=== PATIENT | female | born 1980 | race Caucasian/White ===

== ENCOUNTER 2018-06-03 16:39 | Emergency (ER) | payer OTHER ==
[2018-06-03 17:49] LABS: Absolute Lymphocytes (CBC) 1.9 K/uL (0.7-4.9); Absolute Monocytes 0.3 K/uL (0.1-1.3); Absolute Neutrophil 2.3 K/uL (1.8-8.0); Basophils % 0.4 % (0-1.3); Eosinophils % 1.5 % (0-4.4); MCH 31.5 pg (27.0-35.0); MCV 93.2 fL (80-100); MPV 9.1 fL (7.6-11.3); Monocytes % 6.8 % (3.3-12.3)
[2018-06-03] MEDS ORDERED: FENTANYL CITR 100 MCG/2 ML ONE (17:51)
[2018-06-03] MEDS ORDERED: NA CHLORIDE 0.9% 1,000 ML ONE (17:52)
[2018-06-03] MEDS ORDERED: ONDANSETRON 4 MG/2 ML VIAL ONE (17:52)
[2018-06-03 18:08] LABS: ALT/SGPT 21 U/L (12-78); AST/SGOT 12 U/L (15-37); Albumin 4.2 g/dL (3.4-5.0); Alkaline Phosphatase 48 U/L (45-117); BUN Blood Urea Nitrogen 10 mg/dL (7-18); Bicarbonate 27 mmol/L (21-32); Bilirubin Direct < 0.1 mg/dL (0-0.2); Bilirubin Total 0.4 mg/dL (0.2-1.0); Glucose Level 82 mg/dL (74-106); Lipase 156 U/L (73-393); Potassium 3.6 mmol/L (3.5-5.1); Protein, Total 7.3 g/dL (6.4-8.2); Sodium Level 143 mmol/L (136-145)
[2018-06-03 19:02] LABS: Urine Specific Gravity 1.015 (1.005-1.030)
--- NOTE | 2018-06-03 19:26 | RAD REPORT ---
EXAM DESCRIPTION: CT - Abdomen Pelvis W Contrast - 06/03/2018 7:13 pm CLINICAL HISTORY: Abdominal pain/left lower quadrant pain with nausea and vomiting. COMPARISON: 2013 TECHNIQUE: Computed axial tomography of the abdomen pelvis was obtained. 100 cc Isovue-300 was admin istered intravenously. Oral contrast was given All CT scans are performed using dose optimization technique as appropriate and may include automated exposure control or mA/KV adjustment according to patient size. FINDINGS: The liver, spleen, pancreas, adrenal and left kidney appear unremarkable. 1 millimeter non obstructing right renal calculus is seen There is no evidence of diverticulitis. A moderate amount of stool is present throughout the colon IMPRESSION: 1 millimeter nonobstructing right renal calculus Moderate amount of stool within the colon.
--- NOTE | 2018-06-03 19:38 | EDPHYS ---
Physician Documentation [facility] Name: Kavita Kwon Age: 38 yrs Sex: Female : 1980 Arrival Date: 06/03/2018 Time: 16:40 Bed 13 Private MD: Vladimir Mcconnell V ED Physician Alejandro Rm HPI: 06/03 17:09 This 38 yrs old Female presents to ER via Wheelchair with complaints of tremayne Abdominal Pain. 17:09 The patient presents with abdominal pain in the lower abdomen. Onset: The tremayne symptoms/episode began/occurred 2 day(s) ago. The patient presents with pelvic pain, that is located in/on the right lower quadrant and left lower quadrant. Onset: The symptoms/episode began/occurred 2 day(s) ago. Modifying factors: The symptoms are alleviated by remaining still, the symptoms are aggravated by movement, pressure, walking. Associated signs and symptoms: Pertinent positives: cramping. Severity of symptoms: At their worst the symptoms were mild, moderate, in the emergency department the symptoms are unchanged. 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 - Social history:: Smoking status: Patient uses tobacco products, smokes one-half pack cigarettes per day. - Ebola Screening: : No symptoms or risks identified at this time. - Family history:: not pertinent. ROS: 17:09 Constitutional: Negative for fever, chills, and weight loss, Eyes: Negative for injury, tremayne pain, redness, and discharge, ENT: Negative for injury, pain, and discharge, Neck: Negative for injury, pain, and swelling, Cardiovascular: Negative for chest pain, palpitations, and edema, Respiratory: Negative for shortness of breath, cough, wheezing, and pleuritic chest pain, Back: Negative for injury and pain, : Negative for injury, bleeding, discharge, and swelling, MS/Extremity: Negative for injury and deformity, Skin: Negative for injury, rash, and discoloration, Neuro: Negative for headache, weakness, numbness, tingling, and seizure, Psych: Negative for depression, anxiety, suicide ideation, homicidal ideation, and hallucinations, Allergy/Immunology: Negative for hives, rash, and allergies, Endocrine: Negative for neck swelling, polydipsia, polyuria, polyphagia, and marked weight changes, Hematologic/Lymphatic: Negative for swollen nodes, abnormal bleeding, and unusual bruising. 17:09 Abdomen/GI: Positive for abdominal pain, of the right lower quadrant and left lower quadrant. Exam: 17:09 Constitutional: This is a well developed, well nourished patient who is awake, alert, tremayne and in no acute distress. Head/Face: Normocephalic, atraumatic. Eyes: Pupils equal round and reactive to light, extra-ocular motions intact. Lids and lashes normal. Conjunctiva and sclera are non-icteric and not injected. Cornea within normal limits. Periorbital areas with no swelling, redness, or edema. ENT: Nares patent. No nasal discharge, no septal abnormalities noted. Tympanic membranes are normal and external auditory canals are clear. Oropharynx with no redness, swelling, or masses, exudates, or evidence of obstruction, uvula midline. Mucous membranes moist. Neck: Trachea midline, no thyromegaly or masses palpated, and no cervical lymphadenopathy. Supple, full range of motion without nuchal rigidity, or vertebral point tenderness. No Meningismus. Chest/axilla: Normal chest wall appearance and motion. Nontender with no deformity. No lesions are appreciated. Cardiovascular: Regular rate and rhythm with a normal S1 and S2. No gallops, murmurs, or rubs. Normal PMI, no JVD. No pulse deficits. Respiratory: Lungs have equal breath sounds bilaterally, clear to auscultation and percussion. No rales, rhonchi or wheezes noted. No increased work of breathing, no retractions or nasal flaring. Back: No spinal tenderness. No costovertebral tenderness. Full range of motion. Female : Normal external genitalia. Skin: Warm, dry with normal turgor. Normal color with no rashes, no lesions, and no evidence of cellulitis. MS/ Extremity: Pulses equal, no cyanosis. Neurovascular intact. Full, normal range of motion. Neuro: Awake and alert, GCS 15, oriented to person, place, time, and situation. Cranial nerves II-XII grossly intact. Motor strength 5/5 in all extremities. Sensory grossly intact. Cerebellar exam normal. Normal gait. Psych: Awake, alert, with orientation to person, place and time. Behavior, mood, and affect are within normal limits. 17:09 Abdomen/GI: Inspection: abdomen appears normal, Bowel sounds: normal, Palpation: mild abdominal tenderness, in the suprapubic area and left lower quadrant, moderate abdominal tenderness, Liver: no appreciated palpable abnormalities, Hernia: not appreciated. Vital Signs: 16:50 BP 98 / 71; Pulse 80; Resp 16 S; Temp 98.2(O); Pulse Ox 99% on R/A; Weight 54.43 kg aa5 (R); Height 5 ft. 5 in. (165.10 cm) (R); Pain 6/10; 18:55 BP 101 / 72; Pulse 78; Resp 16; Pulse Ox 99% on R/A; Pain 4/10; ls4 19:20 BP 105 / 77; Pulse 79; Resp 18 S; Temp 98.3(O); Pulse Ox 99% on R/A; cc3 20:00 BP 103 / 63; Pulse 77; Resp 18 S; Pulse Ox 98% on R/A; cc3 16:50 Body Mass Index 19.97 (54.43 kg, 165.10 cm) aa5 MDM: 16:54 Patient medically screened. [facility] 17:12 Data reviewed: vital signs, nurses notes, lab test result(s), radiologic studies, CT tremayne scan. 06/03 17:09 Order name: Basic Metabolic Panel; Complete Time: 18:11 [facility] 06/03 17:09 Order name: CBC with Diff; Complete Time: 18:11 [facility] 06/03 17:09 Order name: Creatinine for Radiology; Complete Time: 18:11 [facility] 06/03 17:09 Order name: Hepatic Function; Complete Time: 18:11 [facility] 06/03 17:09 Order name: Lipase; Complete Time: 18:11 [facility] 06/03 17:41 Order name: Urine Dipstick--Ancillary (enter results) 06/03 17:09 Order name: IV Saline Lock; Complete Time: 17:18 [facility] 06/03 17:09 Order name: Labs collected and sent; Complete Time: 17:18 [facility] 06/03 17:09 Order name: Urine Dipstick-Ancillary (obtain specimen); Complete Time: 17:55 [facility] 06/03 17:09 Order name: CT Abd/Pelvis - W/Contrast [facility] 06/03 18:39 Order name: Urine --Ancillary (enter results); Complete Time: 19:26 bd 06/03 17:09 Order name: Urine Test (obtain specimen); Complete Time: 18:48 [facility] 06/03 18:39 Order name: Urine Strainer; Complete Time: 18:48 bd Administered Medications: 17:51 Drug: Zofran 4 mg Route: IVP; Site: right antecubital; ls4 17:51 Follow up: Response: No adverse reaction ls4 17:53 Drug: fentaNYL (PF) 50 mcg Route: IVP; Site: right antecubital; ls4 18:30 Follow up: Response: No adverse reaction; Pain is decreased ls4 17:54 Drug: NS 0.9% 1000 ml Route: IV; Rate: 1 bolus; Site: right antecubital; ls4 19:05 Follow up: IV Status: Completed infusion; IV Intake: 1000ml ls4 Disposition: 06/03/18 19:37 Discharged to Home. Impression: Abdominal tenderness, Constipation. - Condition is Stable. - Discharge Instructions: Abdominal Pain, Adult, Abdominal Pain, Adult, [id number], Constipation, Pediatric, Ottg-[id number]. - Prescriptions for Bentyl 20 mg Oral Tablet - take 1 tablet by ORAL route every 6 hours As needed; 20 tablet. Zofran 4 mg Oral Tablet - take 1 tablet by ORAL route every 12 hours As needed; 20 tablet. Miralax 17 gram/dose Oral - take 1 packet by ORAL route once daily dilute powder in 8 ounces of water or juice; 14 packet. - Medication Reconciliation Form, Thank You Letter, Antibiotic Education, Prescription Opioid Use form. - Follow up: Vladimir Mcconnell; When: 2 - 3 days; Reason: Recheck today's complaints, Continuance of care, Re-evaluation by your physician. - Problem is new. - Symptoms have improved. Signatures: Dispatcher [employer] EDRaiza De Leon Corey, MD MD cha Calderon, Audri, RN RN aa5 Sal Darden RN RN jd3 Nava Tovar RN RN ls4 Corrections: (The following items were deleted from the chart) 19:47 19:37 06/03/2018 19:37 Discharged to Home. Impression: Abdominal tenderness. Condition tremayne is Stable. Discharge Instructions: Abdominal Pain, Adult, Abdominal Pain, Adult, Sdxp-wo-[id number], Constipation, Pediatric, Ihym-[id number]. Prescriptions for Bentyl 20 mg Oral Tablet - take 1 tablet by ORAL route every 6 hours As needed; 20 tablet, Tylenol-Codeine #3 300-30 mg Oral Tablet - take 2 tablets by ORAL route every 6 hours As needed; 20 tablet, Zofran 4 mg Oral Tablet - take 1 tablet by ORAL route every 12 hours As needed; 20 tablet. and Forms are Medication Reconciliation Form, Thank You Letter, Antibiotic Education, Prescription Opioid Use. Follow up: Vladimir Mcconnell; When: 2 - 3 days; Reason: Recheck today's complaints, Continuance of care, Re-evaluation by your physician. Problem is new. Symptoms have improved. [facility] 20:18 19:47 06/03/2018 19:37 Discharged to Home. Impression: Abdominal tenderness; jd3 Constipation. Condition is Stable. Discharge Instructions: Abdominal Pain, Adult, Abdominal Pain, Adult, Dhdn-ax-Ccul, Constipation, Pediatric, [id number]-mb-Mzwc. Prescriptions for Bentyl 20 mg Oral Tablet - take 1 tablet by ORAL route every 6 hours As needed; 20 tablet, Tylenol-Codeine #3 300-30 mg Oral Tablet - take 2 tablets by ORAL route every 6 hours As needed; 20 tablet, Zofran 4 mg Oral Tablet - take 1 tablet by ORAL route every 12 hours As needed; 20 tablet. and Forms are Medication Reconciliation Form, Thank You Letter, Antibiotic Education, Prescription Opioid Use. Follow up: Vladimir Mcconnell; When: 2 - 3 days; Reason: Recheck today's complaints, Continuance of care, Re-evaluation by your physician. Problem is new. Symptoms have improved. tremayne
--- NOTE | 2018-06-03 19:38 | ER ---
Nurse's Notes [facility] Name: Kavita Kwon Age: 38 yrs Sex: Female : 1980 Arrival Date: 06/03/2018 Time: 16:40 Bed 13 Private MD: Vladimir Mcconnell V Diagnosis: Abdominal tenderness;Constipation Presentation: 06/03 16:47 Presenting complaint: Patient states: LLQ pain that began today. Pt also reports nausea aa5 and vomiting. Transition of care: patient was not received from another setting of care. Onset of symptoms was May 2018. Risk Assessment: Do you want to hurt yourself or someone else? Patient reports no desire to harm self or others. Initial Sepsis Screen: Does the patient meet any 2 criteria? No. Patient's initial sepsis screen is negative. Does the patient have a suspected source of infection? No. Patient's initial sepsis screen is negative. Care prior to arrival: None. 16:47 Method Of Arrival: Wheelchair aa5 16:47 Acuity: SUZY 3 aa5 Triage Assessment: 17:03 General: Appears distressed, unkempt, Behavior is cooperative, restless. Pain: ls4 Complains of pain in suprapubic area, left lower quadrant and pelvis Pain currently is 9 out of 10 on a pain scale. Quality of pain is described as crampy, heavy. GI: No deficits noted. : Reports cramping. Musculoskeletal: No deficits noted. [employer]: 16:50 LMP N/A - Hysterectomy aa5 Historical: - Allergies: 16:49 lidocaine; aa5 16:49 Morphine (panic attack); aa5 - PMHx: 16:49 diverticulosis; Enrique's esophagus; aa5 16:50 Anxiety; Migraines; Heart Murmur; Irregular heart rate; aa5 16:50 Chronic Gastritis; aa5 - PSHx: 16:49 partial hysterectomy; Exploratory lap; Appendectomy; aa5 - Immunization history:: Adult Immunizations unknown. - Social history:: Smoking status: Patient uses tobacco products, smokes one-half pack cigarettes per day. - Ebola Screening: : No symptoms or risks identified at this time. - Family history:: not pertinent. Screenin:50 Abuse screen: Denies threats or abuse. Denies injuries from another. Nutritional ls4 screening: No deficits noted. Tuberculosis screening: No symptoms or risk factors identified. Fall Risk None identified. Assessment: 17:40 General: Appears distressed, uncomfortable. ls4 17:40 Pain: Complains of pain in right lower quadrant and pelvis and abdomen and left lower ls4 quadrant and suprapubic area Pain currently is 8 out of 10 on a pain scale. Pain began suddenly. Neuro: No deficits noted. Cardiovascular: No deficits noted. Respiratory: No deficits noted. GI: Bowel sounds present X 4 quads. Abd is soft and non tender. Musculoskeletal: No deficits noted. 19:20 Reassessment: Patient appears in no apparent distress at this time. Patient and/or cc3 family updated on plan of care and expected duration. Pain level reassessed. Patient is alert, oriented x 3, equal unlabored respirations, skin warm/dry/pink. Received patient from morning shift RN Nava as a case of abdominal pain. Patient just came back from CT scan department. 20:10 Reassessment: Patient appears in no apparent distress at this time. Patient and/or cc3 family updated on plan of care and expected duration. Pain level reassessed. Patient is alert, oriented x 3, equal unlabored respirations, skin warm/dry/pink. Dr. Rm discharged the patient home with prescription given. IV cannula removed and patient left ER vitally stable and ambulatory with her . Vital Signs: 16:50 BP 98 / 71; Pulse 80; Resp 16 S; Temp 98.2(O); Pulse Ox 99% on R/A; Weight 54.43 kg aa5 (R); Height 5 ft. 5 in. (165.10 cm) (R); Pain 6/10; 18:55 BP 101 / 72; Pulse 78; Resp 16; Pulse Ox 99% on R/A; Pain 4/10; ls4 19:20 BP 105 / 77; Pulse 79; Resp 18 S; Temp 98.3(O); Pulse Ox 99% on R/A; cc3 20:00 BP 103 / 63; Pulse 77; Resp 18 S; Pulse Ox 98% on R/A; cc3 16:50 Body Mass Index 19.97 (54.43 kg, 165.10 cm) aa5 ED Course: 16:40 Patient arrived in ED. rg4 16:40 Vladimir Mcconnell MD is Private Physician. rg4 16:48 Triage completed. aa5 16:48 Arm band placed on. aa5 16:53 Nava Tovar, RN is Primary Nurse. ls4 16:54 Alejandro Rm MD is Attending Physician. tremayne 17:30 No provider procedures requiring assistance completed. Inserted saline lock: 20 gauge ls4 in right antecubital area, using aseptic technique. 18:50 Placed in gown. Call light in reach. Side rails up X2. ls4 19:13 CT Abd/Pelvis - W/Contrast In Process Unspecified. EDMS 19:36 Vladimir Mcconnell MD is Referral Physician. tremayne 20:10 IV discontinued, intact, bleeding controlled, No redness/swelling at site. Pressure cc3 dressing applied. Administered Medications: 17:51 Drug: Zofran 4 mg Route: IVP; Site: right antecubital; ls4 17:51 Follow up: Response: No adverse reaction ls4 17:53 Drug: fentaNYL (PF) 50 mcg Route: IVP; Site: right antecubital; ls4 18:30 Follow up: Response: No adverse reaction; Pain is decreased ls4 17:54 Drug: NS 0.9% 1000 ml Route: IV; Rate: 1 bolus; Site: right antecubital; ls4 19:05 Follow up: IV Status: Completed infusion; IV Intake: 1000ml ls4 Intake: 19:05 IV: 1000ml; Total: 1000ml. ls4 Outcome: 18:51 Condition: stable ls4 19:37 Discharge ordered by . tremayne 20:10 Discharged to home ambulatory, with family. cc3 20:10 Condition: stable 20:10 Discharge instructions given to patient, family, Instructed on discharge instructions, follow up and referral plans. medication usage, Demonstrated understanding of instructions, follow-up care, medications, Prescriptions given X 3. 20:18 Patient left the ED. jd3 Signatures: Dispatcher [employer] EDSC Alejandro Rm MD MD cha Calderon, Audri RN RN aa5 [place] Sal Garg RN RN jd3 Danielle Eldridge cc3 Nava Tovar, PRATIBHA RN ls4
[2018-06-03 20:49] VITALS: TEMP 98.2; O2SAT 99
[2018-06-03 20:53] VITALS: BP 101/72
[2018-06-03 22:22] LABS: Urine Blood NEGATIVE (NEG); Urine Glucose NEGATIVE (NEG); Urine Protein NEGATIVE (NEG); Urine Specific Gravity 1.015 (1.005-1.030)
== END 2018-06-03 20:18 | disposition home or self-care (01) ==
LOC: ER 16:39
DX: K59.00 Constipation, unspecified (principal); F17.210 Nicotine dependence, cigarettes, uncomplicated; Z88.5 Allergy status to narcotic agent
CPT/HCPCS: 36415; 74177; 80048; 80076; 81003; 81025; 83690; 85025; 96361; 96374; 96375; 99284; J2405; J3010; J7030; Q9967

== ENCOUNTER 2019-05-31 17:05 | Emergency (ER) | payer OTHER ==
[2019-05-31] MEDS ORDERED: FENTANYL CITR 100 MCG/2 ML ONE ×2 (17:39→18:47)
[2019-05-31] MEDS ORDERED: ONDANSETRON 4 MG/2 ML VIAL ONE (17:39)
[2019-05-31 17:55] LABS: Absolute Lymphocytes (CBC) 1.9 K/uL (0.7-4.9); Basophils % 0.3 % (0-1.3); Hematocrit 41.7 % (36.0-45.0); Lymphocytes % 31.9 % (15.3-44.8); MPV 8.8 fL (7.6-11.3); RBC Red Blood Cell Count 4.47 M/uL (3.86-4.86)
[2019-05-31 18:06] LABS: Potassium 3.5 mmol/L (3.5-5.1)
--- NOTE | 2019-05-31 18:29 | RAD REPORT ---
EXAM DESCRIPTION: CT - Abdomen Pelvis W Contrast - 05/31/2019 6:18 pm CLINICAL HISTORY: ABD PAIN, history of Hicks's esophagus, diverticulosis and gastritis, prior hyst erectomy and appendectomy COMPARISON: CT study May 2018 TECHNIQUE: Biphasic, helical CT imaging of the abdomen and pelvis was performed following 100 ml non -ionic IV contrast. No oral contrast given. All CT scans are performed using dose optimization technique as appropriate and may include automated exposure control or mA/KV adjustment according to patient size. FINDINGS: No suspicious findings in the lung bases. No pericardial effusion. No gross abnormality of the distal thoracic esophagus at the GE junction. The liver, spleen, and pancreas show no suspicious findings. Gallbladder and biliary tree are also wi thout suspicious finding. Symmetric renal function is seen with no hydronephrosis or suspicious renal mass. Punctate 1 mm nonob structing calculus mid right kidney similar to comparison. No pyelonephritis or acute parenchymal pro cess. No bladder abnormalities. No adrenal abnormalities. Uterus is absent. Ovaries are absent, atrophic or obscured by isodense, on opacified bowel. No suspic ious ovarian or adnexal process. No dilated bowel loops or bowel wall thickening. No free air, free fluid or inflammatory stranding. No hernia, mass or bulky lymphadenopathy. No suspicious bony findings. IMPRESSION: Contrast enhanced CT abdomen and pelvis showing no acute finding. Nonacute findings detailed in the body of the report. No significant change from comparison.
--- NOTE | 2019-05-31 18:43 | ER ---
Nurse's Notes [facility] Name: Kavita Kwon Age: 39 yrs Sex: Female : 1980 Arrival Date: 05/31/2019 Time: 17:07 Bed 6 Private MD: Vladimir Mcconnell V Diagnosis: Low back pain Presentation: 05/31 17:20 Presenting complaint: Patient states: lower back pain radiating to lower abdomen that aa5 began 2 weeks ago. Pt states "It's just getting harder to walk because it hurts". Pt denies known injury. Pt reports nausea, reports intermittent vomiting over the last week, denies diarrhea. 17:20 Transition of care: patient was not received from another setting of care. Onset of aa5 symptoms was May 2019. Risk Assessment: Do you want to hurt yourself or someone else? Patient reports no desire to harm self or others. Initial Sepsis Screen: Does the patient meet any 2 criteria? No. Patient's initial sepsis screen is negative. Does the patient have a suspected source of infection? No. Patient's initial sepsis screen is negative. Care prior to arrival: None. 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 - Social history:: Smoking status: Patient uses tobacco products, smokes one pack cigarettes per day. - Ebola Screening: : No symptoms or risks identified at this time. Screenin:34 Abuse screen: Denies threats or abuse. Nutritional screening: No deficits noted. aa5 Tuberculosis screening: No symptoms or risk factors identified. Fall Risk None identified. Assessment: 17:20 General: Appears uncomfortable, Behavior is calm, cooperative. Pain: Complains of pain aa5 in lumbar area, left low back and right low back Pain radiates to suprapubic area Pain currently is 8 out of 10 on a pain scale. Quality of pain is described as sharp, shooting, Pain began 2 weeks ago Is continuous. Neuro: Level of Consciousness is awake, alert, obeys commands, Oriented to person, place, time, situation. Cardiovascular: Heart tones S1 S2 present Rhythm is regular. Respiratory: Airway is patent Respiratory effort is even, unlabored, Respiratory pattern is regular, symmetrical. GI: Abdomen is round non-distended, Bowel sounds present X 4 quads. Abd is soft and non tender X 4 quads. Reports nausea, Patient currently denies diarrhea. : Denies burning with urination, inability to void, urinary frequency, urgency. EENT: No signs and/or symptoms were reported regarding the EENT system. Derm: Skin is pink, warm \\T\\ dry. Musculoskeletal: Range of motion: intact in all extremities. 17:54 Reassessment: Pt to CT . aa5 18:25 Reassessment: Patient is alert, oriented x 3, equal unlabored respirations, skin aa5 warm/dry/pink. Patient states feeling better. Pain: Pain currently is 4 out of 10 on a pain scale. 18:55 Reassessment: Patient is alert, oriented x 3, equal unlabored respirations, skin aa5 warm/dry/pink. Vital Signs: 17:25 BP 118 / 89; Pulse 97; Resp 16 S; Temp 97.8(O); Pulse Ox 100% on R/A; Weight 54.43 kg aa5 (R); Height 5 ft. 5 in. (165.10 cm) (R); 18:55 BP 112 / 79; Pulse 88; Resp 14 S; Pulse Ox 100% on R/A; Pain 4/10; aa5 17:25 Body Mass Index 19.97 (54.43 kg, 165.10 cm) aa5 ED Course: 17:07 Patient arrived in ED. ag5 17:08 Vladimir Mcconnell MD is Private Physician. ag5 17:13 Jose E Khan PA is PHCP. jr8 17:13 Jefe Pierce MD is Attending Physician. jr8 17:14 Sarai Hong, PRATIBHA is Primary Nurse. aa5 17:20 Arm band placed on Patient placed in an exam room, on a stretcher. aa5 17:20 Patient has correct armband on for positive identification. Bed in low position. Call aa5 light in reach. Side rails up X 1. 17:32 Triage completed. aa5 17:45 Initial lab(s) drawn, by me, sent to lab. Inserted saline lock: 20 gauge in right aa5 antecubital area, using aseptic technique. Blood collected. 17:45 No provider procedures requiring assistance completed. aa5 18:01 CT completed. Patient tolerated procedure well. Patient moved back from CT. mw3 18:03 CT Abd/Pelvis - IV Contrast Only In Process Unspecified. EDMS 18:55 IV discontinued, intact, bleeding controlled, No redness/swelling at site. Pressure aa5 dressing applied. Administered Medications: 17:45 Drug: Zofran 4 mg Route: IVP; Site: right antecubital; aa5 17:54 Follow up: Response: No adverse reaction aa5 17:47 Drug: fentaNYL (PF) 50 mcg Route: IVP; Site: right antecubital; aa5 17:54 Follow up: Response: No adverse reaction aa5 18:44 Drug: fentaNYL (PF) 50 mcg Route: IVP; Site: right antecubital; aa5 18:50 Follow up: Response: No adverse reaction aa5 Outcome: 18:43 Discharge ordered by . morgan 18:55 Discharged to home via wheelchair. aa5 18:55 Condition: improved 18:55 Discharge instructions given to patient, Instructed on discharge instructions, follow up and referral plans. medication usage, Demonstrated understanding of instructions, follow-up care, medications, Prescriptions given X 1. 19:02 Patient left the ED. aa5 Signatures: Dispatcher [employer] EDSarai Rajan RN RN aa5 Jose E Khan PA PA jr8 Paty Alan mw3 Nazario Negrete 5
--- NOTE | 2019-05-31 18:44 | EDPHYS ---
Physician Documentation [facility] Name: Kavita Kwon Age: 39 yrs Sex: Female : 1980 Arrival Date: 05/31/2019 Time: 17:07 Bed 6 Private MD: Vladimir Mcconnell V ED Physician Jefe Pierce HPI: 05/31 18:44 This 39 yrs old Female presents to ER via Wheelchair with complaints of Low jr8 Back Pain, Abdominal Pain. 18:44 The patient presents with pain that is acute, with no known mechanism of injury. The jr8 symptoms are located in the low back. The pain radiates to the abdomen. Onset: The symptoms/episode began/occurred last week. Modifying factors: the patient symptoms are aggravated by leg raise. Associated signs and symptoms: Pertinent negatives: numbness, tingling, urinary retention, weakness. Severity of symptoms: At their worst the symptoms were mild, in the emergency department the symptoms have improved. 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 - Social history:: Smoking status: Patient uses tobacco products, smokes one pack cigarettes per day. - Ebola Screening: : No symptoms or risks identified at this time. ROS: 18:44 Constitutional: Negative for fever, chills, and weight loss, Eyes: Negative for injury, jr8 pain, redness, and discharge, ENT: Negative for injury, pain, and discharge, Neck: Negative for injury, pain, and swelling, Cardiovascular: Negative for chest pain, palpitations, and edema, Respiratory: Negative for shortness of breath, cough, wheezing, and pleuritic chest pain, Abdomen/GI: Negative for abdominal pain, nausea, vomiting, diarrhea, and constipation, MS/Extremity: Negative for injury and deformity, Skin: Negative for injury, rash, and discoloration. 18:44 Back: Positive for pain with movement, of the left low back and right low back. Exam: 18:48 Constitutional: This is a well developed, well nourished patient who is awake, alert, jr8 and in no acute distress. Head/Face: Normocephalic, atraumatic. Eyes: Pupils equal round and reactive to light, extra-ocular motions intact. Lids and lashes normal. Conjunctiva and sclera are non-icteric and not injected. Cornea within normal limits. Periorbital areas with no swelling, redness, or edema. ENT: Nares patent. No nasal discharge, no septal abnormalities noted. Tympanic membranes are normal and external auditory canals are clear. Oropharynx with no redness, swelling, or masses, exudates, or evidence of obstruction, uvula midline. Mucous membranes moist. Neck: Trachea midline, no thyromegaly or masses palpated, and no cervical lymphadenopathy. Supple, full range of motion without nuchal rigidity, or vertebral point tenderness. No Meningismus. Chest/axilla: Normal chest wall appearance and motion. Nontender with no deformity. No lesions are appreciated. Cardiovascular: Regular rate and rhythm with a normal S1 and S2. No gallops, murmurs, or rubs. Normal PMI, no JVD. No pulse deficits. Respiratory: Lungs have equal breath sounds bilaterally, clear to auscultation and percussion. No rales, rhonchi or wheezes noted. No increased work of breathing, no retractions or nasal flaring. Abdomen/GI: Soft, non-tender, with normal bowel sounds. No distension or tympany. No guarding or rebound. No evidence of tenderness throughout. 18:48 Back: pain, that is moderate, CVA tenderness, is absent, vertebral tenderness, is not appreciated, Straight leg raises: pain bilaterally. Vital Signs: 17:25 BP 118 / 89; Pulse 97; Resp 16 S; Temp 97.8(O); Pulse Ox 100% on R/A; Weight 54.43 kg aa5 (R); Height 5 ft. 5 in. (165.10 cm) (R); 18:55 BP 112 / 79; Pulse 88; Resp 14 S; Pulse Ox 100% on R/A; Pain 4/10; aa5 17:25 Body Mass Index 19.97 (54.43 kg, 165.10 cm) aa5 MDM: 17:13 Patient medically screened. 8 18:48 Data reviewed: vital signs, nurses notes, lab test result(s), radiologic studies, and jr8 as a result, I will discharge patient. Data interpreted: Pulse oximetry: on is 100 %. Interpretation: normal. ED course: Pt pain is tolerable, tolerating PO, states she will FU with neurology and for possible MRI. 05/31 17:36 Order name: CBC with Diff; Complete Time: 18:35 jr8 05/31 17:36 Order name: BMP; Complete Time: 18:35 jr8 05/31 17:36 Order name: CT Abd/Pelvis - IV Contrast Only; Complete Time: 18:35 jr8 05/31 17:36 Order name: Lipase; Complete Time: 18:35 jr8 05/31 18:00 Order name: Urine Dipstick--Ancillary (enter results) ms 05/31 18:00 Order name: Urine --Ancillary (enter results) ms 05/31 17:36 Order name: Urine Dipstick-Ancillary (obtain specimen); Complete Time: 17:38 jr8 Administered Medications: 17:45 Drug: Zofran 4 mg Route: IVP; Site: right antecubital; aa5 17:54 Follow up: Response: No adverse reaction aa5 17:47 Drug: fentaNYL (PF) 50 mcg Route: IVP; Site: right antecubital; aa5 17:54 Follow up: Response: No adverse reaction aa5 18:44 Drug: fentaNYL (PF) 50 mcg Route: IVP; Site: right antecubital; aa5 18:50 Follow up: Response: No adverse reaction aa5 Disposition: 05/31/19 18:43 Discharged to Home. Impression: Low back pain. - Condition is Stable. - Discharge Instructions: Back Pain, Adult, Musculoskeletal Pain, Back Exercises, [id number], Heat Therapy. - Prescriptions for Zanaflex 4 mg Oral Tablet - take 1 tablet by ORAL route every 8 hours As needed; 20 tablet. - Medication Reconciliation Form, Thank You Letter form. - Follow up: Private Physician; When: 2 - 3 days; Reason: Recheck today's complaints, Re-evaluation by your physician. - Problem is new. - Symptoms have improved. Signatures: Dispatcher [employer] EDMS Sarai Hong RN RN aa5 Jose E Khan PA PA jr8 Corrections: (The following items were deleted from the chart) 19:02 18:43 05/31/2019 18:43 Discharged to Home. Impression: Low back pain. Condition is aa5 Stable. Forms are Medication Reconciliation Form, Thank You Letter, Antibiotic Education, Prescription Opioid Use. Follow up: Private Physician; When: 2 - 3 days; Reason: Recheck today's complaints, Re-evaluation by your physician. Problem is new. Symptoms have improved. jr8
[2019-05-31 19:22] LABS: Urine Blood NEGATIVE (NEG); Urine Glucose NEGATIVE (NEG); Urine Protein NEGATIVE (NEG); Urine Specific Gravity 1.015 (1.005-1.030)
[2019-05-31 19:52] VITALS: TEMP 97.8; O2SAT 100
[2019-05-31 19:53] VITALS: BP 112/79
== END 2019-05-31 19:02 | disposition home or self-care (01) ==
LOC: ER 17:05
DX: M54.5 Low back pain (principal); F17.210 Nicotine dependence, cigarettes, uncomplicated; Z88.5 Allergy status to narcotic agent
CPT/HCPCS: 85025; 80048; 36415; 81025; 81003; 83690; 74177; 96375; 96374; 99284; Q9967; J3010 ×2; J2405

== ENCOUNTER 2020-02-10 12:30 | Inpatient (IN) | payer OTHER ==
[2020-02-10 13:41] VITALS: BMI 19.1
[2020-02-10 14:43] LABS: Absolute Lymphocytes (CBC) 0.9 K/uL (0.7-4.9); Basophils % 0.2 % (0-1.3); Hematocrit 38.5 % (36.0-45.0); Lymphocytes % 7.3 % (15.3-44.8); MPV 9.1 fL (7.6-11.3); RBC Red Blood Cell Count 4.22 M/uL (3.86-4.86)
[2020-02-10 14:51] LABS: BUN Blood Urea Nitrogen 9 mg/dL (7-18); Bicarbonate 26 mmol/L (21-32); Glucose Level 71 mg/dL (74-106); Potassium 3.1 mmol/L (3.5-5.1); Sodium Level 140 mmol/L (136-145)
[2020-02-10 14:54] LABS: Protime INR 1.05
--- NOTE | 2020-02-10 15:01 | RAD REPORT ---
EXAM DESCRIPTION: RAD - Chest Pa And Lat (2 Views) - 02/10/2020 2:44 pm CLINICAL HISTORY: acute parotitis Chest pain. COMPARISON: ABDOMEN 1 VIEW KUB dated 09/13/2015; CHEST SINGLE VIEW dated 05/27/2015; CHEST SINGLE VIEW dated 05/10/2015; CHEST SINGLE VIEW dated 12/20/2014 FINDINGS: The lungs are clear. The heart is normal in size. No displaced fractures. IMPRESSION: No acute or concerning finding suspected.
--- NOTE | 2020-02-10 15:02 | RAD REPORT ---
EXAM DESCRIPTION: RAD - Neck Soft Tissue - 02/10/2020 2:42 pm CLINICAL HISTORY: acute parotitis Neck pain COMPARISON: No comparisons FINDINGS: Prevertebral soft tissues are normal. Epiglottis and aryepiglottic folds are normal. Air c olumn is patent. No foreign body is seen.Prominent spondylosis is noted at C5-6 with posterior osteop hyte. IMPRESSION: Prominent spondylosis C5-6.
[2020-02-10 15:19] LABS: Bilirubin Direct 0.2 mg/dL (0-0.2); Bilirubin Total 0.6 mg/dL (0.2-1.0); Phosphorus 2.7 mg/dL (2.5-4.9); Protein, Total 7.8 g/dL (6.4-8.2); Thyroid Stimulating Hormone 0.705 uIU/mL (0.360-3.740)
[2020-02-10 15:33] LABS: Blood Morphology Comment NOT SEEN (NOT SEEN); Platelet Estimate ADEQ; Urine White Blood Cell Casts OK
[2020-02-10] MEDS: KCL 20 MEQ/100 mL IVPB 20 MEQ/100 ML BAG IV SCH ×2 (15:36→18:43)
[2020-02-10] MEDS ORDERED: NA CHLORIDE 0.9% 500 ML ONE (15:42)
[2020-02-10 16:09] LABS: Urine Appearance CLEAR; Urine Bilirubin NEGATIVE (NEG); Urine Blood NEGATIVE (NEG); Urine Color YELLOW; Urine Glucose NEGATIVE (NEG); Urine Protein NEGATIVE (NEG); Urine Urobilinogen 0.2 mg/dL (0.2-1.0); Urine pH 5.5 (5.0-7.0)
--- OUTSIDE RECORDS SUMMARY | 2020-02-10 16:24 | XMS REPORT | Continuity of Care Document ---
:1980 Author Organization [facility] t Address [address] [place] [address] Dr. Lee [address] [place] [id number] Care Team Providers Name Role Phone Unavailable Unavailable Unavailable Problems This patient has no known problems. Allergies, Adverse Reactions, Alerts This patient has no known allergies or adverse reactions. Medications This patient has no known medications. Procedures This patient has no known procedures. Results This patient has no known results.
[2020-02-10 16:41] LABS: Urine Microscopic Reflex NO UMIC
[2020-02-10] MEDS ORDERED: dexAMETHasone 10 MG/ML VIAL IV ONE (17:00)
[2020-02-10] MEDS ORDERED: CLINDAMYCIN INJ 900 MG in NA CHLORIDE 0.9% 50 ML IV ONE (17:00)
[2020-02-10] MEDS ORDERED: propofoL 200 MG/20 ML VIAL IV ONE (20:06)
[2020-02-10] MEDS ORDERED: MIDAZOLAM HCL 2 MG/2 ML INJ ONE (20:06)
[2020-02-10] MEDS ORDERED: GLYCOPYRROLATE 0.2 MG/ML SYR ONE (20:06)
[2020-02-10] MEDS ORDERED: FENTANYL CITR 100 MCG/2 ML ONE (20:06)
[2020-02-10] MEDS ORDERED: LIDOCAINE 1% MPF 5 ML VIAL ONE (20:07)
[2020-02-10] MEDS ORDERED: ONDANSETRON 4 MG/2 ML VIAL ONE (20:07)
[2020-02-10] MEDS ORDERED: ROCURONIUM 50 MG/5 ML VIAL IV ONE (20:07)
[2020-02-10] MEDS ORDERED: dexAMETHasone 4 MG/ML VIAL ONE (20:07)
[2020-02-10] MEDS ORDERED: NEOSTIGMINE 1 MG/ML -5 ML ONE (20:08)
[2020-02-10] MEDS ORDERED: EPINEPHRINE 1 MG/ML VIAL ONE (21:00)
[2020-02-10] MEDS: HYDROMORPHONE HCL 1 MG/ML INJ ONE ×4 (21:18→21:38)
--- NOTE | 2020-02-10 21:35 | CON ---
Date of Consultation: 02/10/2020 Requesting Physician: Vladimir Mcconnell M.D. Reason For Consultation: Odynophagia. History Of Present Illness: Ms. Kwon is a 39-year-old female who developed sore throat approximately 4-5 days ago. She was seen 2 days ago at [facility] and underwent a contrasted CT scan of the neck, which she was told was normal and a strep test which was negative. She was discharged without any antibiotics. Her right throat worsened in regard to pain and developed sense of swelling. Over the last 48 hours, she has developed right ear pain and inability to swallow fluids. During the day today, she was able to only take a few sips of water after taking some chicken broth for dinner last night. She presented to her primary care physician's office today and due to her acutely ill appearance, she was admitted to the hospital for hydration and further evaluation. The patient denies any prior significant tonsillitis as an adult. She has not had any previous peritonsillar abscess. She does recall having frequent strep throat in childhood, but no recent issues. Past Medical History: Hicks's esophagus, anxiety, cervical spondylosis. Past Surgical History: Multiple abdominal surgeries including a laparotomy. Detailed or indication for surgery are not very clear to me at this time. Allergies: NONE KNOWN. Home Medications: Clonazepam 0.5 mg twice daily. Amitripylene. Social History: The patient quit tobacco smoking approximately 6-9 months ago. She denies alcohol use. She admits to marijuana use 2-3 times a week. Family History: Noncontributory. Review of Systems: General: The patient denies fever, chest pain, shortness of breath, current abdominal pain, current nasal obstruction or recent loss of sense of smell. ENT: Include right ear, right throat pain, difficulty swallowing, pain with swallowing, and a change in her voice including a muffled voice. Physical Examination: General: The patient appeared acutely ill, her face is symmetric and atraumatic. There is no sign of swelling of the salivary gland. HEENT: Her facial strength is symmetric. External ears and nose are unremarkable. Her pupils are equal and reactive. Her extraocular movements are intact. Her sclerae are clear. Nares are patent. The patient has moderate trismus. Her dentition is [id number]. She has mild xerostomia, which may be related to hydration and decreased p.o. intake, but may be exacerbated by medication. Her right soft palate and lateral pharyngeal wall are significantly edematous and bulging with concern for peritonsillar versus parapharyngeal abscess consistent with her history. Neck: Her neck is soft. Review Of Clinical Data: Plain film of the neck is unremarkable. There is no significant swelling of the epiglottis and the vallecula appear clear. Laboratory Studies: Indicate an elevated white blood cell count with a left shift. Assessment: Right acute peritonsillar abscess. Plan: I counseled the patient regarding the development of these infections. It is likely that she had some tonsillitis when she was in the emergency room previously, which has now progressed to a izabela-tonsillitis versus abscess. We discussed the role for imaging, but based on her history and clinical exam, I do not think this is likely to alter my recommendations for medical and surgical treatment. We discussed medical options with treatment using IV antibiotics and IV steroids with reassessment in the morning for clinical improvement. We discussed surgical options including needle aspiration, incision and drainage at the bedside, and incision and drainage in the OR under general anesthetic. The patient is in significant discomfort with prior medical therapy. Based on the degree of swelling, I recommend surgical therapy. The patient feels unable to tolerate a bedside procedure and would like to undergo the incision and drainage under a general anesthetic. We will keep her n.p.o. and plan for surgery this evening. I discussed the risks, benefits, and alternatives to the procedure with the patient who agreed to proceed. Written consent can be obtained by the nursing staff. I will plan to discuss with the anesthesia staff regarding the patient's trismus in case advanced airway intervention is required. KYLE/FREDERICK Voice ID: [id number] Report ID: [id number] VICKY
[2020-02-11] MEDS: IBUPROFEN 100 MG/5 ML UCUP PO PRN ×3 (01:01→20:48)
[2020-02-11] MEDS: dexAMETHasone 10 MG/ML VIAL IV SCH ×3 (01:02→17:03)
[2020-02-11] MEDS: D5.45NS W/KCL 20MEQ 20 MEQ/1,000 ML BAG IV SCH ×4 (01:03→18:00)
[2020-02-11] MEDS ORDERED: CLINDAMYCIN 900MG/D5W 900 MG/50 ML IVPB IV ONE (01:23)
[2020-02-11] MEDS: CLINDAMYCIN INJ 900 MG in NA CHLORIDE 0.9% 50 ML IV SCH ×3 (01:32→17:06)
--- NOTE | 2020-02-11 02:22 | OP ---
Surgeon: Sabrina Perkins MD Postoperative Diagnosis: Right peritonsillar abscess. Postoperative Diagnosis: Right peritonsillar phlegmon with possible spontaneous drainage. Indication For Procedure: The patient presented with several days of right throat pain, pain with sw allowing, difficulty swallowing and right ear pain. Her clinical exam was consistent with right izabela tonsillar abscess with bulging of the soft palate. The plan was made for incision and drainage in e operating room. In preparation for surgery she was treated with 900 mg IV of clindamycin and 10 mg of Decadron. Immediately prior to surgery, the patient reported that she had extravasation of a fou l tasting material into the mouth, which was suggestive of peritonsillar abscess with spontaneous katherin inage. Due to the plan for surgery, the decision was made to proceed for an exam under anesthesia wi possible incision and drainage. Procedure In Detail: The patient was brought to the operating room. She was placed in supine positi on under general anesthesia via oral endotracheal tube. The head of bed was turned 90 degrees. Due to patient's history of spinal spondylosis, no shoulder roll was placed and the neck was left in a ne utral position. A head drape was applied. The McIvor mouth gag was placed within the mouth, then us ed to expose the oropharynx by suspension from the Berger stand. The uvula was moderately edematous. The right tonsil had some tonsilliths and debris, which was suctioned. The peritonsillar tissues inc luding the lateral pharyngeal wall and right posterior pharyngeal wall were edematous. The palate, w hich had previously been bulging was relatively flat. The Bovie was used to make a mucosal incision in the anterior pillar and the muscular layers were bluntly dissected using a tonsil clamp. No discr ete pocket of fluid was noted. The mucosal incision was treated with direct pressure to control blee ding. The posterior wall, lateral wall, and peritonsillar area were carefully palpated. The area wa s felt to be edematous without a discrete fluid collection and no additional incision was made. An e pinephrine-soaked pledget was applied to the incision to help control mucosal oozing and a small amou nt of cautery was applied to obtain hemostasis. The oropharynx was suctioned and the procedure was c oncluded. The McIvor was removed and the patient was returned to care of anesthesia for awakening ex tubation in the operating room. Throughout the procedure, careful attention was paid to the patient' s neck to maintain in-line stabilization without extensive extension or flexion. Disposition: The patient will be returned to the floor to continue IV clindamycin and Decadron. I r ecommend a total of at least 24 hours of medication. If the patient is clinically improving and tole rating oral fluids, she can be discharged on oral clindamycin and follow up with Dr. Perkins on an as -needed basis. KYLE/FREDERICK Voice ID: [id number] Report ID: [id number]
[2020-02-11 04:22] LABS: BUN Blood Urea Nitrogen 13 mg/dL (7-18); Bicarbonate 21 mmol/L (21-32); Glucose Level 195 mg/dL (74-106); Potassium 4.3 mmol/L (3.5-5.1); Sodium Level 137 mmol/L (136-145)
--- NOTE | 2020-02-11 07:18 | EKG ---
Test Date: 2020-02-10 Test Time: 13:37:52 Show Design Supervisor: LISA MEASUREMENT RESULTS: Intervals: Rate: 95 AL: 144 QRSD: 94 QT: 362 QTc: 454 [place]: P: 73 AL: 144 QRS: 90 T: 69 INTERPRETIVE STATEMENTS: Normal sinus rhythm Rightward axis Borderline ECG Compared to ECG 05/27/2015 14:26:47 Right-axis deviation now present Electronically Signed On 02-11-20 07:15:47 CDT by Naresh Whelan
[2020-02-11] MEDS ORDERED: clonazePAM 0.5 MG TAB PO SCH (10:00)
--- NOTE | 2020-02-11 11:13 | PN ---
History: She is postop day 1, status post surgical incision and drainage of right peritonsillar abscess. The patient reports that she feels significantly improved compared to last night. Her throat pain is better. Her ability to tolerate oral fluids is significantly improved and her ear pain is resolving. Physical Examination: Patient is afebrile. Vital signs are stable. Overall, her general appearance has significantly improved. She appears to have improvement in her trismus with only mild residual symptom. The uvula is less edematous. The incision of the right anterior tonsillar pillar is hemostatic with evidence of cautery and mild surrounding eschar. The soft palate is now flat with no bulging. The posterior pharyngeal wall was difficult to visualize due to mild residual trismus. There is no evidence of active purulence draining at this time. There is no palpable cervical lymphadenopathy. The patient's voice is improved with a significant decrease in the muffled, hot-potato quality. Laboratory Evaluation: The patient's chemistry demonstrated hyperglycemia, which is likely secondary to the steroid administration. Her hemoglobin A1c was normal suggesting a low likelihood of true metabolic or diabetes-related issues. Assessment: Right peritonsillar abscess status post drainage, improving. Plan: Advance diet as tolerated. From an ENT standpoint, her clinical improvement may warrant discharge, but given the severity of her initial presentation and limited access to outpatient followup due to COVID health crisis and telemedicine restrictions, continuing for a full 24-36 hours of IV antibiotics is reasonable. The patient can follow up with me on an as-needed basis for this tonsil issue. She would like to schedule an elective outpatient follow up with me regarding some ear concerns. If symptoms recur or a second peritonsillar abscess develops, tonsillectomy would be recommended. KISHOR Voice ID: [id number] Report ID: [id number] VICKY
[2020-02-11] MEDS: ACETAMINOPHEN 500 MG TAB PO PRN (12:50)
[2020-02-11] MEDS ORDERED: AMITRIPTYLINE 50 MG TAB PO SCH (21:00)
[2020-02-11] MEDS ORDERED: ESTRADIOL TOP SCH (21:15)
[2020-02-12] MEDS: CLINDAMYCIN INJ 900 MG in NA CHLORIDE 0.9% 50 ML IV SCH ×2 (00:28→07:32)
[2020-02-12] MEDS: D5.45NS W/KCL 20MEQ 20 MEQ/1,000 ML BAG IV SCH ×2 (00:28→03:04)
[2020-02-12] MEDS: dexAMETHasone 10 MG/ML VIAL IV SCH ×2 (00:29→07:34)
--- NOTE | 2020-02-12 01:17 | PN ---
Subjective: Ms. Kwon is doing lot better. Her right side neck is improving. Yesterday, she was not able to open the jaw, now today she is able to open jaw about 3 cm or so after the drainage of p eritonsillar abscess by Dr. Perkins. Antibiotic choice with Dr. Perkins. Continue pain management. Possible discharge tomorrow. CUONG/FREDERICK Voice ID: [id number] Report ID: [id number]
[2020-02-12 07:41] VITALS: O2SAT 99
[2020-02-12] MEDS: IBUPROFEN 100 MG/5 ML UCUP PO PRN (07:45)
[2020-02-12] MEDS ORDERED: clonazePAM 0.5 MG TAB PO SCH ×2 (09:00)
--- NOTE | 2020-02-12 12:43 | P.DS ---
Admission Date: 02/11/20 Discharge Date: 02/12/20 Disposition: ROUTINE DISCHARGE Discharge Condition: [facility] Hospital Course: MS. HIDALGO HAD R PERITONSILLAR ABSCESS. SHE HAS DONE WELL WITH I AND D BY DR. PERKINS SHE IS NOW ABLE TO OPEN MOUTH WELL. SHE WILL CONTINUE WITH ABX AND FU WITH DR. PERKINS. Vital Signs/Physical Exam: Temp Pulse Resp BP Pulse Ox 97 F 78 18 113/57 L 97 02/12/20 08:00 02/12/20 08:00 02/12/20 08:00 02/12/20 08:00 02/12/20 08:00 Laboratory Data at Discharge: WBC 11.8 K/uL (4.3-10.9) H 02/10/20 14:00 Hgb 12.8 g/dL (12.0-15.0) 02/10/20 14:00 Hct 38.5 % (36.0-45.0) 02/10/20 14:00 Plt Count 179 K/uL (152-406) 02/10/20 14:00 PT 12.4 SECONDS (9.5-12.5) 02/10/20 14:00 INR 1.05 02/10/20 14:00 APTT 31.9 SECONDS (24.3-36.9) 02/10/20 14:00 Sodium 137 mmol/L (136-145) 02/11/20 03:33 Potassium 4.3 mmol/L (3.5-5.1) 02/11/20 03:33 BUN 13 mg/dL (7-18) 02/11/20 03:33 Creatinine 0.62 mg/dL (0.55-1.3) 02/11/20 03:33 Glucose 195 mg/dL (74-106) H 02/11/20 03:33 Phosphorus 2.7 mg/dL (2.5-4.9) 02/10/20 14:00 Magnesium 2.0 mg/dL (1.8-2.4) 02/10/20 14:00 Total Bilirubin 0.6 mg/dL (0.2-1.0) 02/10/20 14:00 AST 14 U/L (15-37) L 02/10/20 14:00 ALT 18 U/L (12-78) 02/10/20 14:00 Alkaline Phosphatase 60 U/L (45-117) 02/10/20 14:00 Home Medications: Amitriptyline [Elavil] 50 mg PO BEDTIME 02/10/20 Estradiol [Minivelle] 0.05 patch TOP SEECOM 02/10/20 clonazePAM [Klonopin] 0.25 tab PO BID 02/10/20 Amox/Clavulanate [Augmentin 875-125 Tab] 875 mg PO BID #20 tab 02/12/20 New Medications: Amox/Clavulanate [Augmentin 875-125 Tab] 875 mg PO BID #20 tab Diet: Regular Followup: Vladimir Mcconnell MD [Primary Care Provider] - Sabrina Perkins MD [ACTIVE - CAN ADMIT] - 1 Week (EENT- Call to schedule an appointment)
[2020-02-12] MEDS: ACETAMINOPHEN 500 MG TAB PO PRN (13:12)
[2020-02-12 15:01] VITALS: BP 117/68; TEMP 97.5
[2020-02-12] MEDS ORDERED: AMITRIPTYLINE 50 MG TAB PO SCH (21:00)
[2020-02-14 23:21] LABS: Vitamin D 1,25-Dihydroxy Total 44 pg/mL (18-72); Vitamin D,1,25-OH2, D2 <8 pg/mL
== END 2020-02-12 14:14 | disposition home or self-care (01) | DRG 134 ==
LOC: 2ND 12:30 → OBSVTOIN 02-11 14:58
PROVIDERS: ADMIT Internal Medicine; ATTEND Internal Medicine
PROC: 0C9PXZZ Drainage of Tonsils, External Approach (ICD-10-PCS; principal; 2020-02-11)
DX: J36 Peritonsillar abscess (principal); E78.5 Hyperlipidemia, unspecified; R73.9 Hyperglycemia, unspecified; T38.0X5A Adverse effect of glucocorticoids and synthetic analogues, initial encounter; Z11.59 Encounter for screening for other viral diseases; Z87.891 Personal history of nicotine dependence; Z79.899 Other long term (current) drug therapy
CPT/HCPCS: 36415; 70360; 71046; 80048; 80076; 81003; 82607; 82652; 83036; 83735; 84100; 84443; 85025; 85610; 85730; 87040; 93005; G0378; G0379; J0171; J1100; J1170; J2250; J2405; J2704; J2710; J3010; J7040; U0002

== ENCOUNTER 2020-02-13 13:45 | Emergency (ER) | payer OTHER ==
--- OUTSIDE RECORDS SUMMARY | 2020-02-13 13:50 | XMS REPORT | Continuity of Care Document ---
:1980 Author Organization [facility] t Address [address] [place] [address] Dr. Lee [address] [place] [id number] Care Team Providers Name Role Phone Unavailable Unavailable Unavailable Problems This patient has no known problems. Allergies, Adverse Reactions, Alerts This patient has no known allergies or adverse reactions. Medications This patient has no known medications. Procedures This patient has no known procedures. Results This patient has no known results.
[2020-02-13 14:50] LABS: Absolute Lymphocytes (CBC) 1.7 K/uL (0.7-4.9); Basophils % 0.2 % (0-1.3); Lymphocytes % 16.9 % (15.3-44.8); MPV 8.9 fL (7.6-11.3); RBC Red Blood Cell Count 3.84 M/uL (3.86-4.86)
[2020-02-13] MEDS ORDERED: NA CHLORIDE 0.9% 1,000 ML ONE (14:56)
[2020-02-13] MEDS ORDERED: KETOROLAC 30 MG/ML INJ ONE (14:56)
[2020-02-13] MEDS ORDERED: CLINDAMYCIN 600MG/D5W 600 MG/50 ML BAG IV ONE (14:57)
[2020-02-13] MEDS ORDERED: PENICILLIN 2.5 MU in NA CHLORIDE 0.9% 100 ML IV ONE (15:00)
[2020-02-13 15:09] LABS: ALT/SGPT 19 U/L (12-78); AST/SGOT 13 U/L (15-37); Albumin 3.4 g/dL (3.4-5.0); Alkaline Phosphatase 61 U/L (45-117); BUN Blood Urea Nitrogen 11 mg/dL (7-18); Bicarbonate 27 mmol/L (21-32); Bilirubin Total 0.3 mg/dL (0.2-1.0); Glucose Level 95 mg/dL (74-106); Potassium 3.4 mmol/L (3.5-5.1); Protein, Total 6.8 g/dL (6.4-8.2); Sodium Level 143 mmol/L (136-145)
[2020-02-13 15:30] LABS: Blood Morphology Comment NOT SEEN (NOT SEEN); Platelet Estimate ADEQ
--- NOTE | 2020-02-13 15:34 | RAD REPORT ---
EXAM DESCRIPTION: CT - Soft Tissue Neck W/Contr - 02/13/2020 3:05 pm CLINICAL HISTORY: throat pain s/p surgery COMPARISON: CT HEAD CSPINE MPR WO CONTRAST dated 12/20/2014 TECHNIQUE: During dynamic enhancement using 100 milliliters nonionic IV contrast, axial 5 millimeter thick images of the neck were obtained. All CT scans are performed using dose optimization technique as appropriate and may include automated exposure control or mA/KV adjustment according to patient size. FINDINGS: Intracranial portion the examination is unremarkable. Mastoid air cells and middle ears ar e clear. Imaged portions of the paranasal sinuses are clear. Partially imaged globes and orbital cont ents also without suspicious finding. No nasopharyngeal mass or asymmetry. Left-sided tonsil is normal. Parapharyngeal fat is normal. Right tonsil is enlarged and edematous. In the lateral aspect of the right tonsil there is a low-density m ass 1.5 cm in transverse diameter. This hypo dense collection extends inferiorly into the right-side floor the mouth. The floor the mouth collection is 2.5 cm in diameter. The collective craniocaudal di mension is 5.5 cm. This is believed to be one contiguous collection. No thickened rind or enhancing r im surrounding this abnormal low-density collection. The tonsil and floor the mouth abnormalities result in an overall edema with mass effect. The airway is not compromised in diameter but is deviated to the left approximately 15 mm. No abnormal epiglotti s thickening. There is some overall edema that extends inferiorly along the posterior right side of t he oropharynx. No vocal cord abnormalities. Patient has an enlarged edematous right submandibular gland. There is poor tissue plane separation al tesfaye the right side of the upper neck due to the edema. A 16 millimeter enhancing lymph node is presen t at the angle of the mandible. Additional small enhancing lymph nodes are present. No necrotic or ab scessed lymph nodes seen. IMPRESSION: Enlarged hypodense collection is present in the right tonsil extending inferiorly into t he floor the mouth measuring 5.5 cm CC by up to 2.5 cm in transverse diameter. There is significant localized mass effect and edema. Airway is shifted 15 mm to the left but not com promised in diameter. Edematous right-sided neck soft tissues with numerous reactive lymph nodes and enlarged right submand ibular gland. History indicates recent tonsillar abscess. This could be residual or recurrent infection. Current pa ttern has the appearance of a James's angina.
[2020-02-13] MEDS ORDERED: HYDROMORPHONE HCL 1 MG/ML INJ ONE (16:08)
[2020-02-13] MEDS ORDERED: METHYLPREDNISOLONE 125 MG INJ ONE (16:08)
[2020-02-13] MEDS ORDERED: ONDANSETRON 4 MG/2 ML VIAL ONE (16:08)
--- NOTE | 2020-02-13 16:10 | ER ---
Nurse's Notes [facility] Name: Kavita Kwon Age: 39 yrs Sex: Female : 1980 Arrival Date: 02/13/2020 Time: 13:48 Bed 3 Private MD: Vladimir Mcconnell V Diagnosis: Peritonsillar abscess;Cellulitis and abscess of mouth Presentation: 02/12 13:52 Chief complaint: Spouse and/or significant other states: THROAT SWELLING POST-SURGERY. bp Coronavirus screen: Proceed with normal triage. Ebola Screen: No symptoms or risks identified at this time. Initial Sepsis Screen: Does the patient meet any 2 criteria? HR > 90 bpm. No. Patient's initial sepsis screen is negative. Does the patient have a suspected source of infection? No. Patient's initial sepsis screen is negative. Risk Assessment: Do you want to hurt yourself or someone else? Patient reports no desire to harm self or others. Note SENT BY PCP DR MCCONNELL, PENDING DR MINA. Onset of symptoms was February 13, 2020. 13:52 Method Of Arrival: Wheelchair bp 13:52 Acuity: SUZY 3 bp Historical: - Allergies: 13:54 Lidocaine; bp 13:54 Morphine (panic attack); bp - Home Meds: 13:54 Unable to obtain [Active]; bp - PMHx: 13:54 Anxiety; Enrique's esophagus; Chronic Gastritis; diverticulosis; Heart Murmur; bp Irregular heart rate; Migraines; - Immunization history:: Adult Immunizations up to date. - Social history:: Smoking status: Patient denies any tobacco usage or history of. Patient/guardian denies using alcohol, street drugs, The patient lives with family. - Family history:: not pertinent. Screenin:37 Abuse screen: Denies threats or abuse. Denies injuries from another. Nutritional ph screening: No deficits noted. Tuberculosis screening: No symptoms or risk factors identified. Fall Risk None identified. Assessment: 14:15 General: Appears in no apparent distress. uncomfortable, slender, well groomed, ph Behavior is calm, cooperative, appropriate for age, Denies fever. Pain: Complains of pain in right sternocleidomastoid and right lateral aspect of neck Pain radiates to right ear and right jaw. Neuro: Level of Consciousness is awake, alert, obeys commands, Oriented to person, place, time, situation. Cardiovascular: Capillary refill < 3 seconds in bilateral fingers Patient's skin is warm and dry. Respiratory: Airway is patent Respiratory effort is even, unlabored, Respiratory pattern is regular, symmetrical. GI: Reports nausea, Patient currently denies abdominal pain, diarrhea, vomiting. EENT: Throat is reddened has enlarged tonsils on right. Derm: Skin is intact, is healthy with good turgor, Skin is pink, warm \T\ dry. Musculoskeletal: Circulation, motion, and sensation intact. Range of motion: intact in all extremities. 16:36 Reassessment: Patient appears in no apparent distress at this time. Patient and/or ph family updated on plan of care and expected duration. Pain level reassessed. Patient is alert, oriented x 3, equal unlabored respirations, skin warm/dry/pink. Report called to [facility] ED, awaiting EMS for transport. 17:00 Reassessment: Patient appears in no apparent distress at this time. Patient and/or ph family updated on plan of care and expected duration. Pain level reassessed. Patient is alert, oriented x 3, equal unlabored respirations, skin warm/dry/pink. [facility] at bedside, pt transferred to [facility]. Vital Signs: 13:52 BP 114 / 77; Pulse 100; Resp 20; Temp 97.5; Pulse Ox 100% ; bp 15:00 BP 118 / 76; Pulse 90; Resp 16; Pulse Ox 98% on R/A; ph 16:16 BP 121 / 87; Pulse 88; Resp 18; Temp 97.7; Pulse Ox 99% on R/A; ph ED Course: 13:48 Patient arrived in ED. mr 13:48 Vladimir Mcconnell MD is Private Physician. mr 13:54 Triage completed. bp 13:54 Arm band placed on left wrist. bp 14:05 Zulema Crouch, PRATIBHA is Primary Nurse. ph 14:09 Fer Nino MD is Attending Physician. ma2 14:42 Initial lab(s) drawn, by me, sent to lab. Inserted saline lock: 20 gauge in left dh3 antecubital area, using aseptic technique. Blood collected. 15:06 Soft Tissue Neck W/Contr In Process Unspecified. EDMS 16:37 Patient has correct armband on for positive identification. Bed in low position. Call ph light in reach. Side rails up X 1. Pulse ox on. NIBP on. Door closed. Noise minimized. Warm blanket given. 16:38 No provider procedures requiring assistance completed. Patient transferred, IV remains ph in place. Administered Medications: 15:04 Drug: TORadol 30 mg Route: IVP; Site: left antecubital; ph 16:47 Follow up: Response: No adverse reaction ph 15:05 Drug: Clindamycin 600 mg Route: IVPB; Infused Over: 30 mins; Site: left antecubital; ph 15:35 Follow up: Response: No adverse reaction; IV Status: Completed infusion ph 15:05 Drug: NS 0.9% 1000 ml Route: IV; Rate: 1 bolus; Site: left antecubital; ph 16:49 Follow up: Response: No adverse reaction; IV Status: Completed infusion ph 16:10 Drug: MethylPrednisoLONE 125 mg Route: IVP; Site: left antecubital; ph 16:50 Follow up: Response: No adverse reaction ph 16:11 Drug: Zofran (Ondansetron) 4 mg Route: IVP; Site: left antecubital; ph 16:50 Follow up: Response: No adverse reaction ph 16:12 Drug: Dilaudid 1 mg Route: IVP; Site: left antecubital; ph 16:50 Follow up: Response: No adverse reaction; Pain is decreased; RASS: Drowsy (-1) ph 16:16 Drug: Penicillin G Potassium 2.5 million units Route: IVPB; Site: left antecubital; ph 16:47 Follow up: Response: No adverse reaction; IV Status: Completed infusion ph Outcome: 16:09 ER care complete, transfer ordered by MD. mcdonald 17:23 Transferred by ground EMS [facility] to [facility]. ph 17:23 Condition: stable 17:23 Instructed on the need for transfer. 17:23 Patient left the ED. ph Signatures: Dispatcher [employer] SAIDA GuyJocelyn tafoya Patricia RN PRATIBHA Jazmín Mina [facility] Nikunj Goodwin, PRATIBHA RN bp Fer Nino MD MD ma2
--- NOTE | 2020-02-13 16:10 | EDPHYS ---
Physician Documentation [facility] Name: Kavita Kwon Age: 39 yrs Sex: Female : 1980 Arrival Date: 02/13/2020 Time: 13:48 Bed 3 Private MD: Vladimir Mcconnell V ED Physician Fer Nino HPI: 02/12 16:00 This 39 yrs old Female presents to ER via Wheelchair with complaints of ma2 Throat pain from surgery. 16:00 The patient or guardian reports pain, swelling, tenderness. Onset: The symptoms/episode ma2 began/occurred gradually, 3 day(s) ago. Associated signs and symptoms: Pertinent positives: Pertinent negatives: headache, shortness of breath, vomiting, stridor . Severity of symptoms: At their worst the symptoms were moderate, in the emergency department the symptoms are unchanged. The patient has not experienced similar symptoms in the past. s/p peritonsillar abscess drained Sunday by dr. Felix, patient is back d/t recurrence of swelling and edema and painful swelling . Historical: - Allergies: 13:54 Lidocaine; bp 13:54 Morphine (panic attack); bp - Home Meds: 13:54 Unable to obtain [Active]; bp - PMHx: 13:54 Anxiety; Enrique's esophagus; Chronic Gastritis; diverticulosis; Heart Murmur; bp Irregular heart rate; Migraines; - Immunization history:: Adult Immunizations up to date. - Social history:: Smoking status: Patient denies any tobacco usage or history of. Patient/guardian denies using alcohol, street drugs, The patient lives with family. - Family history:: not pertinent. ROS: 16:03 Constitutional: Negative for fever, chills, and weight loss. ma2 16:03 All other systems are negative. Exam: 16:03 Constitutional: This is a well developed, well nourished patient who is awake, alert, ma2 and in no acute distress. Head/Face: Normocephalic, atraumatic. Eyes: Pupils equal round and reactive to light, extra-ocular motions intact. Lids and lashes normal. Conjunctiva and sclera are non-icteric and not injected. Cornea within normal limits. Periorbital areas with no swelling, redness, or edema. ENT: patient has Dysphagia Odynophagia Trismus Edema of upper midline neck and floor of mouth no Raised tongue no visible swelling or erythema of floor of mouth Neck: Trachea midline, no thyromegaly or masses palpated, and no cervical lymphadenopathy. Supple, full range of motion without nuchal rigidity, or vertebral point tenderness. No Meningismus. Chest/axilla: Normal chest wall appearance and motion. Nontender with no deformity. No lesions are appreciated. Cardiovascular: Regular rate and rhythm with a normal S1 and S2. No gallops, murmurs, or rubs. Normal PMI, no JVD. No pulse deficits. Respiratory: Lungs have equal breath sounds bilaterally, clear to auscultation and percussion. No rales, rhonchi or wheezes noted. No increased work of breathing, no retractions or nasal flaring. Abdomen/GI: airway is open and intact Back: No spinal tenderness. No costovertebral tenderness. Full range of motion. Skin: Warm, dry with normal turgor. Normal color with no rashes, no lesions, and no evidence of cellulitis. MS/ Extremity: Pulses equal, no cyanosis. Neurovascular intact. Full, normal range of motion. Neuro: Awake and alert, GCS 15, oriented to person, place, time, and situation. Cranial nerves II-XII grossly intact. Motor strength 5/5 in all extremities. Sensory grossly intact. Cerebellar exam normal. Normal gait. Vital Signs: 13:52 BP 114 / 77; Pulse 100; Resp 20; Temp 97.5; Pulse Ox 100% ; bp 15:00 BP 118 / 76; Pulse 90; Resp 16; Pulse Ox 98% on R/A; ph 16:16 BP 121 / 87; Pulse 88; Resp 18; Temp 97.7; Pulse Ox 99% on R/A; ph MDM: 14:09 Patient medically screened. ma2 16:03 Differential diagnosis: peritonsillar abscess vs retropharyngeal abscess vs neck ma2 cellulitis, possible early James angina however airway is intact at this time. Data reviewed: vital signs, nurses notes. Counseling: I had a detailed discussion with the patient and/or guardian regarding: the historical points, exam findings, and any diagnostic results supporting the discharge/admit diagnosis, the presence of at least one elevated blood pressure reading (>120/80) during this emergency department visit, the need to transfer to another facility. Response to treatment: the patient's symptoms have markedly improved after treatment. ED course: discussed with dr. felix who states she is on the airplane and not available at this time. discussed with dr. mcconnell as well.. will transfer for higher level of care as no ent available.. accepted by dr. Ritchie at [facility]. 02/12 14:27 Order name: CBC with Diff; Complete Time: 15:35 ma2 02/12 14:27 Order name: CMP; Complete Time: 15:35 ma2 02/12 14:50 Order name: Soft Tissue Neck W/Contr; Complete Time: 15:35 EDMS 02/12 14:56 Order name: Manual Differential; Complete Time: 15:35 EDMS Administered Medications: 15:04 Drug: TORadol 30 mg Route: IVP; Site: left antecubital; ph 16:47 Follow up: Response: No adverse reaction ph 15:05 Drug: Clindamycin 600 mg Route: IVPB; Infused Over: 30 mins; Site: left antecubital; ph 15:35 Follow up: Response: No adverse reaction; IV Status: Completed infusion ph 15:05 Drug: NS 0.9% 1000 ml Route: IV; Rate: 1 bolus; Site: left antecubital; ph 16:49 Follow up: Response: No adverse reaction; IV Status: Completed infusion ph 16:10 Drug: MethylPrednisoLONE 125 mg Route: IVP; Site: left antecubital; ph 16:50 Follow up: Response: No adverse reaction ph 16:11 Drug: Zofran (Ondansetron) 4 mg Route: IVP; Site: left antecubital; ph 16:50 Follow up: Response: No adverse reaction ph 16:12 Drug: Dilaudid 1 mg Route: IVP; Site: left antecubital; ph 16:50 Follow up: Response: No adverse reaction; Pain is decreased; RASS: Drowsy (-1) ph 16:16 Drug: Penicillin G Potassium 2.5 million units Route: IVPB; Site: left antecubital; ph 16:47 Follow up: Response: No adverse reaction; IV Status: Completed infusion ph Disposition: 02/13/20 16:09 Transfer ordered to [facility]. Diagnosis are Peritonsillar abscess, Cellulitis and abscess of mouth. - Reason for transfer: Higher level of care. - Accepting physician is dr. Ritchie. - Condition is Stable. - Problem is new. - Symptoms are unchanged. Signatures: Dispatcher [employer] Zulema Hu, RN RN Nikunj Robbins RN RN Fer Acosta MD MD ma2 Corrections: (The following items were deleted from the chart) 17:23 16:09 02/13/2020 16:09 Transfer ordered to [facility]. Diagnosis is ph Peritonsillar abscess; Cellulitis and abscess of mouth. Reason for transfer: Higher level of care. Accepting physician is dr. Ritchie. Condition is Stable. Problem is new. Symptoms are unchanged. ma2
[2020-02-13 17:32] VITALS: BP 121/87; TEMP 97.7; O2SAT 99
== END 2020-02-13 17:23 | disposition short-term general hospital (02) ==
LOC: ER 13:45
DX: J36 Peritonsillar abscess (principal); Z98.890 Other specified postprocedural states; Z88.5 Allergy status to narcotic agent
CPT/HCPCS: 96365; 96367; 96361; 85025; 36415; 80053; 70491; 96375; 99285; Q9967; J1170; J7030; J2930; J2405

== ENCOUNTER 2020-02-21 19:19 | Emergency (ER) | payer OTHER ==
--- OUTSIDE RECORDS SUMMARY | 2020-02-21 19:21 | XMS REPORT | Continuity of Care Document ---
:1980 Author Organization [facility] t Address [address] [place] [address] Dr. Lee [address] [place] [id number] Care Team Providers Name Role Phone Unavailable Unavailable Unavailable Problems This patient has no known problems. Allergies, Adverse Reactions, Alerts This patient has no known allergies or adverse reactions. Medications This patient has no known medications. Procedures This patient has no known procedures. Results This patient has no known results.
[2020-02-21] MEDS ORDERED: NA CHLORIDE 0.9% 500 ML ONE (21:01)
[2020-02-21] MEDS ORDERED: NA CHLORIDE 0.9% 1,000 ML ONE (21:02)
[2020-02-21] MEDS ORDERED: PIPER/TAZO/NS 3.375gm 3.375 GM/100 ML BAG ONE (21:02)
[2020-02-21 21:29] LABS: Absolute Lymphocytes (CBC) 2.2 K/uL (0.7-4.9); Basophils % 0.4 % (0-1.3); Hematocrit 39.9 % (36.0-45.0); Lymphocytes % 18.9 % (15.3-44.8); MPV 7.9 fL (7.6-11.3); RBC Red Blood Cell Count 4.46 M/uL (3.86-4.86)
[2020-02-21 21:43] LABS: ALT/SGPT 60 U/L (12-78); AST/SGOT 48 U/L (15-37); Albumin 3.6 g/dL (3.4-5.0); Alkaline Phosphatase 100 U/L (45-117); BUN Blood Urea Nitrogen 8 mg/dL (7-18); Bicarbonate 31 mmol/L (21-32); Bilirubin Direct < 0.1 mg/dL (0-0.2); Bilirubin Total 0.2 mg/dL (0.2-1.0); Glucose Level 87 mg/dL (74-106); Lipase 83 U/L (73-393); Potassium 3.6 mmol/L (3.5-5.1); Protein, Total 8.4 g/dL (6.4-8.2); Sodium Level 141 mmol/L (136-145)
--- NOTE | 2020-02-22 00:35 | EDPHYS ---
Physician Documentation [facility] Name: Kavita Kwon Age: 39 yrs Sex: Female : 1980 Arrival Date: 02/21/2020 Time: 19:20 Bed 19 Private MD: ED Physician Tariq Gilbert HPI: 02/21 00:05 This 39 yrs old Female presents to ER via Ambulatory with complaints of Post tw4 Surgical Pain. 00:05 The patient presents with cellulitis of the right aspect of thyroid, left aspect of tw4 thyroid and right sternocleidomastoid, the patient presents with a swollen area of the neck. Description: The affected area is moderate sized, poorly defined, draining, erythematous, hot. Onset: The symptoms/episode began/occurred yesterday. Possible cause(s): unknown. Associated signs and symptoms: The patient has no apparent associated signs or symptoms. Severity of symptoms: At their worst the symptoms were moderate, in the emergency department the symptoms are unchanged. The patient has not experienced similar symptoms in the past. [employer]: 02/20 19:29 LMP N/A - Hysterectomy ca1 Historical: - Allergies: 19:29 Lidocaine; ca1 19:29 Morphine (panic attack); ca1 - PMHx: 19:29 Anxiety; Enrique's esophagus; Chronic Gastritis; diverticulosis; Heart Murmur; ca1 Irregular heart rate; Migraines; - PSHx: 19:29 neck surgery; Hysterectomy; Appendectomy; ca1 - Immunization history:: Adult Immunizations up to date. - Social history:: Smoking status: Patient/guardian denies using tobacco, Stopped _ months ago 6. ROS: 02/21 00:05 Constitutional: Negative for fever, chills, and weight loss, Eyes: Negative for injury, tw4 pain, redness, and discharge, Respiratory: Negative for shortness of breath, cough, wheezing, and pleuritic chest pain, Abdomen/GI: Negative for abdominal pain, nausea, vomiting, diarrhea, and constipation, Back: Negative for injury and pain, MS/Extremity: Negative for injury and deformity. Neck: Positive for pain with movement, pain at rest, swelling. Skin: Positive for abscess, cellulitis, of the right aspect of thyroid and right sternocleidomastoid. 00:16 Skin: Negative for injury, rash, and discoloration, Neuro: Negative for headache, tw4 weakness, numbness, tingling, and seizure. Exam: 01:27 Constitutional: This is a well developed, well nourished patient who is awake, alert, tw4 and in no acute distress. Head/Face: Normocephalic, atraumatic. Eyes: Pupils equal round and reactive to light, extra-ocular motions intact. Lids and lashes normal. Conjunctiva and sclera are non-icteric and not injected. Cornea within normal limits. Periorbital areas with no swelling, redness, or edema. Chest/axilla: Normal chest wall appearance and motion. Nontender with no deformity. No lesions are appreciated. 01:27 Skin: abscess, that is moderate sized, with drainage, that is purulent, cellulitis, that is moderate, well demarcated, on the right aspect of thyroid and right sternocleidomastoid. Vital Signs: 02/20 19:23 BP 130 / 83; Pulse 133; Resp 18 S; Temp 98.2(TE); Pulse Ox 99% on R/A; Weight 52.16 kg ca1 (R); Height 5 ft. 5 in. (165.10 cm); Pain 0/10; 20:39 BP 122 / 85; Pulse 122; Resp 18 S; Pulse Ox 99% on R/A; jd3 21:35 BP 123 / 92; Pulse 102; Resp 16 S; Pulse Ox 98% on R/A; jd3 22:29 BP 118 / 75; Pulse 82; Resp 17 S; Pulse Ox 100% on R/A; jd3 23:42 BP 112 / 73; Pulse 84; Resp 16 S; Pulse Ox 100% on R/A; jd3 02/21 01:07 BP 114 / 84; Pulse 83; Resp 17 S; Pulse Ox 99% on R/A; jd3 03:13 BP 118 / 78; Pulse 84; Resp 16 S; Pulse Ox 99% on R/A; jd3 02/20 19:23 Body Mass Index 19.14 (52.16 kg, 165.10 cm) ca1 MDM: 02/20 20:33 Patient medically screened. tw4 02/21 01:27 Differential diagnosis: abscess, allergic reaction, cellulitis. Data reviewed: vital tw4 signs, nurses notes. Data reviewed: lab test result(s), CBC, electrolytes, radiologic studies, CT scan. Data interpreted: Pulse oximetry: Interpretation: normal. Counseling: I had a detailed discussion with the patient and/or guardian regarding: the historical points, exam findings, and any diagnostic results supporting the discharge/admit diagnosis, lab results, radiology results. Special discussion: I discussed with the patient/guardian in detail that at this point there is no indication for admission to the hospital. It is understood, however, that if the symptoms persist or worsen the patient needs to return immediately for re-evaluation. 02/20 20:39 Order name: Basic Metabolic Panel; Complete Time: 22:00 02/20 22:01 Interpretation: Within normal limits. 02/20 20:39 Order name: CBC with Diff; Complete Time: 22:00 02/20 22:01 Interpretation: Normal except: WBC 11.8; PLT 322; NEUT A 8.6; MPV 7.9. 02/20 20:39 Order name: Hepatic Function; Complete Time: 22:00 02/20 22:01 Interpretation: Normal except: AST 48; TP 8.4; GLOB 4.8; A/G 0.8. 02/20 20:39 Order name: Lipase; Complete Time: 22:00 02/20 22:01 Interpretation: Within normal limits: LIP 83. 02/20 20:45 Order name: Lactate; Complete Time: 22:00 02/20 22:01 Interpretation: Within normal limits: LAC 1.4. 02/20 20:45 Order name: Blood Culture Adult (2) 02/20 20:39 Order name: IV Saline Lock; Complete Time: 21:21 02/20 20:39 Order name: Labs collected and sent; Complete Time: 21:21 02/20 20:45 Order name: CT Soft Tissue Neck W/contr Administered Medications: 02/20 21:20 Drug: NS 0.9% (30 ml/kg) 30 ml/kg Route: IV; Rate: bolus; Site: right antecubital; jd3 22:20 Follow up: Response: No adverse reaction; IV Status: Completed infusion; IV Intake: jd3 1500ml 21:28 Drug: Zosyn 3.375 grams Route: IVPB; Infused Over: 60 mins; Site: right antecubital; jd3 22:28 Follow up: Response: No adverse reaction; IV Status: Completed infusion; IV Intake: jd3 100ml Disposition: 02/22/20 00:34 Transfer ordered to [facility]. Diagnosis are Cutaneous abscess of neck, Peritonsillar abscess. - Reason for transfer: Higher level of care. - Accepting physician is Dr Rasmussen. - Condition is Stable. - Problem is an ongoing problem. - Symptoms have worsened. Signatures: Dispatcher [employer] Sal Jackson RN RN jd3 Tariq Gilbert MD MD tw4 Lauren Redd RN RN ca1 Corrections: (The following items were deleted from the chart) 02/21 03:14 00:34 02/22/2020 00:34 Transfer ordered to [facility]. Diagnosis is jd3 Cutaneous abscess of neck; Peritonsillar abscess. Reason for transfer: Higher level of care. Accepting physician is Dr Rasmussen. Condition is Stable. Problem is an ongoing problem. Symptoms have worsened. tw4
--- NOTE | 2020-02-22 00:35 | ER ---
Nurse's Notes [facility] Name: Kavita Kwon Age: 39 yrs Sex: Female : 1980 Arrival Date: 02/21/2020 Time: 19:20 Bed 19 Private MD: Diagnosis: Cutaneous abscess of neck;Peritonsillar abscess Presentation: 02/20 19:23 Chief complaint: Patient states: Had neck surgery on the 13 of February, released from [address] on the . Had peritonsillar abscess. This morning, noticed excessive amount of drainage with bad smell and swelling on the incision site. Denies dysphagia. Denies SOB and Difficulty breathing. Denies fever. Coronavirus screen: Proceed with normal triage. Patient denies a cough. Patient denies shortness of breath or difficulty breathing. Patient denies measured and/or subjective temperature greater than 100.4F prior to today's visit. Patient denies travel on a cruise ship or to a country the [facility] currently lists as an affected area. Patient denies contact with known and/or suspected case of COVID-19. Ebola Screen: Patient negative for fever greater than or equal to 101.5 degrees Fahrenheit, and additional compatible Ebola Virus Disease symptoms Patient denies exposure to infectious person. Patient denies travel to an Ebola-affected area in the 21 days before illness onset. No symptoms or risks identified at this time. Initial Sepsis Screen: Does the patient meet any 2 criteria? No. Patient's initial sepsis screen is negative. Does the patient have a suspected source of infection? No. Patient's initial sepsis screen is negative. Risk Assessment: Do you want to hurt yourself or someone else? Patient reports no desire to harm self or others. Onset of symptoms was February 21, 2020. 19:23 Method Of Arrival: Ambulatory ca1 19:23 Acuity: SUZY 3 ca1 [place] PAINTER: 19:29 LMP N/A - Hysterectomy ca1 Historical: - Allergies: 19:29 Lidocaine; ca1 19:29 Morphine (panic attack); ca1 - PMHx: 19:29 Anxiety; Enrique's esophagus; Chronic Gastritis; diverticulosis; Heart Murmur; ca1 Irregular heart rate; Migraines; - PSHx: 19:29 neck surgery; Hysterectomy; Appendectomy; ca1 - Immunization history:: Adult Immunizations up to date. - Social history:: Smoking status: Patient/guardian denies using tobacco, Stopped _ months ago 6. Screenin:38 Abuse screen: Denies threats or abuse. Nutritional screening: No deficits noted. jd3 Tuberculosis screening: No symptoms or risk factors identified. Fall Risk Ambulatory Aid- None/Bed Rest/Nurse Assist (0 pts). Gait- Normal/Bed Rest/Wheelchair (0 pts) Mental Status- Oriented to own ability (0 pts). Total Ladd Fall Scale indicates No Risk (0-24 pts). Assessment: 20:37 General: Appears in no apparent distress. uncomfortable, Behavior is calm, cooperative, jd3 appropriate for age. Pain: Denies pain. Neuro: Level of Consciousness is awake, alert, obeys commands, Oriented to person, place, time, situation. Cardiovascular: Denies chest pain, Capillary refill < 3 seconds Patient's skin is warm and dry. Respiratory: Airway is patent Respiratory effort is even, unlabored, Respiratory pattern is regular, symmetrical, Denies cough, shortness of breath. GI: No signs and/or symptoms were reported involving the gastrointestinal system. : No signs and/or symptoms were reported regarding the genitourinary system. EENT: No signs and/or symptoms were reported regarding the EENT system. Derm: Skin is intact, Skin is dry, Skin is normal, Skin temperature is warm. Musculoskeletal: Circulation, motion, and sensation intact. Range of motion: intact in all extremities. Injury Description: closed surgical wound noted to the right side of the neck that is slightly red, firm to the touch. 21:35 Reassessment: Patient appears in no apparent distress at this time. No changes from jd3 previously documented assessment. Patient and/or family updated on plan of care and expected duration. Pain level reassessed. Patient is alert, oriented x 3, equal unlabored respirations, skin warm/dry/pink. 22:29 Reassessment: Patient appears in no apparent distress at this time. Patient and/or jd3 family updated on plan of care and expected duration. Pain level reassessed. Patient is alert, oriented x 3, equal unlabored respirations, skin warm/dry/pink. awaiting results. 23:41 Reassessment: Patient appears in no apparent distress at this time. Patient and/or jd3 family updated on plan of care and expected duration. Pain level reassessed. Patient is alert, oriented x 3, equal unlabored respirations, skin warm/dry/pink. awaiting disposition. Patient denies pain at this time. 02/21 01:07 Reassessment: Patient appears in no apparent distress at this time. No changes from jd3 previously documented assessment. Patient and/or family updated on plan of care and expected duration. Pain level reassessed. Patient is alert, oriented x 3, equal unlabored respirations, skin warm/dry/pink. 02:06 Reassessment: Patient appears in no apparent distress at this time. Patient and/or jd3 family updated on plan of care and expected duration. Pain level reassessed. Patient is alert, oriented x 3, equal unlabored respirations, skin warm/dry/pink. report given to Derek Davis in [place]. 03:13 Reassessment: Patient appears in no apparent distress at this time. Patient and/or jd3 family updated on plan of care and expected duration. Pain level reassessed. Patient is alert, oriented x 3, equal unlabored respirations, skin warm/dry/pink. report given to [facility] crew. Vital Signs: 02/20 19:23 BP 130 / 83; Pulse 133; Resp 18 S; Temp 98.2(TE); Pulse Ox 99% on R/A; Weight 52.16 kg ca1 (R); Height 5 ft. 5 in. (165.10 cm); Pain 0/10; 20:39 BP 122 / 85; Pulse 122; Resp 18 S; Pulse Ox 99% on R/A; jd3 21:35 BP 123 / 92; Pulse 102; Resp 16 S; Pulse Ox 98% on R/A; jd3 22:29 BP 118 / 75; Pulse 82; Resp 17 S; Pulse Ox 100% on R/A; jd3 23:42 BP 112 / 73; Pulse 84; Resp 16 S; Pulse Ox 100% on R/A; jd3 02/21 01:07 BP 114 / 84; Pulse 83; Resp 17 S; Pulse Ox 99% on R/A; jd3 03:13 BP 118 / 78; Pulse 84; Resp 16 S; Pulse Ox 99% on R/A; jd3 02/20 19:23 Body Mass Index 19.14 (52.16 kg, 165.10 cm) ca1 ED Course: 07/11 19:20 Patient arrived in ED. ds1 19:28 Triage completed. ca1 19:29 Arm band placed on right wrist. ca1 20:33 Tariq Gilbert MD is Attending Physician. tw4 20:37 Sal Darden, PRATIBHA is Primary Nurse. jd3 20:38 Patient has correct armband on for positive identification. Bed in low position. Call jd3 light in reach. Side rails up X 1. Pulse ox on. NIBP on. 21:21 Inserted saline lock: 20 gauge in right antecubital area, using aseptic technique. jd3 Blood collected. placed by [facility] tech. 22:13 CT Soft Tissue Neck W/contr In Process Unspecified. EDMS 02/21 00:08 Initiated transfer at [facility] with Berna Vazquez. tt3 00:21 Berna Vazquez gave admin approval. The accepting physician is Dr. De León. Face sheet tt3 and MOT faxed to per Berna's request. Report to be called to . The patient is being transferred to [facility] ER. 03:13 No provider procedures requiring assistance completed. Patient transferred, IV remains jd3 in place. Administered Medications: 02/20 21:20 Drug: NS 0.9% (30 ml/kg) 30 ml/kg Route: IV; Rate: bolus; Site: right antecubital; jd3 22:20 Follow up: Response: No adverse reaction; IV Status: Completed infusion; IV Intake: jd3 1500ml 21:28 Drug: Zosyn 3.375 grams Route: IVPB; Infused Over: 60 mins; Site: right antecubital; jd3 22:28 Follow up: Response: No adverse reaction; IV Status: Completed infusion; IV Intake: jd3 100ml Intake: 22:20 IV: 1500ml; Total: 1500ml. jd3 22:28 IV: 100ml; Total: 1600ml. jd3 Outcome: 0712 00:34 ER care complete, transfer ordered by . tw4 03:13 Transferred by ground EMS to [facility], Transfer form completed. X-rays sent jd3 w/ patient. 03:13 Condition: stable 03:13 Instructed on the need for transfer, Demonstrated understanding of instructions. 03:14 Patient left the ED. jd3 Signatures: Dispatcher [employer] EDDE Dory Sherman ds1 Sal Darden RN RN jd3 Tariq Gilbert MD MD tw4 Lauren Redd RN RN ca1 Conner Butcher tt3 Corrections: (The following items were deleted from the chart) 02/20 21:35 21:35 Reassessment: Patient appears in no apparent distress at this time. Patient jd3 and/or family updated on plan of care and expected duration. Pain level reassessed. Patient is alert, oriented x 3, equal unlabored respirations, skin warm/dry/pink. jd3 22:10 20:37 Injury Description: closed surgical wound noted to the right side of the neck jd3 that is slightly red, hard to the touch. jd3
[2020-02-22 04:31] VITALS: BP 118/78; O2SAT 99
--- NOTE | 2020-02-23 09:55 | RAD REPORT ---
EXAM DESCRIPTION: CT - Soft Tissue Neck W/Contr - 02/21/2020 10:52 pm ADDENDUM #1 Comparison study from 02/13/2020 is now available for comparison. The size of the abscess collection in the right peritonsillar tissues is smaller in size compared to the previous study but the extension of the abscess into the right anterior neck is new since the pre vious study. The right submandibular gland appears smaller in size which may be from decreased edema in the gland compared to the prior study. The narrowing of the pharynx is improved when compared to the previous study secondary to decreased s ize of the right peritonsillar portion of the abscess collection. Electronically signed by: Davonte Akbar MD 02/22/2020 12:06 AM CDT End of Addendum EXAM DESCRIPTION: Soft Tissue Neck W/Contr CLINICAL HISTORY: 39 years Female Fever;Sore throat;Swelling COMPARISON: There is a prior study from 02/13/2020 but the images are not available. An addendum can b e made if the images become available. TECHNIQUE: Contiguous axial images obtained through the neck following IV contrast. Reformatted imag es obtained. This exam was performed according to our department optimization program which includes automated exp osure control, adjustment of the mA and/or kv according to patient size and/or use of iterative recon struction technique. FINDINGS: There is a large fluid collection in the right neck extending from the right peritonsillar region inferiorly through the right floor of the mouth and into the lateral aspect of the right neck . The fluid collection measures approximately 3.5 cm x 1.6 cm x 7.4 cm in length. There is gas visual ized within the fluid collection and the possibility of infection with a gas-forming organism is not excluded. There is stranding in the surrounding fatty tissues of the right neck likely from edema and cellulitis. There is mild narrowing in the oropharynx on the right secondary to inflammatory changes. The prevert ebral soft tissues and epiglottis appear unremarkable. There is decreased enhancement in the right submandibular gland which may be from edema or infection involving the right submandibular gland. The parotid glands and left submandibular gland appear unrem arkable. The thyroid gland appears slightly enlarged. There are slightly prominent lymph nodes in the neck greater on the right likely reactive. The lung apices are clear. No fluid or significant mucosal thickening in the visualized paranasal sinuses. IMPRESSION: There is a large fluid collection in the right neck extending from the right peritonsill ar region inferiorly into the right floor of the mouth and into the lateral aspect of the right neck consistent with an abscess collection. There is some gas within the collection which could be from in fection with a gas-forming organism versus recent partial drainage. There is edema and cellulitis in the surrounding soft tissues. There is not compromise of the airway. There is decreased enhancement in the right submandibular gland likely from edema or infection involv ing the right submandibular gland. The thyroid gland appears slightly enlarged. Electronically signed by: Davonte Akbar MD 02/21/2020 10:44 PM CDT Due to temporary technical issues with the PACS/Fluency reporting system, reports are being signed by the in house radiologist without review as a courtesy to ensure prompt reporting. The interpreting r adiologist is fully responsible for the content of the report.
== END 2020-02-22 03:14 | disposition short-term general hospital (02) ==
LOC: ER 19:19
DX: L02.11 Cutaneous abscess of neck (principal); J36 Peritonsillar abscess; Z88.4 Allergy status to anesthetic agent; Z88.5 Allergy status to narcotic agent
CPT/HCPCS: 96365; 87040 ×2; 85025; 80048; 36415; 80076; 83605; 83690; 70491; 99285; Q9967; J2543; J7040; J7030

== ENCOUNTER 2020-11-01 17:56 | Emergency (ER) | payer OTHER ==
--- OUTSIDE RECORDS SUMMARY | 2020-11-01 17:59 | XMS REPORT | Continuity of Care Document ---
:1980 Author Organization [facility] t Address [address] [place] [address] Care Team Providers Name Role Phone Mouser, D Attending Clinician Mouser, D Admitting Clinician Problems Condition Condition Condition Status Onset Resolution Last Treating Co mments Source Name Details Category Date Date Treatment Clinician Date NECK Diagnosis Active 2020-02-22 Mem oria ABSCESS 02-21 05:11:00 l NECK 00:00: Ryan ABSCESS 00 Active 02/22/2020 [facility] ABSCESS OF Diagnosis Active 2020-02-25 Memoria SKIN OF 02-21 06:49:00 l NECK ABSCESS 00:00: Ryan OF SKIN OF 00 NECK Active 02/22/2020 [facility] Chronic Problem Active 2020-02-24 Rob feedrico gastritis 21:42:37 l (disorder) Chronic Her fernandez gastritis (disorder) Active Problem 02/24/2020 [facility] Fibromyalg Problem Active 2020-02-24 M emoria ia 21:42:37 l (disorder) Jesús n Fibromyalg ia (disorder) Active Problem 02/24/2020 [facility] CUTANEOUS Diagnosis Active 2020-02-25 Memoria ABSCESS OF 06:49:00 l NECK [place] CUTANEOUS ABSCESS OF NECK Active [facility] Allergies, Adverse Reactions, Alerts Allergy Allergy Status Severity Reaction(s) Onset Inactive Treating Comm ents Source Name Type Date Date Clinician No Known No Known Active Memori a Medicati Medicati l on on [place] Allergie Allergie s s Social History Social Habit Start Date Stop Date Quantity Comments Source Social History 2020-02-22 2020-02-22 [facility] Thierry parada 11:28:49 11:28:49 Medications Ordered Filled Start Stop Current Ordering Indication Dosage Frequency Signature Comments Components Source Medication Medication Date Date Medication? Clinician (SIG) Name Name nellynosides, No Notes: Rob federico FCI 02-22 (Same as: l 02:00: Senokot) Amitriptyli No Notes: Rob federico ne 02-22 (Same as: l 02:00: Elavil) Acetaminoph Yes 1 tab, PO, Memoria en 325 MG / 12 Q6H, PRN l Hydrocodone 22:02: Pain Score Ryan Bitartrate 7-10, 0 5 MG Oral Refill(s) Tablet [[place] 5/325] amitriptyli Yes 50 mg = 1 M emoria ne 50 mg 7-12 tab, PO, l oral tablet 22:02: Bedtime, 0 Refill(s) fluconazole Yes 200 mg = 1 Memoria 200 mg oral 7-12 tab, PO, l tablet 22:02: Daily, X 7 Trinity nn day, # 7 tab, 0 Refill(s), Pharmacy: [id number], 165.1, cm, 02/22/20 6:26:00 CDT, Height, 50, kg, 02/22/20 6:26:00 CDT, Weight POLYETHYLEN Yes 17 gm, PO, Memoria E GLYCOL -12 Daily, 0 l 3350 22:02: Refill(s) sennosides, Yes 17.2 mg = M emoria FCI 8.6 MG 12 2 tab, PO, l Oral Tablet 22:02: Bedtime, 0 Refill(s) Acetaminoph No Notes: Rob federico en 325 MG / 12 (Same as: l Hydrocodone 19:31: [place] Trinity nn Bitartrate 00 325/5) Do 5 MG Oral not exceed Tablet 4gm/day of [[place] acetaminop 5/325] hen. Fluconazole No 200 mg, 1 M emoria 7-12 tab, l 17:00: Route: PO, Drug form: TAB, [id number], Dosing Weight 50, kg, Start date: 02/22/20 12:00:00 CDT, Duration: 14 day, Stop date: 03/06/20 12:00:00 CDT, ABX Indication : Skin/Soft Tissue Infection, 0 POLYETHYLEN 2020-0 No Notes: Rob federico E GLYCOL 7-12 Dissolve l 3350 14:00: in 8 oz of Ryan 00 water or juice. (Same as: Miralax) Ibuprofen 2020-0 No Notes: Memori a 7-12 (Same as: l 13:00: Motrin) Ryan "Do Not Crush" Take with food. Fluconazole 2020-0 No Notes: Rob federico 7-12 (Same as: l 12:00: Diflucan) [place] Do not refrigerat e Hazardous Drug Group 3:Reproduc tive risk Hazardous Drug -- Refer to safe handling procedure PPE Matrix Ketorolac 2020-0 No 4 days Memor ia 7-12 l 11:45: MEDICATION Ryan 00 WASTE Product Size: 30 mg Product Wasted: ___ mg Zofran 2019-0 No Notes: Memoria 7-12 (Same as: l 11:45: Zofran) [place] 00 MEDICATION WASTE Product Size: 4 mg Product Wasted: ___ mg Acetaminoph 2019-0 No Notes: Max Memoria en -12 acetaminop l 11:00: hen 4000 Ryan 00 mg/day (4 gm/day). (Same as: Tylenol Extra Strength) Ceftriaxone 2019-0 No Notes: Rob federico 7-12 (Same As: l 10:48: Rocephin). Ryan 00 Use with 100 mL NS and infuse over 30 min MEDICATION WASTE Product Size: 1000 mg Product Wasted: ___ mg Flagyl 2019-0 No Notes: Memoria 7-12 (Same as: l 10:48: Flagyl) [place] 00 Avoid alcohol. Clonazepam 2020-0 No Notes: Memor ia 7-12 (Same As: l 10:46: KlonoPIN) [place] 00 Hazardous Drug Group 3:Reproduc tive risk Hazardous Drug -- Refer to safe handling procedure PPE Matrix clindamycin 2020-0 Yes 150 mg = 1 Memoria 150 mg oral 7-12 cap, PO, l capsule 10:43: Q6H, # 40 Trinity nn 00 cap, 0 Refill(s) clonazePAM 2019-0 Yes 0.5 mg = 1 M emoria 0.5 mg oral 7-12 tab, PO, l tablet 10:43: BID, PRN anxiety, # 60 tab, 0 Refill(s) Vancomycin 2020-0 No 2001 mg: Me moria 7-12 infuse l 10:43: over 2.5 hours For adult patients only: Round to nearest 250 mg per Medical Staff approval MEDICATION WASTE Product Size: 1000 mg Product Wasted: ___ mg Lactated 2019-0 No 1,000 mL, Rob federico Ringers IV -12 Rate: 60 l 1,000 mL 10:42: ml/hr, Infuse over: 16.7 hr, Route: IV, Dosing Weight 54.545 kg, Total Volume: 1,000, Start date: 02/22/20 5:42:00 CDT, Duration: 30 day, Stop date: 03/23/20 5:41:00 CDT, 0 Oxycodone 2019-0 No Notes: Memori a Hydrochlori -12 (Same as: l de 5 MG 10:41: Roxicodone Herm lorenzo Oral Tablet 00 ) Morphine 2019-0 No Notes: Memoria 7-12 (Same l 10:41: as:MORPhin Ryan 00 e Sulfate) Dextrose 2019-0 No 12.5 gm, Memor ia 50% Syringe - 25 mL, l (D50W) 10:37: Route: IVP, Drug Form: INJ, Dosing Weight 54.545, kg, PRN, PRN Blood Glucose Results, Start date: 02/22/20 5:37:00 CDT, Duration: 30 day, Stop date: 03/23/20 5:36:00 CDT, 0 Glucagon 2020-0 No 1 mg, Memoria -12 Route: IM, l 10:37: Drug form: Ryan 00 PDR/INJ, PRN, Dosing Weight 54.545, kg, PRN Blood Glucose Results, Start date: 02/22/20 5:37:00 CDT, Duration: 30 day, Stop date: 03/23/20 5:36:00 CDT, 0 Ondansetron 2019-0 No Notes: Rob federico 7-12 (Same as: l 10:37: Zofran) [place] 00 MEDICATION WASTE Product Size: 4 mg Product Wasted: ___ mg Melatonin No Notes: Memori a -12 (Same as: l 10:37: Melatonin) Ryan 00 Vital Signs Vital Name Observation Time Observation Value Comments Source Temperature Oral (F) 2020-02-22 16:34:00 98.6 F [facility] [place] Heart Rate 2020-02-22 16:34:00 [facility] [place] Respitory Rate 2020-02-22 16:34:00 Memori al Ryan Systolic (mm Hg) 2020-02-22 16:34:00 Rob rial Ryan Diastolic (mm Hg) 2020-02-22 16:34:00 Mem orial [place] Temperature Oral (F) 2020-02-22 14:07:00 97.8 F [facility] Heart Rate 2020-02-22 14:07:00 [facility] Respitory Rate 2020-02-22 14:07:00 Memori al [place] Systolic (mm Hg) 2020-02-22 14:07:00 Rob rial Ryan Diastolic (mm Hg) 2020-02-22 14:07:00 Mem orial [place] Temperature Oral (F) 2020-02-22 11:35:00 98.5 F [facility] Systolic (mm Hg) 2020-02-22 11:35:00 Rob rial [place] Diastolic (mm Hg) 2020-02-22 11:35:00 Mem orial [place] Height 2020-02-22 11:26:00 165.1 cm [facility] [place] Weight 2020-02-22 11:26:00 [facility] Ryan BMI Calculated 2020-02-22 11:26:00 Memori al [place] Respitory Rate 2020-02-22 10:56:00 Memori al [place] Weight 2020-02-22 09:22:00 [facility] [place] Heart Rate 2020-02-22 09:22:00 [facility] Procedures This patient has no known procedures. Encounters Start End Encounter Admission Attending Care Care Encounter Source Date/Time Date/Time Type Type Clinicians Facility Department ID 2020-02-22 2020-02-22 Outpatient [place] [facility] [id number] 04:20:00 18:45:00 Ervin Smith 94 2020-02-22 2020-02-22 Outpatient Mouser, [facility] [id number] 04:20:00 18:45:00 Ervin D 94 2020-02-22 2020-02-22 Outpatient E [facility] [id number] [facility] 11:19:00 11:19:00 Results Test Description Test Time Test Comments [facility] 2020-02-22 Negative Memori al 10:57:00 (02/22/20 5:57 [place] AM) IMMUNOLOGY 2020-02-22 Not Detected [facility] 10:57:00 (02/22/20 5:57 [place] AM) CHEM PANEL 2020-02-22 92 [facility] 10:55:13 [place] CHEM PANEL 2020-02-22 5 [facility] 10:55:13 Ryan CHEM PANEL 2020-02-22 0.59 [facility] 10:55:13 Ryan CHEM PANEL 2020-02-22 139 [facility] 10:55:13 Ryan CHEM PANEL 2020-02-22 3.7 [facility] 10:55:13 [place] CHEM PANEL 2020-02-22 105 [facility] 10:55:13 [place] CHEM PANEL 2020-02-22 30 [facility] 10:55:13 [place] CHEM PANEL 2020-02-22 8.7 [facility] 10:55:13 Ryan CHEM PANEL 2020-02-22 7.7 [facility] 10:55:13 Ryan CHEM PANEL 2020-02-22 115 [facility] 10:55:13 [place] CHEM PANEL 2020-02-22 0.9 [facility] 10:55:13 [place] HEMATOLOGY 2020-02-22 8.5 [facility] 10:55:13 Ryan HEMATOLOGY 2020-02-22 3.91 [facility] 10:55:13 [place] HEMATOLOGY 2020-02-22 12.2 [facility] 10:55:13 [place] HEMATOLOGY 2020-02-22 35.6 [facility] 10:55:13 Ryan HEMATOLOGY 2020-02-22 91.0 [facility] 10:55:13 [place] HEMATOLOGY 2020-02-22 10:55:13 Test Item Value Reference Range Interpretation Comme nts MCH (test code = MCH) 31.1 pg 27.0-31.0 Memorial [id number] 10:55:1334.1[facility] 2020-02-22 10:55:1313.0[facility] HkftiguRARWWXQAJU1570-22-06 10:55:52726Tyurdksl AzchzgrVLJJYGIAUV1731-06-07 10:55:137.1[facility] JmfydgbOALTPBSBPF0377-89-02 10:55:1365.7[facility] KmztzwvUOGUCJWIKV1364-52-75 10:55:1325.8[facility] Ryan [id number] 10:55:137.0[facility] BqnsmqhGSWWWFBMQP8670-49-37 10:55:130.9 Memorial VxdwmrkKZTRDYYTTK5604-02-42 10:55:130.6[facility]ann[facility]MATOLOGY 2020-02-22 10:55:135.6[facility] OddsefiOWOJGXXPKF4817-00-19 10:55:132.2[facility] YtuheidWQALVAEANT9161-38-75 10:55:130.6[facility] LrwbfubAPVSSWAYYY3765-03-66 10:55:130.1[facility] OtkkrkyYOXAXIZCLI5406-27-30 10:55:130.1[facility]annURINE AND [id number] 10:55:13Yellow *NA*(02/22/20 5:55 AM)[facility] [id number] 10:55:13Slight *ABN*(02/22/20 5:55 AM)[facility] [id number] 10:55:13 Test Item Value Reference Range Interpretation Comments UA Spec Grav (test code = UA Spec 1.017 1 Grav) [facility] [id number] 10:55:13 Test Item Value Reference Range Interpretation Comments UA pH (test code = UA pH) 6.0 1 5.0-8.0 [facility] [id number] 10:55:13Negative *NA*(02/22/20 5:55 AM) [facility] [id number] 10:55:13Negative (02/22/20 5:55 AM) [facility] [id number] 10:55:13<1.0[facility] [id number] 10:55:13Negative (02/22/20 5:55 AM)[facility] [id number] 10:55:13Trace *ABN*(02/22/20 5:55 AM)[facility] [id number] 10:55:134[facility] [id number] 10:55:131 [facility] Ryan
--- NOTE | 2020-11-01 20:41 | ER ---
[facility] Name: Kavita Kwon Age: 40 yrs Sex: Female : 1980 Arrival Date: 11/01/2020 Time: 18:03 Bed External Waiting Private MD: Diagnosis: Presentation: 11/01 18:51 Chief complaint: Patient states: LLQ abd pain for 2 months. Obviously bloody stool for ll1 2 days. Feels like she needs to constantly poop. No fever. Knows she has a bleeding ulcer. Had endo/colonoscopy last week: found bleeding ulcer, polyps, hiatal hernia, and Hicks's esophagus. Coronavirus screen: Client denies travel out of the [place] in the last 14 days. At this time, the client does not indicate any symptoms associated with coronavirus-19. Ebola Screen: Patient denies travel to an Ebola-affected area in the 21 days before illness onset. Initial Sepsis Screen: Does the patient meet any 2 criteria? No. Patient's initial sepsis screen is negative. Does the patient have a suspected source of infection? Yes: Acute abdominal pain. Risk Assessment: Do you want to hurt yourself or someone else? Patient reports no desire to harm self or others. Onset of symptoms was September 04, 2020. 18:51 Method Of Arrival: Ambulatory ll1 18:51 Acuity: SUZY 3 ll1 Historical: - Allergies: 18:56 No Known Allergies; ll1 - PMHx: 18:56 Anxiety; Enrique's esophagus; Chronic Gastritis; diverticulosis; Heart Murmur; ll1 Irregular heart rate; Migraines; - PSHx: 18:56 neck surgery; Hysterectomy; Appendectomy; ll1 - Immunization history:: Flu vaccine is not up to date. - Social history:: Smoking status: Patient reports the use of cigarette tobacco products, smokes one-half pack cigarettes per day. Vital Signs: 18:51 BP 118 / 87; Pulse 87; Resp 17; Temp 98.1; Pulse Ox 100% ; Weight 56.7 kg; Height 5 ft. ll1 5 in. (165.10 cm); Pain 6/10; 18:51 Body Mass Index 20.80 (56.70 kg, 165.10 cm) ll1 ED Course: 18:03 Patient arrived in ED. mr 18:55 Triage completed. ll1 18:56 Arm band placed on. ll1 Administered Medications: No medications were administered Outcome: 20:41 Patient left the ED. 1 Signatures: Jocelyn Guy Lynsay, RN RN 1
[2020-11-01 21:25] VITALS: BP 118/87; TEMP 98.1; O2SAT 100
== END 2020-11-01 20:41 | disposition left against medical advice (07) ==
LOC: ER 17:56
DX: R10.9 Unspecified abdominal pain (principal); Z53.21 Procedure and treatment not carried out due to patient leaving prior to being seen by health care provider
CPT/HCPCS: 99281

== ENCOUNTER 2021-01-18 14:21 | Emergency (ER) | payer OTHER ==
--- OUTSIDE RECORDS SUMMARY | 2021-01-18 14:24 | XMS REPORT | Continuity of Care Document ---
:1980 Author Organization [facility] t Address [address] [place] [address] Care Team Providers Name Role Phone Mouser, D Attending Clinician Mouser, D Admitting Clinician Problems Condition Condition Condition Status Onset Resolution Last Treating Co mments Source Name Details Category Date Date Treatment Clinician Date ABSCESS OF Diagnosis Active 2020-02-25 Memoria SKIN OF 02-21 06:49:00 l NECK ABSCESS 00:00: Ryan OF SKIN OF 00 NECK Active 02/22/2020 [facility] NECK Diagnosis Active 2020-02-22 Mem oria ABSCESS 02-21 05:11:00 l NECK 00:00: Ryan ABSCESS 00 Active 02/22/2020 [facility] Chronic Problem Active 2020-02-24 Rob federico gastritis 21:42:37 l (disorder) Chronic Her fernandez gastritis (disorder) Active Problem 02/24/2020 [facility] Fibromyalg Problem Active 2020-02-24 M emoria ia 21:42:37 l (disorder) Jesús n Fibromyalg ia (disorder) Active Problem 02/24/2020 [facility] CUTANEOUS Diagnosis Active 2020-02-25 Memoria ABSCESS OF 06:49:00 l NECK Ryan CUTANEOUS ABSCESS OF NECK Active [facility] Allergies, Adverse Reactions, Alerts Allergy Allergy Status Severity Reaction(s) Onset Inactive Treating Comm ents Source Name Type Date Date Clinician No Known No Known Active Memori a Medicati Medicati l on on Ryan Allergie Allergie s s Social History Social Habit Start Date Stop Date Quantity Comments Source Social History 2020-02-22 2020-02-22 [facility] Thierry parada 11:28:49 11:28:49 Medications Ordered Filled Start Stop Current Ordering Indication Dosage Frequency Signature Comments Components Source Medication Medication Date Date Medication? Clinician (SIG) Name Name nellynosides, No Notes: Rob federico [facility]ARE HOME 02-22 (Same as: l 02:00: Senokot) Amitriptyli No Notes: Rob federico ne 02-22 (Same as: l 02:00: Elavil) Acetaminoph Yes 1 tab, PO, Memoria en 325 MG / 12 Q6H, PRN l Hydrocodone 22:02: Pain Score [place] Bitartrate 7-10, 0 5 MG Oral Refill(s) Tablet [[place] 5/325] amitriptyli Yes 50 mg = 1 M emoria ne 50 mg 7-12 tab, PO, l oral tablet 22:02: Bedtime, 0 Refill(s) fluconazole Yes 200 mg = 1 Memoria 200 mg oral 7-12 tab, PO, l tablet 22:02: Daily, X 7 [place] nn day, # 7 tab, 0 Refill(s), Pharmacy: [id number], 165.1, cm, 02/22/20 6:26:00 CDT, Height, 50, kg, 02/22/20 6:26:00 CDT, Weight POLYETHYLEN Yes 17 gm, PO, Memoria E GLYCOL -12 Daily, 0 l 3350 22:02: Refill(s) sennosides, Yes 17.2 mg = M emoria [facility] 8.6 MG 12 2 tab, PO, l Oral Tablet 22:02: Bedtime, 0 Refill(s) Acetaminoph No Notes: Rob federico en 325 MG / 12 (Same as: l Hydrocodone 19:31: [place] nn Bitartrate 00 325/5) Do 5 MG Oral not exceed Tablet 4gm/day of [[place] acetaminop 5/325] hen. Fluconazole No 200 mg, 1 M emoria 7-12 tab, l 17:00: Route: PO, Drug form: TAB, [id number], Dosing Weight 50, kg, Start date: 02/22/20 [...] federico 7-12 (Same as: l 12:00: Diflucan) [place] Do not refrigerat e Haz[facility]ous Drug Group 3:Reproduc tive risk Hazardous Drug -- Refer to safe handling procedure PPE Matrix Ketorolac 2020-0 No 4 days Memor ia 7-12 l 11:45: MEDICATION Ryan 00 WASTE Product Size: 30 mg Product Wasted: ___ mg Zofran 2019-0 No Notes: Memoria 7-12 (Same as: l 11:45: Zofran) [place] 00 MEDICATION WASTE Product Size: 4 mg Product Wasted: ___ mg Acetaminoph 2019-0 No Notes: Max Memoria en -12 acetaminop l 11:00: hen 4000 [place] 00 mg/day (4 gm/day). (Same as: Tylenol Extra Strength) Ceftriaxone 2019-0 No Notes: Rob federico 7-12 (Same As: l 10:48: Rocephin). Ryan 00 Use with 100 mL NS and infuse over 30 min MEDICATION WASTE Product Size: 1000 mg Product Wasted: ___ mg Flagyl 2019-0 No Notes: Memoria 7-12 (Same as: l 10:48: Flagyl) [place] 00 Avoid alcohol. Clonazepam 2020-0 No Notes: Memor ia 7-12 (Same As: l 10:46: KlonoPIN) [place] 00 [facility] Group 3:Reproduc tive risk [...] federico 7-12 (Same as: l 10:37: Zofran) [place] 00 MEDICATION WASTE Product Size: 4 mg Product Wasted: ___ mg Melatonin No Notes: Memori a -12 (Same as: l 10:37: Melatonin) [place] 00 Vital Signs Vital Name Observation Time Observation Value Comments Source Temperature Oral (F) 2020-02-22 16:34:00 98.6 F [facility] [place] Heart Rate 2020-02-22 16:34:00 [facility] Respitory Rate 2020-02-22 16:34:00 Memori al [place] Systolic (mm Hg) 2020-02-22 16:34:00 Rob rial [place] Diastolic (mm Hg) 2020-02-22 16:34:00 Mem orial Ryan Temperature Oral (F) 2020-02-22 14:07:00 97.8 F [facility] [place] Heart Rate 2020-02-22 14:07:00 [facility] Respitory Rate 2020-02-22 14:07:00 Memori al [place] Systolic (mm Hg) 2020-02-22 14:07:00 Rob rial [place] Diastolic (mm Hg) 2020-02-22 14:07:00 Mem orial Ryan Temperature Oral (F) 2020-02-22 11:35:00 98.5 F [facility] Systolic (mm Hg) 2020-02-22 11:35:00 Rob rial [place] Diastolic (mm Hg) 2020-02-22 11:35:00 Mem orial [place] Height 2020-02-22 11:26:00 165.1 cm [facility] [place] Weight 2020-02-22 11:26:00 [facility] BMI Calculated 2020-02-22 11:26:00 Memori al [place] Respitory Rate 2020-02-22 10:56:00 Memori al [place] Weight 2020-02-22 09:22:00 [facility] Heart Rate 2020-02-22 09:22:00 [facility] [place] Procedures This patient has no known procedures. Encounters Start End Encounter Admission Attending Care Care Encounter Source Date/Time Date/Time Type Type Clinicians Facility Department ID 2020-02-22 2020-02-22 Outpatient [place] [facility] [id number] 04:20:00 18:45:00 Ervin Smith 94 2020-02-22 2020-02-22 Outpatient Mouser, [facility] [id number] 04:20:00 18:45:00 Ervin D 94 2020-02-22 2020-02-22 Outpatient E [facility] MED [id number] [facility] 11:19:00 11:19:00 Results Test Description Test Time Test Comments [facility] 2020-02-22 Negative Memori al 10:57:00 (02/22/20 5:57 Ryan AM) IMMUNOLOGY 2020-02-22 Not Detected [facility] 10:57:00 (02/22/20 5:57 Ryan AM) CHEM PANEL 2020-02-22 92 [facility] 10:55:13 [place] CHEM PANEL 2020-02-22 5 [facility] 10:55:13 Ryan CHEM PANEL 2020-02-22 0.59 [facility] 10:55:13 Ryan CHEM PANEL 2020-02-22 139 [facility] 10:55:13 [place] CHEM PANEL 2020-02-22 3.7 [facility] 10:55:13 Ryan CHEM PANEL 2020-02-22 105 [facility] 10:55:13 Ryan CHEM PANEL 2020-02-22 30 [facility] 10:55:13 Ryan CHEM PANEL 2020-02-22 8.7 [facility] 10:55:13 [place] CHEM PANEL 2020-02-22 7.7 [facility] 10:55:13 [place] CHEM PANEL 2020-02-22 115 [facility] 10:55:13 [place] CHEM PANEL 2020-02-22 0.9 [facility] 10:55:13 [place] HEMATOLOGY 2020-02-22 8.5 [facility] 10:55:13 [place] HEMATOLOGY 2020-02-22 3.91 [facility] 10:55:13 Ryan HEMATOLOGY 2020-02-22 12.2 [facility] 10:55:13 Ryan HEMATOLOGY 2020-02-22 35.6 [facility] 10:55:13 Ryan HEMATOLOGY 2020-02-22 91.0 [facility] 10:55:13 [place] HEMATOLOGY 2020-02-22 10:55:13 Test Item Value Reference Range Interpretation Comme nts MCH (test code = MCH) 31.1 pg 27.0-31.0 [facility] [id number] 10:55:1334.1[facility] 2020-02-22 10:55:1313.0[facility] TsabrhwPGLQCIAGGD8217-67-63 10:55:36780Vfelqykm CgsvqziQBSGZNFDZE3005-00-88 10:55:137.1[facility] VdrkzxpABKTXLFNQQ5263-31-22 10:55:1365.7[facility] BjjnoekKMHEUSAKSB6345-89-52 10:55:1325.8[facility] Ryan IKMBCLJWLC0231-07-26 10:55:137.0[facility] PfisqeqLZSEBGUHMO7878-95-78 10:55:130.9 [facility] MnzhytlMAASCSCVBI7475-33-52 10:55:130.6[facility]ann[facility]MATOLOGY 2020-02-22 10:55:135.6[facility] LfvbkpwZBCATQYARD2855-39-07 10:55:132.2[facility] UnyxlvdQOBZHGSQHY5134-54-52 10:55:130.6[facility] MmlpcbjWGNDNMYLJV0688-81-04 10:55:130.1[facility] UmdswyfKQQRDNZABD5946-51-67 10:55:130.1[facility] AND [id number] 10:55:13Yellow *NA*(02/22/20 5:55 AM)[facility] [id number] 10:55:13Slight *ABN*(02/22/20 5:55 AM)[facility] [id number] 10:55:13 Test Item Value Reference Range Interpretation Comments UA Spec Grav (test code = UA Spec 1.017 1 Grav) [facility] [id number] 10:55:13 Test Item Value Reference Range Interpretation Comments UA pH (test code = UA pH) 6.0 1 5.0-8.0 [facility] [id number] 10:55:13Negative *NA*(02/22/20 5:55 AM) [facility] [id number] 10:55:13Negative (02/22/20 5:55 AM) [facility] [id number] 10:55:13<1.0[facility] [id number] 10:55:13Negative (02/22/20 5:55 AM)[facility] [id number] 10:55:13Trace *ABN*(02/22/20 5:55 AM)[facility] [id number] 10:55:134[facility] [id number] 10:55:131 [facility] Ryan
[2021-01-18 16:07] LABS: Absolute Lymphocytes (CBC) 1.8 K/uL (0.7-4.9); Basophils % 0.4 % (0-1.3); Hematocrit 41.6 % (36.0-45.0); Lymphocytes % 32.3 % (15.3-44.8); MPV 9.6 fL (7.6-11.3); RBC Red Blood Cell Count 4.53 M/uL (3.86-4.86)
[2021-01-18] MEDS ORDERED: NA CHLORIDE 0.9% 1,000 ML ONE (16:17)
[2021-01-18] MEDS ORDERED: ONDANSETRON 4 MG/2 ML VIAL ONE (16:17)
[2021-01-18] MEDS ORDERED: MORPHINE 4 MG/ML SYR ONE (16:17)
[2021-01-18 16:33] LABS: ALT/SGPT 17 U/L (12-78); AST/SGOT 10 U/L (15-37); Albumin 4.2 g/dL (3.4-5.0); Alkaline Phosphatase 54 U/L (45-117); BUN Blood Urea Nitrogen 8 mg/dL (7-18); Bicarbonate 26 mmol/L (21-32); Bilirubin Direct < 0.1 mg/dL (0-0.2); Bilirubin Total 0.3 mg/dL (0.2-1.0); Glucose Level 74 mg/dL (74-106); Lipase 85 U/L (73-393); Potassium 3.7 mmol/L (3.5-5.1); Protein, Total 7.3 g/dL (6.4-8.2); Sodium Level 142 mmol/L (136-145)
--- NOTE | 2021-01-18 17:03 | RAD REPORT ---
EXAM DESCRIPTION: CT - Abdomen Pelvis W Contrast - 01/18/2021 4:49 pm CLINICAL HISTORY: Abdominal pain COMPARISON: December 2020 CT TECHNIQUE: Computed axial tomography of the abdomen pelvis was obtained. 100 cc Isovue-300 was admin istered intravenously. Oral contrast was not requested which limits evaluation of bowel. All CT scans are performed using dose optimization technique as appropriate and may include automated exposure control or mA/KV adjustment according to patient size. FINDINGS: Tiny hepatic cyst. Mild prominence of the common bile duct unchanged from the prior exam. Spleen, pancreas, adrenal and kidneys appear unremarkable. There is no evidence of diverticulitis. Couple of air bubbles are present within the bladder. Hysterectomy IMPRESSION: Couple of air bubbles within the bladder may be secondary to recent instrumentation. Inf ection can also result this appearance.
[2021-01-18 18:14] LABS: Urine Blood Negative (Negative); Urine Glucose Negative (Negative); Urine Protein Negative (Negative)
[2021-01-18 19:09] LABS: Urine Bacteria <20 /HPF (<20); Urine RBC <5 /HPF (NONE SEEN)
--- NOTE | 2021-01-18 19:42 | EDPHYS ---
Physician Documentation [facility] Name: Kavita Kwon Age: 40 yrs Sex: Female : 1980 Arrival Date: 01/18/2021 Time: 14:25 Bed 27 Private MD: Vladimir Mcconnell V ED Physician Alfred Cabrera HPI: 01/18 16:09 This 40 yrs old Female presents to ER via Wheelchair with complaints of pm1 Abdominal Pain. 16:09 The patient presents with abdominal pain in the right upper quadrant, in the left lower pm1 quadrant. Onset: The symptoms/episode began/occurred on going for multiple months but worse today. The symptoms radiate to Associated signs and symptoms: Pertinent positives: nausea, Pertinent negatives: chest pain, diarrhea, dysuria, fever, shortness of breath. Modifying factors: The symptoms are alleviated by nothing, the symptoms are aggravated by nothing. Severity of pain: in the emergency department the pain is actually worse. The patient has been recently seen by a physician: a heel seat trimmer, had CT and MRI recently. 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 - Social history:: Smoking status: Patient reports the use of cigarette tobacco products, smokes one-half pack cigarettes per day. ROS: 16:09 Constitutional: Negative for fever, chills, and weight loss, Cardiovascular: Negative pm1 for chest pain, palpitations, and edema, Respiratory: Negative for shortness of breath, cough, wheezing, and pleuritic chest pain. 16:09 Back: Negative for injury and pain, MS/Extremity: Negative for injury and deformity, Skin: Negative for injury, rash, and discoloration. 16:09 : Negative for injury, bleeding, discharge, and swelling, Neuro: Negative for headache, weakness, numbness, tingling, and seizure. 16:09 Abdomen/GI: Positive for abdominal pain, nausea, diarrhea, Negative for vomiting. Exam: 16:09 Constitutional: This is a well developed, well nourished patient who is awake, alert, pm1 and in no acute distress. Head/Face: Normocephalic, atraumatic. 16:09 Back: No spinal tenderness. No costovertebral tenderness. Full range of motion. Skin: Warm, dry with normal turgor. Normal color with no rashes, no lesions, and no evidence of cellulitis. MS/ Extremity: Pulses equal, no cyanosis. Neurovascular intact. Full, normal range of motion. 16:09 Eyes: Exam is negative for acute changes, Extraocular movements: no acute changes, Sclera: icterus, is not appreciated. 16:09 ENT: Mouth: Lips: normal, Oral mucosa: normal, pink and intact, moist. 16:09 Cardiovascular: Rate: normal, Rhythm: regular, Pulses: no pulse deficits are appreciated. 16:09 Respiratory: Exam negative for acute changes, respiratory distress, shortness of breath. 16:09 Abdomen/GI: Inspection: abdomen appears normal, Palpation: soft, in all quadrants, mild abdominal tenderness, in the left lower quadrant. 16:09 Neuro: Exam negative for acute changes, Orientation: is normal, Mentation: is normal, Motor: is normal, moves all fours. Vital Signs: 14:37 BP 118 / 76; Pulse 106; Resp 20; Temp 98.3(O); Pulse Ox 97% on R/A; Weight 54.43 kg; ph Height 5 ft. 5 in. (165.10 cm); Pain 8/10; 17:05 BP 107 / 71; Pulse 72; Resp 16; Pulse Ox 100% on R/A; Pain 4/10; ap3 17:51 BP 105 / 69; Pulse 68; Pulse Ox 99% on R/A; ap3 18:45 BP 105 / 70; Pulse 70; Resp 16; Pulse Ox 100% on R/A; ap3 19:25 BP 94 / 59; Pulse 54; Resp 16; Pulse Ox 100% on R/A; ap3 14:37 Body Mass Index 19.97 (54.43 kg, 165.10 cm) ph MDM: 15:28 Patient medically screened. pm1 19:26 Data reviewed: vital signs. Data interpreted: Pulse oximetry: on room air is 100 %. pm1 Interpretation: normal. 19:41 Counseling: I had a detailed discussion with the patient and/or guardian regarding: the pm1 historical points, exam findings, and any diagnostic results supporting the discharge/admit diagnosis, lab results, radiology results, the need for outpatient follow up, to return to the emergency department if symptoms worsen or persist or if there are any questions or concerns that arise at home. 19:43 ED course: [place] reviewed. pm1 01/18 15:30 Order name: Basic Metabolic Panel; Complete Time: 16:49 pm1 01/18 15:30 Order name: CBC with Diff; Complete Time: 16:49 pm1 01/18 15:30 Order name: Hepatic Function; Complete Time: 16:49 pm1 01/18 15:30 Order name: Lipase; Complete Time: 16:49 pm1 01/18 17:39 Order name: Urine Microscopic Only pm1 01/18 17:40 Order name: Urine Microscopic Only; Complete Time: 19:43 EDMS 01/18 15:30 Order name: IV Saline Lock; Complete Time: 15:56 pm1 01/18 15:30 Order name: Labs collected and sent; Complete Time: 15:56 pm1 01/18 15:30 Order name: CT Abd/Pelvis - IV Contrast Only; Complete Time: 17:38 pm1 08 18:14 Order name: Urine Dipstick-Ancillary; Complete Time: 19:43 EDMS 01/18 15:30 Order name: Urine Dipstick-Ancillary (obtain specimen); Complete Time: 18:14 pm1 Administered Medications: 16:01 Drug: Zofran (Ondansetron) 4 mg Route: IVP; Site: right wrist; ap3 17:07 Follow up: Response: No adverse reaction; Nausea is decreased ap3 16:01 Drug: NS 0.9% 1000 ml Route: IV; Rate: 1000 ml; Site: right wrist; ap3 17:07 Follow up: Response: No adverse reaction; IV Status: Completed infusion; IV Intake: ap3 1000ml 16:02 Drug: morphine 4 mg Route: IVP; Site: right wrist; ap3 17:07 Follow up: Response: No adverse reaction; Pain is decreased ap3 20:25 Drug: GI Cocktail without - (Maalox Suspension 30 ml, Lidocaine Liquid 2 % 15 ap3 ml) Route: PO; 20:25 Follow up: Response: No adverse reaction ap3 Disposition: 01/19 07:00 Co-signature as Attending Physician, Alfred Cabrera MD. rn Disposition: 01/18/21 19:41 Discharged to Home. Impression: Unspecified abdominal pain. - Condition is Stable. - Discharge Instructions: Abdominal Pain, Adult. - Prescriptions for Bentyl 20 mg Oral Tablet - take 1 tablet by ORAL route every 6 hours As needed; 20 tablet. Zofran ODT 4 mg Oral tablet,disintegrating - place 1 tablet by TRANSLINGUAL route every 8 hours As needed; 12 tablet. - Medication Reconciliation Form, Thank You Letter, Antibiotic Education, Prescription Opioid Use form. - Follow up: Emergency Department; When: As needed; Reason: Worsening of condition. Follow up: Private Physician; When: 2 - 3 days; Reason: Recheck today's complaints, Continuance of care, Re-evaluation by your physician. - Problem is new. - Symptoms have improved. Signatures: Dispatcher [employer] EDAlfred Ni MD MD rn Hall, Patricia, RN RN Alejandro Yap, VLADIMIR AIR TWIST OPERATOR pm1 Breanna Brandt RN RN ap3 Corrections: (The following items were deleted from the chart) 01/18 15:39 15:30 Urine Test ordered. pm1 ap3 20:13 16:09 The patient has been recently seen by a physician: a heel seat trimmer, had pm1 endoscopy and colonoscopy recently, pm1 20:26 19:41 01/18/2021 19:41 Discharged to Home. Impression: Unspecified abdominal pain. ap3 Condition is Stable. Forms are Medication Reconciliation Form, Thank You Letter, Antibiotic Education, Prescription Opioid Use. Follow up: Emergency Department; When: As needed; Reason: Worsening of condition. Follow up: Private Physician; When: 2 - 3 days; Reason: Recheck today's complaints, Continuance of care, Re-evaluation by your physician. Problem is new. Symptoms have improved. pm1
--- NOTE | 2021-01-18 19:42 | ER ---
Nurse's Notes [facility] Name: Kavita Kwon Age: 40 yrs Sex: Female : 1980 Arrival Date: 01/18/2021 Time: 14:25 Bed 27 Private MD: Vladimir Mcconnell V Diagnosis: Unspecified abdominal pain Presentation: 01/18 14:37 Chief complaint: Patient states: RUQ pain, LLQ pain radiating to back, also reports ph nausea. Reports hx of abdominal pain, has had CT and MRI of abdomen recently, CT showed a cyst on liver, denies fever. Coronavirus screen: Client denies travel out of the [place] in the last 14 days. At this time, the client does not indicate any symptoms associated with coronavirus-19. Ebola Screen: No symptoms or risks identified at this time. Initial Sepsis Screen: Does the patient meet any 2 criteria? No. Patient's initial sepsis screen is negative. Does the patient have a suspected source of infection? No. Patient's initial sepsis screen is negative. Risk Assessment: Do you want to hurt yourself or someone else? Patient reports no desire to harm self or others. 14:37 Method Of Arrival: Wheelchair ph 14:37 Acuity: SUZY 3 ph 15:20 Onset of symptoms is unknown. 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 - Social history:: Smoking status: Patient reports the use of cigarette tobacco products, smokes one-half pack cigarettes per day. Screenin:19 Abuse screen: Denies threats or abuse. Nutritional screening: No deficits noted. ap3 Tuberculosis screening: No symptoms or risk factors identified. Fall Risk None identified. Assessment: 15:18 General: Appears uncomfortable, Behavior is cooperative, appropriate for age, restless. ap3 Pain: Complains of pain in right upper quadrant and left lower quadrant Pain does not radiate. Pain currently is 7 out of 10 on a pain scale. Quality of pain is described as crampy, pinching, Pain began months ago. Neuro: Level of Consciousness is awake, alert, obeys commands, Oriented to person, place, time, situation. Cardiovascular: Denies chest pain, Capillary refill < 3 seconds. Respiratory: Airway is patent Respiratory effort is even, unlabored, Respiratory pattern is regular, symmetrical. GI: Bowel sounds present X 4 quads. Abd is soft X 4 quads Guarding noted in left lower quadrant. : No signs and/or symptoms were reported regarding the genitourinary system. EENT: No signs and/or symptoms were reported regarding the EENT system. 17:22 Reassessment: Patient and/or family updated on plan of care and expected duration. Pain ap3 level reassessed. Patient is alert, oriented x 3, equal unlabored respirations, skin warm/dry/pink. Patient states symptoms have improved. family member is at the bedside. 17:51 General: patient encouraged to provide us with urine for testing. ap3 Vital Signs: 14:37 BP 118 / 76; Pulse 106; Resp 20; Temp 98.3(O); Pulse Ox 97% on R/A; Weight 54.43 kg; ph Height 5 ft. 5 in. (165.10 cm); Pain 8/10; 17:05 BP 107 / 71; Pulse 72; Resp 16; Pulse Ox 100% on R/A; Pain 4/10; ap3 17:51 BP 105 / 69; Pulse 68; Pulse Ox 99% on R/A; ap3 18:45 BP 105 / 70; Pulse 70; Resp 16; Pulse Ox 100% on R/A; ap3 19:25 BP 94 / 59; Pulse 54; Resp 16; Pulse Ox 100% on R/A; ap3 14:37 Body Mass Index 19.97 (54.43 kg, 165.10 cm) ph ED Course: 14:25 Patient arrived in ED. hh 14:25 Vladimir Mcconnell MD is Private Physician. hh 14:40 Triage completed. ph 14:41 Arm band placed on Patient placed in an exam room. ph 15:18 Breanna Brandt, PRATIBHA is Primary Nurse. ap3 15:20 Patient has correct armband on for positive identification. Bed in low position. Call ap3 light in reach. Side rails up X2. Adult w/ patient. Pulse ox on. NIBP on. Door closed. Noise minimized. 15:22 Alejandro Chavez NP is PHCP. pm1 15:22 Alfred Cabrera MD is Attending Physician. pm1 15:56 Basic Metabolic Panel Sent. em1 15:56 CBC with Diff Sent. em1 15:57 Hepatic Function Sent. em1 15:57 Lipase Sent. em1 15:57 Initial lab(s) drawn, by wy, sent to lab. Inserted saline lock: 20 gauge in right em1 forearm, using aseptic technique. Blood collected. 16:48 CT Abd/Pelvis - IV Contrast Only In Process Unspecified. EDMS 20:26 No provider procedures requiring assistance completed. IV discontinued, intact, ap3 bleeding controlled, No redness/swelling at site. Pressure dressing applied. Administered Medications: 16:01 Drug: Zofran (Ondansetron) 4 mg Route: IVP; Site: right wrist; ap3 17:07 Follow up: Response: No adverse reaction; Nausea is decreased ap3 16:01 Drug: NS 0.9% 1000 ml Route: IV; Rate: 1000 ml; Site: right wrist; ap3 17:07 Follow up: Response: No adverse reaction; IV Status: Completed infusion; IV Intake: ap3 1000ml 16:02 Drug: morphine 4 mg Route: IVP; Site: right wrist; ap3 17:07 Follow up: Response: No adverse reaction; Pain is decreased ap3 20:25 Drug: GI Cocktail without - (Maalox Suspension 30 ml, Lidocaine Liquid 2 % 15 ap3 ml) Route: PO; 20:25 Follow up: Response: No adverse reaction ap3 Intake: 17:07 IV: 1000ml; Total: 1000ml. ap3 Outcome: 19:41 Discharge ordered by . pm1 20:26 Discharged to home ambulatory, with family. ap3 20:26 Condition: good 20:26 Discharge instructions given to patient, family, Instructed on discharge instructions, follow up and referral plans. medication usage, Demonstrated understanding of instructions, follow-up care, medications, Prescriptions given X 2. 20:26 Patient left the ED. ap3 Signatures: Dispatcher [employer] EDMS David Galicia em1 Zulema Crouch RN RN Alejandro Chavez NP POULTRYMAN pm1 Breanna Brandt RN RN ap3 Josy Garcia hh
[2021-01-18 20:42] VITALS: TEMP 98.3
[2021-01-18] MEDS ORDERED: LIDOCAINE VISCOUS 2% SOLN 15 ML UDC ONE (20:42)
[2021-01-18] MEDS ORDERED: MAGNES/ALUMIN/SIMET 30ML UCUP ONE (20:42)
[2021-01-18 20:49] VITALS: O2SAT 100
[2021-01-18 20:50] VITALS: BP 94/59
== END 2021-01-18 20:26 | disposition home or self-care (01) ==
LOC: ER 14:21
DX: R10.32 Left lower quadrant pain (principal); F17.210 Nicotine dependence, cigarettes, uncomplicated
CPT/HCPCS: 85025; 80048; 36415; 80076; 83690; 74177; Q9967; J7030; J2405; 81003; 81015; 96361; 96374; 96375; 99284

== ENCOUNTER 2021-08-10 17:25 | Observation (INO) | payer OTHER ==
--- OUTSIDE RECORDS SUMMARY | 2021-08-10 17:27 | XMS REPORT | Continuity of Care Document ---
:1980 Author Organization [facility] t Address [address] [place] [place] [address] Care Team Providers Name Role Phone José Miguel Attending Clinician Unavailable MOUSER, D Attending Clinician Unavailable José Miguel Admitting Clinician Unavailable Enedina, Ramirez Admitting Clinician Unavailable MOUSER, D Admitting Clinician Unavailable Payers Payer Name Policy Type Policy Number Effective Date Expiration Date S ource Problems This patient has no known problems. Allergies, Adverse Reactions, Alerts Allergy Allergy Status Severity Reaction(s) Onset Inactive Treating Comm ents Source Name Type Date Date Clinician lidocain DA Active [place] [facility] 02[facility]18 Clear 00:00: [address] lidocain [place] Active [place] [facility] [place] 02-18 Clear 00:00: [address] Medications This patient has no known medications. Procedures Procedure Date / Time Performed Performing Clinician Vicenta reyna [id number] 2021-02-20 00:00:00 SHEREE.Denis [facility] Encounters Start End Encounter Admission Attending Care Care Encounter Source Date/Time Date/Time Type Type Clinicians Facility Department ID 2021-02-19 2021-02-21 Inpatient EM WILMER Valdez MED [id number] [facility] 13:16:00 15:45:00 [facility] [id number] [facility] 2021-02-18 2021-02-18 Outpatient VERO Valdez LABO [id number] [facility] 21:53:00 21:53:00 [facility] [id number] [facility] 2021-02-18 2021-02-18 Inpatient EM José Miguel [facility] [id number] [facility] 12:20:00 12:19:00 Maynor [id number] [facility] 2020-02-22 2020-02-22 Outpatient Parvin ROWE, [facility] MED 0194 [facility] 11:19:00 18:45:00 [facility] Results Test Description Test Time Test Comments Results Result Comments Source SURG 2021-02-22 11:48:00 Test Item Value Reference Range Interpretation Comme nts SURG RUN DATE: (test 02/22/21 H TYRE[facility] [place] [facility] - LAB PAGE 1 RUN TIME: 1148 code = Specimen Inquiry RUN USER: INTERFACE SURG) PATIENT: MAURICE HIDALGO LOC: RohiniJudy #: [id number] AGE/SX: 40/ F ROOM: MyahMSO03 RE02/19/21REG DR: Maynor Valdez MD : [birth year] BED: 1 DIS: 02/21/21 STATUS: DIS IN TLOC: SPEC #: [id number] RECD: STATUS: ABIMAEL AYALA #: [id number] AMBER: 02/20/[address]: Maynor Valdez MD ENTERED: 02/21/21 SP TYPE: SURG OTHR DR: Self Referred Vladimir Mcconnell MD, Maamoun MD Meah, Nizam Mohammad MDORDERED: SURG PATH LVL 3 COPIES TO: Self Referred Vladimir Mcconnell MD [address] [facility] [place] [address] Petrona Oliveira MD [address] [place] [address] [place] [address] [place] [address] [email or web address] Tariq Tripathi MD [address] [place], [place] [id number] HISTOLOGY: TISSUE ID BLK PCS LIAN LEV PROCEDURE DISPOSITION ____ ___ ___ ___ GALLBLADDER, N O A 1-2 1 PROCEDURES: SURG PATH LVL 3 (02/21/21) TISSUES: A. GALLBLADDER, NOS - GALLBLADDER CONTINUED ON NEXT PAGE RUN DATE: 02/22/21 H TYRELL [facility] [place] - LAB PAGE 2 RUN TIME: 1148 Specimen Inquiry RUN USER: INTERFACE SPEC #: [facility]:[id number] PATIENT: MAURICE HIDALGO #[id number] (Continued) CPT CODES CPT CODE(S): 83979 , , , , , , FINAL DIAGNOS IS Gallbladder, laparoscopic cholecystectomy: CHRONIC CHOLECYSTITIS GROSS DESCRIPTION Gallbladder. Received in formalin is an intact gallbladder, 8.5 x 5.0 x 3.8 cm, with a wall 0.2 cm in average thickness. The mucosa is deeply bile- stained, dark green-black, smooth and velvety. The lum en contains 30 mL of dark green-black and viscous bile. No calculus is identified. Representativ e section submitted as A. /ba/sam Grossing performed at [facility] Pathology, [address] [place] [address], [address], [place] [address]. Ui Developer Designer: Abhishek Tan M.D. MICROSCOPIC DESCRIPTION Gallbladder. Sections demonstrate gallbladder with associated mucosa. The mucosa demonstrates chroni c inflammation. Chronic information extends to involve the muscular wall. No dysplasia or malignancy is identified. Signed SIGNATURE ON FILE Iggy Prado 02/22/21 1148 END OF REP ORT - US ABDOMEN [id number] 17:31:00 [facility] 1980 Sex: F Name: MAURICE HIDALGO [facility] : 1980 Age/S: 40 / F [address] [address] Unit #: [id number] Loc: [place] [address] Phys: Maynor Valdez MD Acct: [id number] Dis Date: Status: ADM IN PHONE #: [phone] Exam Date: 02/19/2021 3276 FAX #: Reason: Abd Pain EXAMS: CPT: [id number] US ABDOMEN COMPLETE [id number] Abdominal ultrasound complete Location Code: B2 HISTORY: Abdominal pain. COMMENT: Real-time sonographic images of the abdomen reveals a normally distended gallbladder with minimal wall thickening to 0.3 cm, with internal sludge. The common duct measures 7 mm with no intra or extrahepatic biliary dilatation. Positive Causey sign. Liver span is 15.1 cm, with preserved echotexture and no evidence of a d iscrete lesion. Spleen measures 11.3 cm. The pancreas appears normal with no evidence of mass or pseudocyst. The right kidney measures 10.6 x 4.6 x 5 cm and the left kidney measures 9.8 x 4.2 x 5 cm. Cortical thickness is within normal limits on each side. No mass or obstruction is present. The aorta and inferior vena cava appear unremarkable. No free fluid. IMPRESSION: 1. Minimal gallbladder wall thickening with pericholecystic fluid, sludge and minimal prominence of the common duct with a positive Causey sign. Cholecystitis is suspected at 1731 Reported and signed by: Juan Valdez M.D. CC: Vladimir Mcconnell MD; Maynor Valdez MD Technologist: Trinity Chan [facility] Date/Time: 02/19/2021 (1731) [email or web address] PAGE 1 Signed Report Name: MAURICE HIDALGO [place] : 1980 Age/S: 40 / F [address] [address] Unit #: [id number] Loc: [place] [address] Phys: Maynor Valdez MD Acct: [id number] Dis Date: Status: ADM IN PHONE #: [phone] Exam Date: 02/19/2021 1455 FAX #: Reason: Abd Pain EXAMS: CPT: [id number] USABDOMEN COMPLETE 65766 <Continued> Orig Print D/T: S: 02/19/2021 (1429) Probe: PAGE 2 Signed ReportCOMPREHENSIVE METABOLIC PANEL 2021-02-19 11:01:00 Test Item Value Reference Range Interpretation Comments SODIUM (test code = NA) 141 mmol/L 134-147 N POTASSIUM (test code = 3.7 mmol/L 3.4-5.0 N K) CHLORIDE (test code = 113 mmol/L 100-108 H CL) CARBON DIOXIDE (test 25 mmol/L 21-32 N code = CO2) ANION GAP (test code = 3.0 GAP calc 4.0-15.0 L GAP) GLUCOSE (test code = 83 MG/DL 70-110 N GLU) BLOOD UREA NITROGEN 5 MG/DL 7-18 L (test code = BUN) GLOMERULAR FILTRATION >=60 max estimate >60 RATE (test code = GFR) estGFR CREATININE (test code = 0.5 MG/DL 0.6-1.0 L CREAT) TOTAL PROTEIN (test code 6.2 G/DL 6.4-8.2 L = PROT) ALBUMIN (test code = 3.5 G/DL 3.4-5.0 N ALB) GLOBULIN (test code = 2.7 GM/dL GLOB) ALBUMIN/GLOBULIN RATIO 1.3 RATIO 1.2-2.2 N (test code = A/G) CALCIUM (test code = CA) 8.2 MG/DL 8.5-10.1 L BILIRUBIN TOTAL (test 0.40 MG/DL 0.2-1.2 N code = BILT) SGOT/AST (test code = 13 Unit/L 15-37 L AST) SGPT/ALT (test code = 16 Unit/L 12-78 N ALT) ALKALINE PHOSPHATASE 46 Unit/L 45-117 N TOTAL (test code = ALKP) CBC W/AUTO [id number] 10:45:00 Test Item Value Reference Range Interpretation Comments WHITE BLOOD CELL (test code = 6.2 K/mm3 3.5-11.0 N WBC) RED BLOOD CELL (test code = 3.86 M/mm3 4.70-6.10 L RBC) HEMOGLOBIN (test code = HGB) 12.0 G/DL 10.4-14.9 N HEMATOCRIT (test code = HCT) 35.6 % 31.5-44.1 N MEAN CELL VOLUME (test code = 92.2 Fl 84.5-98.6 N MCV) MEAN CELL HGB (test code = MCH) 31.1 pg 27.0-34.2 N MEAN CELL HGB CONCETRATION 33.7 G/DL 31.5-34.0 N (test code = MCHC) RED CELL DISTRIBUTION WIDTH 12.5 SD 11.5-14.5 N (test code = RDW) PLATELET COUNT (test code = 156 K/mm3 150-450 N PLT) MEAN PLATELET VOLUME (test code 10.90 fL 7.0-10.5 H = MPV) NEUTROPHIL % (test code = NT%) 60.1 % 40-76 IMMATURE GRANULOCYTE % (test 0.2 % 0.0-5.0 N code = IG%) LYMPHOCYTE % (test code = LY%) 30.9 % 20.5-51.1 N MONOCYTE % (test code = MO%) 7.3 % 1.7-9.3 N EOSINOPHIL % (test code = EO%) 1.0 % 0.0-6.0 N BASOPHIL % (test code = BA%) 0.5 % 0.0-2.0 N NUCLEATED RBC % (test code = 0.0 /100WBC% 0.0-1.0 N NRBC%) NEUTROPHIL # (test code = NT#) 3.7 K/mm3 1.8-7.6 N IMMATURE GRANULOCYTE # (test 0.01 x10 3/uL 0.00-0.03 N code = IG#) LYMPHOCYTE # (test code = LY#) 1.9 K/mm3 0.6-3.2 N MONOCYTE # (test code = MO#) 0.5 K/mm3 0.3-1.1 N EOSINOPHIL # (test code = EO#) 0.1 K/mm3 0.0-0.4 N BASOPHIL # (test code = BA#) 0.0 K/mm3 0.0-0.1 N NUCLEATED RBC # (test code = 0.0 K/mm3 0.0-0.1 N NRBC#) MANUAL DIFF REQUIRED (test code NO DIFF/SCN CRITERIA = MDIFF) COVID 19 INHOUSE [id number] 17:33:00 Test Item Value Reference Range Interpretation Comments COVID 19 INHOUSE AG NEGATIVE Negative Per manu facturer, (test code = negative result s should [id number]) be treated aspr esumptive and, if inconsi stent with clinical signs andsymptoms or necessary for patient man agement, should betested with an alternative mol ecular assay. Negative resultsdo not preclude SA RS-CoV-2 infection and s hould not be usedas the s ole basis for patient man agement decisions. Neg ative results should be considered in t he context of apatient's r ecent exposures, hist ory, presence of cli nicalsigns and symptoms co nsistent with COVID-19. - CT ABD PELVIS [id number] 14:26:00 [facility] 1980 Sex: F Name: MAURICE HIDALGO : 1980 Age/S: 40 / F [address] [address] Unit #: [id number] Loc: [place] [address] Phys: Prabhu Lazar MD Acct: [id number] Dis Date: Status: REG ER PHONE #: [phone] Exam Date: 02/18/2021 1410 FAX #: Reason: pain EXAMS: CPT: [id number] CT ABD PELVIS W/CONT 92603 LO CATION: T18 EXAM: CT ABDOMEN AND PELVIS WITH CONTRAST INDICATION: Abdominal pain COMPARISON: Abdominal ultrasound March 13, 2012 TECHNIQUE: Multiple CT images of the abdomen and pelvis were obtained with reconstructions in the coronal and sagittal planes. 100 ml of Isovue 300 was given intravenously. Up-to-date CT equipment and radiation dose reduction techniques were utilized. Automatic exposure control was utilized. FINDINGS: Left lower lobe pulmonary nodule seen on the first axial image. This measures 5 mm in size. Right lung base is clear. Pneumobilia with biliary stent in satisfactory position within the common bile duct with tip in the duodenum. There is contrast within the gallbladder as well as a small amount of air within the gallbladder seen on dependently. Portal vasculature is patent. Spleen, adrenal glands and pancreas are normal.Kidneys enhance symmetrically. No focal abnormality or hydronephrosis. There is no hydroureter. Urinary bladder is normal in appearance. Uterus is absent. Appendix is not seen. There is no inflammatory changes to suggest acute appendicitis. No bowel obstruction is seen.No free air or free fluid is present. Abdominal aorta is normal in caliber. IVC is normal. Bones are intact. Peripheral soft tissues are unremarkable. IMPRESSION: 1. Left lower lobe pulmonary nodule measures 5 mm. 2. Satisfactory position of biliary stent. Associated pneumobilia. Contrast within the gallbladder. 3. Normal appendix. No bowel obstruction. at 1426 Reported and signed by: Gen Silver M.D. PAGE 1 Signed Report (CONTINUED) Name: MAURICE HIDALGO [facility] : 1980 Age/S: 40 / F [address] [address] Unit #: [id number] Loc: [place] [address] Phys: Prabhu Lazar AMD Acct: [id number] Dis Date: Status: REGER PHONE #: [phone] Exam Date: 02/18/2021 1410 FAX #: Reason: pain EXAMS: CPT: [id number] CT ABD PELVIS W/CONT 11663 <Continued> CC: Prabhu Lazar MD; Lizzy YADAV Technologist:RT Humberto(R)(CT) CTDI: DLP: Trnscb Date/Time: 02/18/2021 (142) [email or web address] Orig Print D/T: S: 02/18/2021 (5527) PAGE 2 Signed Report- XR CHEST 1 [id number] 14:20:00 [facility] 1980 Sex: F [facility]: [facility] 1980 Age/S: 40 / F [address] [address] Unit #: [id number] Loc: [place] [address] Phys: Prabhu Lazar MD Acct: [id number] Dis Date: Status: REG ER PHONE #: [phone] Exam Date: 02/18/2021 1350 FAX #: Reason: Code Sepsis EXAMS: CPT: [id number] XR CHEST 1 V 36847 Fluoro Time: DAP (Gy m2): Air Kerma (mGy): EXAMINATION: Frontal chest radiograph INDICATION: Code Sepsis COMPARISON: None LOCATION: S17 FINDINGS: Clear lungs. No pleural effusion or pneumothorax. Cardiac silhouette is normal in size. IMPRESSION: No acute abnormality identified. at 1420 Reported and signed by: Shad Hairston M.D. CC: Prabhu Lazar MD; Lizzy YADAV PAGE 1 Signed Report Name: MAURICE HIDALGOland : 1980 Age/S: 40 / F [address] [address] Unit #: [id number] Loc: [place] [address] Phys: Prabhu Lazar MD Acct: [id number] Dis Date: Status: REG ER PHONE #: [phone] Exam Date: 02/18/2021 1350 FAX #: Reason: Code Sepsis EXAMS: CPT: [id number] XR CHEST 1 V 01846 Fluoro Time: DAP (Gy m2): Air Kerma (mGy): <Continued> Technologist: Lauren Taylor RT(R) Trnscb Date/Time: 02/18/2021 (142) [email or web address] Orig Print D/T: S: 02/18/2021 (9936) PAGE 2 Signed Report BASIC METABOLIC [id number] 13:54:00 Test Item Value Reference Range Interpretation Comments SODIUM (test code = NA) 141 mmol/L 134-147 N POTASSIUM (test code = 3.6 mmol/L 3.4-5.0 N K) CHLORIDE (test code = 108 mmol/L 100-108 N CL) CARBON DIOXIDE (test 26 mmol/L 21-32 N code = CO2) ANION GAP (test code = 7.0 GAP calc 4.0-15.0 N GAP) GLUCOSE (test code = 71 MG/DL 70-110 N GLU) BLOOD UREA NITROGEN 9 MG/DL 7-18 N (test code = BUN) GLOMERULAR FILTRATION >=60 max estimate >60 RATE (test code = GFR) estGFR CREATININE (test code = 0.6 MG/DL 0.6-1.0 N CREAT) CALCIUM (test code = CA) 8.8 MG/DL 8.5-10.1 N HEPATIC FUNCTION [id number] 13:54:00 Test Item Value Reference Range Interpretation Comments TOTAL PROTEIN (test code = PROT) 7.4 G/DL 6.4-8.2 N ALBUMIN (test code = ALB) 4.4 G/DL 3.4-5.0 N BILIRUBIN TOTAL (test code = BILT) 0.50 MG/DL 0.2-1.2 N BILIRUBIN DIRECT (test code = 0.10 MG/DL 0.00-0.30 N BILD) BILIRUBIN INDIRECT (test code = 0.40 MG/DL 0.2-1.2 N BILIND) SGOT/AST (test code = AST) 9 Unit/L 15-37 L SGPT/ALT (test code = ALT) 19 Unit/L 12-78 N ALKALINE PHOSPHATASE TOTAL (test 55 Unit/L 45-117 N code = ALKP) [id number] 13:54:00 Test Item Value Reference Range Interpretation Comments LIPASE (test code = LIP) 128 Unit/L 114-286 N UA RFLX MICR CULT IF [id number] 13:43:00 Test Item Value Reference Range Interpretation Comments UA COLOR (test code = COLU) YELLOW discript YEL/STRAW UA APPEARANCE (test code = CLEAR discript CLEAR APPU) UA GLUCOSE DIPSTICK (test NEGATIVE mg/dL NEG code = DGLUU) UA BILIRUBIN DIPSTICK (test NEGATIVE mg/dL NEG code = BILU) UA KETONE DIPSTICK (test 2+ mg/dL NEG A code = KETU) UA SPECIFIC GRAVITY (test 1.015 SG 1.005-1.030 code = SGU) UA BLOOD DIPSTICK (test NEGATIVE mg/DL NEG code = VIKKI) UA PH DIPSTICK (test code = 6.0 pH UNITS 5.0-7.0 BOBBY) UA PROTEIN DIPSTICK (test NEGATIVE mg/dL NEG code = PROU) UA UROBILINIOGEN DIPSTICK 0.2 mg/dL <2.0 (test code = URO) UA NITRITE DIPSTICK (test NEGATIVE SCREEN NEG code = JESE) UA LEUKOCYTE ESTERASE NEGATIVE Leuk/mcL NEGATIVE DIPSTICK (test code = LEUU) Indication for culture: Dysuria/FrequencyUA RFLX MICR CULT IF INDICATED 2021-02-18 13:43:00 Test Item Value Reference Range Interpretation Comments UA COLOR (test code = COLU) YELLOW discript YEL/STRAW UA APPEARANCE (test code = CLEAR discript CLEAR APPU) UA GLUCOSE DIPSTICK (test NEGATIVE mg/dL NEG code = DGLUU) UA BILIRUBIN DIPSTICK (test NEGATIVE mg/dL NEG code = BILU) UA KETONE DIPSTICK (test 2+ mg/dL NEG A code = KETU) UA SPECIFIC GRAVITY (test 1.015 SG 1.005-1.030 code = SGU) UA BLOOD DIPSTICK (test NEGATIVE mg/DL NEG code = VIKKI) UA PH DIPSTICK (test code = 6.0 pH UNITS 5.0-7.0 BOBBY) UA PROTEIN DIPSTICK (test NEGATIVE mg/dL NEG code = PROU) UA UROBILINIOGEN DIPSTICK 0.2 mg/dL <2.0 (test code = URO) UA NITRITE DIPSTICK (test NEGATIVE SCREEN NEG code = JESE) UA LEUKOCYTE ESTERASE NEGATIVE Leuk/mcL NEGATIVE DIPSTICK (test code = LEUU) UA CULTURE NEEDED? (test Criteria Culture CHK code = UACULT) Indication for culture: Dysuria/FrequencyLACTIC [id number] 13:41:00 Test Item Value Reference Range Interpretation Comments LACTIC ACID (test code = LACT) 1.0 mmol/L 0.4-2.0 N CBC W/AUTO [id number] 13:30:00 Test Item Value Reference Range Interpretation Comments WHITE BLOOD CELL (test code = 10.4 K/mm3 3.5-11.0 N WBC) RED BLOOD CELL (test code = 4.67 M/mm3 4.70-6.10 L RBC) HEMOGLOBIN (test code = HGB) 14.5 G/DL 10.4-14.9 N HEMATOCRIT (test code = HCT) 43.7 % 31.5-44.1 N MEAN CELL VOLUME (test code = 93.6 Fl 84.5-98.6 N MCV) MEAN CELL HGB (test code = MCH) 31.0 pg 27.0-34.2 N MEAN CELL HGB CONCETRATION 33.2 G/DL 31.5-34.0 N (test code = MCHC) RED CELL DISTRIBUTION WIDTH 12.6 SD 11.5-14.5 N (test code = RDW) PLATELET COUNT (test code = 193 K/mm3 150-450 N PLT) MEAN PLATELET VOLUME (test code 10.80 fL 7.0-10.5 H = MPV) NEUTROPHIL % (test code = NT%) 70.4 % 40-76 N IMMATURE GRANULOCYTE % (test 0.2 % 0.0-5.0 N code = IG%) LYMPHOCYTE % (test code = LY%) 23.1 % 20.5-51.1 N MONOCYTE % (test code = MO%) 5.5 % 1.7-9.3 N EOSINOPHIL % (test code = EO%) 0.6 % 0.0-6.0 N BASOPHIL % (test code = BA%) 0.2 % 0.0-2.0 N NUCLEATED RBC % (test code = 0.0 /100WBC% 0.0-1.0 N NRBC%) NEUTROPHIL # (test code = NT#) 7.3 K/mm3 1.8-7.6 N IMMATURE GRANULOCYTE # (test 0.02 x10 3/uL 0.00-0.03 N code = IG#) LYMPHOCYTE # (test code = LY#) 2.4 K/mm3 0.6-3.2 N MONOCYTE # (test code = MO#) 0.6 K/mm3 0.3-1.1 N EOSINOPHIL # (test code = EO#) 0.1 K/mm3 0.0-0.4 N BASOPHIL # (test code = BA#) 0.0 K/mm3 0.0-0.1 N NUCLEATED RBC # (test code = 0.0 K/mm3 0.0-0.1 N NRBC#) MANUAL DIFF REQUIRED (test code NO DIFF/SCN CRITERIA = MDIFF)
[2021-08-10 18:55] LABS: Absolute Lymphocytes (CBC) 1.7 K/uL (0.7-4.9); Hematocrit 43.2 % (36.0-45.0); Lymphocytes % 17.5 % (15.3-44.8); MPV 8.5 fL (7.6-11.3); RBC Red Blood Cell Count 4.78 M/uL (3.86-4.86)
[2021-08-10 19:03] LABS: Albumin 4.1 g/dL (3.4-5.0); Bilirubin Direct 0.1 mg/dL (0-0.2); Bilirubin Total 0.4 mg/dL (0.2-1.0); Potassium 3.5 mmol/L (3.5-5.1); Protein, Total 7.5 g/dL (6.4-8.2)
--- NOTE | 2021-08-10 19:58 | RAD REPORT ---
EXAM DESCRIPTION: CTAbdomen Pelvis W Contrast - 08/10/2021 7:49 pm CLINICAL HISTORY: Abdominal pain. ABD PAIN COMPARISON: Abdomen Pelvis W Contrast dated 01/18/2021; Abdomen Pelvis W Contrast dated 12/29/2020; Abdomen Pelvis W Contrast dated 05/31/2019; Abdomen Pelvis W Contrast dated 06/03/2018 TECHNIQUE: Biphasic CT imaging of the abdomen and pelvis was performed with 100 ml non-ionic IV cont rast. All CT scans are performed using dose optimization technique as appropriate and may include automated exposure control or mA/KV adjustment according to patient size. FINDINGS: The lung bases are clear. Cholecystectomy. The liver, spleen, pancreas, adrenal glands and kidneys are within normal limits. No bowel obstruction, free air, free fluid or abscess. Appendectomy. Hysterectomy. No evidence of si gnificant lymphadenopathy. No suspicious bony findings. IMPRESSION: No acute intra-abdominal or pelvic finding.
[2021-08-10] MEDS ORDERED: NA CHLORIDE 0.9% 1,000 ML ONE (20:27)
[2021-08-10] MEDS ORDERED: MORPHINE 4 MG/ML SYR ONE ×2 (20:27→21:43)
[2021-08-10] MEDS ORDERED: ONDANSETRON 4 MG/2 ML VIAL ONE ×2 (20:27→21:16)
--- NOTE | 2021-08-10 21:08 | EDPHYS ---
Physician Documentation [facility] Name: Kavita Kwon Age: 41 yrs Sex: Female : 1980 Arrival Date: 08/10/2021 Time: 17:25 Bed 12 Private MD: ED Physician Sage Kamara HPI: 08/10 21:06 This 41 yrs old Female presents to ER via EMS with complaints of Abdominal Pain. kb 21:06 The patient presents with abdominal pain in the left upper quadrant. Onset: The kb symptoms/episode began/occurred this morning. The symptoms do not radiate. Associated signs and symptoms: Pertinent positives: nausea and vomiting, Pertinent negatives: diarrhea, fever. The symptoms are described as constant. Modifying factors: The symptoms are alleviated by nothing, the symptoms are aggravated by nothing. Severity of pain: At its worst the pain was moderate in the emergency department the pain is unchanged. The patient has not experienced similar symptoms in the past. The patient has not recently seen a physician. 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 - Social history:: Smoking status: Patient reports the use of cigarette tobacco products, smokes one-half pack cigarettes per day. ROS: 21:06 Constitutional: Negative for fever, chills, and weight loss. kb 21:06 Abdomen/GI: Positive for abdominal pain, nausea and vomiting, Negative for diarrhea, constipation. 21:06 All other systems are negative. Exam: 21:06 Constitutional: This is a well developed, well nourished patient who is awake, alert, kb and in no acute distress. Head/Face: Normocephalic, atraumatic. ENT: Moist Mucous membranes Cardiovascular: Regular rate and rhythm with a normal S1 and S2. No gallops, murmurs, or rubs. No pulse deficits. Respiratory: Respirations even and unlabored. No increased work of breathing. Talking in full sentences Skin: Warm, dry with normal turgor. Normal color. MS/ Extremity: Pulses equal, no cyanosis. Neurovascular intact. Full, normal range of motion. Neuro: Awake and alert, GCS 15, oriented to person, place, time, and situation. Moves all extremities. Normal gait. Psych: Awake, alert, with orientation to person, place and time. Behavior, mood, and affect are within normal limits. 21:06 Abdomen/GI: Inspection: abdomen appears normal, Bowel sounds: normal, in all quadrants, Palpation: soft, in all quadrants, moderate abdominal tenderness, in the left upper quadrant. Vital Signs: 18:28 BP 110 / 90; Pulse 106; Resp 16; Temp 97.1; Pulse Ox 100% ; Weight 54.43 kg; Height 5 vg1 ft. 5 in. (165.10 cm); Pain 3/10; 21:39 BP 118 / 76; Pulse 88; Resp 23; Pulse Ox 100% ; sm5 18:28 Body Mass Index 19.97 (54.43 kg, 165.10 cm) vg1 MDM: 18:38 Patient medically screened. 21:05 Data reviewed: vital signs, nurses notes. Data interpreted: Pulse oximetry: on room air kb is 100 %. Interpretation: normal. 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 ED course: Pt will follow up with Dr Dao in the morning. States she normally ends up having to get an endoscopy when this pain comes on. 21:07 Response to treatment: the patient's symptoms have markedly improved after treatment. 21:19 Physician consultation: Physician consultation: Waqas Dao MD was contacted at 21:22, regarding consult, patient's condition, available to consult on pt. 21:22 Physician consultation: Aly YADAV was contacted at 21:22, regarding admission, to the medical/surgical unit. patient's condition, and will see patient in ED. 21:25 ED course: pain returned and is more severe. Pt states this is what happens and she kb doesn't know what to do about it at home. 21:34 Physician consultation: Vladimir Mcconnell MD was contacted at 21:34, regarding admission, to kb the medical/surgical unit. patient's condition, and will see patient in inpatient room. 08/10 18:34 Order name: Basic Metabolic Panel [facility] 08/10 18:34 Order name: CBC with Diff; Complete Time: 18:57 [facility] 08/10 18:34 Order name: Hepatic Function; Complete Time: 19:04 [facility] 08/10 18:34 Order name: Lipase; Complete Time: 19:04 [facility] 08/10 18:34 Order name: Basic Metabolic Panel; Complete Time: 19:04 EDMS 08/10 21:20 Order name: COVID-19 SARS RT PCR (Document "Date of Onset" if Symptomatic); Complete kb Time: 22:21 08/10 18:34 Order name: CT Abd/Pelvis - IV Contrast Only; Complete Time: 20:13 [facility] 08/10 21:36 Order name: Amylase, Serum; Complete Time: 22:44 kb 08/10 21:36 Order name: Chest Single View XRAY; Complete Time: 22:44 kb 08/10 21:36 Order name: Troponin (emerg Dept Use Only); Complete Time: 22:44 kb 08/10 18:34 Order name: IV Saline Lock; Complete Time: 18:34 [facility] 08/10 18:34 Order name: Labs collected and sent; Complete Time: 18:34 [facility] 08/10 21:36 Order name: EKG; Complete Time: 21:37 kb 08/10 21:36 Order name: EKG - Nurse/Tech; Complete Time: 21:52 kb Administered Medications: 20:34 Drug: morphine 4 mg Route: IVP; Site: left antecubital; sm5 20:34 Drug: NS 0.9% 1000 ml Route: IV; Rate: 1000 ml; Site: left antecubital; 5 21:15 Follow up: IV Status: Completed infusion; IV Intake: 1000ml 5 20:35 Drug: Zofran (Ondansetron) 4 mg Route: IVP; Site: left antecubital; sm5 08/11 00:08 Follow up: Response: Nausea is decreased [facility] 08/10 21:20 Drug: Demerol (meperidine) 25 mg Route: IVP; Site: left antecubital; 5 21:30 Follow up: Response: Pain is unchanged, physician notified 5 21:20 Drug: Zofran (Ondansetron) 4 mg Route: IVP; Site: left antecubital; 5 21:44 Drug: morphine 4 mg Route: IVP; Site: left antecubital; 5 08/11 00:09 Follow up: Response: Pain is decreased 5 08/10 21:52 Drug: ProTONIX (pantoprazole) 40 mg Route: IVP; Site: left antecubital; sm5 08/11 00:09 Follow up: Response: No adverse reaction 5 Disposition: 08:11 Co-signature as Attending Physician, Sage Kamara MD I agree with the assessment and kdr plan of care. Disposition Summary: 08/10/21 21:24 Hospitalization Ordered Hospitalization Status: Observation kb Location: Telemetry/MedSur (observation)(08/10/21 21:24) kb Condition: Stable(08/10/21 21:24) kb Problem: new kb Symptoms: are unchanged kb Bed/Room Type: Standard kb Provider: Vladimir Mcconnell(08/10/21 21:33) kb [facility](08/10/21 23:16) Diagnosis - Upper abdominal pain, unspecified(08/10/21 21:24) kb Forms: - Medication Reconciliation Form kb - SBAR form kb Signatures: Dispatcher [employer] Any Mar, TEST DRILLER-C TEST DRILLER-Sage Rhodes MD MD kdr Garcia, Cindy, RN RN Pili Schmid RN RN vg1 Jing Devlin, RN RN sm5 Corrections: (The following items were deleted from the chart) 08/10 21:18 21:07 Home kb kb 21:18 21:07 Stable kb kb 21:18 21:07 Upper abdominal pain, unspecified kb kb 21:22 21:19 Physician consultation: kb kb 21:33 21:24 Freddie Almanzar kb kb 23:16 21:24 kb cg
--- NOTE | 2021-08-10 21:08 | ER ---
Nurse's Notes [facility] Name: Kavita Kwon Age: 41 yrs Sex: Female : 1980 Arrival Date: 08/10/2021 Time: 17:25 Bed 12 Private MD: Diagnosis: Upper abdominal pain, unspecified Presentation: 08/10 18:28 Chief complaint: Patient states: 'sever ABD pain' RUQ AND LUQ AND Epi pain, that began vg1 this morning. States Dr Dao placed pt on liquid diet since this morning. States nausea, no vomiting. Coronavirus screen: Vaccine status: Patient reports being unvaccinated. Client denies travel out of the [place] in the last 14 days. Ebola Screen: Patient negative for fever greater than or equal to 101.5 degrees Fahrenheit, and additional compatible Ebola Virus Disease symptoms. Initial Sepsis Screen: Does the patient meet any 2 criteria? No. Patient's initial sepsis screen is negative. Does the patient have a suspected source of infection? No. Patient's initial sepsis screen is negative. Risk Assessment: Do you want to hurt yourself or someone else? Patient reports no desire to harm self or others. Onset of symptoms was August 10, 2021. 18:28 Method Of Arrival: EMS: [facility] vg1 18:28 Acuity: SUZY 3 vg1 Triage Assessment: 18:31 General: Appears in no apparent distress. uncomfortable, Behavior is calm, cooperative. vg1 Pain: Complains of pain in epigastric area, right upper quadrant and left upper quadrant Pain currently is 3 out of 10 on a pain scale. at worst was 10 out of 10 on a pain scale. Pain began this morning. GI: Reports nausea, Patient currently denies vomiting. 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 - Social history:: Smoking status: Patient reports the use of cigarette tobacco products, smokes one-half pack cigarettes per day. Screenin/30 00:07 Abuse screen: Denies threats or abuse. Denies injuries from another. Nutritional sm5 screening: No deficits noted. Tuberculosis screening: No symptoms or risk factors identified. Fall Risk None identified. Assessment: 00:07 GI: Bowel sounds present X 4 quads. Abd is soft. sm5 Vital Signs: 08/10 18:28 BP 110 / 90; Pulse 106; Resp 16; Temp 97.1; Pulse Ox 100% ; Weight 54.43 kg; Height 5 vg1 ft. 5 in. (165.10 cm); Pain 3/10; 21:39 BP 118 / 76; Pulse 88; Resp 23; Pulse Ox 100% ; sm5 18:28 Body Mass Index 19.97 (54.43 kg, 165.10 cm) vg1 ED Course: 17:25 Patient arrived in ED. as 18:31 Triage completed. vg1 18:31 Arm band placed on. vg1 18:34 Initial lab(s) drawn, by ED staff, sent to lab. Inserted saline lock: 20 gauge in left vg1 antecubital area, using aseptic technique. ,using aseptic technique. completed by Jaqui GILBERT Blood collected. 18:38 Any Chowdary FNP-C [facility]. kb 18:38 Sage Kamara MD is Attending Physician. kb 19:48 CT Abd/Pelvis - IV Contrast Only In Process Unspecified. EDMS 20:21 Jing Devlin, PRATIBHA is Primary Nurse. sm5 21:24 Freddie Almanzar is Hospitalizing Provider. kb 21:28 COVID-19 SARS RT PCR (Document "Date of Onset" if Symptomatic) Sent. sm5 21:33 Vladimir Mcconnell MD is Hospitalizing Provider. kb 22:14 Chest Single View XRAY In Process Unspecified. EDMS 08/11 00:07 Patient has correct armband on for positive identification. Placed in gown. Bed in low sm5 position. Call light in reach. Side rails up X2. 00:08 No provider procedures requiring assistance completed. Patient admitted, IV remains in sm5 place. Administered Medications: 08/10 20:34 Drug: morphine 4 mg Route: IVP; Site: left antecubital; [facility] 20:34 Drug: NS 0.9% 1000 ml Route: IV; Rate: 1000 ml; Site: left antecubital; 5 21:15 Follow up: IV Status: Completed infusion; IV Intake: 1000ml [facility] 20:35 Drug: Zofran (Ondansetron) 4 mg Route: IVP; Site: left antecubital; 5 08/11 00:08 Follow up: Response: Nausea is decreased [facility] 08/10 21:20 Drug: Demerol (meperidine) 25 mg Route: IVP; Site: left antecubital; 5 21:30 Follow up: Response: Pain is unchanged, physician notified [facility] 21:20 Drug: Zofran (Ondansetron) 4 mg Route: IVP; Site: left antecubital; [facility] 21:44 Drug: morphine 4 mg Route: IVP; Site: left antecubital; 5 08/11 00:09 Follow up: Response: Pain is decreased [facility] 08/10 21:52 Drug: ProTONIX (pantoprazole) 40 mg Route: IVP; Site: left antecubital; 5 08/11 00:09 Follow up: Response: No adverse reaction [facility] Intake: 08/10 21:15 IV: 1000ml; Total: 1000ml. [facility] Outcome: 21:07 Discharge ordered by . kellee 21:24 Decision to Hospitalize by Provider. kellee 08/11 00:08 Admitted to Med/surg accompanied by tech, via wheelchair, with chart, Report called to [facility] Sabrina Condition: stable Instructed on the need for admit. 00:10 Patient left the ED. [facility] Signatures: Dispatcher [employer] EDMS Any Chowdary, GAUGER DELIVERY-C GAUGER DELIVERY-Nuha Boggs Victoria, RN RN vg1 Jing Devlin, PRATIBHA RN 5
[2021-08-10] MEDS ORDERED: MEPERIDINE HCL 25 MG/ML SYR ONE (21:16)
[2021-08-10] MEDS ORDERED: PANTOPRAZOLE 40 MG INJ ONE (21:50)
--- NOTE | 2021-08-10 22:38 | RAD REPORT ---
EXAM DESCRIPTION: RAD - Chest Single View - 08/10/2021 10:14 pm CLINICAL HISTORY: CHEST PAIN Chest pain. COMPARISON: <Comparisons> FINDINGS: Portable technique limits examination quality. The lungs are grossly clear. The heart is normal in size. No displaced fractures. IMPRESSION: No acute intrathoracic process suspected.
[2021-08-10 22:41] LABS: Amylase 42 U/L (25-115); Troponin (Emerg Dept Use Only) < 0.02 ng/mL (0.0-0.045)
[2021-08-11] MEDS ORDERED: NA CHLORIDE 0.9% 1,000 ML IV SCH
[2021-08-11 00:30] VITALS: BMI 20.9
[2021-08-11] MEDS: MORPHINE 4 MG/ML SYR IV PRN ×4 (01:13→20:18)
[2021-08-11] MEDS: ONDANSETRON 4 MG/2 ML VIAL IV PRN ×4 (01:14→20:18)
[2021-08-11 04:28] LABS: Absolute Lymphocytes (CBC) 1.7 K/uL (0.7-4.9); Hematocrit 37.6 % (36.0-45.0); Lymphocytes % 32.5 % (15.3-44.8); MPV 8.3 fL (7.6-11.3); RBC Red Blood Cell Count 4.13 M/uL (3.86-4.86)
[2021-08-11 04:43] LABS: ALT/SGPT 128 U/L (12-78); AST/SGOT 280 U/L (15-37); Albumin 3.2 g/dL (3.4-5.0); Alkaline Phosphatase 112 U/L (45-117); BUN Blood Urea Nitrogen 6 mg/dL (7-18); Bicarbonate 28 mmol/L (21-32); Bilirubin Direct 0.2 mg/dL (0-0.2); Bilirubin Total 0.5 mg/dL (0.2-1.0); Glucose Level 89 mg/dL (74-106); Lipase 84 U/L (73-393); Potassium 3.3 mmol/L (3.5-5.1); Protein, Total 5.8 g/dL (6.4-8.2); Sodium Level 143 mmol/L (136-145)
[2021-08-11] MEDS ORDERED: SODIUM CHLORIDE 0.9% 10ML INJ IV PRN (06:41)
[2021-08-11] MEDS ORDERED: ESTRADIOL TOP SCH (06:45)
[2021-08-11] MEDS ORDERED: NACHLORIDE 0.45% 1,000 ML with POTASSIUM CL 40 MEQ IV SCH ×2 (07:00)
[2021-08-11] MEDS: NACHLORIDE 0.45% 0 ML IV ONE ×2 (07:46→07:55)
[2021-08-11] MEDS: PANTOPRAZOLE 40 MG INJ IVP SCH ×2 (07:54→20:18)
[2021-08-11] MEDS: KCL IV SCH ×4 (07:55→20:17)
[2021-08-11] MEDS: NACHLORIDE IV SCH ×4 (07:55→20:17)
[2021-08-11] MEDS ORDERED: NACHLORIDE 0.45% 0 ML IV ONE (08:14)
[2021-08-11] MEDS: clonazePAM 0.5 MG TAB PO SCH ×2 (08:18→20:18)
--- NOTE | 2021-08-11 15:47 | P.HP ---
Certification for Inpatient Patient admitted to: Observation With expected LOS: <2 Midnights Practitioner: I am a practitioner with admitting privileges, knowledge of patient current condition, hospital course, and medical plan of care. Services: Services provided to patient in accordance with Admission requirements found in Title 42 Section 412.3 of the Code of Federal Regulations Patient History Date of Service: 08/11/21 Reason for admission: NAUSEA, VOMITING History of Present Illness: MAURICE COMES IN WITH NAUSEA, VOMITING AND ABDOMEN PAIN. SHE HAS LONG HISTORY OF PAIN. SHE HAD EGD, CRC AND ERCP. SHE HAS SPHINCTER OF ODDI SYNDROME PER DR. HOANG. SHE VOMITED THIS AM ALSO. Allergies lidocaine Allergy (Verified 08/11/21 00:33) swelling at injection site Home medications list reviewed: Yes Home Medications: Amitriptyline [Elavil] 50 mg PO BEDTIME 02/10/20 Estradiol [Minivelle] 0.05 patch TOP SEECOM 02/10/20 clonazePAM [Klonopin] 0.5 mg PO BID 02/10/20 Pantoprazole Sodium [Protonix] 40 mg PO DAILY 08/11/21 - Past Medical/Surgical History Has patient received pneumonia vaccine in the past: No Diabetic: No -: Hicks Esophagus -: Cervical spondylosis-neck -: Hiatal Hernia -: cervical CA -: Kidney stones -: Bile duct issues -: Partial hysterectomy -: 2006- Explore Lap -: 2014 LAp-Appy -: Cholecystectomy -: Discectomy -: ERCP x2 -: I&D x3 peritonsillar abscess - Family History Mother -: GI disease Notes: Crohn's Sister -: GI disease Notes: ulcerative colitis - Social History Smoking Status: Current every day smoker Alcohol use: No CD- Drugs: No Caffeine use: Yes Place of Residence: Home Review of Systems 10-point ROS is otherwise unremarkable General: Weakness Gastrointestinal: Nausea, Vomiting, Abdominal Pain Physical Examination - Vital Signs Temperature: 97.6 F Blood Pressure: 101/59 Pulse: 79 Respirations: 16 Pulse Ox (%): 97 - Physical Exam General: Oriented x3, Cachectic, Moderate distress HEENT: Atraumatic, PERRLA, Mucous membr. moist/pink, EOMI, Sclerae nonicteric Neck: Supple, 2+ carotid pulse no bruit, No LAD, Without JVD or thyroid abnormality Respiratory: Clear to auscultation bilaterally, Normal air movement Cardiovascular: Regular rate/rhythm, Normal S1 S2 Gastrointestinal: Normal bowel sounds, No tenderness Musculoskeletal: No tenderness Integumentary: No rashes Neurological: Normal gait, Normal speech, Normal strength at 5/5 x4 extr, Normal tone, Normal affect Lymphatics: No axilla or inguinal lymphadenopathy - Studies Laboratory Data (last 24 hrs) 08/10/21 21:55: Amylase 42 08/10/21 18:35: WBC 9.50, Hgb 14.6, Hct 43.2, Plt Count 247 08/10/21 18:35: Sodium 142, Potassium 3.5, BUN 6 L, Creatinine 0.81, Glucose 104, Total Bilirubin 0.4, AST 17, ALT 19, Alkaline Phosphatase 86, Lipase 83 Assessment and Plan - Problems (Diagnosis) (1) Nausea & vomiting Current Visit: Yes Status: Acute Plan: SHE HAS HAD MANY ISSUES WITH SOD RELATED PAIN AND VOMITING. SHE MAY NEED TO SEE SOME OTHER DOCTORS IN [place] PER DR. DANIELS. (2) Sphincter of Oddi dysfunction Current Visit: Yes Status: Chronic Plan: ABOVE. KLONOPIN MAY HELP AND SHE IS ALREADY ON IT. MAY HAVE TO RAISE IT. THIS IS COMING FROM DR. ONEILL FOR CHRONIC MIGRAINES. (3) Abdominal pain, epigastric Current Visit: Yes Status: Acute Plan: IV PROTONIX ZOFRAN IV NORMAL AMYLASE AND LIPASE. ORDER MRA OF ABDOMEN ALL OTHER AARON IS DONE - Advance Directives Does patient have a Living Will: No Does patient have a Durable POA for Healthcare: No
--- NOTE | 2021-08-11 16:49 | RAD REPORT ---
EXAM DESCRIPTION: MRI - MRA Abdomen W/Wo Cont - 08/11/2021 4:36 pm CLINICAL HISTORY: Intractable abdominal pain TECHNIQUE: Magnetic resonance angiogram was performed. 40 cc MultiHance administered intravenously. 3D MIPS reconstruction performed FINDINGS: The abdominal aorta is normal caliber. No aneurysm. No plaque seen. Common iliac arteries normal. Mild stenosis celiac artery. SMA and ABDI normal. Right and left renal arteries normal IMPRESSION: Mild stenosis celiac artery
[2021-08-11] MEDS ORDERED: AMITRIPTYLINE 50 MG TAB PO SCH (21:00)
[2021-08-12] MEDS: KCL IV SCH ×2 (04:00)
[2021-08-12] MEDS: NACHLORIDE IV SCH ×2 (04:00)
[2021-08-12] MEDS: ONDANSETRON 4 MG/2 ML VIAL IV PRN ×2 (04:05→08:59)
[2021-08-12] MEDS ORDERED: D50W 25 GM/50 ML SYRINGE IV PRN (04:15)
[2021-08-12] MEDS ORDERED: D50W 25 GM/50 ML SYRINGE IV ONE (04:18)
[2021-08-12] MEDS: MORPHINE 4 MG/ML SYR IV PRN (04:50)
[2021-08-12 06:08] LABS: Absolute Lymphocytes (CBC) 0.8 K/uL (0.7-4.9); Hematocrit 36.3 % (36.0-45.0); Lymphocytes % 9.3 % (15.3-44.8); MPV 8.4 fL (7.6-11.3); RBC Red Blood Cell Count 3.98 M/uL (3.86-4.86)
[2021-08-12 06:21] LABS: BUN Blood Urea Nitrogen 8 mg/dL (7-18); Bicarbonate 23 mmol/L (21-32); Glucose Level 107 mg/dL (74-106); Potassium 3.3 mmol/L (3.5-5.1); Sodium Level 139 mmol/L (136-145)
[2021-08-12] MEDS ORDERED: SUMATRIPTAN SUCC 6MG/0.5ML VIAL SQ ONE (06:48)
[2021-08-12] MEDS ORDERED: NACHLORIDE 0.45% 1,000 ML with POTASSIUM CL 40 MEQ IV SCH ×2 (08:00)
[2021-08-12] MEDS ORDERED: COSYNTROPIN 0.25 MG VIAL IV SCH (08:00)
[2021-08-12] MEDS: PANTOPRAZOLE 40 MG INJ IVP SCH (08:56)
[2021-08-12] MEDS: clonazePAM 0.5 MG TAB PO SCH (08:56)
[2021-08-12] MEDS ORDERED: levETIRAcetam 500 MG TAB PO SCH (09:00)
[2021-08-12 11:03] VITALS: O2SAT 97
[2021-08-12 12:05] VITALS: BP 116/73; TEMP 97.7
--- NOTE | 2021-08-12 14:41 | P.PN ---
Subjective Date of Service: 08/12/21 Chief Complaint: NAUSEA, VOMITING Subjective: Improving SHE FEELS BETTER AFTER SUMATRIPTAN INJECTION THAT I GAVE HER FOR POSSIBLE CYCLICAL VOMITING SYNDROME. I ALSO STARTED LEVECETIRAM FOR REDUCING THE RECURRENCES. TALKED TO TODAY AND HE UNDERSTANDS. OTHER POSSIBLE DIAGNOSIS IS SOD SYNDROME. THAT WILL BE ALSO HARD TO CONTROL. Physical Examination - Vital Signs Temperature: 97.7 F Blood Pressure: 116/73 Pulse: 69 Respirations: 16 Pulse Ox (%): 96 - Physical Exam General: Oriented x3, Mild distress HEENT: Atraumatic, PERRLA, EOMI Neck: Supple, JVD not distended Respiratory: Clear to auscultation bilaterally, Normal air movement Cardiovascular: Regular rate/rhythm, Normal S1 S2 Gastrointestinal: Normal bowel sounds, Non-distended, No tenderness Musculoskeletal: No tenderness Integumentary: No rashes Neurological: Normal speech, Normal tone, Normal affect Lymphatics: No axilla or inguinal lymphadenopathy - Studies Medications List Reviewed: Yes Assessment And Plan - Current Problems (Diagnosis) (1) Nausea & vomiting Current Visit: Yes Status: Acute Plan: SHE HAS HAD MANY ISSUES WITH SOD RELATED PAIN AND VOMITING. SHE MAY NEED TO SEE SOME OTHER DOCTORS IN [place] PER DR. DANIELS. CYCLICAL VOMITING SYNDROME IS POSSIBLE. WILL GIVE THERAPEUTIC TRIAL ABOVE. (2) Sphincter of Oddi dysfunction Current Visit: Yes Status: Chronic Plan: ABOVE. KLONOPIN MAY HELP AND SHE IS ALREADY ON IT. MAY HAVE TO RAISE IT. THIS IS COMING FROM DR. ONEILL FOR CHRONIC MIGRAINES. (3) Abdominal pain, epigastric Current Visit: Yes Status: Acute Plan: IV PROTONIX ZOFRAN IV NORMAL AMYLASE AND LIPASE. ORDER MRA OF ABDOMEN ALL OTHER AARON IS DONE
[2021-08-16 18:23] LABS: HBsAG Nonreactive (Nonreactive)
== END 2021-08-12 15:56 | disposition home or self-care (01) ==
LOC: ER 17:25 → ERHOLD 23:08 → 2ND 08-11 00:04
PROVIDERS: ADMIT Internal Medicine; ATTEND Internal Medicine
DX: K83.4 Spasm of sphincter of Oddi (principal); K22.70 Barrett's esophagus without dysplasia; K44.9 Diaphragmatic hernia without obstruction or gangrene; R01.1 Cardiac murmur, unspecified; M47.812 Spondylosis without myelopathy or radiculopathy, cervical region; F41.9 Anxiety disorder, unspecified; G43.909 Migraine, unspecified, not intractable, without status migrainosus; F17.210 Nicotine dependence, cigarettes, uncomplicated; Z90.49 Acquired absence of other specified parts of digestive tract; Z85.41 Personal history of malignant neoplasm of cervix uteri; Z88.6 Allergy status to analgesic agent; Z20.822 Contact with and (suspected) exposure to COVID-19; Z83.79 Family history of other diseases of the digestive system
CPT/HCPCS: 96361; 93005; 85025 ×3; 80048 ×3; 36415 ×2; 82150; 82947 ×2; 80076 ×2; 84484; 83690 ×2; 80074; 74177; 71045; 96375; 96374; 99285; U0003; Q9967; A9577; C8902; J3030; C9113 ×4; J3480; J2175; J7030 ×2; J2405 ×8; G0378 ×3; J0834

== ENCOUNTER 2021-11-18 20:53 | Emergency (ER) | payer OTHER ==
--- OUTSIDE RECORDS SUMMARY | 2021-11-18 20:56 | XMS REPORT | Continuity of Care Document ---
:1980 Author Organization [facility] t Address [address] [place]. [address] [place] [address] Care Team Providers Name Role Phone José [...] Active [place] [facility] 02-18 Clear 00:00: [address] lidocain DA Active [place] SITE [facility] SWELLING 02-18 Clear 00:00: [address] Medications This patient has no known medications. Procedures Procedure Date / Time Performed Performing Clinician Vicenta reyna [id number] 2021-02-20 00:00:00 SHEREE.Denis [facility] Encounters Start End Encounter Admission Attending Care Care Encounter Source Date/Time Date/Time Type Type Clinicians Facility Department ID 2021-02-19 2021-02-21 Inpatient EM WILMER Valdez MED [id number] [facility] 13:16:00 15:45:00 [facility] [id number] [facility] 2021-02-18 2021-02-18 Outpatient VERO Valdez LABO [id number] [facility] 21:53:00 21:53:00 [facility] [id number] [facility] 2021-02-18 2021-02-18 Inpatient EM José Miguel [facility] [id number] [facility] 12:20:00 12:19:[id number] [facility] 2020-02-22 2020-02-22 Outpatient Parvin ROWE, [facility] MED [id number] [facility] 11:19:00 18:45:00 [facility] Results Test Description Test Time Test Comments Results Result Comments Source SURG 2021-02-22 11:48:00 Test Item Value Reference Range Interpretation Comme nts SURG RUN DATE: (test 02/22/21 H [facility] - LAB PAGE 1 RUN TIME: 1148 code = Specimen Inquiry RUN USER: INTERFACE SURG) PATIENT: MAURICE HIDALGO LOC: RohiniJudy #: [id number] AGE/SX: 40/ F ROOM: MayhMSO03 RE02/19/21REG DR: Maynor Valdez MD : 78 BED: 1 DIS: 02/21/21 STATUS: DIS IN TLOC: SPEC #: [id number] RECD: STATUS: ABIMAEL AYALA #: [id number] AMBER: 02/20/[address]: Maynor Valdez MD ENTERED: 02/21/21 SP TYPE: SURG OTHR DR: Self Referred Vladimir Mcconnell MD, Maamoun MD Meah, Nizam Mohammad MDORDERED: SURG PATH LVL 3 COPIES TO: Self Referred Vladimir Mcconnell MD [address] [place] [address] Petrona Oliveira MD [address] [place] [address] [place] [address] [place] [address] [email or web address] Tariq Tripathi MD [address] [place], [place] [address] HISTOLOGY: TISSUE ID BLK PCS LIAN LEV PROCEDURE DISPOSITION ____ ___ ___ ___ GALLBLADDER, N O A 1-2 1 PROCEDURES: SURG PATH LVL 3 (02/21/21) TISSUES: A. GALLBLADDER, NOS - GALLBLADDER CONTINUED ON NEXT PAGE RUN DATE: 02/22/21 H TYRELL Rodríg[facility] [place] - LAB PAGE 2 RUN TIME: 1148 Specimen Inquiry RUN USER: INTERFACE SPEC #: [facility]:[id number] PATIENT: MAURICE HIDALGO #[id number] (Continued) CPT CODES CPT CODE(S): 94255 , , , , , , FINAL [...] submitted as A. /ba/sam Grossing performed at [facility] Pathology, [address] [place] [address], [address], [place] [address]. Support Worker: Abhishek Tan M.D. MICROSCOPIC DESCRIPTION Gallbladder. Sections demonstrate gallbladder with associated mucosa. The mucosa demonstrates chroni c inflammation. Chronic information extends to involve the muscular wall. No dysplasia or malignancy is identified. Signed SIGNATURE ON FILE Iggy Prado 02/22/21 1148 END OF REP ORT - US ABDOMEN [id number] 17:31:00 [facility] 1980 Sex: F Name: MAURICE HIDALGO [facility] : 1980 Age/S: 40 / F [address] Unit #: [id number] Loc: [place] [address] Phys: Maynor Valdez MD Acct: [id number] Dis Date: Status: ADM IN PHONE #: [phone] Exam Date: 02/19/2021 6715 FAX #: Reason: Abd Pain EXAMS: CPT: [id number] US ABDOMEN COMPLETE 95544 Abdominal ultrasound complete Location Code: B2 HISTORY: [...] MD; Maynor Valdez MD Technologist: Trinity Chan [facility] Date/Time: 02/19/2021 (1731) [email or web address] PAGE 1 Signed Report Name: MAURICE HIDALGO [place] : 1980 Age/S: 40 / F [address] Unit #: [id number] Loc: [place] [address] Phys: Maynor Valdez MD Acct: [id number] Dis Date: Status: ADM IN PHONE #: [phone] Exam Date: 02/19/2021 1455 FAX #: Reason: Abd Pain EXAMS: CPT: [id number] USABDOMEN COMPLETE 70947 <Continued> Orig Print D/T: S: 02/19/2021 (3111) Probe: PAGE 2 Signed ReportCOMPREHENSIVE METABOLIC PANEL [...] TOTAL (test code = ALKP) CBC W/AUTO [id number] 10:45:00 Test Item Value Reference Range Interpretation [...] DIFF/SCN CRITERIA = MDIFF) COVID 19 INHOUSE [id number] 17:33:00 Test Item Value Reference Range Interpretation Comments COVID 19 INHOUSE AG NEGATIVE Negative Per manu facturer, (test code = negative result s should [id number]) be treated aspr esumptive and, if inconsi [...] nsistent with COVID-19. - CT ABD PELVIS [id number] 14:26:00 [facility] 1980 Sex: F Name: MAURICE HIDALGO : 1980 Age/S: 40 / F [address] Unit #: [id number] Loc: [place] [address] Phys: Prabhu Lazar MD Acct: [id number] Dis Date: Status: REG ER PHONE #: [phone] Exam Date: 02/18/2021 1410 FAX #: Reason: pain EXAMS: CPT: [id number] CT ABD PELVIS W/CONT 38922 LO CATION: T18 EXAM: CT ABDOMEN AND [...] 1 Signed Report (CONTINUED) Name: MAURICE HIDALGO [facility] : 1980 Age/S: 40 / F [address] [address] Unit #: [id number] Loc: [place] [address] Phys: Prabhu Lazar AMD Acct: [id number] Dis Date: Status: REGER PHONE #: [phone] Exam Date: 02/18/2021 1410 FAX #: Reason: pain EXAMS: CPT: [id number] CT ABD PELVIS W/CONT 94383 <Continued> CC: Prabhu Lazar MD; Lizzy YADAV Technologist:RT Humberto(R)(CT) CTDI: DLP: Trnscb Date/Time: 02/18/2021 (142) [email or web address] Orig Print D/T: S: 02/18/2021 (2426) PAGE 2 Signed Report- XR CHEST 1 [id number] 14:20:00 [facility] 1980 Sex: [facility]: [facility] 1980 Age/S: 40 / F [address] [address] Unit #: [id number] Loc: [place] [address] Phys: Prabhu Lazar MD Acct: [id number] Dis Date: Status: REG ER PHONE #: [phone] Exam Date: 02/18/2021 1350 FAX #: Reason: Code Sepsis EXAMS: CPT: [id number] XR CHEST 1 V 18404 Fluoro Time: DAP (Gy m2): Air Kerma [...] [place] : 1980 Age/S: 40 / F [address] [address] Unit #: [id number] Loc: [place] [address] Phys: Prabhu Lazar MD Acct: [id number] Dis Date: Status: REG ER PHONE #: [phone] Exam Date: 02/18/2021 1350 FAX #: Reason: Code Sepsis EXAMS: CPT: [id number] XR CHEST 1 V 98956 Fluoro Time: DAP (Gy m2): Air Kerma (mGy): <Continued> Technologist: Lauren Taylor RT(R) Trnscb Date/Time: 02/18/2021 (142) [email or web address] Orig Print D/T: S: 02/18/2021 (6649) PAGE 2 Signed Report BASIC METABOLIC [id number] 13:54:00 Test Item Value Reference Range Interpretation [...] CA) 8.8 MG/DL 8.5-10.1 N HEPATIC FUNCTION [id number] 13:54:00 Test Item Value Reference Range Interpretation [...] 55 Unit/L 45-117 N code = ALKP) [id number] 13:54:00 Test Item Value Reference Range Interpretation Comments LIPASE (test code = LIP) 128 Unit/L 114-286 N UA RFLX MICR CULT IF [id number] 13:43:00 Test Item Value Reference Range Interpretation [...] code = UACULT) Indication for culture: Dysuria/FrequencyLACTIC [id number] 13:41:00 Test Item Value Reference Range Interpretation Comments LACTIC ACID (test code = LACT) 1.0 mmol/L 0.4-2.0 N CBC W/AUTO [id number] 13:30:00 Test Item Value Reference Range Interpretation [...]
[2021-11-18] MEDS ORDERED: NA CHLORIDE 0.9% 1,000 ML ONE (21:32)
[2021-11-18] MEDS ORDERED: MORPHINE 2 MG/ML SYR ONE (21:32)
[2021-11-18] MEDS ORDERED: ONDANSETRON 4 MG/2 ML VIAL ONE (21:32)
[2021-11-18 21:51] LABS: Absolute Lymphocytes (CBC) 2.4 K/uL (0.7-4.9); Hematocrit 42.7 % (36.0-45.0); Lymphocytes % 41.3 % (15.3-44.8); MPV 8.8 fL (7.6-11.3); RBC Red Blood Cell Count 4.63 M/uL (3.86-4.86)
[2021-11-18 22:00] LABS: Albumin 4.1 g/dL (3.4-5.0); Bilirubin Total 0.2 mg/dL (0.2-1.0); Magnesium 2.2 mg/dL (1.8-2.4); Potassium 3.6 mmol/L (3.5-5.1); Protein, Total 7.6 g/dL (6.4-8.2)
[2021-11-18] MEDS ORDERED: LACTULOSE 20 GM/30 ML UCUP ONE (23:15)
--- NOTE | 2021-11-18 23:17 | EDPHYS ---
Physician Documentation [facility] Name: Kavita Kwon Age: 41 yrs Sex: Female : 1980 Arrival Date: 11/18/2021 Time: 20:55 Bed 14 Private MD: ED Physician Segundo Peña HPI: 11/18 21:15 This 41 yrs old Female presents to ER via Ambulatory with complaints of Constipation - cp 14 days. 21:15 The patient presents with abdominal pain that is diffuse, abdominal distention that is cp diffuse. Onset: The symptoms/episode began/occurred gradually, and became worse today. Associated signs and symptoms: Pertinent positives: constipation, Pertinent negatives: diarrhea, dysuria, fever, palpitations, shortness of breath, vomiting, cough. 21:15 Patient reports history of cervical fusion surgery 2 weeks ago. Reports no bowel cp movement since surgery. Has been passing gas. No fever. Taking hydrocodone for pain but no stool softener. 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 - Social history:: Smoking status: Patient reports the use of cigarette tobacco products, smokes one-half pack cigarettes per day. ROS: 21:20 Constitutional: Negative for body aches, chills, fever, poor PO intake. cp 21:20 Eyes: Negative for injury, pain, redness, and discharge. cp 21:20 ENT: Negative for ear pain, sore throat, difficulty swallowing, difficulty handling secretions. 21:20 Cardiovascular: Negative for chest pain. 21:20 Respiratory: Negative for cough, shortness of breath, wheezing. 21:20 Abdomen/GI: Positive for constipation, abdominal distension, Negative for vomiting, diarrhea. 21:20 Back: Negative for pain at rest, pain with movement. 21:20 Neuro: Negative for altered mental status, dizziness, headache, weakness. 21:20 All other systems are negative. Exam: 21:25 Constitutional: The patient appears in no acute distress, alert, awake, non-toxic, well cp developed, well nourished, uncomfortable. 21:25 Head/Face: Normocephalic, atraumatic. cp 21:25 Eyes: Periorbital structures: appear normal, Conjunctiva: normal, no exudate, no injection, Sclera: no appreciated abnormality, Lids and lashes: appear normal, bilaterally. 21:25 ENT: External ear(s): are unremarkable, Nose: is normal, Mouth: Lips: moist, Oral mucosa: moist, Posterior pharynx: Airway: no evidence of obstruction, patent. 21:25 Neck: External neck: well healing anterior surgical scar, ROM/movement: pain, that is mild, with any movement. 21:25 Chest/axilla: Inspection: normal. 21:25 Cardiovascular: Rate: normal, Rhythm: regular, Edema: is not appreciated, JVD: is not appreciated. 21:25 Respiratory: the patient does not display signs of respiratory distress, Respirations: normal, no use of accessory muscles, no retractions, labored breathing, is not present, Breath sounds: are clear throughout, no decreased breath sounds, no stridor, no wheezing. 21:25 Abdomen/GI: Inspection: distension, that is mild, Bowel sounds: active, all quadrants, Palpation: soft, in all quadrants, mild abdominal tenderness, in all quadrants, rebound tenderness, is not appreciated, voluntary guarding, is not appreciated, involuntary guarding, is not appreciated. 21:25 Back: CVA tenderness, is absent. 21:25 Neuro: Orientation: to person, place \T\ time. Mentation: is normal. Vital Signs: 20:58 BP 116 / 80; Pulse 94; Resp 17; Temp 98.0; Pulse Ox 99% on R/A; Weight 54.43 kg; Height ab2 5 ft. 5 in. (165.10 cm); Pain 6/10; 21:45 BP 116 / 83; Pulse 80; Resp 18; Pulse Ox 100% on R/A; Pain 0/10; hanny 22:37 BP 115 / 79; Pulse 78; Resp 16; Pulse Ox 99% on R/A; Pain 2/10; hanny 20:58 Body Mass Index 19.97 (54.43 kg, 165.10 cm) ab2 MDM: 21:04 Patient medically screened. cp 23:17 Data reviewed: vital signs, nurses notes, lab test result(s), radiologic studies, CT cp scan. 23:17 Counseling: I had a detailed discussion with the patient and/or guardian regarding: the cp historical points, exam findings, and any diagnostic results supporting the discharge/admit diagnosis, lab results, radiology results, to return to the emergency department if symptoms worsen or persist or if there are any questions or concerns that arise at home. Response to treatment: the patient's symptoms have mildly improved after treatment, and as a result, I will discharge patient. ED course: VSS. CT abdomen/pelvis negative for bowel obstruction. Will discharge to home for continued monitoring. 11/18 21:13 Order name: CBC with Diff; Complete Time: 21:57 cp 11/18 23:16 Interpretation: Reviewed. cp 11/18 21:13 Order name: CMP; Complete Time: 23:16 cp 11/18 23:16 Interpretation: Normal except: GFR 63. cp 11/18 21:13 Order name: Lipase; Complete Time: 23:16 cp 11/18 21:13 Order name: Urine Microscopic Only cp 11/18 21:13 Order name: Magnesium; Complete Time: 23:16 cp 11/18 23:19 Order name: Urine Dipstick-Ancillary EDMS 11/18 21:13 Order name: CT Abd/Pelvis - IV Contrast Only cp 11/18 21:13 Order name: IV Saline Lock; Complete Time: 21:25 cp 11/18 21:13 Order name: Labs collected and sent; Complete Time: 21:25 cp 11/18 21:13 Order name: Urine Dipstick-Ancillary (obtain specimen); Complete Time: 23:20 cp Administered Medications: 21:41 Drug: NS 0.9% 1000 ml Route: IV; Rate: 1 bolus; Site: right antecubital; hanny 21:46 Follow up: IV Status: Completed infusion; IV Intake: 1000ml hanny 21:41 Drug: Zofran (Ondansetron) 4 mg Route: IVP; Site: right antecubital; hanny 21:47 Follow up: Response: No adverse reaction hanny 21:41 Drug: morphine 2 mg Route: IVP; Site: right antecubital; hanny 21:46 Follow up: Response: No adverse reaction hanny 23:20 Drug: Lactulose 20 grams Volume: 30 ml; Route: PO; hanny Disposition: 11/19 03:07 Co-signature as Attending Physician, Segundo Peña DO I was immediately available on-site ms3 in the Emergency Department for consultation in the care of the patient.. Disposition Summary: 11/18/21 23:17 Discharge Ordered Location: Home cp Problem: new cp Symptoms: have improved cp Condition: Stable cp Diagnosis - Constipation, unspecified cp Followup: cp - With: Private Physician - When: 2 - 3 days - Reason: Recheck today's complaints Discharge Instructions: - Discharge Summary Sheet cp - Constipation, Adult cp Forms: - Medication Reconciliation Form cp - Thank You Letter cp - Antibiotic Education cp - Prescription Opioid Use cp Prescriptions: - Colace 100 mg Oral Tablet - take 1 tablet by ORAL route every 12 hours; 14 tablet; Refills: 0, Product cp Selection Permitted Signatures: Dispatcher [employer] EDMS Alejandro Bautista PA PA cp Sims, Marcus, DO DO ms3 Kasie Shrestha, RN RN Vik Shah Sophia, PA PA sb3
--- NOTE | 2021-11-18 23:17 | ER ---
Nurse's Notes [facility] Name: Kavita Kwon Age: 41 yrs Sex: Female : 1980 Arrival Date: 11/18/2021 Time: 20:55 Bed 14 Private MD: Diagnosis: Constipation, unspecified Presentation: 11/18 20:58 Chief complaint: Patient states: "I had multi level disc replacement in my neck 2 weeks ab2 ago and I have not been able to have a BM since." Pt states last BM was 11/04/21. Coronavirus screen: Vaccine status: Patient reports being unvaccinated. Client denies travel out of the [place] in the last 14 days. At this time, the client does not indicate any symptoms associated with coronavirus-19. Ebola Screen: Patient negative for fever greater than or equal to 101.5 degrees Fahrenheit, and additional compatible Ebola Virus Disease symptoms Patient denies exposure to infectious person. Patient denies travel to an Ebola-affected area in the 21 days before illness onset. No symptoms or risks identified at this time. Initial Sepsis Screen: Does the patient meet any 2 criteria? No. Patient's initial sepsis screen is negative. Does the patient have a suspected source of infection? No. Patient's initial sepsis screen is negative. Risk Assessment: Do you want to hurt yourself or someone else? Patient reports no desire to harm self or others. Onset of symptoms is unknown. 20:58 Method Of Arrival: Ambulatory ab2 20:58 Acuity: SUZY 3 ab2 Triage Assessment: 21:01 General: Appears in no apparent distress. uncomfortable, Behavior is calm, cooperative, ab2 appropriate for age. Pain: Complains of pain in abdomen and neck Pain currently is 6 out of 10 on a pain scale. 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 Gait is steady, Speech is normal, Facial symmetry appears normal. Cardiovascular: No deficits noted. Patient's skin is warm and dry. Respiratory: Airway is patent Respiratory effort is even, unlabored, Respiratory pattern is regular, symmetrical. GI: Reports lower abdominal pain, upper abdominal pain, constipation, nausea. : No deficits noted. No signs and/or symptoms were reported regarding the genitourinary system. Derm: Skin is intact, Skin is pink, warm \\T\\ dry. 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 - Social history:: Smoking status: Patient reports the use of cigarette tobacco products, smokes one-half pack cigarettes per day. Screenin:03 Abuse screen: Denies threats or abuse. Denies injuries from another. Nutritional hanny screening: No deficits noted. Tuberculosis screening: No symptoms or risk factors identified. Fall Risk None identified. Assessment: 21:03 Reassessment: No changes from previously documented assessment. hanny 22:11 Reassessment: The pt is being taken to CT for her scan. hanny 22:27 Reassessment: The pt returned from CT and was wrapped in warm blankets, as she was hanny shivering. It immediately resolved. 23:21 Reassessment: The pt was informed of the results of the CT. The provider discussed a hanny "bowel program" with the pt, as well, did I. The pt and her acknowledged understanding. 23:22 GI: Bowel sounds present X 4 quads. hanny 23:22 GI: Abd is non tender X 4 quads distended. hanny Vital Signs: 20:58 BP 116 / 80; Pulse 94; Resp 17; Temp 98.0; Pulse Ox 99% on R/A; Weight 54.43 kg; Height ab2 5 ft. 5 in. (165.10 cm); Pain 6/10; 21:45 BP 116 / 83; Pulse 80; Resp 18; Pulse Ox 100% on R/A; Pain 0/10; hanny 22:37 BP 115 / 79; Pulse 78; Resp 16; Pulse Ox 99% on R/A; Pain 2/10; hanny 20:58 Body Mass Index 19.97 (54.43 kg, 165.10 cm) ab2 ED Course: 20:55 Patient arrived in ED. kz 20:56 Alejandro Bautista PA is PHCP. cp 20:56 Segundo Peña DO is Attending Physician. cp 21:00 Triage completed. ab2 21:02 Arm band placed on right wrist. ab2 21:24 Kasei Shrestha, RN is Primary Nurse. hanny 21:25 Lipase Sent. hanny 21:25 CMP Sent. hanny 21:25 CBC with Diff Sent. hanny 21:25 Magnesium Sent. hanny 21:47 Lipase Sent. hanny 21:47 CMP Sent. hanny 21:47 CBC with Diff Sent. hanny 21:47 Magnesium Sent. hanny 22:25 CT Abd/Pelvis - IV Contrast Only In Process Unspecified. EDMS 22:29 Patient has correct armband on for positive identification. Bed in low position. Call hanny light in reach. Side rails up X2. Adult w/ patient. 22:29 No provider procedures requiring assistance completed. hanny 23:21 Urine Microscopic Only Sent. hanny 23:29 intact, bleeding controlled, No redness/swelling at site. Pressure dressing applied. hanny Administered Medications: 21:41 Drug: NS 0.9% 1000 ml Route: IV; Rate: 1 bolus; Site: right antecubital; hanny 21:46 Follow up: IV Status: Completed infusion; IV Intake: 1000ml hanny 21:41 Drug: Zofran (Ondansetron) 4 mg Route: IVP; Site: right antecubital; hanny 21:47 Follow up: Response: No adverse reaction hanny 21:41 Drug: morphine 2 mg Route: IVP; Site: right antecubital; hanny 21:46 Follow up: Response: No adverse reaction hanny 23:20 Drug: Lactulose 20 grams Volume: 30 ml; Route: PO; hanny Intake: 21:46 IV: 1000ml; Total: 1000ml. hanny Outcome: 22:30 Condition: stable hanny 23:17 Discharge ordered by MD. cp 23:29 Discharged to home ambulatory, with family. hanny 23:29 Discharge instructions given to patient, Instructed on discharge instructions, follow up and referral plans. medication usage, Demonstrated understanding of instructions, follow-up care, medications, Prescriptions given X 1. 23:30 Patient left the ED. hanny Signatures: Dispatcher [employer] EDMS Page, Alejandro, Kasie Murguia cp, PRATIBHA RN hnany Schneider, Vik ab2 Ai Brizuela kz
[2021-11-18 23:19] LABS: Urine Blood Negative (Negative); Urine Glucose Negative (Negative); Urine Protein Negative (Negative)
[2021-11-18 23:45] LABS: Urine Bacteria <20 /HPF (<20); Urine RBC NONE SEEN /HPF (NONE SEEN)
[2021-11-19 07:17] VITALS: TEMP 98
[2021-11-19 07:20] VITALS: BP 115/79; O2SAT 99
--- NOTE | 2021-11-21 12:45 | RAD REPORT ---
EXAM DESCRIPTION: CT - Abdomen Pelvis W Contrast - 11/19/2021 7:02 am ADDENDUM #1 Additional findings/impression: Interval increase in size of the common bile duct since the previous examination measuring 11 mm, previously 9 mm with interval development of intrahepatic biliary dilati on since the previous examination. No discrete etiology of obstruction is identified on the current e xamination. If the patient's pain persists, follow-up evaluation with MRCP may be considered. Electronically signed by: Jing Ceron MD 11/18/2021 11:07 PM CDT End of Addendum EXAM DESCRIPTION: Abdomen Pelvis W Contrast CLINICAL HISTORY: 41-year-old female with abdominal distention and abdominal pain. COMPARISON: 08/10/2021. TECHNIQUE: CT of the abdomen and pelvis was performed following intravenous administration of contra st. Oral contrast was not administered. Multiplanar reformatted images were provided. This exam was p erformed according to our departmental dose optimization program which includes use of automated expo sure control, adjustment of the mA and/or kV according to patient size and/or use of iterative recons truction technique. FINDINGS: Chest: Evaluation through the lung bases reveals no focal opacity, pleural effusion or pne umothorax. Focal subpleural groundglass opacity at the level of the LEFT lower lobe measuring 3 mm meza ggesting pulmonary micronodule laterally and 4 mm medially, (series 401, image one and three). Best practice guidelines: Multiple pulmonary nodules. Most severe: 4 mm left ground-glass pulmonary n odule. Recommend a non-contrast Chest CT at 3-6 months. If stable, consider follow-up non-contrast Ch est CTs at 2 and 4 years. These guidelines do not apply to immunocompromised patients and patients with cancer. Follow up in pa tients with significant comorbidities as clinically warranted. For lung cancer screening, adhere to L jose-RADS guidelines. Reference: Radiology. 2017; 284(1):228-43. Heart size is within normal limits. No pericardial effusion. Abdomen and pelvis: The liver, pancreas, spleen, bilateral kidneys and bilateral adrenal glands are w ithin normal limits. Surgical clips at the level of the gallbladder fossa status post cholecystectomy. Intra and extrahepa tic biliary dilation, a finding which can be seen following cholecystectomy, without clear findings t o suggest distal obstructive process. Subcentimeter focus of hypoattenuation within the LEFT lobe liver measures 4 mm too small to further characterize, may reflect a hepatic cyst, (series 401, image 19). 1 mm calcification present within the RIGHT renal pelvis compatible with nonobstructing calculus. The vessels are patent and normal in caliber. No abdominopelvic lymph nodes are noted to be pathologically enlarged by CT measurement criteria. Large volume of fecal content present throughout the large bowel raising the question of fecal stasis or constipation. The bowel is within normal limits without abnormal bowel wall thickness or bowel dilation. No free air. No free abdominopelvic fluid collections. The osseous structures demonstrates degenerative change of the lower lumbar spine. Loss of disk heigh t with vacuum disk phenomenon and posterior disk bulge of L5-S1. IMPRESSION: 1. No specific acute intra-abdominal findings are noted to suggest etiology of the pat ient's abdominal pain. 2. Large volume of fecal content present throughout the large bowel raising the question of fecal s tasis or constipation. 3. Intra and extrahepatic biliary dilation, a finding which can be seen following cholecystectomy, without clear findings to suggest distal obstructive process. 4. 1 mm calcification present within the RIGHT renal pelvis compatible with nonobstructing calculus . 5. Multiple pulmonary nodules. Most severe: 4 mm left ground-glass pulmonary nodule. Electronically signed by: Jing Ceron MD 11/18/2021 10:52 PM CDT Due to temporary technical issues with the PACS/Fluency reporting system, reports are being signed by the in house radiologist without review as a courtesy to ensure prompt reporting. The interpreting r adiologist is fully responsible for the content of the report.
== END 2021-11-18 23:30 | disposition home or self-care (01) ==
LOC: ER 20:53
DX: K59.00 Constipation, unspecified (principal); R14.0 Abdominal distension (gaseous); F17.210 Nicotine dependence, cigarettes, uncomplicated; F41.9 Anxiety disorder, unspecified; Z98.890 Other specified postprocedural states; Z88.6 Allergy status to analgesic agent
CPT/HCPCS: 85025; 36415; 83735; 83690; 80053; 74177; 96375; 96374; 99284; Q9967; J2270; J7030; J2405; 81003; 81015

== ENCOUNTER 2022-10-13 14:59 | Emergency (ER) | payer OTHER ==
--- OUTSIDE RECORDS SUMMARY | 2022-10-13 15:04 | XMS REPORT | Continuity of Care Document ---
:1980 Author Organization [facility] t Address [address] [facility] [place] [address] Care Team Providers Name Role Phone Asked, No Pcp Primary Care Physician Unavailable Viki Castro MD Attending Clinician Tiffany Davidson MA Attending Clinician Unavailable Magaly Mondragon MD Attending Clinician Parvni Reeder NP Attending Clinician Destiny Kerr MA Attending Clinician Unavailable Maynor Valdez Attending Clinician Unavailable ERVIN TAVAREZ Attending Clinician Unavailable Ervin Tavarez Attending Clinician VIKI CASTRO Admitting Clinician Unavailable Maynor Valdez Admitting Clinician Unavailable Vladimir Mcconnell V Admitting Clinician Unavailable ERVIN TAVAREZ Admitting Clinician Unavailable Ervin Tavarez Admitting Clinician Payers Payer Name Policy Type Policy Number Effective Date Expiration Date S ource Problems Condition Condition Condition Status Onset Resolution Last Treating Co mments Source Name Details Category Date Date Treatment Clinician Date Nausea Nausea Disease Active [facility]osp[facility] 00 l Upper Upper Disease Active Methodi abdominal abdominal 8 st pain pain 00:00: Hospita 00 l ABSCESS OF ABSCESS Diagnosis Active 2020-02-25 Memoria SKIN OF OF SKIN OF 02-21 06:49:00 l NECK NECK 00:00: Ryan Active 00 02/22/2020 [facility] NECK NECK Diagnosis Active 2020-02-22 Mem oria ABSCESS ABSCESS 02-21 05:11:00 l Active 00:00: Ryan 02/22/2020 00 [facility] Chronic Chronic Problem Active 2020-02-24 Me moria gastritis gastritis 21:42:37 l (disorder) (disorder) He rmann Active Problem 02/24/2020 [facility] Fibromyalg Fibromyal Problem Active 2020-02-24 Memoria ia lynette 21:42:37 l (disorder) (disorder) He rmann Active Problem 02/24/2020 [facility] CUTANEOUS CUTANEOUS Diagnosis Active 2020-02-25 Memoria ABSCESS OF ABSCESS OF 06:49:00 l NECK NECK [place] Active [facility] Allergies, Adverse Reactions, Alerts Allergy Allergy Status Severity Reaction(s) Onset Inactive Treating Comm ents Source Name Type Date Date Clinician lidocain DA Active [place] [facility] - Clear 00:00: Byrne 00 [facility] lidocain DA Active [place] SITE [facility] e SWELLING 02-18 Clear 00:00: Byrne 00 [facility] No Known No Known Active Memori a Medicati Medicati l on on Ryan Allergie Allergie s s Family History Family Member Diagnosis Comments Start Date Stop Date Source Natural mother Crohn's disease [facility] Natural mother GERD [facility] Natural sister Ulcerative colitis [facility] Social History Social Habit Start Date Stop Date Quantity Comments Source History of tobacco Smokes tobacco [facility] use daily Hospital Alcohol intake 2022-07-14 2022-07-14 Ex-drinker [facility] 00:00:00 00:00:00 (finding) Hospital Cigarettes smoked 2022-03-30 2022-03-[address] current (pack per 00:00[facility] - Reported Cigarette 2022-03-30 2022-03-30 [facility] pack-years 00:00:00 00:00:00 Hospital Tobacco use and 2022-03-30 2022-03-30 Smokeless tobacco [facility] exposure 00:00:00 00:00:00 non-user Hospital Alcohol Comment 2022-03-30 2022-03-30 Maybe 2 times a Meth odist 00:00:00 00:00:00 year Hospital Social History 2020-02-22 2020-02-22 [facility] 11:28:49 11:28:49 Sex Assigned At [birth year] [facility] 00:00:00 00:[facility]:00 Hospital Smoking Status Start Date Stop Date Source Smokes tobacco daily 2022-03-30 00:00:00 [facility] Medications Ordered Filled Start Stop Current Ordering Indication Dosage Frequency Signature Comments Components Source Medication Medication Date Date Medication? Clinician (SIG) Name Name hyoscyamine Yes .125mg Q6H Take 1 Me thodi (Levsin/SL) 03-[address] 0.125 mg SL 00:00: (0.125 mg H ospita tablet 00 total) by l mouth every 6 (six) hours as needed for cramping. pyridoxine, No [id number] 100mg QD Take 1 Methodi vitamin B6, 03-31 08-[address] (B-6) 100 00:00: 04:59 (100 mg Hosp daisy MG tablet 00 :00 total) by l mouth daily. estradioL Yes APPLY 1 Metho di (VIVELLE-DO 7-[address] T) 0.05 00:00: SKIN TWICE [facility]osp daisy mg/24 hr 00 [facility] [address] tablet,disi 00:00: Hospit a ntegrating 00 l pantoprazol Yes Method i e 8-18 st (PROTONIX) 00:00: Hospita 40 MG EC 00 l tablet sennosides, No Notes: Rob federico FCI 7-13 (Same as: l 02:00: Senokot) Amitriptyli No Notes: Rob federico ne 7-13 (Same as: l 02:00: Elavil) sennosides, No Notes: Rob federico FCI 7-13 (Same as: l 02:00: Senokot) Amitriptyli No Notes: Rob federico ne 7-13 (Same as: l 02:00: Elavil) Acetaminoph Yes 1 tab, PO, Memoria en 325 MG / 7-12 Q6H, PRN l Hydrocodone 22:02: Pain Score [place] Bitartrate 00 7-10, 0 5 MG Oral Refill(s) Tablet [[place] 5/325] amitriptyli 2020-0 Yes 50 mg = 1 M emoria ne 50 mg 7-12 tab, PO, l oral tablet 22:02: Bedtime, 0 Ryan 00 Refill(s) fluconazole 2020-0 Yes 200 mg = 1 Memoria 200 mg oral 7-12 tab, PO, l tablet 22:02: Daily, X 7 [place] nn day, # 7 tab, 0 Refill(s), Pharmacy: [facility][id number], 165.1, cm, 02/22/20 6:26:00 CDT, Height, 50, kg, 02/22/20 6:26:00 CDT, Weight POLYETHYLEN 2020-0 Yes 17 gm, PO, Memoria E GLYCOL 7-12 Daily, 0 l 3350 22:02: Refill(s) [place] sennosides, 2020-0 Yes 17.2 mg = M emoria FCI 8.6 MG 7-12 2 tab, PO, l Oral Tablet 22:02: Bedtime, 0 Ryan 00 Refill(s) Acetaminoph 2020-0 Yes 1 tab, PO, Memoria en 325 MG / 7-12 Q6H, PRN l Hydrocodone 22:02: Pain Score [place] Bitartrate 00 7-10, 0 5 MG Oral Refill(s) Tablet [[place] 5/325] amitriptyli 2020-0 Yes 50 mg = 1 M emoria ne 50 mg 7-12 tab, PO, l oral tablet 22:02: Bedtime, 0 Ryan 00 Refill(s) fluconazole 2020-0 Yes 200 mg = 1 Memoria 200 mg oral 7-12 tab, PO, l tablet 22:02: Daily, X 7 [place] nn day, # 7 tab, 0 Refill(s), Pharmacy: [facility] #[id number], 165.1, cm, 02/22/20 6:26:00 CDT, Height, 50, kg, 02/22/20 6:26:00 CDT, Weight POLYETHYLEN 2020-0 Yes 17 gm, PO, Memoria E GLYCOL 7-12 Daily, 0 l 3350 22:02: Refill(s) 00 sennosides, 2020-0 Yes 17.2 mg = M emoria FCI 8.6 MG 7-12 2 tab, PO, l Oral Tablet 22:02: Bedtime, 0 Refill(s) Acetaminoph 2019-0 No Notes: Rob federico en 325 MG / 712 (Same as: l Hydrocodone 19:31: [place] nn Bitartrate 00 325/5) Do 5 MG Oral not exceed Tablet 4gm/day of [[place] acetaminop 5/325] hen. Acetaminoph 2019-0 No Notes: Rob federico en 325 MG / 7-12 (Same as: l Hydrocodone 19:31: [place] nn Bitartrate 00 325/5) Do 5 MG Oral not exceed Tablet 4gm/day of [[place] acetaminop 5/325] hen. Fluconazole 2019-0 No 200 mg, 1 M emoria 7-12 tab, l 17:00: Route: PO, [place] 00 Drug form: TAB, [id number], Dosing Weight 50, kg, Start date: 02/22/20 12:00:00 CDT, Duration: 14 day, Stop date: 03/06/20 12:00:00 CDT, ABX Indication : Skin/Soft Tissue Infection, 0 Fluconazole 2019-0 No 200 mg, 1 M emoria 7-12 tab, l 17:00: Route: PO, Ryan 00 Drug form: TAB, [id number], Dosing Weight 50, kg, Start date: 02/22/20 12:00:00 CDT, Duration: 14 day, Stop date: 03/06/20 12:00:00 CDT, ABX Indication : Skin/Soft Tissue Infection, 0 POLYETHYLEN 2020-0 No Notes: Rob federico E GLYCOL 7-12 Dissolve l 3350 14:00: in 8 oz of [place] 00 water or juice. (Same as: Miralax) POLYETHYLEN 2020-0 No Notes: Rob federico E GLYCOL 7-12 Dissolve l 3350 14:00: in 8 oz of Ryan 00 water or juice. (Same as: Miralax) Ibuprofen 2019-0 No Notes: Memori a 7-12 (Same as: l 13:00: Motrin) [place] 00 "Do Not Crush" Take with food. Ibuprofen 2020-0 No Notes: Memori a -12 (Same as: l 13:00: Motrin) Ryan 00 "Do Not Crush" Take with food. Fluconazole 2020-0 No Notes: Rob federico - (Same as: l 12:00: Diflucan) [place] 00 Do not refrigerat e Hazardous Drug Group 3:Reproduc tive risk Hazardous Drug -- Refer to safe handling procedure PPE Matrix Fluconazole 2020-0 No Notes: Rob federico 7- (Same as: l 12:00: Diflucan) Ryan 00 Do not refrigerat e Hazardous Drug Group 3:Reproduc tive risk Hazardous Drug -- Refer to safe handling procedure PPE Matrix Ketorolac 2020-0 No 4 days Memor ia 12 l 11:45: MEDICATION Ryan 00 WASTE Product Size: 30 mg Product Wasted: ___ mg Zofran 2020-0 No Notes: Memoria 02-21 (Same as: l 11:45: Zofran) Ryan 00 MEDICATION WASTE Product Size: 4 mg Product Wasted: ___ mg Ketorolac 2020-0 No 4 days Memor ia 12 l 11:45: MEDICATION Ryan 00 WASTE Product Size: 30 mg Product Wasted: ___ mg Zofran 2020-0 No Notes: Memoria 02-21 (Same as: l 11:45: Zofran) Ryan 00 MEDICATION WASTE Product Size: 4 mg Product Wasted: ___ mg Acetaminoph 2019-0 No Notes: Max Memoria en -12 acetaminop l 11:00: hen 4000 [place] 00 mg/day (4 gm/day). (Same as: Tylenol Extra Strength) Acetaminoph 2020-0 No Notes: Max Memoria en 7-12 acetaminop l 11:00: hen 4000 [place] 00 mg/day (4 gm/day). (Same as: Tylenol Extra Strength) Ceftriaxone 2020-0 No Notes: Rob federico - (Same As: l 10:48: Rocephin). Ryan 00 Use with 100 mL NS and infuse over 30 min MEDICATION WASTE Product Size: 1000 mg Product Wasted: ___ mg Flagyl 2020-0 No Notes: Memoria 7-12 (Same as: l 10:48: Flagyl) Avoid alcohol. Ceftriaxone 2020-0 No Notes: Rob federico 7-12 (Same As: l 10:48: Rocephin). Use with 100 mL NS and infuse over 30 min MEDICATION WASTE Product Size: 1000 mg Product Wasted: ___ mg Flagyl 2020-0 No Notes: Memoria 7-12 (Same as: l 10:48: Flagyl) Avoid alcohol. Clonazepam 2020-0 No Notes: Memor ia 7-12 (Same As: l 10:46: KlonoPIN) [facility]ous Drug Group 3:Reproduc tive risk Hazardous Drug -- Refer to safe handling procedure PPE Matrix Clonazepam 2020-0 No Notes: Memor ia 7-12 (Same As: l 10:46: KlonoPIN) Hazardous Drug Group 3:Reproduc tive risk Hazardous Drug -- Refer to safe handling procedure PPE Matrix clindamycin 2020-0 Yes 150 mg = 1 Memoria 150 mg oral 7-12 cap, PO, l capsule 10:43: Q6H, # 40 [place] nn 00 cap, 0 Refill(s) clonazePAM 2020-0 Yes 0.5 mg = 1 M emoria 0.5 mg oral 7-12 tab, PO, l tablet 10:43: BID, PRN Ryan 00 anxiety, # 60 tab, 0 Refill(s) Vancomycin 2020-0 No 2001 mg: Me moria 7-12 infuse l 10:43: over 2.5 00 hours For adult patients only: Round to nearest 250 mg per Medical Staff approval MEDICATION WASTE Product Size: 1000 mg Product Wasted: ___ mg clindamycin 2020-0 Yes 150 mg = 1 Memoria 150 mg oral 7-12 cap, PO, l capsule 10:43: Q6H, # 40 [place] nn 00 cap, 0 Refill(s) clonazePAM 2020-0 Yes 0.5 mg = 1 M emoria 0.5 mg oral 7-12 tab, PO, l tablet 10:43: BID, PRN Ryan 00 anxiety, # 60 tab, 0 Refill(s) Vancomycin 2020-0 No 2000 mg: Me moria 7-12 infuse l 10:43: over 2.5 [place] 00 hours For adult patients only: Round to nearest 250 mg per Medical Staff approval MEDICATION WASTE Product Size: 1000 mg Product Wasted: ___ mg Lactated 2020-0 No 1,000 mL, Rob federico Ringers IV 7-12 Rate: 60 l 1,000 mL 10:42: ml/hr, Ryan 00 Infuse over: 16.7 hr, Route: IV, Dosing Weight 54.545 kg, Total Volume: 1,000, Start date: 02/22/20 5:42:00 CDT, Duration: 30 day, Stop date: 03/23/20 5:41:00 CDT, 0 Lactated 2020-0 No 1,000 mL, Rob federico Ringers IV 7-12 Rate: 60 l 1,000 mL 10:42: ml/hr, Infuse over: 16.7 hr, Route: IV, Dosing Weight 54.545 kg, Total Volume: 1,000, Start date: 02/22/20 5:42:00 CDT, Duration: 30 day, Stop date: 03/23/20 5:41:00 CDT, 0 Oxycodone 2020-0 No Notes: Memori a Hydrochlori 7-12 (Same as: l de 5 MG 10:41: Roxicodone Herm lorenzo Oral Tablet 00 ) Morphine 2020-0 No Notes: Memoria 7-12 (Same l 10:41: as:MORPhin [place] 00 e Sulfate) Oxycodone 2020-0 No Notes: Memori a Hydrochlori 7-12 (Same as: l de 5 MG 10:41: Roxicodone Herm lorenzo Oral Tablet 00 ) Morphine 2020-0 No Notes: Memoria 7-12 (Same l 10:41: as:MORPhin [place] 00 e Sulfate) Dextrose 2020-0 No 12.5 gm, Memor ia 50% Syringe -12 25 mL, l (D50W) 10:37: Route: [place] 00 IVP, Drug Form: INJ, Dosing Weight 54.545, kg, PRN, PRN Blood Glucose Results, Start date: 02/22/20 5:37:00 CDT, Duration: 30 day, Stop date: 03/23/20 5:36:00 CDT, 0 Glucagon 2020-0 No 1 mg, Memoria 7-12 Route: IM, l 10:37: Drug form: [place] 00 PDR/INJ, PRN, Dosing Weight 54.545, kg, PRN Blood Glucose Results, Start date: 02/22/20 5:37:00 CDT, Duration: 30 day, Stop date: 03/23/20 5:36:00 CDT, 0 Ondansetron 2020-0 No Notes: Rob federico -12 (Same as: l 10:37: Zofran) MEDICATION WASTE Product Size: 4 mg Product Wasted: ___ mg Melatonin 2019-0 No Notes: Memori a -12 (Same as: l 10:37: Melatonin) Dextrose 2019-0 No 12.5 gm, Memor ia 50% Syringe 02-21 25 mL, l (D50W) 10:37: Route: IVP, Drug Form: INJ, Dosing Weight 54.545, kg, PRN, PRN Blood Glucose Results, Start date: 02/22/20 5:37:00 CDT, Duration: 30 day, Stop date: 03/23/20 5:36:00 CDT, 0 Glucagon 2020-0 No 1 mg, Memoria - Route: IM, l 10:37: Drug form: PDR/INJ, PRN, Dosing Weight 54.545, kg, PRN Blood Glucose Results, Start date: 02/22/20 5:37:00 CDT, Duration: 30 day, Stop date: 03/23/20 5:36:00 CDT, 0 Ondansetron 2020-0 No Notes: Rob federico -12 (Same as: l 10:37: Zofran) MEDICATION WASTE Product Size: 4 mg Product Wasted: ___ mg Melatonin 2020-0 No Notes: Memori a 7-12 (Same as: l 10:37: Melatonin) amitriptyli Yes Method i ne (ELAVIL) 03-30 st 50 MG 00:00: Hospita tablet l clonAZEPAM Yes Methodi (KlonoPIN) 8-18 st 0.5 MG 00:00: Hospita tablet 00 l Vital Signs Vital Name Observation Time Observation Value Comments Source Body height 2022-07-14 21:31:00 165.1 cm [facility] Body weight 2022-07-14 21:31:00 58.968 kg [facility] BMI 2022-07-14 21:31:00 21.63 kg/m2 [facility] Systolic blood 2022-04-24 21:30:00 112 mm[Hg] Method [facility] pressure Diastolic blood 2022-04-24 21:30:00 76 mm[Hg] [facility] pressure Heart rate 2022-04-24 21:30:00 76 /min [facility] Respiratory rate 2022-04-24 21:30:00 20 /min [facility] Oxygen saturation in 2022-04-24 21:30:00 97 /min [facility] Arterial blood by Pulse oximetry Body temperature 2022-04-24 20:55:00 36.33 [facility] Temperature Oral (F) 2020-02-22 16:34:00 98.6 F [facility] [place] Heart Rate 2020-02-22 16:34:00 [facility] [place] Respitory Rate 2020-02-22 16:34:00 Memori al [place] Systolic (mm Hg) 2020-02-22 16:34:00 Rob rial [place] Diastolic (mm Hg) 2020-02-22 16:34:00 Mem orial [place] Temperature Oral (F) 2020-02-22 14:07:00 97.8 F [facility] [place] Heart Rate 2020-02-22 14:07:00 [facility] [place] Respitory Rate 2020-02-22 14:07:00 Memori al [place] Systolic (mm Hg) 2020-02-22 14:07:00 Rob rial [place] Diastolic (mm Hg) 2020-02-22 14:07:00 Mem orial [place] Temperature Oral (F) 2020-02-22 11:35:00 98.5 F [facility] [place] Systolic (mm Hg) 2020-02-22 11:35:00 Rob rial [place] Diastolic (mm Hg) 2020-02-22 11:35:00 Mem orial [place] Height 2020-02-22 11:26:00 165.1 cm [facility] Weight 2020-02-22 11:26:00 [facility] Calculated 2020-02-22 11:26:00 Tracy key [place] Respitory Rate 2020-02-22 10:56:00 Tracy key [place] Weight 2020-02-22 09:22:00 [facility] Heart Rate 2020-02-22 09:22:00 [facility] Procedures Procedure Date / Time Performing Source Performed Clinician SURGICAL PATHOLOGY REQUEST 2022-04-24 Viki Castro [facility]o dist 21:12:00 [facility] ESOPHAGOGASTRODUODENOSCOPY (EGD) 2022-04-24 Viki Castro 20:27:00 [facility] US UPPER GI TRACT, ENDOSCOPIC 2022-04-24 Viki Castro Me thodist 20:27:00 [facility] NM GASTRIC EMPTYING 2022-04-11 Viki Castro 18:21:00 [facility] [id number] 2021-02-20 HARMA.12 [facility] 00:00:00 [facility] Center Plan of Care Planned Activity Planned Date Details Comments Source Future Scheduled 2022-10-07 COVID-19 VACCINE (#1) [facility] Test 18:53:48 [code = COVID-19 VACCINE (#1)] Future Scheduled 2022-10-07 [facility] 18:53:48 Pediatrics (0 to 5 Years) and At-Risk Patients (6 to 64 Years) (1 - PCV) [code = Pneumococcal Vaccine: Pediatrics (0 to 5 Years) and At-Risk Patients (6 to 64 Years) (1 - PCV)] Future Scheduled 2022-10-07 Hepatitis C screening [facility] Test 18:53:48 (procedure) [code = 945107357] Future Scheduled 2022-10-07 Screening for [facility] Test 18:53:48 malignant neoplasm of cervix (procedure) [code = 109462280] Future Scheduled 2022-10-07 BREAST CANCER [facility] Test 18:53:48 SCREENING [code = BREAST CANCER SCREENING] Future Scheduled 2022-10-07 INFLUENZA VACCINE [facility] Hospital Test 18:53:48 [code = INFLUENZA VACCINE] Encounters Start End Encounter Admission Attending Care Care Encounter Source Date/Time Date/Time Type Type Clinicians Facility Department ID 2022-11-03 2022-11-03 Outpatient ELLIOT ZARATE [id number] Memoria 13:00:00 13:00:00 36 l [place] 2022-10-10 2022-10-10 Outpatient IE [facility] [id number] Memoria 13:00:00 13:00:00 35 l [place] 2022-07-18 2022-07-18 Telemedici AlexViki 1.2.840.1 [id number] Methodi 09:45:00 10:00:[address] 3.430.2.7 Hospit a .3.595479 l .8 2022-06-09 2022-06-09 Outpatient MHIE [facility] [id number] Memoria 14:45:00 14:45:00 34 l Ryan 2022-06-06 2022-06-06 Telephone Stuart, 1.2.840.1 [id number] Methodi 00:00:00 00:00:[address] 3.430.2.7 Hospit a .3.799860 l .8 2022-04-24 2022-04-24 [facility] AlexVkii 1.2.840.1 [id number] Methodi 12:15:00 23:59:[address] 3.430.2.7 Hospit a .3.562018 l .8 2022-04-24 2022-04-24 Anesthesia Giancarlo Rehanjanee 1.2.840.1 1 [id number] Methodi 15:26:00 15:54:00 Event Parvin Reeder 59841.1.[address] 3.430.2.7 Hospit a .3.136251 l .8 2022-04-24 2022-04-24 Surgery AlexViki 1.2.840.1 [id number] Methodi 14:00:00 15:00:[address] 3.430.2.7 Hospit a .3.465455 l .8 2022-04-24 2022-04-24 Outpatient VIKI CASTRO [facility] [id number] [place] 00:00:00 00:00:[address] 2022-04-24 2022-04-24 Travel 1.2.840.1 1.2.628.667 [id number] Methodi 00:00:00 00:00:[address] 3.430.2.7 0.2.7.3.698 Ho spita .3.393828 084.8 l .8 2022-04-12 2022-04-12 Outpatient IE [facility] [id number] Memoria 10:00:00 10:00:00 33 l [place] 2022-04-12 2022-04-12 Outpatient [facility] [id number] Memoria 10:00:00 10:00:00 33 l [place] 2022-04-11 2022[facility]04-[facility] [id number] Methodi 12:30:00 23:59:[address] 3.430.2.7 Hospit a .3.344063 l .8 2022-04-11 2022-04-11 [facility] 1.2.840.1 [id number] Methodi 10:30:00 12:29:[address] 3.430.2.7 Hospit a .3.064422 l .8 2022-04-11 2022-04-11 [facility] [id number] Methodi 08:30:00 10:29:[address] 3.430.2.7 Hospit a .3.328426 l .8 2022-04-11 2022-04-11 Outpatient VIKI CASTRO [facility] [id number] [place] 00:00:00 00:00:[address] 2022-04-11 2022-04-11 Travel 1.2.840.1 1.2.197.446 [id number] Methodi 00:00:00 00:00:[address] 3.430.2.7 0.2.7.3.698 Ho spita .3.455517 084.8 l .8 2022-04-11 2022-04-11 Outpatient VIKI CASTRO [facility] [id number] [place] 00:00:00 00:00:[address] 2022-04-11 2022-04-11 Outpatient VIKI CASTRO [facility] [id number] [place] 00:00:00 00:00:[address] 2022-04-04 2022-04-04 Orders [place], 1.2.840.1 [id number] Methodi 00:00:00 00:00:00 Only Tiffany 04303.1.[address] 3.430.2.7 Hospit a .3.034431 l .8 2022-04-04 2022-04-04 Telephone Viki Castro 1.2.840.1 [id number] Methodi 00:00:00 00:00:[address] 3.430.2.7 Hospit a .3.717726 l .8 2022-04-03 2022-04-03 Travel 1.2.840.1 1.2.661.828 [id number] Methodi 00:00:00 00:00:[address] 3.430.2.7 0.2.7.3.698 Ho spita .3.009739 084.8 l .8 2022-03-31 2022-03-31 Office Viki Castro 1.2.840.1 [id number] Methodi 12:00:00 12:30:[address] 3.430.2.7 Hospit a .3.160657 l .8 2022-03-31 2022-03-31 Travel 1.2.840.1 1.2.450.237 [id number] Methodi 00:00:00 00:00:[address] 3.430.2.7 0.2.7.3.698 spita .3.540500 084.8 l .8 2022-03-31 2022-03-31 Outpatient VIKI CASTRO [facility] [id number] [place] 00:00:00 00:00:[address] 2022-02-22 2022-02-22 Outpatient MHIE MHIE [id number] Memoria 11:15:00 11:15:00 32 l [place] 2022-02-22 2022-02-22 Outpatient MHIE MHIE [id number] Memoria 11:15:00 11:15:00 32 l [place] 2022-01-02 2022-01-02 Telephone [place], .2.840.1 [id number] Methodi 00:00:00 00:00:[address] 3.430.2.7 Hospit a .3.640878 l .8 2021-12-23 2021-12-23 Outpatient MHIE MHIE [id number] Memoria 16:30:00 16:30:00 31 l [place] 2021-12-23 2021-12-23 Outpatient MHIE MHIE [id number] Memoria 16:30:00 16:30:00 31 l [place] 2021-09-19 2021-09-19 Outpatient MHIE MHIE [id number] Memoria 15:45:00 15:45:00 30 vin [place] 2021-09-19 2021-09-19 Outpatient MHIE MHIE [id number] Memoria 15:45:00 15:45:00 30 vin [place] 2021-08-01 2021-08-01 Outpatient MHIE MHIE [id number] Memoria 14:30:00 14:30:00 29 vin [place] 2021-08-01 2021-08-01 Outpatient MHIE MHIE [id number] Memoria 14:30:00 14:30:00 29 vin [place] 2021-07-04 2021-07-04 Outpatient MHIE MHIE [id number] Memoria 11:45:00 11:45:00 28 vin [place] 2021-07-04 2021-07-04 Outpatient MHIE MHIE [id number] Memoria 11:45:00 11:45:00 28 vin [place] 2021-05-17 2021-05-17 Outpatient MHIE MHIE [id number] Memoria 10:30:00 10:30:00 24 vin [place] 2021-05-17 2021-05-17 Outpatient MHIE MHIE [id number] Memoria 10:30:00 10:30:00 24 vin Davis 2021-03-15 2021-03-15 Outpatient MHIE MHIE [id number] Memoria 15:30:00 15:30:00 27 vin Davis 2021-03-15 2021-03-15 Outpatient MHIE MHIE [id number] Memoria 15:30:00 15:30:00 26 vin Davis 2021-03-15 2021-03-15 Outpatient MHIE MHIE [id number] Memoria 15:30:00 15:30:00 27 vin [place] 2021-03-15 2021-03-15 Outpatient MHIE MHIE [id number] Memoria 15:30:00 15:30:00 26 vin [place] 2021-02-19 2021-02-21 [id number] 13:16:00 15:45:[address] 2021-02-18 2021-02-18 Outpatient SMITH Valdez LABO [id number] [facility] 21:53:00 21:53:[address] 2021-01-31 2021-01-31 Outpatient MHIE MHIE [id number] Memoria 11:00:00 11:00:00 25 vin [place] 2021-01-31 2021-01-31 Outpatient MHIE MHIE [id number] Memoria 11:00:00 11:00:00 25 vin [place] 2021-01-14 2021-01-14 Outpatient MHIE MHIE [id number] Memoria 09:15:00 09:15:00 23 vin [place] 2021-01-14 2021-01-14 Outpatient MHIE MHIE [id number] Memoria 09:15:00 09:15:00 23 vin [place] 2020-12-31 2020-12-31 Outpatient MHIE MHIE [id number] [facility] 09:30:00 09:30:00 22 l [place] 2020-12-31 2020-12-31 Outpatient MHIE MHIE [id number] [facility] 09:30:00 09:30:00 22 l [place] 2020-09-03 2020-09-03 Outpatient MHIE MHIE [id number] [facility] 14:30:00 14:30:00 21 l [place] 2020-09-03 2020-09-03 Outpatient MHIE MHIE [id number] [facility] 14:30:00 14:30:00 21 l [place] 2020-07-27 2020-07-27 Outpatient MHIE MHIE [id number] [facility] 14:45:00 14:45:00 20 l [place] 2020-07-27 2020-07-27 Outpatient MHIE MHIE [id number] [facility] 14:45:00 14:45:00 20 l [place] 2020-03-31 2020-03-31 Outpatient MHIE MHIE [id number] [facility] 15:30:00 15:30:00 19 l [place] 2020-03-31 2020-03-31 Outpatient MHIE MHIE [id number] [facility] 15:30:00 15:30:[address] [facility] 2020-02-22 2020-02-22 [facility] [id number] [facility] 09:20:00 23:45:00 n r [place] 94 l [facility] 2020-02-22 2020-02-22 [facility] [id number] [facility] 09:20:00 23:45:00 n r [place] 94 l [facility] 2020-02-22 2020-02-22 Outpatient E MOUSER, [facility] [id number] [facility] 11:19:00 18:45:00 ERVIN 2020-02-22 2020-02-22 Outpatient Mouser, [facility] [id number] 04:20:00 18:45:00 Ervin Estrella 2020-02-22 2020-02-22 [id number] 04:20:00 18:45:00 Ervin Smith 2020-02-12 2020-02-12 Outpatient MHIE MHIE [id number] Memoria 11:00:00 11:00:00 18 l [place] 2020-02-12 2020-02-12 Outpatient MHIE MHIE [id number] Memoria 11:00:00 11:00:00 17 l [place] 2020-02-12 2020-02-12 Outpatient MHIE MHIE [id number] Memoria 11:00:00 11:00:00 18 l Ryan 2020-02-12 2020-02-12 Outpatient MHIE MHIE [id number] Memoria 11:00:00 11:00:00 17 l Ryan 2019-11-04 2019-11-04 Outpatient MHIE MHIE [id number] Memoria 11:15:00 11:15:00 16 l Ryan 2019-11-04 2019-11-04 Outpatient MHIE MHIE [id number] Memoria 11:15:00 11:15:00 16 l [place] 2019-10-31 2019-10-31 Outpatient MHIE MHIE [id number] Memoria 11:00:00 11:00:00 15 l Ryan 2019-10-31 2019-10-31 Outpatient MHIE MHIE [id number] Memoria 11:00:00 11:00:00 15 l [place] 2019-09-10 2019-09-10 Outpatient MHIE MHIE [id number] Memoria 15:00:00 15:00:00 14 l [place] 2019-09-10 2019-09-10 Outpatient MHIE MHIE [id number] Memoria 15:00:00 15:00:00 14 l [place] 2019-07-01 2019-07-01 Outpatient MHIE MHIE [id number] Memoria 15:30:00 15:30:00 13 l [place] 2019-07-01 2019-07-01 Outpatient MHIE MHIE [id number] Memoria 15:30:00 15:30:00 13 l Ryan 2019-05-06 2019-05-06 Outpatient MHIE MHIE [id number] Memoria 15:45:00 15:45:00 12 l Ryan 2019-05-06 2019-05-06 Outpatient MHIE MHIE [id number] Memoria 15:45:00 15:45:00 12 l Ryan 2019-01-01 2019-01-01 Outpatient MHIE MHIE [id number] Memoria 15:00:00 15:00:00 11 vin [place] 2019-01-01 2019-01-01 Outpatient MHIE MHIE [id number] Memoria 15:00:00 15:00:00 11 l Ryan 2018-10-23 2018-10-23 Outpatient MHIE MHIE [id number] Memoria 14:15:00 14:15:00 10 vin Davis 2018-10-23 2018-10-23 Outpatient MHIE MHIE [id number] Memoria 14:15:00 14:15:00 10 vin Ryan 2018-09-19 2018-09-19 Outpatient MHIE MHIE [id number] Memoria 14:45:00 14:45:00 09 vin Ryan 2018-09-19 2018-09-19 Outpatient MHIE MHIE [id number] Memoria 14:45:00 14:45:00 09 vin Davis 2018-05-17 2018-05-17 Outpatient MHIE MHIE [id number] Memoria 14:45:00 14:45:00 07 vin Davis 2018-05-17 2018-05-17 Outpatient MHIE MHIE [id number] Memoria 14:45:00 14:45:00 07 vin Davis 2018-05-16 2018-05-16 Outpatient MHIE MHIE [id number] Memoria 14:45:00 14:45:00 08 vin Davis 2018-05-16 2018-05-16 Outpatient MHIE MHIE [id number] Memoria 14:45:00 14:45:00 08 vin Davis 2018-01-23 2018-01-23 Outpatient MHIE MHIE [id number] Memoria 14:45:00 14:45:00 06 vin Davis 2018-01-23 2018-01-23 Outpatient MHIE MHIE [id number] Memoria 14:45:00 14:45:00 06 vin Davis 2017-12-18 2017-12-18 Outpatient MHIE MHIE [id number] Memoria 14:45:00 14:45:00 05 vin Davis 2017-12-18 2017-12-18 Outpatient MHIE MHIE [id number] Memoria 14:45:00 14:45:00 05 vin Davis 2017-11-21 2017-11-21 Outpatient MHIE MHIE [id number] Memoria 09:45:00 09:45:00 04 l Ryan 2017-11-21 2017-11-21 Outpatient MHIE MHIE [id number] Memoria 09:45:00 09:45:00 03 l Ryan 2017-11-21 2017-11-21 Outpatient MHIE MHIE [id number] Memoria 09:45:00 09:45:00 03 l Ryan 2017-11-21 2017-11-21 Outpatient MHIE MHIE [id number] Memoria 09:45:00 09:45:00 04 l Ryan 2017-10-31 2017-10-31 Outpatient MHIE MHIE [id number] Memoria 11:45:00 11:45:00 02 vin Davis 2017-10-31 2017-10-31 Outpatient MHIE MHIE [id number] Memoria 11:45:00 11:45:00 02 vin Davis 2017-10-10 2017-10-10 Outpatient MHIE MHIE [id number] Memoria 13:45:00 13:45:00 01 vin Davis 2017-10-10 2017-10-10 Outpatient MHIE MHIE [id number] Memoria 13:45:00 13:45:00 01 vin Davis 2017-09-12 2017-09-12 Outpatient MHIE MHIE [id number] Memoria 13:00:00 13:00:00 00 vin Davis 2017-09-12 2017-09-12 Outpatient MHIE MHIE [id number] Memoria 13:00:00 13:00:00 00 vin Davis Results Test Description Test Time Test Comments Results Result Comments Source Surgical pathology request 2022-04-25 20:37:16 Test Item Value Reference Range Interpretation Comme nts Case number (test code = [id number]) [id number] Surgical pathology report (test code = See link below for PDF Lab R eport 8396) Result status (test code = 9069248) This is Final Report for [id number] [facility]2021-07-13 11:48:00 Test Item Value Reference Range Interpretation Comments SURG (test code = SURG) RUN DATE: 02/22/21 [facility] - LAB PAGE 1 RUN TIME: 1148 Specimen Inquiry RUN USER: INTERFACE PATIENT: MAURICE HIDALGO LOC: LACHO U #: [id number] AGE/SX: 40/F ROOM: [facility] RE02/19/21REG DR: Maynor Valdez MD : 78 BED: 1 DIS: 02/21/21 STATUS: DIS IN TLOC: SPEC #: [id number]:[id number] RECD: 02/21/21 STATUS: ABIMAEL REQ #: [id number] AMBER: 02/20/[address] [facility] [address]: Maynor Valdez MD ENTERED: 02/21/21 SP TYPE: SURG OTHR DR: Self Referred Vladimir Mcconnell MD, Maamoun MD Meah, Nizam Mohammad MDORDERED: SURG PATH LVL 3 COPIES TO: Self Referred Vladimir Mcconnell MD [address] [place] [address] Petrona Oliveira MD [address] [place] [address] [place] [address] [address] [email or web address] Tripathi MD [address] [place] [address] HISTOLOGY: TISSUE ID BLK PCS LIAN LEV PROCEDURE DISPOSITION ____ ___ ___ ___ GALLBLADDER, NO A 1-2 1 PROCEDURES: SURG PATH LVL 3 (02/21/21-130) TISSUES: A. GALLBLADDER, NOS - GALLBLADDER CONTINUED ON NEXT PAGE RUN DATE: 02/22/21 [facility] - [facility] PAGE 2 RUN TIME: 1148 Specimen Inquiry RUN USER: INTERFACE SPEC #: [facility]:[id number] PATIENT: MAURICE HIDALGO #[id number] (Continued) CPT CODES CPT CODE(S): 16325 , , , , , , FINAL DIAGNOSIS Gallbladder, laparoscopic cholecystectomy: CHRONIC CHOLECYSTITIS GROSS DESCRIPTION Gallbladder. Received in formalin is an intact gallbladder, 8.5 x 5.0 x 3.8 cm, with a wall 0.2 cm in average thickness. The mucosa is deeply bile-stained, dark green-black, smooth and velvety. The lumen contains 30 mL of dark green-black and viscous bile. No calculus is identified. Career Services Representative section submitted as A. /ba/sam Grossing performed at [facility] Pathology, [address] [facility], [address], [place] [address]. Pump Tender: Abhishek Tan M.D. MICROSCOPIC DESCRIPTION Gallbladder. Sections demonstrate gallbladder with associated mucosa. The mucosa demonstrates chronic inflammation. Chronic information extends to involve the muscular wall. No dysplasia or malignancy is identified. Signed SIGNATURE ON FILE Iggy Prado 02/22/21 1148 END OF REPORT - US ABDOMEN [id number] 17:31:00 [facility] 1980 Sex: F Name: MAURICE HIDALGO [facility] : 1980 Age/S: 40 / F [address] [address] [place] Unit #: [id number]: [place] [address] Phys: Maynor Valdez MD Acct: [id number] Dis Date: Status: ADM IN PHONE #:[phone] Exam Date: 02/19/2021 4959 FAX #: Reason: Abd Pain EXAMS: CPT: [id number] US ABDOMEN COMPLETE 09100 Abdominal ultrasound complete Location Code: B2 HISTORY: Abdominal pain. COMMENT: Real-time sonographic images of the abdomen reveals a normally distended gallbladder with minimal wall thickening to 0.3 cm, with internal sludge. The common duct measures 7 mm with no intra or extrahepatic biliary dilatation. Positive Causey sign. Liver span is 15.1 cm, with preserved echotexture and no evidence of a discrete lesion. Spleen measures 11.3 cm. The pancreas appears normal with no evidence of mass or pseudocyst. The right kidney measures 10.6 x 4.6 x 5 cm and the left kidney measures 9.8 x 4.2 x 5 cm. Cortical thickness is within normal limits on each side. No mass or obstruction is present.The aorta and inferior vena cava appear unremarkable. No free fluid. IMPRESSION: 1. Minimal gallbladder wall thickening with pericholecystic fluid, sludge and minimal prominence of the common duct witha positive Causey sign. Cholecystitis is suspected Electronically Signed by Rashi Valdez on 02/10 at 1731 Reported and signed by: Juan Valdez M.D. CC: Vladimir Mcconnell MD; Maynor Valdez MD Technologist: Trinity Chan Trnscb Date/Time: 02/19/2021 (1733) [email or web address] PAGE 1 Signed Report Name: MAURICE HIDALGO [facility] : 1980 Age/S: 40 / F [address] [address] [place] Unit #: [id number]: [place], [place] [address] Phys: Maynor Valdez MD Acct: [id number] Dis Date: Status: ADM IN PHONE #:[phone] Exam Date: 02/19/2021 1455 FAX #: Reason: Abd Pain EXAMS: CPT: [id number] US ABDOMEN COMPLETE 05032 (Continued) Orig Print D/T: S: 02/19/2021 (1695) Probe: PAGE 2 Signed ReportCOMPREHENSIVE METABOLIC [id number] 11:01:00 Test Item Value Reference Range Interpretation [...] TOTAL (test code = ALKP) CBC W/AUTO [id number] 10:45:00 Test Item Value Reference Range Interpretation [...] DIFF/SCN CRITERIA = MDIFF) COVID 19 INHOUSE [id number] 17:33:00 Test Item Value Reference Range Interpretation Comments COVID 19 INHOUSE AG NEGATIVE Negative Per manu facturer, (test code = negative result s should [id number]) be treated aspr esumptive and, if inconsi stent with clinical signs andsymptoms or necessary for patient man agement, should betested with an alternative mol ecular assay. Negative resultsdo not preclude SA RS-CoV-2 infection and s hould not be usedas the s ole basis for patient man agement decisions. Nega tive results should be considered in t he context of apatient's r ecent exposures, hist ory, presence of cli nicalsigns and symptoms co nsistent with COVID-19. - CT ABD PELVIS W/WWMN8764-04-22 14:26:00 [facility] 1980 Sex: F Name: MAURICE HIDALGO [facility] : 1980 Age/S: 40 / F [address] [address] [place] Unit #: [id number]: [place] [address] Phys: Prabhu Lazar MD Acct: [id number] Dis Date: Status: REG ER PHONE #: [phone] Exam Date: 02/18/2021 1410 FAX #: Reason: pain EXAMS: CPT: [id number] CT ABD PELVIS W/CONT 38449 LOCATION: T18 EXAM: CT ABDOMEN AND PELVIS WITH CONTRAST INDICATION: Abdominal painCOMPARISON: Abdominal ultrasound March 13, 2012 TECHNIQUE: Multiple [...] patent. Spleen, adrenal glands and pancreas are normal. Kidneys enhance symmetrically. No focal abnormality or hydronephrosis. There is no hydroureter. Urinary bladder is normal in appearan ce. Uterus is absent. Appendix is not seen. There is no inflammatory changes to suggest acute appendicitis. No bowel obstruction is seen. No free air or free fluid is present. Abdominal aorta is normalin caliber. IVC is normal. Bones are intact. Peripheral soft tissues are unremarkable. IMPRESSION: 1. Left lower lobe pulmonary nodule measures 5 mm. 2. Satisfactory position of biliary stent. Associated pneumobilia. Contrast within the gallbladder. 3. Normal appendix. No bowel obstruction. at 1426 Reported and signed by: Gen Silver M.D. PAGE 1 Signed Report (CONTINUED) Name: MAURICE HIDALGO [facility] : 1980 Age/S: 40 / F [address] [facility] [place] Unit #: [id number] Loc: [place] [address] Phys: Prabhu Lazar MD Acct: [id number] Dis Date: Status: REG ER PHONE #: [phone] Exam Date: 02/18/2021 1410 FAX #: Reason: pain EXAMS: CPT: [id number] CT ABD PELVIS W/CONT 32393 (Continued) CC: Prabhu Lazar MD; Lizzy AYDAV Technologist:Belinda Sinclair, RT(R)(CT) CTDI: DLP: Trnscb Date/Time: 02/18/2021 (3928) [email or web address] Orig Print D/T: S: 02/18/2021 (4805) PAGE 2 Signed Report- XR CHEST 1 [id number] 14:20:00 [facility] 1980 Sex: F Name: MAURICE HIDALGO [facility] : 1980 Age/S: 40 / F [address] [address] [place] Unit #: [id number] Loc: [place] [address] Phys: Prabhu Lazar MD Acct: [id number] Dis Date: Status: REG ER PHONE #: [phone] Exam Date: 02/18/2021 1350 FAX #: Reason: Code Sepsis EXAMS: CPT: [id number] XR CHEST 1 V 58384 Fluoro Time: DAP (Gy m2): Air Kerma (mGy): EXAMINATION: Frontal chest radiograph INDICATION: Code Sepsis COMPARISON: None LOCATION: S17 FINDINGS: Clear lungs. No pleural effusion or pneumothorax. Cardiac silhouette is normal in size. IMPRESSION: No acute abnormality identified. at 1420 Reported and signed by: Shad Null M.D. CC: Prabhu Lazar MD; Lizzy YADAV PAGE 1 Signed Report Name: MAURICE HIDALGO [facility] : 1980 Age/S: 40 / F [address] [address] [place] Unit #: [id number] Loc: [place] [address] Phys: Prabhu Lazar MD Acct: [id number] Dis Date: Status: REG ER PHONE #: [phone] Exam Date: 02/18/2021 1350 FAX #: Reason: Code Sepsis EXAMS: CPT: [id number] XR CHEST 1 V 27798 Fluoro Time: DAP (Gy m2): Air Kerma (mGy): (Continued) Technologist: Lauren Taylor, RT(R) Trnscb Date/Time: 02/18/2021 (1419) [email or web address] Orig Print D/T: S: 02/18/2021 (6322) PAGE 2 Signed ReportBASIC METABOLIC [id number] 13:54:00 Test Item Value Reference Range Interpretation [...] CA) 8.8 MG/DL 8.5-10.1 N HEPATIC FUNCTION [id number] 13:54:00 Test Item Value Reference Range Interpretation [...] 55 Unit/L 45-117 N code = ALKP) [id number] 13:54:00 Test Item Value Reference Range Interpretation Comments LIPASE (test code = LIP) 128 Unit/L 114-286 N UA RFLX MICR CULT IF [id number] 13:43:00 Test Item Value Reference Range Interpretation [...] code = UACULT) Indication for culture: Dysuria/FrequencyLACTIC [id number] 13:41:00 Test Item Value Reference Range Interpretation Comments LACTIC ACID (test code = LACT) 1.0 mmol/L 0.4-2.0 N CBC W/AUTO [id number] 13:30:00 Test Item Value Reference Range Interpretation [...] (test code NO DIFF/SCN CRITERIA = MDIFF) BLOOD BANK [id number] 10:57:00 Test Item Value Reference Range Interpretation Comments ABO/Rh (test code = ABO/Rh) [facility] [id number] 10:57:00 Test Item Value Reference Range Interpretation Comments Antibody Scrn (test Negative (02/22/20 5:57 code = Antibody Scrn) AM) [facility]gdelxfLFECRFSDNZ4485-57-06 10:57:00 Test Item Value Reference Range Interpretation Comments Coronavirus (COVID-19) Not Detected (02/22/20 ERNST (test code = 5:57 AM) Coronavirus (COVID-19) ERNST) [facility] BANK [id number] 10:57:00 Test Item Value Reference Range Interpretation Comments ABO/Rh (test code = ABO/Rh) A POS [facility] B[facility] [id number] 10:57:00 Test Item Value Reference Range Interpretation Comments Antibody Scrn (test Negative (02/22/20 5:57 code = Antibody Scrn) AM) [facility]neyFpskxbjMOWCOKCYMO2561-13-71 10:57:00 Test Item Value Reference Range Interpretation Comments Coronavirus (COVID-19) Not Detected (02/22/20 ERNST (test code = 5:57 AM) Coronavirus (COVID-19) ERNST) [facility]JnifutgFENAGICNZN1882-29-62 10:55:13 Test Item Value Reference Range Interpretation Comments WBC X 10x3 (test code = WBC X 10x3) 8.5 3.7-10.4 [place] 650840-07-12 10:55:13 Test Item Value Reference Range Interpretation Comments RBC X 10x6 (test code = RBC X 10x6) 3.91 4.20-5.40 [facility] ArlingtonJjcxbtyKANCRZYOXQ6817-19-68 10:55:13 Test Item Value Reference Range Interpretation Comments Hgb (test code = Hgb) 12.2 12.0-16.0 [place] [address]-07-12 10:55:13 Test Item Value Reference Range Interpretation Comments Hct (test code = Hct) 35.6 36.0-48.0 [place] 650840-07-12 10:55:13 Test Item Value Reference Range Interpretation Comments MCV (test code = MCV) 91.0 80.0-98.0 [facility] ArlingtonWsflyakIWBOZHUEQA1606-54-62 10:55:13 Test Item Value Reference Range Interpretation Comments MCH (test code = MCH) 31.1 pg 27.0-31.0 [facility] ArlingtonBkysdknGQVBFBUWAM3932-42-90 10:55:13 Test Item Value Reference Range Interpretation Comments MCHC (test code = MCHC) 34.1 32.0-36.0 [facility] ArlingtonGynisfoSABFEXZBUF2821-86-81 10:55:13 Test Item Value Reference Range Interpretation Comments RDW (test code = RDW) 13.0 11.5-14.5 [facility] ArlingtonVihlpgdFBVGQKNJSE5759-88-94 10:55:13 Test Item Value Reference Range Interpretation Comments Platelet (test code = Platelet) 277 133-450 [facility] ArlingtonJvoixlsWIZWDTQRTV9209-93-26 10:55:13 Test Item Value Reference Range Interpretation Comments MPV (test code = MPV) 7.1 7.4-10.4 [place] 650840-07-12 10:55:13 Test Item Value Reference Range Interpretation Comments Segs (test code = Segs) 65.7 45.0-75.0 [facility] ArlingtonIiuhdonXCJJLFDOQQ5461-82-61 10:55:13 Test Item Value Reference Range Interpretation Comments Lymphocytes (test code = Lymphocytes) 25.8 20.0-40.0 [facility] ArlingtonYvqexluQJNWPGWXHP9954-12-48 10:55:13 Test Item Value Reference Range Interpretation Comments Monocytes (test code = Monocytes) 7.0 2.0-12.0 [facility] ArlingtonIvmzsbjFARQLATDPF6431-18-17 10:55:13 Test Item Value Reference Range Interpretation Comments Eosinophils (test code = 0.9 See_Comment [A utomated message] The Eosinophils) system which ge nerated this result tra nsmitted reference range : <=4.0. The reference r glenroy was not used to int erpret this result as normal/abnormal . [facility] ArlingtonLpbcwowPEQQKZJDDO0586-65-31 10:55:13 Test Item Value Reference Range Interpretation Comments Basophils (test code = 0.6 See_Comment [Aut omated message] The Basophils) system which ge nerated this result tra nsmitted reference range : <=1.0. The reference r glenroy was not used to int erpret this result as normal/abnormal . [facility] ArlingtonLqwzmjkMZTLTORMNB9429-41-11 10:55:13 Test Item Value Reference Range Interpretation Comments Neutrophils # (test code = Neutrophils 5.6 1.5-8.1 #) [facility] ArlingtonIawwovlJGWPMRCOHF9810-49-30 10:55:13 Test Item Value Reference Range Interpretation Comments Lymphocytes # (test code = Lymphocytes 2.2 1.0-5.5 #) [facility] ArlingtonWpozoeyEUJIEAXMUQ1537-92-02 10:55:13 Test Item Value Reference Range Interpretation Comments Monocytes # (test code 0.6 See_Comment [Aut omated message] The = Monocytes #) system which generated this result tra nsmitted reference range : <=0.8. The reference r glenroy was not used to int erpret this result as normal/abnormal . [place] 650840-07-12 10:55:13 Test Item Value Reference Range Interpretation Comments Eosinophils # (test code 0.1 See_Comment [A utomated message] The = Eosinophils #) system whic h generated this result tra nsmitted reference range : <=0.5. The reference r glenroy was not used to int erpret this result as normal/abnormal . [facility] ArlingtonTwzfqlwRCTGVLXZGE3111-12-08 10:55:13 Test Item Value Reference Range Interpretation Comments Basophils # (test code 0.1 See_Comment [Aut omated message] The = Basophils #) system which generated this result tra nsmitted reference range : <=0.2. The reference r glenroy was not used to int erpret this result as normal/abnormal . [facility] AND [id number] 10:55:13 Test Item Value Reference Range Interpretation Comments UA Color (test code = Yellow *NA*(02/22/20 UA Color) 5:55 AM) [facility] AND [id number] 10:55:13 Test Item Value Reference Range Interpretation Comments UA Turbidity (test code Slight *ABN*(02/22/20 = UA Turbidity) 5:55 AM) [facility] AND [id number] 10:55:13 Test Item Value Reference Range Interpretation Comments UA Spec Grav (test code = UA Spec 1.017 1 Grav) [facility] AND [id number] 10:55:13 Test Item Value Reference Range Interpretation Comments UA pH (test code = UA pH) 6.0 1 5.0-8.0 [facility] AND [id number] 10:55:13 Test Item Value Reference Range Interpretation Comments UA Protein (test code = UA Negative mg/dL Protein) [facility] AND [id number] 10:55:13 Test Item Value Reference Range Interpretation Comments UA Glucose (test code = UA Negative mg/dL Glucose) [facility] AND [id number] 10:55:13 Test Item Value Reference Range Interpretation Comments UA Ketones (test code = UA Negative mg/dL Ketones) [facility] AND [id number] 10:55:13 Test Item Value Reference Range Interpretation Comments UA Bili (test code = Negative *NA*(02/22/20 UA Bili) 5:55 AM) [facility] AND [id number] 10:55:13 Test Item Value Reference Range Interpretation Comments UA Blood (test code = Negative (02/22/20 5:55 UA Blood) AM) [facility] AND [id number] 10:55:13 Test Item Value Reference Range Interpretation Comments UA Urobilinogen (test code = UA no gt 0.1-1.0 Urobilinogen) [facility] AND [id number] 10:55:13 Test Item Value Reference Range Interpretation Comments UA Nitrite (test code Negative (02/22/20 5:55 = UA Nitrite) AM) [facility] AND [id number] 10:55:13 Test Item Value Reference Range Interpretation Comments UA Leuk Est (test code Trace *ABN*(02/22/20 = UA Leuk Est) 5:55 AM) [facility] AND [id number] 10:55:13 Test Item Value Reference Range Interpretation Comments UA Sq Epi (test code = UA Sq Epi) Many /LPF [facility] AND [id number] 10:55:13 Test Item Value Reference Range Interpretation Comments UA WBC (test code = 4 See_Comment [Automa ramakrishna message] The UA WBC) system which ge nerated this result transmit ramakrishna reference range : <=5. The reference range was not used to interpr et this result as mary l/abnormal. [facility] AND [id number] 10:55:13 Test Item Value Reference Range Interpretation Comments UA RBC (test code = 1 See_Comment [Automa ramakrishna message] The UA RBC) system which ge nerated this result transmit ramakrishna reference range : <=2. The reference range was not used to interpr et this result as mary l/abnormal. [facility] ArlingtonDkrtgwyGRJUALIFBY3898-29-78 10:55:13 Test Item Value Reference Range Interpretation Comments Lymphocytes (test code = Lymphocytes) 25.8 20.0-40.0 [facility] ArlingtonPdosdtqDQFEZBSCWP4233-59-96 10:55:13 Test Item Value Reference Range Interpretation Comments Monocytes (test code = Monocytes) 7.0 2.0-12.0 [place] 650840-07-12 10:55:13 Test Item Value Reference Range Interpretation Comments Eosinophils (test code = 0.9 See_Comment [A utomated message] The Eosinophils) system which ge nerated this result tra nsmitted reference range : <=4.0. The reference r glenroy was not used to int erpret this result as normal/abnormal . [facility] ArlingtonFpjqcvuFHJUHQIIYV1783-52-19 10:55:13 Test Item Value Reference Range Interpretation Comments Basophils (test code = 0.6 See_Comment [Aut omated message] The Basophils) system which ge nerated this result tra nsmitted reference range : <=1.0. The reference r glenroy was not used to int erpret this result as normal/abnormal . [facility] ArlingtonEhhcfqqHPANYLWCYX7349-19-51 10:55:13 Test Item Value Reference Range Interpretation Comments Neutrophils # (test code = Neutrophils 5.6 1.5-8.1 #) [facility] ArlingtonWtupubbEPDUBAJYFZ0338-22-01 10:55:13 Test Item Value Reference Range Interpretation Comments Lymphocytes # (test code = Lymphocytes 2.2 1.0-5.5 #) [facility] ArlingtonYmtiatuWLEDUWDIRI5567-04-44 10:55:13 Test Item Value Reference Range Interpretation Comments Monocytes # (test code 0.6 See_Comment [Aut omated message] The = Monocytes #) system which generated this result tra nsmitted reference range : <=0.8. The reference r glenroy was not used to int erpret this result as normal/abnormal . [facility] [id number] 10:55:13 Test Item Value Reference Range Interpretation Comments Eosinophils # (test code 0.1 See_Comment [A utomated message] The = Eosinophils #) system whic h generated this result tra nsmitted reference range : <=0.5. The reference r glenroy was not used to int erpret this result as normal/abnormal . [id number] 10:55:13 Test Item Value Reference Range Interpretation Comments Basophils # (test code 0.1 See_Comment [Aut omated message] The = Basophils #) system which generated this result tra nsmitted reference range : <=0.2. The reference r glenroy was not used to int erpret this result as normal/abnormal . [facility] AND [id number] 10:55:13 Test Item Value Reference Range Interpretation Comments UA Color (test code = Yellow *NA*(02/22/20 UA Color) 5:55 AM) [facility] AND [id number] 10:55:13 Test Item Value Reference Range Interpretation Comments UA Turbidity (test code Slight *ABN*(02/22/20 = UA Turbidity) 5:55 AM) [facility] AND [id number] 10:55:13 Test Item Value Reference Range Interpretation Comments UA Spec Grav (test code = UA Spec 1.017 1 Grav) [facility] AND [id number] 10:55:13 Test Item Value Reference Range Interpretation Comments UA pH (test code = UA pH) 6.0 1 5.0-8.0 [facility] AND [id number] 10:55:13 Test Item Value Reference Range Interpretation Comments UA Protein (test code = UA Negative mg/dL Protein) [facility] AND [id number] 10:55:13 Test Item Value Reference Range Interpretation Comments UA Glucose (test code = UA Negative mg/dL Glucose) [facility] AND [id number] 10:55:13 Test Item Value Reference Range Interpretation Comments UA Ketones (test code = UA Negative mg/dL Ketones) [facility] AND [id number] 10:55:13 Test Item Value Reference Range Interpretation Comments UA Bili (test code = Negative *NA*(02/22/20 UA Bili) 5:55 AM) [facility] AND [id number] 10:55:13 Test Item Value Reference Range Interpretation Comments UA Blood (test code = Negative (02/22/20 5:55 UA Blood) AM) [facility] AND [id number] 10:55:13 Test Item Value Reference Range Interpretation Comments UA Urobilinogen (test code = UA no gt 0.1-1.0 Urobilinogen) [facility] AND [id number] 10:55:13 Test Item Value Reference Range Interpretation Comments UA Nitrite (test code Negative (02/22/20 5:55 = UA Nitrite) AM) [facility] AND [id number] 10:55:13 Test Item Value Reference Range Interpretation Comments UA Leuk Est (test code Trace *ABN*(02/22/20 = UA Leuk Est) 5:55 AM) [facility] AND [id number] 10:55:13 Test Item Value Reference Range Interpretation Comments UA Sq Epi (test code = UA Sq Epi) Many /LPF [facility] AND [id number] 10:55:13 Test Item Value Reference Range Interpretation Comments UA WBC (test code = 4 See_Comment [Automa ramakrishna message] The UA WBC) system which ge nerated this result transmit ramakrishna reference range : <=5. The reference range was not used to interpr et this result as mary l/abnormal. [facility] AND [id number] 10:55:13 Test Item Value Reference Range Interpretation Comments UA RBC (test code = 1 See_Comment [Automa ramakrishna message] The UA RBC) system which ge nerated this result transmit ramakrishna reference range : <=2. The reference range was not used to interpr et this result as mary l/abnormal. [facility]2020-07-12 10:55:13 Test Item Value Reference Range Interpretation Comments Glucose Lvl (test code = Glucose Lvl) 92 70-99 [facility]2020-07-12 10:55:13 Test Item Value Reference Range Interpretation Comments BUN (test code = BUN) 5 7-22 [facility]2020-07-12 10:55:13 Test Item Value Reference Range Interpretation Comments Creatinine Lvl (test code = Creatinine 0.59 0.50-1.40 Lvl) [facility]2020-07-12 10:55:13 Test Item Value Reference Range Interpretation Comments Sodium Lvl (test code = Sodium Lvl) 139 135-145 [facility]2020-07-12 10:55:13 Test Item Value Reference Range Interpretation Comments Potassium Lvl (test code = Potassium 3.7 3.5-5.1 Lvl) [facility]2020-07-12 10:55:13 Test Item Value Reference Range Interpretation Comments Chloride Lvl (test code = Chloride Lvl) 105 95-109 [facility]2020-07-12 10:55:13 Test Item Value Reference Range Interpretation Comments CO2 (test code = CO2) 30 24-32 [facility]2020-07-12 10:55:13 Test Item Value Reference Range Interpretation Comments Calcium Lvl (test code = Calcium Lvl) 8.7 8.5-10.5 [facility]2020-07-12 10:55:13 Test Item Value Reference Range Interpretation Comments AGAP (test code = AGAP) 7.7 10.0-20.0 [facility]2020-07-12 10:55:13 Test Item Value Reference Range Interpretation Comments eGFR (test code = eGFR) 115 [facility]2020-07-12 10:55:13 Test Item Value Reference Range Interpretation Comments Lactic Acid Lvl (test code = Lactic 0.9 0.5-2.2 Acid Lvl) [facility] [id number] 10:55:13 Test Item Value Reference Range Interpretation Comments WBC X 10x3 (test code = WBC X 10x3) 8.5 3.7-10.4 [place] [id number] 10:55:13 Test Item Value Reference Range Interpretation Comments RBC X 10x6 (test code = RBC X 10x6) 3.91 4.20-5.40 [facility] A[id number] 10:55:13 Test Item Value Reference Range Interpretation Comments Hgb (test code = Hgb) 12.2 12.0-16.0 [place] [address]-07-12 10:55:13 Test Item Value Reference Range Interpretation Comments Hct (test code = Hct) 35.6 36.0-48.0 [place] 650840-07-12 10:55:13 Test Item Value Reference Range Interpretation Comments MCV (test code = MCV) 91.0 80.0-98.0 [place] 650840-07-12 10:55:13 Test Item Value Reference Range Interpretation Comments MCH (test code = MCH) 31.1 pg 27.0-31.0 [facility] [id number] 10:55:13 Test Item Value Reference Range Interpretation Comments MCHC (test code = MCHC) 34.1 32.0-36.0 [facility] A[id number] 10:55:13 Test Item Value Reference Range Interpretation Comments RDW (test code = RDW) 13.0 11.5-14.5 [facility] [id number] 10:55:13 Test Item Value Reference Range Interpretation Comments Platelet (test code = Platelet) 277 133-450 [facility] A[id number] 10:55:13 Test Item Value Reference Range Interpretation Comments MPV (test code = MPV) 7.1 7.4-10.4 [place] 650840-07-12 10:55:13 Test Item Value Reference Range Interpretation Comments Segs (test code = Segs) 65.7 45.0-75.0 [facility]2020-07-12 10:55:13 Test Item Value Reference Range Interpretation Comments Glucose Lvl (test code = Glucose Lvl) 92 70-99 [place] 350260-07-12 10:55:13 Test Item Value Reference Range Interpretation Comments BUN (test code = BUN) 5 7-22 [place] 350260-07-12 10:55:13 Test Item Value Reference Range Interpretation Comments Creatinine Lvl (test code = Creatinine 0.59 0.50-1.40 Lvl) [place] 350260-07-12 10:55:13 Test Item Value Reference Range Interpretation Comments Sodium Lvl (test code = Sodium Lvl) 139 135-145 [place] 350260-07-12 10:55:13 Test Item Value Reference Range Interpretation Comments Potassium Lvl (test code = Potassium 3.7 3.5-5.1 Lvl) [place] 350260-07-12 10:55:13 Test Item Value Reference Range Interpretation Comments Chloride Lvl (test code = Chloride Lvl) 105 95-109 [place] 350260-07-12 10:55:13 Test Item Value Reference Range Interpretation Comments CO2 (test code = CO2) 30 24-32 [place] 350260-07-12 10:55:13 Test Item Value Reference Range Interpretation Comments Calcium Lvl (test code = Calcium Lvl) 8.7 8.5-10.5 [place] 350260-07-12 10:55:13 Test Item Value Reference Range Interpretation Comments AGAP (test code = AGAP) 7.7 10.0-20.0 [place] 350260-07-12 10:55:13 Test Item Value Reference Range Interpretation Comments eGFR (test code = eGFR) 115 [place] 350260-07-12 10:55:13 Test Item Value Reference Range Interpretation Comments Lactic Acid Lvl (test code = Lactic 0.9 0.5-2.2 Acid Lvl) [facility]
[2022-10-13 15:22] LABS: Urine Blood Negative (Negative); Urine Glucose Negative (Negative); Urine Protein Negative (Negative); Urine Specific Gravity <=1.005 (1.005-1.030); Urine pH 6.5 (5.0-7.0)
[2022-10-13 15:30] LABS: Urine Bacteria <20 /HPF (<20); Urine RBC <5 /HPF (None Seen)
[2022-10-13 15:33] LABS: Absolute Lymphocytes (CBC) 2.1 K/uL (0.7-4.9); Hematocrit 41.4 % (36.0-45.0); Lymphocytes % 32.5 % (15.3-44.8); MCV 90.3 fL (80-100); MPV 8.6 fL (7.6-11.3); RBC Red Blood Cell Count 4.58 M/uL (3.86-4.86)
[2022-10-13] MEDS ORDERED: HYDROMORPHONE HCL 0.5 MG/0.5 ML INJ ONE (15:35)
[2022-10-13] MEDS ORDERED: SIMETHICONE 80 MG TAB ONE (15:36)
[2022-10-13] MEDS ORDERED: DICYCLOMINE HCL 10 MG CAP ONE (15:36)
[2022-10-13] MEDS ORDERED: ONDANSETRON 4 MG/2 ML VIAL ONE (15:45)
[2022-10-13 15:49] LABS: Albumin 4.2 g/dL (3.4-5.0); Bilirubin Total 0.4 mg/dL (0.2-1.0); Potassium 3.3 mmol/L (3.5-5.1); Protein, Total 7.6 g/dL (6.4-8.2)
[2022-10-13] MEDS ORDERED: NS KCL 20MEQ 0 ML IV ONE (16:05)
[2022-10-13] MEDS ORDERED: Ringers Lactate 1,000 ML IV ONE (16:10)
[2022-10-13] MEDS ORDERED: POTASSIUM CL SA 10 MEQ TAB PO ONE (16:10)
[2022-10-13] MEDS ORDERED: SUCRALFATE 1 GM TABLET ONE (17:06)
--- NOTE | 2022-10-13 18:16 | ER ---
Nurse's Notes [facility] Name: Kavita Kwon Age: 42 yrs Sex: Female : 1980 Arrival Date: 10/13/2022 Time: 15:00 Bed 12 Private MD: Vladimir Mcconnlel V Diagnosis: Esophagitis, unspecified;Upper abdominal pain, unspecified;Hypokalemia Presentation: 10/13 15:08 Chief complaint: Patient states: Woke up at 0200 this morning with severe upper ld1 abdominal pain. Pt reports bright red blood in stool yesterday - 3 episodes. C/O abdominal pain \\T\\ nausea. Coronavirus screen: At this time, the client does not indicate any symptoms associated with coronavirus-19. Ebola Screen: No symptoms or risks identified at this time. Initial Sepsis Screen: Does the patient meet any 2 criteria? No. Patient's initial sepsis screen is negative. Does the patient have a suspected source of infection? No. Patient's initial sepsis screen is negative. Risk Assessment: Do you want to hurt yourself or someone else? Patient reports no desire to harm self or others. Onset of symptoms was October 13, 2022. 15:08 Method Of Arrival: Ambulatory ld1 15:08 Acuity: SUZY 3 ld1 Triage Assessment: 15:10 General: Appears in no apparent distress. uncomfortable, Behavior is calm, cooperative, ld1 appropriate for age. Pain: Complains of pain in right upper quadrant and left upper quadrant Pain does not radiate. Pain currently is 4 out of 10 on a pain scale. Quality of pain is described as heavy, pressure, throbbing, Pain began 1 day ago. Pain: Is continuous. EENT: No signs and/or symptoms were reported regarding the EENT system. Neuro: Level of Consciousness is awake, alert, obeys commands, Oriented to person, place, time, situation. Cardiovascular: Capillary refill < 3 seconds Patient's skin is warm and dry. Respiratory: Airway is patent Respiratory effort is even, unlabored. GI: Abdomen is flat, distended, Reports upper abdominal pain, bloody stool, nausea. : No signs and/or symptoms were reported regarding the genitourinary system. Derm: No signs and/or symptoms reported regarding the dermatologic system. Musculoskeletal: No signs and/or symptoms reported regarding the musculoskeletal system. 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 - Social history:: Smoking status: Patient reports the use of cigarette tobacco products, smokes one-half pack cigarettes per day, Patient/guardian denies using alcohol. Screenin:50 [facility] ED Fall Risk Assessment (Adult) History of falling in the last 3 months, mb9 including since admission No falls in past 3 months (0 pts) Confusion or Disorientation No (0 pts) Intoxicated or Sedated No (0 pts) Impaired Gait No (0 pts) Mobility Assist Device Used No (0 pt) Altered Elimination No (0 pt) Score/Fall Risk Level 0 - 2 = Low Risk Oriented to surroundings, Maintained a safe environment, Educated pt \\T\\ family on fall prevention, incl call for assistance when getting out of bed. Abuse screen: Denies threats or abuse. Nutritional screening: No deficits noted. Tuberculosis screening: No symptoms or risk factors identified. Assessment: 15:48 General: Appears uncomfortable, Behavior is cooperative. Pain: Complains of pain in mb9 abdomen Pain radiates to left upper quadrant and right upper quadrant Pain currently is 10 out of 10 on a pain scale. Quality of pain is described as crampy, Pain began suddenly, Aggravated by repositioning. Neuro: Level of Consciousness is awake, alert, obeys commands, Oriented to person, place, time, situation, Appropriate for age. Cardiovascular: Heart tones S1 S2 present Rhythm is regular. Respiratory: Airway is patent Respiratory effort is even, unlabored, Respiratory pattern is regular, symmetrical, Breath sounds are clear bilaterally. GI: Abdomen is flat, non-distended, Bowel sounds present X 4 quads. Abd is soft Abdomen is tender to palpation in right upper quadrant and left upper quadrant Reports constipation, rectal bleeding, nausea, "bright red blood in stool". : No signs and/or symptoms were reported regarding the genitourinary system. Derm: Skin is pink, warm \\T\\ dry. Musculoskeletal: Range of motion: intact in all extremities. 16:02 Reassessment: 20 mEq potassium in 1000 ml NS at bolus rate ordered, Dr Peña changed mb9 order to 40 mEq potassium PO and 1000 ml LR at bolus. Pt medicated as ordered per Dr. Peña. 16:59 Reassessment: pt states "I have tightness in the middle of my chest. I've had it before mb9 but it's uncomfortable." RAW SAMPLER, Alex, notified. 18:05 Reassessment: No changes from previously documented assessment. Patient and/or family mb9 updated on plan of care and expected duration. Pain level reassessed. Patient is alert, oriented x 3, equal unlabored respirations, skin warm/dry/pink. pt able to ambulate to bathroom without difficulty. Vital Signs: 15:08 BP 132 / 91; Pulse 108; Resp 18; Temp 97.7(O); Pulse Ox 100% on R/A; Weight 56.25 kg; ld1 Height 5 ft. 5 in. (165.10 cm); Pain 4/10; 16:09 BP 121 / 82; Pulse 78; Resp 16; Pulse Ox 100% on R/A; mb9 18:36 BP 121 / 78; Pulse 74; Resp 16; Pulse Ox 100% ; mb9 15:08 Body Mass Index 20.63 (56.25 kg, 165.10 cm) ld1 ED Course: 15:00 Patient arrived in ED. am2 15:00 Vladimir Mcconnell MD is Private Physician. am2 15:02 Winter Johnson FNP-C [facility]. snw 15:02 Segundo Peña DO is Attending Physician. snw 15:10 Triage completed. ld1 15:10 Arm band placed on right wrist. ld1 15:17 Inserted saline lock: 20 gauge in right antecubital area, using aseptic technique. ld1 Blood collected. 15:22 Urine Microscopic Only Sent. ld1 15:28 Jocelyn Ricketts, PRATIBHA is Primary Nurse. mb9 15:50 Call light in reach. Side rails up X 1. Client placed on continuous cardiac and pulse mb9 oximetry monitoring. NIBP monitoring applied. cardiac monitor technician on. Door closed. Noise minimized. Warm blanket given. 15:50 No provider procedures requiring assistance completed. mb9 18:15 Vladimir Mcconnell MD is Referral Physician. snw 18:41 IV discontinued, intact, bleeding controlled, No redness/swelling at site. Pressure mb9 dressing applied. Administered Medications: 15:30 Drug: Dicyclomine 20 mg Route: PO; mb9 15:55 Follow up: Response: No adverse reaction mb9 15:55 Follow up: Response: No adverse reaction mb9 15:30 Drug: Simethicone 240 mg Route: PO; mb9 15:55 Follow up: Response: No adverse reaction mb9 15:35 Drug: Dilaudid (HYDROmorphone) 0.5 mg Route: IVP; Site: right antecubital; mb9 15:55 Follow up: Response: No adverse reaction mb9 15:48 Drug: Zofran (Ondansetron) 4 mg Route: IVP; Site: right antecubital; mb9 15:55 Follow up: Response: No adverse reaction mb9 16:13 Not Given (Other Intervention Used): NS 0.9% with KCl 20 mEq/L 1000 ml IV at bolus mb9 continuous 16:13 Drug: Lactated Ringers Solution 1000 ml Route: IV; Rate: 1000 bolus; Site: right mb9 antecubital; 18:11 Follow up: Response: No adverse reaction; IV Status: Completed infusion mb9 16:13 Drug: Potassium Chloride 40 mEq Route: PO; mb9 16:31 Follow up: Response: No adverse reaction mb9 17:03 Drug: CarafATE (sucralfate) 1 grams Route: PO; mb9 17:07 Follow up: Response: No adverse reaction mb9 18:36 Not Given (Patient Refused): Valium (diazepam) 2 mg IVP once mb9 Medication: 15:50 VIS not applicable for this client. mb9 Outcome: 18:15 Discharge ordered by . snw 18:40 Discharged to home ambulatory. mb9 18:40 Condition: stable 18:40 Discharge instructions given to patient, Instructed on discharge instructions, follow up and referral plans. Demonstrated understanding of instructions, follow-up care, medications, Prescriptions given X 2. 18:41 Patient left the ED. mb9 Signatures: Winter Johnson, [employer] TUTOR-C [employer]OR-Csnw Breanna Pryor Lauren, RN RN ld1 Jocelyn Ricketts RN RN mb9 Corrections: (The following items were deleted from the chart) 16:13 16:09 Reassessment: jamel mb9
--- NOTE | 2022-10-13 18:16 | EDPHYS ---
Physician Documentation [facility] Name: Kavita Kwon Age: 42 yrs Sex: Female : 1980 Arrival Date: 10/13/2022 Time: 15:00 Bed 12 Private MD: Vladimir Mcconnell V ED Physician Segundo Peña HPI: 10/13 15:30 This 42 yrs old Female presents to ER via Ambulatory with complaints of Abdominal Pain snw - upper, Bloody Stools. 15:30 The patient presents with abdominal pain in the epigastric area. 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 - Social history:: Smoking status: Patient reports the use of cigarette tobacco products, smokes one-half pack cigarettes per day, Patient/guardian denies using alcohol. ROS: 15:29 Constitutional: Negative for fever, chills, and weight loss, Eyes: Negative for injury, snw pain, redness, and discharge, ENT: Negative for injury, pain, and discharge, Neck: Negative for injury, pain, and swelling, Cardiovascular: Negative for chest pain, palpitations, and edema, Respiratory: Negative for shortness of breath, cough, wheezing, and pleuritic chest pain, Back: Negative for injury and pain, : Negative for injury, bleeding, discharge, and swelling, MS/Extremity: Negative for injury and deformity, Skin: Negative for injury, rash, and discoloration, Neuro: Negative for headache, weakness, numbness, tingling, and seizure, Psych: Negative for depression, anxiety, suicide ideation, homicidal ideation, and hallucinations. 15:29 Abdomen/GI: Positive for abdominal pain, nausea, vomiting, blood in stool. Exam: 15:28 Head/Face: Normocephalic, atraumatic. Eyes: Pupils equal round and reactive to light, snw extra-ocular motions intact. Lids and lashes normal. Conjunctiva and sclera are non-icteric and not injected. Cornea within normal limits. Periorbital areas with no swelling, redness, or edema. ENT: Nares patent. No nasal discharge, no septal abnormalities noted. Tympanic membranes are normal and external auditory canals are clear. Oropharynx with no redness, swelling, or masses, exudates, or evidence of obstruction, uvula midline. Mucous membranes moist. Neck: Trachea midline, no thyromegaly or masses palpated, and no cervical lymphadenopathy. Supple, full range of motion without nuchal rigidity, or vertebral point tenderness. No Meningismus. Chest/axilla: Normal chest wall appearance and motion. Nontender with no deformity. No lesions are appreciated. 15:28 Respiratory: Lungs have equal breath sounds bilaterally, clear to auscultation and percussion. No rales, rhonchi or wheezes noted. No increased work of breathing, no retractions or nasal flaring. 15:28 Back: No spinal tenderness. No costovertebral tenderness. Full range of motion. Skin: Warm, dry with normal turgor. Normal color with no rashes, no lesions, and no evidence of cellulitis. MS/ Extremity: Pulses equal, no cyanosis. Neurovascular intact. Full, normal range of motion. Neuro: Awake and alert, GCS 15, oriented to person, place, time, and situation. Cranial nerves II-XII grossly intact. Motor strength 5/5 in all extremities. Sensory grossly intact. Cerebellar exam normal. Normal gait. Psych: Awake, alert, with orientation to person, place and time. Behavior, mood, and affect are within normal limits. 15:28 Constitutional: The patient appears alert, awake, restless, uncomfortable. 15:28 Cardiovascular: Rate: tachycardic. 15:28 Abdomen/GI: Inspection: abdomen appears normal, Bowel sounds: normal, Palpation: moderate abdominal tenderness, in the epigastric area. Vital Signs: 15:08 BP 132 / 91; Pulse 108; Resp 18; Temp 97.7(O); Pulse Ox 100% on R/A; Weight 56.25 kg; ld1 Height 5 ft. 5 in. (165.10 cm); Pain 4/10; 16:09 BP 121 / 82; Pulse 78; Resp 16; Pulse Ox 100% on R/A; mb9 18:36 BP 121 / 78; Pulse 74; Resp 16; Pulse Ox 100% ; mb9 15:08 Body Mass Index 20.63 (56.25 kg, 165.10 cm) ld1 MDM: 15:20 Patient medically screened. snw 18:18 Differential diagnosis: bowel obstruction, gastritis, gastroesophageal reflux disease, snw GI Bleed, pancreatitis, Peptic Ulcer Disease, Perf. Duodenal Ulcer. Data reviewed: vital signs, nurses notes. 10/13 15:17 Order name: CBC with Diff ld1 10/13 15:17 Order name: CMP ld1 10/13 15:17 Order name: Lipase ld 10/13 15:17 Order name: IV Saline Lock; Complete Time: 15:17 ld1 10/13 15:17 Order name: Labs collected and sent; Complete Time: 15:22 ld1 10/13 15:17 Order name: Urine Dipstick-Ancillary (obtain specimen); Complete Time: 15:22 ld1 10/13 15:19 Order name: Urine Microscopic Only eb 10/13 15:23 Order name: Urine Dipstick-Ancillary; Complete Time: 15:25 EDMS 10/13 15:30 Order name: Urine Microscopic Only; Complete Time: 15:32 EDMS 10/13 15:35 Order name: CBC with Automated Diff; Complete Time: 15:42 EDMS 10/13 15:49 Order name: Comprehensive Metabolic Panel; Complete Time: 15:49 EDMS 10/13 15:49 Order name: Lipase; Complete Time: 15:49 EDMS Administered Medications: 15:30 Drug: Dicyclomine 20 mg Route: PO; mb9 15:55 Follow up: Response: No adverse reaction mb9 15:55 Follow up: Response: No adverse reaction mb9 15:30 Drug: Simethicone 240 mg Route: PO; mb9 15:55 Follow up: Response: No adverse reaction mb9 15:35 Drug: Dilaudid (HYDROmorphone) 0.5 mg Route: IVP; Site: right antecubital; mb9 15:55 Follow up: Response: No adverse reaction mb9 15:48 Drug: Zofran (Ondansetron) 4 mg Route: IVP; Site: right antecubital; mb9 15:55 Follow up: Response: No adverse reaction mb9 16:13 Not Given (Other Intervention Used): NS 0.9% with KCl 20 mEq/L 1000 ml IV at bolus mb9 continuous 16:13 Drug: Lactated Ringers Solution 1000 ml Route: IV; Rate: 1000 bolus; Site: right mb9 antecubital; 18:11 Follow up: Response: No adverse reaction; IV Status: Completed infusion mb9 16:13 Drug: Potassium Chloride 40 mEq Route: PO; mb9 16:31 Follow up: Response: No adverse reaction mb9 17:03 Drug: CarafATE (sucralfate) 1 grams Route: PO; mb9 17:07 Follow up: Response: No adverse reaction mb9 18:36 Not Given (Patient Refused): Valium (diazepam) 2 mg IVP once mb9 Disposition: 15:34 Co-signature as Attending Physician, Segundo NUNEZ was immediately available on-site ms3 in the Emergency Department for consultation in the care of the patient. Disposition Summary: 10/13/22 18:15 Discharge Ordered Location: Home snw Condition: Stable snw Diagnosis - Esophagitis, unspecified snw - Upper abdominal pain, unspecified snw - Hypokalemia snw Followup: snw - With: Vladimir Mcconnell MD - When: 2 - 3 days - Reason: Recheck today's complaints, Continuance of care, Re-evaluation by your physician Followup: snw - With: Emergency Department - When: As needed - Reason: Worsening of condition Discharge Instructions: - Discharge Summary Sheet snw - Abdominal Pain, Adult snw - Potassium Content of Foods snw - Pain Without a Known Cause snw - Hypokalemia snw - Rehydration, Adult snw Forms: - Medication Reconciliation Form snw - Thank You Letter snw - Antibiotic Education snw - Prescription Opioid Use snw Prescriptions: - Carafate 1 gram Oral Tablet - take 1 tablet by ORAL route 4 times per day take on an empty stomach, beginning snw on waking and last dose at bedtime; 100 tablet; Refills: 0, Product Selection Permitted - dicyclomine 20 mg Oral Tablet - take 1 tablet by ORAL route 3 times per day; 90 tablet; Refills: 0, Product snw Selection Permitted Signatures: Dispatcher [employer] Winter Sewell FNP-C PIPING DESIGN SPECIALIST-Cs[employer] Patricia Wheeler RN RN iw Sims, Marcus, DO DO ms3 Gladis Tadeo, RN RN ld1 Jamarcus, Jocelyn Starr, RN RN mb9
[2022-10-13 19:19] VITALS: TEMP 97.7; O2SAT 100
[2022-10-13 19:35] VITALS: BP 121/78
== END 2022-10-13 18:41 | disposition home or self-care (01) ==
LOC: ER 14:59
DX: K20.90 Esophagitis, unspecified without bleeding (principal); E87.6 Hypokalemia; F17.210 Nicotine dependence, cigarettes, uncomplicated; Z88.6 Allergy status to analgesic agent
CPT/HCPCS: 96361; 85025; 36415; 83690; 80053; 96375; 96374; 99284; J1170; J7120; J2405; 81003; 81015; J3480

== ENCOUNTER 2023-04-08 12:54 | Emergency (ER) | payer OTHER ==
--- OUTSIDE RECORDS SUMMARY | 2023-04-08 13:00 | XMS REPORT | Continuity of Care Document ---
:1980 Author Organization [facility] t Address [address] [facility] [address] [place] [address] Care Team Providers Name Role Phone Asked, No Pcp Primary Care Physician Unavailable Viki Castro MD Attending Clinician Tiffany Davidson MA Attending Clinician Unavailable Magaly Mondragon MD Attending Clinician Parvin Reeder NP Attending Clinician Destiny Kerr MA [...] OF 02-21 06:49:00 l NECK NECK 00:00: [place] Active 00 02/22/2020 [facility] NECK NECK Diagnosis Active 2020-02-22 Mem oria ABSCESS ABSCESS 02-21 05:11:00 l Active 00:00: [place] 02/22/2020 00 [facility] Chronic Chronic Problem Active 2020-02-24 Me moria gastritis gastritis 21:42:37 l (disorder) (disorder) He rmann Active Problem 02/24/2020 [facility] Fibromyalg Fibromyal Problem Active 2020-02-24 Memoria ia lynette 21:42:37 l (disorder) (disorder) He rmann Active Problem 02/24/2020 [facility] CUTANEOUS CUTANEOUS Diagnosis Active 2020-02-25 Memoria ABSCESS OF ABSCESS OF 06:49:00 l NECK NECK [place] Active [facility] Allergies, Adverse Reactions, Alerts Allergy Allergy Status Severity Reaction(s) Onset Inactive Treating Comm ents Source Name Type Date Date Clinician lidocain DA Active [place] [facility] 7- Clear 00:00: Byrne 00 [facility] lidocain DA Active MO SITE [facility] SWELLING 02-18 Clear 00:00: Byrne 00 [facility] No Known No Known Active Memori a Medicati Medicati l on on [place] Allergie Allergie s s Family History Family Member Diagnosis Comments Start Date Stop Date Source Natural mother Crohn's disease [facility] Natural mother GERD [facility] Natural sister Ulcerative colitis [facility] Social History Social Habit Start Date Stop Date Quantity Comments Source History of tobacco Cigarette Smoker [facility] Gender identity [facility] Alcohol intake 2022-07-14 2022-07-14 Ex-drinker [facility] 00:00:00 00:00:00 (finding) Hospital History of Social 2022-07-14 2022-07-[address] function 00:00:00 00:00:00 Hospital Tobacco use and 2022-03-30 2022-03-30 Smokeless [facility] exposure 00:00:00 00:00:00 tobacco non-user Hospital Cigarettes smoked 2022-03-30 2022-03-[address] current (pack per 00:00:00 00:00:00 [facility] day) - Reported Cigarette 2022-03-30 2022-03-30 [facility] pack-years 00:00:00 00:00:00 Hospital Alcohol Comment 2022-03-30 2022-03-30 Maybe 2 times a Meth odist 00:00:00 00:00:00 year [facility] Social History 2020-02-22 2020-02-22 [facility] Thierry parada 11:28:49 11:28:49 Sex Assigned At [birth year] [facility] 00:00:00 00:00:00 Hospital Smoking Status Start Date Stop Date Source Smokes tobacco daily 2022-03[facility] Ordered Filled Start Stop Current Ordering Indication Dosage Frequency Signature Comments Components Source Medication Medication Date Date Medication? Clinician (SIG) Name Name hyoscyamine Yes .125mg Q6H Take 1 Me thodi (Levsin/SL) 8-[address] 0.125 mg SL 00:00: (0.125 mg H ospita tablet 00 total) by l mouth every 6 (six) hours as needed for cramping. hyoscyamine Yes .125mg Q6H Take 1 Me thodi (Levsin/SL) 8-[address] 0.125 mg SL 00:00: (0.125 mg H [facility]spita tablet 00 total) by l mouth every 6 (six) hours as needed for cramping. pyridoxine, 2022- No [id number] 100mg QD Take 1 [facility] vitamin B6, 03-31- tablet st (B-6) 100 00:00: 04:59 (100 mg Hosp daiys MG tablet 00 :00 total) by l mouth daily. pyridoxine, 2022- No [id number] 100mg QD Take 1 [facility] vitamin B6, 03-31-[address] (B-6) 100 00:00: 04:59 (100 mg Hosp daisy MG tablet 00 :00 total) by l mouth daily. estradioL Yes APPLY 1 Metho di (VIVELLE-DO 7-[address] T) 0.05 00:00: SKIN TWICE [facility] mg/24 hr 00 A WEEK FOR l 90 DAYS estradioL Yes APPLY 1 Metho di (VIVELLE-DO 7-[address] T) 0.05 00:00: SKIN TWICE [facility]osp da[facility] mg/24 hr 00 A WEEK FOR l 90 DAYS Nurtec ODT Yes [facility] 75 mg 7-06 st tablet,disi 00:00: Hospit a ntegrating 00 l Nurtec ODT Yes [facility] 75 mg 7-06 st tablet,disi 00:00: Hospit a ntegrating 00 l pantoprazol Yes [facility] st (PROTONIX) 00:00: Hospita 40 MG EC 00 l tablet pantoprazol Yes [facility] (PROTONIX) 00:00: Hospita 40 MG EC 00 l tablet sennosides, No Notes: Rob federico PRISON 7-13 (Same as: l 02:00: Senokot) Amitriptyli No Notes: Rob federico ne 7-13 (Same as: l 02:00: Elavil) sennosides, No Notes: Rob federico PRISON 7-13 (Same as: l 02:00: Senokot) Amitriptyli No Notes: Rob federico ne 7-13 (Same as: l 02:00: Elavil) sennosides, No Notes: Rob federico PRISON 7-13 (Same as: l 02:00: Senokot) Amitriptyli No Notes: Rob federico ne 7-13 (Same as: l 02:00: Elavil) Acetaminoph Yes 1 tab, PO, Memoria en 325 MG / 7-12 Q6H, PRN l Hydrocodone 22:02: Pain Score Bitartrate 7-10, 0 5 MG Oral Refill(s) Tablet [Garrison 5/325] amitriptyli Yes 50 mg = 1 M emoria ne 50 mg 7-12 tab, PO, l oral tablet 22:02: Bedtime, 0 Refill(s) fluconazole Yes 200 mg = 1 Memoria 200 mg oral 7-12 tab, PO, l tablet 22:02: Daily, X 7 [place] nn 00 day, # 7 tab, 0 Refill(s), Pharmacy: [facility] #[id number], 165.1, cm, 02/22/20 6:26:00 CDT, Height, 50, kg, 02/22/20 6:26:00 CDT, Weight POLYETHYLEN 2020-0 Yes 17 gm, PO, Memoria E GLYCOL 7-12 Daily, 0 l 3350 22:02: Refill(s) [place] sennosides, 2020-0 Yes 17.2 mg = M emoria PRISON 8.6 MG 7-12 2 tab, PO, l Oral Tablet 22:02: Bedtime, 0 [place] 00 Refill(s) Acetaminoph 2019-0 Yes 1 tab, PO, Memoria en 325 MG / 7-12 Q6H, PRN l Hydrocodone 22:02: Pain Score [place] Bitartrate 00 7-10, 0 5 MG Oral Refill(s) Tablet [Garrison 5/325] amitriptyli 2019-0 Yes 50 mg = 1 M emoria ne 50 mg 7-12 tab, PO, l oral tablet 22:02: Bedtime, 0 Refill(s) fluconazole 2019-0 Yes 200 mg = 1 Memoria 200 mg oral 7-12 tab, PO, l tablet 22:02: Daily, X 7 Trinity day, # 7 tab, 0 Refill(s), Pharmacy: [facility] #[id number], 165.1, cm, 02/22/20 6:26:00 CDT, Height, 50, kg, 02/22/20 6:26:00 CDT, Weight POLYETHYLEN 2020-0 Yes 17 gm, PO, Memoria E GLYCOL 7-12 Daily, 0 l 3350 22:02: Refill(s) [place] sennosides, 2019-0 Yes 17.2 mg = M emoria PRISON 8.6 MG 7-12 2 tab, PO, l Oral Tablet 22:02: Bedtime, 0 [place] 00 Refill(s) Acetaminoph 2020-0 Yes 1 tab, PO, Memoria en 325 MG / 7-12 Q6H, PRN l Hydrocodone 22:02: Pain Score [place] Bitartrate 00 7-10, 0 5 MG Oral Refill(s) Tablet [Garrison 5/325] amitriptyli 2019-0 Yes 50 mg = 1 M emoria ne 50 mg 7-12 tab, PO, l oral tablet 22:02: Bedtime, 0 Refill(s) fluconazole Yes 200 mg = 1 Memoria 200 mg oral 7-12 tab, PO, l tablet 22:02: Daily, X 7 Trinity nn 00 day, # 7 tab, 0 Refill(s), Pharmacy: [facility] #[id number], 165.1, cm, 02/22/20 6:26:00 CDT, Height, 50, kg, 02/22/20 6:26:00 CDT, Weight POLYETHYLEN Yes 17 gm, PO, Memoria E GLYCOL 7-12 Daily, 0 l 3350 22:02: Refill(s) sennosides, Yes 17.2 mg = M emoria PRISON 8.6 MG -12 2 tab, PO, l Oral Tablet 22:02: Bedtime, 0 Refill(s) Acetaminoph No Notes: Rob federico en 325 MG / 02-21 (Same as: l Hydrocodone 19:31: Garrison [place] nn Bitartrate 00 325/5) Do 5 MG Oral not exceed Tablet 4gm/day of [Garrison acetaminop 5/325] hen. Acetaminoph No Notes: Rob federico en 325 MG / 02-21 (Same as: l Hydrocodone 19:31: Garrison [place] nn Bitartrate 00 325/5) Do 5 MG Oral not exceed Tablet 4gm/day of [Garrison acetaminop 5/325] hen. Acetaminoph No Notes: Rob federico en 325 MG / 02-21 (Same as: l Hydrocodone 19:31: Garrison [place] nn Bitartrate 00 325/5) Do 5 MG Oral not exceed Tablet 4gm/day of [Garrison acetaminop 5/325] hen. Fluconazole No 200 mg, 1 M emoria 7-12 tab, l 17:00: Route: PO, Drug form: TAB, [id number], Dosing Weight 50, kg, Start date: 02/22/20 12:00:00 CDT, Duration: 14 day, Stop date: 03/06/20 12:00:00 CDT, ABX Indication : Skin/Soft Tissue Infection, 0 Fluconazole 2020-0 No 200 mg, 1 M emoria 7-12 tab, l 17:00: Route: PO, Ryan 00 Drug form: TAB, [id number], Dosing Weight 50, kg, Start date: 02/22/20 12:00:00 CDT, Duration: 14 day, Stop date: 03/06/20 12:00:00 CDT, ABX Indication : Skin/Soft Tissue Infection, 0 Fluconazole 2020-0 No 200 mg, 1 M emoria 7-12 tab, l 17:00: Route: PO, Ryan 00 Drug form: TAB, [id number], Dosing Weight 50, kg, Start date: 02/22/20 [...] l 3350 14:00: in 8 oz of [place] 00 water or juice. (Same as: Miralax) Ibuprofen 2020-0 No Notes: Memori a 7-12 (Same as: l 13:00: Motrin) [place] 00 "Do Not Crush" Take with food. Ibuprofen 2020-0 No Notes: Memori a 7-12 (Same as: l 13:00: Motrin) [place] 00 "Do Not Crush" Take with food. Ibuprofen 2020-0 No Notes: Memori a 7-12 (Same as: l 13:00: Motrin) [place] 00 "Do Not Crush" Take with food. Fluconazole 2020-0 No Notes: Rob federico 7-12 (Same as: l 12:00: Diflucan) [place] 00 Do not refrigerat e Hazardous Drug Group 3:Reproduc tive risk Hazardous Drug -- Refer to safe handling procedure PPE Matrix Fluconazole 2020-0 No Notes: Rob federico 7-12 (Same as: l 12:00: Diflucan) [place] 00 Do not refrigerat e Hazardous Drug Group 3:Reproduc tive risk Hazardous Drug -- Refer to safe handling procedure PPE Matrix Fluconazole 2020-0 No Notes: Rob federico 7-12 (Same as: l 12:00: Diflucan) [place] 00 Do not refrigerat e Hazardous Drug Group 3:Reproduc tive risk Hazardous Drug -- Refer to safe handling procedure PPE Matrix Ketorolac 2020-0 No 4 days Memor ia 7-12 l 11:45: MEDICATION [place] 00 WASTE Product Size: 30 mg Product Wasted: ___ mg Zofran 2020-0 No Notes: Memoria - (Same as: l 11:45: Zofran) [place] 00 MEDICATION WASTE Product Size: 4 mg Product Wasted: ___ mg Ketorolac 2020-0 No 4 days Memor ia 7-12 l 11:45: MEDICATION [place] 00 WASTE Product Size: 30 mg Product Wasted: ___ mg Zofran 2020-0 No Notes: Memoria 02-21 (Same as: l 11:45: Zofran) [place] 00 MEDICATION WASTE Product Size: 4 mg Product Wasted: ___ mg Ketorolac 2020-0 No 4 days Memor ia -12 l 11:45: MEDICATION [place] 00 WASTE Product Size: 30 mg Product Wasted: ___ mg Zofran 2020-0 No Notes: Memoria 02-21 (Same as: l 11:45: Zofran) [place] 00 MEDICATION WASTE Product Size: 4 mg Product Wasted: ___ mg Acetaminoph 2020-0 No Notes: Max Memoria en 7-12 acetaminop l 11:00: hen 4000 [place] 00 mg/day (4 gm/day). (Same as: Tylenol Extra Strength) Acetaminoph 2019-0 No Notes: Max Memoria en 7-12 acetaminop l 11:00: hen 4000 [place] 00 mg/day (4 gm/day). (Same as: Tylenol Extra Strength) Acetaminoph 2019-0 No Notes: Max Memoria en 7-12 acetaminop l 11:00: hen 4000 [place] 00 mg/day (4 gm/day). (Same as: Tylenol Extra Strength) Ceftriaxone 0 No Notes: Rob federico 7-12 (Same As: l 10:48: Rocephin). [place] 00 Use with 100 mL NS and infuse over 30 min MEDICATION WASTE Product Size: 1000 mg Product Wasted: ___ mg Flagyl 2019-0 No Notes: Memoria 7-12 (Same as: l 10:48: Flagyl) [place] Avoid alcohol. Ceftriaxone 2019-0 No Notes: Rob federico 7-12 (Same As: l 10:48: Rocephin). [place] 00 Use with 100 mL NS and infuse over 30 min MEDICATION WASTE Product Size: 1000 mg Product Wasted: ___ mg Flagyl 2019-0 No Notes: Memoria 7-12 (Same as: l 10:48: Flagyl) [place] Avoid alcohol. Ceftriaxone 0 No Notes: Rob federico 7-12 (Same As: l 10:48: Rocephin). [place] 00 Use with 100 mL NS and infuse over 30 min MEDICATION WASTE Product Size: 1000 mg Product Wasted: ___ mg Flagyl 2019-0 No Notes: Memoria 7-12 (Same as: l 10:48: Flagyl) Ryan 00 Avoid alcohol. Clonazepam 2019-0 No Notes: Memor ia 7-12 (Same As: [...] tab, PO, l tablet 10:43: BID, PRN [place] 00 anxiety, # 60 tab, 0 Refill(s) Vancomycin 2020-0 No 2001 mg: Me moria 7-12 infuse l 10:43: over 2.5 [place] 00 hours For adult patients only: Round [...] moria 7-12 infuse l 10:43: over 2.5 Ryan 00 hours For adult patients only: Round [...] moria 7-12 infuse l 10:43: over 2.5 [place] 00 hours For adult patients only: Round to nearest 250 mg per Medical Staff approval MEDICATION WASTE Product Size: 1000 mg Product Wasted: ___ mg Lactated 2020-0 No 1,000 mL, Rob federico Ringers IV 7-12 Rate: 60 l 1,000 mL 10:42: ml/hr, [place] 00 Infuse over: 16.7 hr, Route: IV, Dosing Weight 54.545 kg, Total Volume: 1,000, Start date: 02/22/20 5:42:00 CDT, Duration: 30 day, Stop date: 03/23/20 5:41:00 CDT, 0 Lactated 2020-0 No 1,000 mL, Rob federico Ringers IV 7-12 Rate: 60 l 1,000 mL 10:42: ml/hr, Ryan Infuse over: 16.7 hr, Route: IV, Dosing Weight 54.545 kg, Total Volume: 1,000, Start date: 02/22/20 5:42:00 CDT, Duration: 30 day, Stop date: 03/23/20 5:41:00 CDT, 0 Lactated 2020-0 No 1,000 mL, Rob federico Ringers IV 712 Rate: 60 l 1,000 mL 10:42: ml/hr, [place] Infuse over: 16.7 hr, Route: IV, Dosing Weight 54.545 kg, Total Volume: 1,000, Start date: 02/22/20 5:42:00 CDT, Duration: 30 day, Stop date: 03/23/20 5:41:00 CDT, 0 Oxycodone 2020-0 No Notes: Memori a Hydrochlori 7-12 (Same as: l de 5 MG 10:41: Roxicodone Herm lorenzo Oral Tablet 00 ) Morphine 2020-0 No Notes: Memoria 7-12 (Same l 10:41: as:MORPhin [place] 00 e Sulfate) Oxycodone 2019-0 No Notes: Memori a Hydrochlori 7-12 (Same as: l de 5 MG 10:41: Roxicodone Herm lorenzo Oral Tablet 00 ) Morphine 2020-0 No Notes: Memoria 7-12 (Same l 10:41: as:MORPhin [place] 00 e Sulfate) Oxycodone 2020-0 No Notes: Memori a Hydrochlori 7-12 (Same as: l de 5 MG 10:41: Roxicodone Herm lorenzo Oral Tablet 00 ) Morphine 2020-0 No Notes: Memoria 7-12 (Same l 10:41: as:MORPhin [place] 00 e Sulfate) Dextrose 2020-0 No 12.5 gm, Memor ia 50% Syringe 7-12 25 mL, l (D50W) 10:37: Route: [place] 00 IVP, Drug Form: INJ, Dosing Weight 54.545, kg, PRN, PRN Blood Glucose Results, Start date: 02/22/20 5:37:00 CDT, Duration: 30 day, Stop date: 03/23/20 5:36:00 CDT, 0 Glucagon 2020-0 No 1 mg, Memoria 7-12 Route: IM, l 10:37: Drug form: [place] 00 PDR/INJ, PRN, Dosing Weight 54.545, kg, PRN Blood Glucose Results, Start date: 02/22/20 5:37:00 CDT, Duration: 30 day, Stop date: 03/23/20 5:36:00 CDT, 0 Ondansetron 2020-0 No Notes: Rob federico 7-12 (Same as: l 10:37: Zofran) MEDICATION WASTE Product Size: 4 mg Product Wasted: ___ mg Melatonin 2020-0 No Notes: Memori a 7-12 (Same as: l 10:37: Melatonin) Dextrose 2020-0 No 12.5 gm, Memor ia 50% Syringe 7-12 25 mL, l (D50W) 10:37: Route: [place] 00 IVP, Drug Form: INJ, Dosing Weight 54.545, kg, PRN, PRN Blood Glucose Results, Start date: 02/22/20 5:37:00 CDT, Duration: 30 day, Stop date: 03/23/20 5:36:00 CDT, 0 Glucagon 2020-0 No 1 mg, Memoria 7-12 Route: IM, l 10:37: Drug form: [place] 00 PDR/INJ, PRN, Dosing Weight 54.545, kg, PRN Blood Glucose Results, Start date: 02/22/20 5:37:00 CDT, Duration: 30 day, Stop date: 03/23/20 5:36:00 CDT, 0 Ondansetron 2020-0 No Notes: Rob federico 7-12 (Same as: l 10:37: Zofran) MEDICATION WASTE Product Size: 4 mg Product Wasted: ___ mg Melatonin 2020-0 No Notes: Memori a 7-12 (Same as: l 10:37: Melatonin) Dextrose No 12.5 gm, Memor ia 50% Syringe 02-21 25 mL, l (D50W) 10:37: Route: IVP, Drug Form: INJ, Dosing Weight 54.545, kg, PRN, PRN Blood Glucose Results, Start date: 02/22/20 5:37:00 CDT, Duration: 30 day, Stop date: 03/23/20 5:36:00 CDT, 0 Glucagon No 1 mg, Memoria 02-21 Route: IM, l 10:37: Drug form: PDR/INJ, PRN, Dosing Weight 54.545, kg, PRN Blood Glucose Results, Start date: 02/22/20 5:37:00 CDT, Duration: 30 day, Stop date: 03/23/20 5:36:00 CDT, 0 Ondansetron No Notes: Rob federico 02-21 (Same as: l 10:37: Zofran) MEDICATION WASTE Product Size: 4 mg Product Wasted: ___ mg Melatonin No Notes: Memori a -12 (Same as: l 10:37: Melatonin) amitriptyli Yes [facility] ne (ELAVIL) 8-18 st 50 MG 00:00: Hospita tablet 00 l amitriptyli Yes [facility] ne (ELAVIL) 8-18 st 50 MG 00:00: Hospita tablet 00 l clonAZEPAM Yes [facility] (KlonoPIN) 8-18 st 0.5 MG 00:00: Hospita tablet 00 l clonAZEPAM Yes [facility] (KlonoPIN) 8-18 st 0.5 MG 00:00: Hospita tablet 00 l Vital Signs Vital Name Observation Time Observation Value Comments Source Body height 2022-07-14 21:31:00 165.1 cm [facility] Body weight 2022-07-14 21:31:00 58.968 kg [facility] BMI 2022-07-14 21:31:00 21.63 kg/m2 [facility] Systolic blood 2022-04-24 21:30:00 112 mm[Hg] [facility] pressure Diastolic blood 2022-04-24 21:30:00 76 mm[Hg] [facility] pressure Heart rate 2022-04-24 21:30:00 76 /min [facility] Respiratory rate 2022-04-24 21:30:00 20 /min [facility] Oxygen saturation in 2022-04-24 21:30:00 97 /min [facility] Arterial blood by Pulse oximetry Body temperature 2022-04-24 20:55:00 36.33 [facility] Temperature Oral (F) 2020-02-22 16:34:00 98.6 F [facility] [place] Heart Rate 2020-02-22 16:34:00 [facility] [place] Respitory Rate 2020-02-22 16:34:00 Memori al [place] Systolic (mm Hg) 2020-02-22 16:34:00 Rob rial [place] Diastolic (mm Hg) 2020-02-22 16:34:00 Mem orial [place] Temperature Oral (F) 2020-02-22 14:07:00 97.8 F [facility] [place] Heart Rate 2020-02-22 14:07:00 [facility] [place] Respitory Rate 2020-02-22 14:07:00 Memori al [place] Systolic (mm Hg) 2020-02-22 14:07:00 Rob rial [place] Diastolic (mm Hg) 2020-02-22 14:07:00 Mem orial [place] Temperature Oral (F) 2020-02-22 11:35:00 98.5 F [facility] [place] Systolic (mm Hg) 2020-02-22 11:35:00 Rob rial [place] Diastolic (mm Hg) 2020-02-22 11:35:00 Mem orial [place] Height 2020-02-22 11:26:00 165.1 cm [facility] [place] Weight 2020-02-22 11:26:00 [facility] [place] BMI Calculated 2020-02-22 11:26:00 Memori al [place] Respitory Rate 2020-02-22 10:56:00 Memori al [place] Weight 2020-02-22 09:22:00 [facility] [place] Heart Rate 2020-02-22 09:22:00 [facility] [place] Procedures Procedure Date / Time Performing Source Performed Clinician SURGICAL PATHOLOGY REQUEST 2022-04-24 Viki Castro [facility] 21:12:00 [facility] ESOPHAGOGASTRODUODENOSCOPY (EGD) 2022-04-24 Viki Castro 20:27:00 [facility] UPPER GI TRACT, ENDOSCOPIC 2022-04-24 Viki Castro [facility] 20:27:00 [facility] GASTRIC EMPTYING 2022-04-11 Viki Castro 18:21:00 [facility] [id number] 2021-02-20 [email or web address] [facility] 00:00:00 [facility] Plan of Care Planned Activity Planned Date Details Comments Source Future Scheduled 2023-03-19 COVID-19 VACCINE (#1) [facility] Test 11:22:21 [code = COVID-19 VACCINE (#1)] Future Scheduled 2023-03-19 Pneumococcal Vaccine: [facility] Test 11:22:21 Pediatrics (0 to 5 Years) and At-Risk Patients (6 to 64 Years) (1 - PCV) [code = Pneumococcal Vaccine: Pediatrics (0 to 5 Years) and At-Risk Patients (6 to 64 Years) (1 - PCV)] Future Scheduled 2023-03-19 Hepatitis C screening [facility] Test 11:22:21 (procedure) [code = 453995996] Future Scheduled 2023-03-19 Screening for [facility] Test 11:22:21 malignant neoplasm of cervix (procedure) [code = 216229348] Future Scheduled 2023-03-19 BREAST CANCER [facility] Test 11:22:21 SCREENING [code = BREAST CANCER SCREENING] Future Scheduled 2023-03-19 ZZZ INFLUENZA VACCINE [facility] Test 11:22:21 [code = ZZZ INFLUENZA VACCINE] Future Scheduled 2022-10-07 COVID-19 VACCINE (#1) [facility] Test 18:53:48 [code = COVID-19 VACCINE (#1)] Future Scheduled 2022-10-07 Pneumococcal Vaccine: [facility] Test 18:53:48 Pediatrics (0 to 5 Years) and At-Risk Patients (6 to 64 Years) (1 - PCV) [code = Pneumococcal Vaccine: Pediatrics (0 to 5 Years) and At-Risk Patients (6 to 64 Years) (1 - PCV)] Future Scheduled 2022-10-07 Hepatitis C screening [facility] Test 18:53:48 (procedure) [code = 999694290] Future Scheduled 2022-10-07 Screening for [facility] Test 18:53:48 malignant neoplasm of cervix (procedure) [code = 709128533] Future Scheduled 2022-10-07 BREAST CANCER [facility] Test 18:53:48 SCREENING [code = BREAST CANCER SCREENING] Future Scheduled 2022-10-07 INFLUENZA VACCINE [facility] Test 18:53:48 [code = INFLUENZA VACCINE] Encounters Start End Encounter Admission Attending Care Care Encounter Source Date/Time Date/Time Type Type Clinicians Facility Department ID 2023-05-01 2023-05-01 [id number] Memoria 10:30:00 10:30:00 40 vin [place] 2023-04-05 2023-04-05 [facility] [id number] Memoria 15:45:00 15:45:00 39 vin [place] 2023-01-10 2023-01-10 [facility] [id number] Memoria 15:45:00 15:45:00 38 vin [place] 2022-12-05 2022-12-05 [facility] [id number] Memoria 15:30:00 15:30:00 37 vin [place] 2022-11-03 2022-11-03 [facility] [id number] Memoria 13:00:00 13:00:00 36 vin [place] 2022-11-03 2022-11-03 [facility] [id number] Memoria 13:00:00 13:00:00 36 vin [place] 2022-10-10 2022-10-10 [facility] [id number] Memoria 13:00:00 13:00:00 35 vin [place] 2022-10-10 2022-10-10 [facility] [id number] Memoria 13:00:00 13:00:00 35 vin [place] 2022-07-18 2022-07-18 Telemedici Viki Castro 1.2.840.1 [id number] Methodi 09:45:00 10:00:[id number] 3.430.2.7 Hospit a .3.630898 l .8 2022-07-18 2022-07-18 Telemedici Viki Castro 1.2.840.1 [id number] Method[facility] 09:45:00 10:00:[address] 3.430.2.7 Hospit a .3.856425 l .8 2022-06-09 2022-06-09 Outpatient [facility] [id number] Memoria 14:45:00 14:45:00 34 l [place] 2022-06-09 2022-06-09 Outpatient [facility] [id number] Memoria 14:45:00 14:45:00 34 l [place] 2022-06-06 2022-06-06 Telephone [place], 1.2.840.1 [id number] Methodi 00:00:00 00:00:[address] 3.430.2.7 Hospit a .3.247610 l .8 2022-06-06 2022-06-06 Telephone [place], 1.2.840.1 [id number] Method[facility] 00:00:00 00:00:[address] 3.430.2.7 Hospit a .3.688448 l .8 2022-04-24 2022-04-24 [facility] Viki Castro 1.2.840.1 [id number] Methodi 12:15:00 23:59:[id number] 3.430.2.7 Hospit a .3.704902 l .8 2022-04-24 2022-04-24 [facility] Viki Castro 1.2.840.1 [id number] Methodi 12:15:00 23:59:[id number] 3.430.2.7 Hospit a .3.176417 l .8 2022-04-24 2022-04-24 Anesthesia Magaly Mondragon 1.2.840.1 1 [id number] Methodi 15:26:00 15:54:00 Event Parvin Reeder [id number] 3.430.2.7 Hospit a .3.836160 l .8 2022-04-24 2022-04-24 Anesthesia Magaly Mondragon 1.2.840.1 1 [id number] Methodi 15:26:00 15:54:00 Event Parvin Reeder 72122.1.[address] 3.430.2.7 Hospit a .3.578564 l .8 2022-04-24 2022-04-24 Surgery Viki Castro 1.2.840.1 [id number] [facility] 14:00:00 15:00:[address] 3.430.2.7 Hospit a .3.125908 l .8 2022-04-24 2022-04-24 Surgery Viki Castro 1.2.840.1 [id number] 2099 [id number] Methodi 14:00:00 15:00:[address] 3.430.2.7 Hospit a .3.325026 l .8 2022-04-24 2022-04-24 Travel 1.2.840.1 1.2.009.134 3354 [id number] Methodi 00:00:00 00:00:[address] 3.430.2.7 0.2.7.3.698 Ho spita .3.500922 084.8 l .8 2022-04-24 2022-04-24 Travel 1.2.840.1 1.2.389.511 1390 [id number] Methodi 00:00:00 00:00:[address] 3.430.2.7 0.2.7.3.698 Ho spita .3.200537 084.8 l .8 2022-04-12 2022-04-12 Outpatient MARIANA MARIANA [id number] Memoria 10:00:00 10:00:00 33 l Ryan 2022-04-12 2022-04-12 Outpatient MARIANA MARIANA [id number] Memoria 10:00:00 10:00:00 33 l Ryan 2022-04-11 2022-04-[address] [facility] Viki 1.2.840.1 [id number] 632 [id number] Methodi 12:30:00 23:59:[address] 3.430.2.7 Hospit a .3.401008 l .8 2022-04-11 2022-04-[address] [facility] Viki 1.2.840.1 [id number] Methodi 12:30:00 23:59:[address] 3.430.2.7 Hospit a .3.734403 l .8 2022-04-11 2022-04-[address] [facility] Viki 1.2.840.1 [id number] 038 [id number] Methodi 10:30:00 12:29:[address] 3.430.2.7 Hospit a .3.694993 l .8 2022-04-11 2022-04-[address] [facility] Viki 1.2.840.1 [id number] 549 [id number] Methodi 10:30:00 12:29:[address] 3.430.2.7 Hospit a .3.485289 l .8 2022-04-11 [facility]22[facility] [id number] 636 [id number] Methodi 08:30:00 10:29:[address] 3.430.2.7 Hospit a .3.873660 l .8 2022-04-11 2022-04-[address] [facility] Viki 1.2.840.1 [id number] 165 [id number] Methodi 08:30:00 10:29:[address] 3.430.2.7 Hospit a .3.478339 l .8 2022-04-11 2022-04-11 Travel 1.2.840.1 1.2.368.950 0975 474290 Methodi 00:00:00 00:00:[address] 3.430.2.7 0.2.7.3.698 Ho spita .3.278482 084.8 l .8 2022-04-11 2022-04-11 Travel 1.2.840.1 1.2.082.156 3162 595927 Methodi 00:00:00 00:00:[address] 3.430.2.7 0.2.7.3.698 Ho spita .3.790796 084.8 l .8 2022-04-04 2022-04-04 Orders [place], 1.2.840.1 [id number] 2776 Methodi 00:00:00 00:00:00 Only Tiffany 79665.1.[address] 3.430.2.7 Hospit a .3.593671 l .8 2022-04-04 2022-04-04 Telephone Viki Castro 1.2.840.1 [id number] Methodi 00:00:00 00:00:[address] 3.430.2.7 Hospit a .3.770411 l .8 2022-04-03 2022-04-03 Travel 1.2.840.1 1.2.244.643 7338 189705 Methodi 00:00:00 00:00:[address] 3.430.2.7 0.2.7.3.698 Ho spita .3.315079 084.8 l .8 2022-03-31 2022-03-31 Office Viki Castro 1.2.840.1 [id number] 2099 713622 Methodi 12:00:00 12:30:[address] 3.430.2.7 Hospit a .3.364371 l .8 2022-03-31 2022-03-31 Travel 1.2.840.1 1.2.521.210 3175 708248 Methodi 00:00:00 00:00:[address] 3.430.2.7 0.2.7.3.698 spita .3.461975 084.8 l .8 2022-02-22 2022-02-22 Outpatient MHIE MHIE [id number] Memoria 11:15:00 11:15:00 32 l [place] 2022-02-22 2022-02-22 Outpatient MHIE MHIE [id number] Memoria 11:15:00 11:15:00 32 vin [place] 2022-01-02 2022-01-02 Telephone [place], 1.2.840.1 [id number] Methodi 00:00:00 00:00:[address] 3.430.2.7 Hospit a .3.614131 l .8 2021-12-23 2021-12-23 Outpatient MHIE MHIE [id number] Memoria 16:30:00 16:30:00 31 l [place] 2021-12-23 2021-12-23 Outpatient MHIE MHIE [id number] Memoria 16:30:00 16:30:00 31 l [place] 2021-09-19 2021-09-19 Outpatient MHIE MHIE [id number] Memoria 15:45:00 15:45:00 30 vin [place] 2021-09-19 2021-09-19 Outpatient MHIE MHIE [id number] Memoria 15:45:00 15:45:00 30 vin [place] 2021-08-01 2021-08-01 Outpatient MHIE MHIE [id number] Memoria 14:30:00 14:30:00 29 [place] 2021-08-01 2021-08-01 Outpatient MHIE MHIE [id number] Memoria 14:30:00 14:30:00 29 vin [place] 2021-07-04 2021-07-04 Outpatient MHIE MHIE [id number] Memoria 11:45:00 11:45:00 28 vin [place] 2021-07-04 2021-07-04 Outpatient MHIE MHIE [id number] Memoria 11:45:00 11:45:00 28 vin [place] 2021-05-17 2021-05-17 Outpatient MHIE MHIE [id number] Memoria 10:30:00 10:30:00 24 vin [place] 2021-05-17 2021-05-17 Outpatient MHIE MHIE [id number] Memoria 10:30:00 10:30:00 24 vin [place] 2021-03-15 2021-03-15 Outpatient MHIE MHIE [id number] Memoria 15:30:00 15:30:00 27 vin [place] 2021-03-15 2021-03-15 Outpatient MHIE MHIE [id number] Memoria 15:30:00 15:30:00 26 vin [place] 2021-03-15 2021-03-15 Outpatient MHIE MHIE [id number] Memoria 15:30:00 15:30:00 27 vin [place] 2021-03-15 2021-03-15 Outpatient MHIE MHIE [id number] Memoria 15:30:00 15:30:00 26 vin [place] 2021-02-19 2021-02-21 Inpatient EM WILMER Valdez MED [id number] [facility] 13:16:00 15:45:[address] 2021-02-18 2021-02-18 Outpatient VERO Valdez LABO [id number] [facility] 21:53:00 21:53:[address] 2021-01-31 2021-01-31 Outpatient MHIE SEEIE [id number] Memoria 11:00:00 11:00:00 25 vin [place] 2021-01-31 2021-01-31 Outpatient MHIE MHIE [id number] Memoria 11:00:00 11:00:00 25 vin [place] 2021-01-14 2021-01-14 Outpatient MHIE MHIE [id number] Memoria 09:15:00 09:15:00 23 vin [place] 2021-01-14 2021-01-14 Outpatient MHIE MHIE [id number] Memoria 09:15:00 09:15:00 23 vin [place] 2020-12-31 2020-12-31 Outpatient MHIE MHIE [id number] Memoria 09:30:00 09:30:00 22 l [place] 2020-12-31 2020-12-31 Outpatient MHIE MHIE [id number] Memoria 09:30:00 09:30:00 22 l [place] 2020-09-03 2020-09-03 Outpatient MHIE MHIE [id number] Memoria 14:30:00 14:30:00 21 l [place] 2020-09-03 2020-09-03 Outpatient MHIE MHIE [id number] Memoria 14:30:00 14:30:00 21 l [place] 2020-07-27 2020-07-27 Outpatient MHIE MHIE [id number] Memoria 14:45:00 14:45:00 20 l [place] 2020-07-27 2020-07-27 Outpatient MHIE MHIE [id number] Memoria 14:45:00 14:45:00 20 l [place] 2020-03-31 2020-03-31 Outpatient MHIE MHIE [id number] Memoria 15:30:00 15:30:00 19 l [place] 2020-03-31 2020-03-31 Outpatient MHIE MHIE [id number] Memoria 15:30:00 15:30:00 19 [facility] 2020-02-22 2020-02-22 [facility] [id number] Memoria 09:20:00 23:45:00 n r [place] 94 l [facility] 2020-02-22 2020-02-22 [facility] [id number] Memoria 09:20:00 23:45:00 n r [place] 94 [facility] 2020-02-22 2020-02-22 Outpatient E MOUSER, [facility] MED 0194 [facility] 11:19:00 18:45:00 ERVIN 2020-02-22 2020-02-22 Outpatient Mouser, [facility] [id number] 04:20:00 18:45:00 Ervin Smith Delores 2020-02-22 2020-02-22 [facility]ous[facility] [id number] 04:20:00 18:45:00 Ervin Smith 2020-02-12 2020-02-12 Outpatient MHIE MHIE [id number] Memoria 11:00:00 11:00:00 18 l [place] 2020-02-12 2020-02-12 Outpatient MHIE MHIE [id number] Memoria 11:00:00 11:00:00 17 l [place] 2020-02-12 2020-02-12 Outpatient MHIE MHIE [id number] Memoria 11:00:00 11:00:00 18 l [place] 2020-02-12 2020-02-12 Outpatient MHIE MHIE [id number] Memoria 11:00:00 11:00:00 17 l [place] 2019-11-04 2019-11-04 Outpatient MHIE MHIE [id number] Memoria 11:15:00 11:15:00 16 l [place] 2019-11-04 2019-11-04 Outpatient MHIE MHIE [id number] Memoria 11:15:00 11:15:00 16 l [place] 2019-10-31 2019-10-31 Outpatient MHIE MHIE [id number] Memoria 11:00:00 11:00:00 15 l [place] 2019-10-31 2019-10-31 Outpatient MHIE MHIE [id number] Memoria 11:00:00 11:00:00 15 l [place] 2019-09-10 2019-09-10 Outpatient MHIE MHIE [id number] Memoria 15:00:00 15:00:00 14 l [place] 2019-09-10 2019-09-10 Outpatient MHIE MHIE [id number] Memoria 15:00:00 15:00:00 14 l [place] 2019-07-01 2019-07-01 Outpatient MHIE MHIE [id number] Memoria 15:30:00 15:30:00 13 l [place] 2019-07-01 2019-07-01 Outpatient MHIE MHIE [id number] Memoria 15:30:00 15:30:00 13 l [place] 2019-05-06 2019-05-06 Outpatient MHIE MHIE [id number] Memoria 15:45:00 15:45:00 12 l [place] 2019-05-06 2019-05-06 Outpatient MHIE MHIE [id number] Memoria 15:45:00 15:45:00 12 l [place] 2019-01-01 2019-01-01 Outpatient MHIE MHIE [id number] Memoria 15:00:00 15:00:00 11 vin [place] 2019-01-01 2019-01-01 Outpatient MHIE MHIE [id number] Memoria 15:00:00 15:00:00 11 l [place] 2018-10-23 2018-10-23 Outpatient MHIE MHIE [id number] Memoria 14:15:00 14:15:00 10 vin [place] 2018-10-23 2018-10-23 Outpatient MHIE MHIE [id number] Memoria 14:15:00 14:15:00 10 vin [place] 2018-09-19 2018-09-19 Outpatient MHIE MHIE [id number] Memoria 14:45:00 14:45:00 09 vin [place] 2018-09-19 2018-09-19 Outpatient MHIE MHIE [id number] Memoria 14:45:00 14:45:00 09 vin [place] 2018-05-17 2018-05-17 Outpatient MHIE MHIE [id number] Memoria 14:45:00 14:45:00 07 vin [place] 2018-05-17 2018-05-17 Outpatient MHIE MHIE [id number] Memoria 14:45:00 14:45:00 07 vin [place] 2018-05-16 2018-05-16 Outpatient MHIE MHIE [id number] Memoria 14:45:00 14:45:00 08 vin [place] 2018-05-16 2018-05-16 Outpatient MHIE MHIE [id number] Memoria 14:45:00 14:45:00 08 vin [place] 2018-01-23 2018-01-23 Outpatient MHIE MHIE [id number] Memoria 14:45:00 14:45:00 06 vin [place] 2018-01-23 2018-01-23 Outpatient MHIE MHIE [id number] Memoria 14:45:00 14:45:00 06 vin [place] 2017-12-18 2017-12-18 Outpatient MHIE MHIE [id number] Memoria 14:45:00 14:45:00 05 vin [place] 2017-12-18 2017-12-18 Outpatient MHIE MHIE [id number] Memoria 14:45:00 14:45:00 05 vin [place] 2017-11-21 2017-11-21 Outpatient MHIE MHIE [id number] Memoria 09:45:00 09:45:00 03 l [place] 2017-11-21 2017-11-21 Outpatient MHIE MHIE [id number] Memoria 09:45:00 09:45:00 04 l [place] 2017-11-21 2017-11-21 Outpatient MHIE MHIE [id number] Memoria 09:45:00 09:45:00 04 l [place] 2017-11-21 2017-11-21 Outpatient MHIE MHIE [id number] Memoria 09:45:00 09:45:00 03 l [place] 2017-10-31 2017-10-31 Outpatient MHIE MHIE [id number] Memoria 11:45:00 11:45:00 02 l [place] 2017-10-31 2017-10-31 Outpatient MHIE MHIE [id number] Memoria 11:45:00 11:45:00 02 l [place] 2017-10-10 2017-10-10 Outpatient MHIE MHIE [id number] Memoria 13:45:00 13:45:00 01 l [place] 2017-10-10 2017-10-10 Outpatient MHIE MHIE [id number] Memoria 13:45:00 13:45:00 01 l [place] 2017-09-12 2017-09-12 Outpatient MHIE MHIE [id number] Memoria 13:00:00 13:00:00 00 l [place] 2017-09-12 2017-09-12 Outpatient MHIE MHIE [id number] Memoria 13:00:00 13:00:00 00 vin [place] Results Test Description Test Time Test Comments Results Result Comments Source Surgical pathology request 2022-04-25 20:37:16 Test Item Value Reference Range Interpretation Comme nts Case number (test code = [id number]) [id number] Surgical pathology report (test code = See link below for PDF Lab R eport 2255) Result status (test code = 0167334) This is Final Report for [id number] 4712-2 [facility] [id number] 20:37:16 Test Item Value Reference Range Interpretation Comments Case number (test code = [id number]) Surgical pathology See link below for report (test code = PDF Lab Report 2255) Result status (test code This is Final Report = [id number]) for [id number] [facility]2021-07-13 11:48:00 Test Item Value Reference Range Interpretation Comments SURG (test code = SURG) RUN DATE: 02/22/21 [facility] - LAB PAGE 1 RUN TIME: 1148 Specimen Inquiry RUN USER: INTERFACE PATIENT: MAURICE HIDALGO LOC: [place] U #: [id number] AGE/SX: 40/F ROOM: [place] RE02/19/21[facility] DR: Maynor Valdez MD : 79 BED: 1 DIS: 02/21/21 STATUS: DIS IN TLOC: SPEC #: [id number] RECD: 02/21/21 STATUS: ABIMAEL RECristobal #: [id number] AMBER: 02/20/21 [facility] DR: Maynor Valdez MD ENTERED: 02/21/21 SP TYPE: SURG OTHR DR: Self Referred Vladimir Mcconnell MD, Maamoun MD Meah, Nizam Mohammad MDORDERED: SURG PATH LVL 3 COPIES TO: Self Referred Vladimir Mcconnell MD [address] [place] [address] Petrona Oliveira MD [address] [place], [place] [id number] [place] [address] [place] [address] [email or web address] Tripathi MD [address] [place], [place] [address] HISTOLOGY: TISSUE ID BLK PCS LIAN LEV PROCEDURE DISPOSITION ____ ___ ___ ___ GALLBLADDER, NO A 1-2 1 PROCEDURES: SURG PATH LVL 3 (02/21/21-1303) TISSUES: A. GALLBLADDER, NOS - GALLBLADDER CONTINUED ON NEXT PAGE RUN DATE: 02/22/21 [facility] - [facility] PAGE 2 RUN TIME: 1148 Specimen Inquiry RUN USER: INTERFACE SPEC #: [facility]:[id number] PATIENT: MAURICE HIDALGO #[id number] (Continued) CPT CODES CPT CODE(S): 16686 , , , , , , FINAL DIAGNOSIS Gallbladder, laparoscopic cholecystectomy: CHRONIC CHOLECYSTITIS GROSS DESCRIPTION Gallbladder. Received in formalin is an intact gallbladder, 8.5 x 5.0 x 3.8 cm, with a wall 0.2 cm in average thickness. The mucosa is deeply bile-stained, dark green-black, smooth and velvety. The lumen contains 30 mL of dark green-black and viscous bile. No calculus is identified. Security Administrator section submitted as A. /ba/sam Grossing performed at [facility] Pathology, [address] [place] [address], [address], [place] [address]. Distribution Center Administrator: Abhishek Tan M.D. MICROSCOPIC DESCRIPTION Gallbladder. Sections demonstrate gallbladder with associated mucosa. The mucosa demonstrates chronic inflammation. Chronic information extends to involve the muscular wall. No dysplasia or malignancy is identified. Signed SIGNATURE ON FILE FabihernandoIggy M 02/22/21 1148 END OF REPORT - US ABDOMEN [id number] 17:31:00 [facility] 1980 Sex: F Name: MAURICE HIDALGO [facility] : 1980 Age/S: 40 / F [address] Unit #: [id number]: Yakov Dudley [address] Phys: Maynor Valdez MD Acct: [id number] Dis Date: Status: ADM IN PHONE #: [phone] Exam Date: 02/19/2021 1454 FAX #: Reason: Abd Pain EXAMS: CPT: [id number] US ABDOMEN C OMPLETE 01956 Abdominal ultrasound complete Location Code: B2 HISTORY: [...] cm and the left kidney measures 9.8 x4.2 x 5 cm. Cortical thickness is within [...] MD Technologist: Trinity Chan Trnscb Date/Time: 02/19/2021 (173) RandeeRK5 PAGE 1 Signed ReportName: MAURICE HIDALGO : 1980 Age/S: 40 / F [address] Unit #: [id number] Loc: [place] [address] Phys: Maynor Valdez MD Acct: [id number] Dis Date: Status: ADM IN PHONE #: [phone] Exam Date: 02/19/2021 3396 FAX #: Reason: Abd Pain EXAMS: CPT: [id number] US ABDOMEN COMPLETE 96180 (Continued) Orig Print D/T: S: 02/19/2021 (173) Probe: PAGE 2 Signed ReportCOMPREHENSIVE METABOLIC UKRIQ8913-02-21 11:01:00 Test Item Value Reference Range Interpretation [...] TOTAL (test code = ALKP) CBC W/AUTO [id number] 10:45:00 Test Item Value Reference Range Interpretation [...] DIFF/SCN CRITERIA = MDIFF) COVID 19 INHOUSE [id number] 17:33:00 Test Item Value Reference Range Interpretation Comments COVID 19 INHOUSE AG NEGATIVE Negative Per manu facturer, (test code = negative result s should [id number]) be treated aspr esumptive and, if inconsi [...] nsistent with COVID-19. - CT ABD PELVIS W/[id number] 14:26:00 [facility] : 1980 Sex: F Name: MAURICE HIDALGO [facility] : 1980 Age/S: 40 / F [address] [address] Unit #: [id number]: [place] [address] Phys: Prabhu Lazar MD Acct: [id number] Dis Date: Status: REG ERPHONE #: [phone] Exam Date: 02/18/2021 1410 FAX #: Reason: pain EXAMS: CPT: [id number] CT ABD PELVIS W/CONT 86980 LOCATION: T18 EXAM: CT ABDOMEN AND PELVIS [...] base is clear. Pneumobilia with biliary stent insatisfactory position within the common bile duct with tip in the duodenum. There is contrast withinthe gallbladder as well as a small amount of air within the gallbladder seen on dependently. Portal vasculature is patent. Spleen, adrenal glands and pancreas are normal. Kidneys enhance symmetrically.No focal abnormality or hydronephrosis. There is no hydroureter. Urinary bladder is normal in appeara nce. Uterus is absent. Appendix is not seen. [...] 1 Signed Report (CONTINUED) Name: MAURICE HIDALGO : 1980 Age/S: 40 / F [address] [address] Unit #: [id number] Loc: [place] [address] Phys: Prabhu Lazar MD Acct: [id number] Dis Date: Status: REG ER PHONE #: [phone] Exam Date: 02/18/2021 1410 FAX #: Reason: pain EXAMS: CPT: [id number] CT ABD PELVIS W/CONT 38509 (Continued) CC: Prabhu Lazar MD; Lizzy YADAV Technologist:Belinda Sinclair, RT(R)(CT) CTDI: DLP: Trnscb Date/Time: 02/18/2021 (1426) [email or web address] Orig Print D/T: S: 02/18/2021 (3756) PAGE 2 Signed Report- XR CHEST 1 [id number] 14:20:00 [facility] : 1980 Sex: F Name: MAURICE HIDALGO [facility] : 1980 Age/S: 40 / F [address] Unit #: [id number]: [place] [address] Phys: Prabhu Lazar MD Acct: [id number] Dis Date: Status: REG ER PHONE #: [phone] Exam Date: 02/18/2021 1350 FAX #: Reason: Code Sepsis EXAMS: CPT: [id number] XR CHEST 1 V 72532 Fluoro Time: DAP (Gy m2): Air Kerma (mGy): EXAMINATION: Frontal chest radiograph INDICATION: Code Sepsis COMPARISON: None LOCATION: S17 FINDINGS: Clear lungs. No pleural effusion or pneumothorax. Cardiac silhouette is normal in size. IMPRESSION: No acute abnormality identified. at 1420 Reported and signed by: Shad Hairston M.D. CC: Prabhu Lazar MD; Lizzy YADAV PAGE 1 Signed Report Name: MAURICE HIDALGO : 1980 Age/S: 40 / F [address] [address] Unit #: [id number] Loc: [place] [address] Phys: Prabhu Lazar MD Acct: [id number] Dis Date: Status: REG ER PHONE #: [phone] Exam Date: 02/18/2021 1350 FAX #: Reason: Code Sepsis EXAMS: CPT: [id number] XR CHEST 1 V 79870 Fluoro Time: DAP (Gy m2): Air Kerma (mGy): (Continued) Technologist: Lauren Taylor, RT(R) Trnscb Date/Time: 02/18/2021 (1419) [email or web address] Orig Print D/T: S: 02/18/2021 (7808) PAGE 2 Signed ReportBASIC METABOLIC [id number] 13:54:00 Test Item Value Reference Range Interpretation [...] CA) 8.8 MG/DL 8.5-10.1 N HEPATIC FUNCTION [id number] 13:54:00 Test Item Value Reference Range Interpretation [...] 55 Unit/L 45-117 N code = ALKP) [id number] 13:54:00 Test Item Value Reference Range Interpretation Comments LIPASE (test code = LIP) 128 Unit/L 114-286 N UA RFLX MICR CULT IF [id number] 13:43:00 Test Item Value Reference Range Interpretation [...] code = UACULT) Indication for culture: Dysuria/FrequencyLACTIC [id number] 13:41:00 Test Item Value Reference Range Interpretation Comments LACTIC ACID (test code = LACT) 1.0 mmol/L 0.4-2.0 N CBC W/AUTO [id number] 13:30:00 Test Item Value Reference Range Interpretation [...] NO DIFF/SCN CRITERIA = MDIFF) BLOOD BANK [id number] 10:57:00 Test Item Value Reference Range Interpretation Comments ABO/Rh (test code = ABO/Rh) [facility] [id number] 10:57:00 Test Item Value Reference Range Interpretation Comments Antibody Scrn (test Negative (02/22/20 5:57 code = Antibody Scrn) AM) [facility]52-78-15 10:57:00 Test Item Value Reference Range Interpretation Comments Coronavirus (COVID-19) Not Detected (02/22/20 ERNST (test code = 5:57 AM) Coronavirus (COVID-19) ERNST) [facility] B[facility] [id number] 10:57:00 Test Item Value Reference Range Interpretation Comments ABO/Rh (test code = ABO/Rh) [facility] [id number] 10:57:00 Test Item Value Reference Range Interpretation Comments Antibody Scrn (test Negative (02/22/20 5:57 code = Antibody Scrn) AM) [id number] 10:57:00 Test Item Value Reference Range Interpretation Comments Coronavirus (COVID-19) Not Detected (02/22/20 ERNST (test code = 5:57 AM) Coronavirus (COVID-19) ERNST) [employer] [id number] 10:57:00 Test Item Value Reference Range Interpretation Comments ABO/Rh (test code = ABO/Rh) A POS [employer] [id number] 10:57:00 Test Item Value Reference Range Interpretation Comments Antibody Scrn (test Negative (02/22/20 5:57 code = Antibody Scrn) AM) Btiqu[id number] 10:57:00 Test Item Value Reference Range Interpretation Comments Coronavirus (COVID-19) Not Detected (02/22/20 ERNST (test code = 5:57 AM) Coronavirus (COVID-19) ERNST) [facility]2020-07-12 10:55:13 Test Item Value Reference Range Interpretation Comments Glucose Lvl (test code = Glucose Lvl) 92 70-99 [facility]2020-07-12 10:55:13 Test Item Value Reference Range Interpretation Comments BUN (test code = BUN) 5 7-22 [facility]2020-07-12 10:55:13 Test Item Value Reference Range Interpretation Comments Creatinine Lvl (test code = Creatinine 0.59 0.50-1.40 Lvl) [facility]2020-07-12 10:55:13 Test Item Value Reference Range Interpretation Comments Sodium Lvl (test code = Sodium Lvl) 139 135-145 [facility]2020-07-12 10:55:13 Test Item Value Reference Range Interpretation Comments Potassium Lvl (test code = Potassium 3.7 3.5-5.1 Lvl) [facility]2020-07-12 10:55:13 Test Item Value Reference Range Interpretation Comments Chloride Lvl (test code = Chloride Lvl) 105 95-109 [facility]2020-07-12 10:55:13 Test Item Value Reference Range Interpretation Comments CO2 (test code = CO2) 30 24-32 [place] 735510-07-12 10:55:13 Test Item Value Reference Range Interpretation Comments Calcium Lvl (test code = Calcium Lvl) 8.7 8.5-10.5 [place] 735510-07-12 10:55:13 Test Item Value Reference Range Interpretation Comments AGAP (test code = AGAP) 7.7 10.0-20.0 [place] 735510-07-12 10:55:13 Test Item Value Reference Range Interpretation Comments eGFR (test code = eGFR) 115 [facility]2020-07-12 10:55:13 Test Item Value Reference Range Interpretation Comments Lactic Acid Lvl (test code = Lactic 0.9 0.5-2.2 Acid Lvl) [place] 640590-07-12 10:55:13 Test Item Value Reference Range Interpretation Comments WBC X 10x3 (test code = WBC X 10x3) 8.5 3.7-10.4 [place] [address]-07-12 10:55:13 Test Item Value Reference Range Interpretation Comments RBC X 10x6 (test code = RBC X 10x6) 3.91 4.20-5.40 [place] [address]-07-12 10:55:13 Test Item Value Reference Range Interpretation Comments Hgb (test code = Hgb) 12.2 12.0-16.0 [place] [address]-07-12 10:55:13 Test Item Value Reference Range Interpretation Comments Hct (test code = Hct) 35.6 36.0-48.0 [place] [address]-07-12 10:55:13 Test Item Value Reference Range Interpretation Comments MCV (test code = MCV) 91.0 80.0-98.0 [place] [address]-07-12 10:55:13 Test Item Value Reference Range Interpretation Comments MCH (test code = MCH) 31.1 pg 27.0-31.0 [place] [address]-07-12 10:55:13 Test Item Value Reference Range Interpretation Comments MCHC (test code = MCHC) 34.1 32.0-36.0 [place] [address]-07-12 10:55:13 Test Item Value Reference Range Interpretation Comments RDW (test code = RDW) 13.0 11.5-14.5 [place] 640590-07-12 10:55:13 Test Item Value Reference Range Interpretation Comments Platelet (test code = Platelet) 277 133-450 [place] 640590-07-12 10:55:13 Test Item Value Reference Range Interpretation Comments MPV (test code = MPV) 7.1 7.4-10.4 [place] 640590-07-12 10:55:13 Test Item Value Reference Range Interpretation Comments Segs (test code = Segs) 65.7 45.0-75.0 [place] 640590-07-12 10:55:13 Test Item Value Reference Range Interpretation Comments Lymphocytes (test code = Lymphocytes) 25.8 20.0-40.0 [place] [address]-07-12 10:55:13 Test Item Value Reference Range Interpretation Comments Monocytes (test code = Monocytes) 7.0 2.0-12.0 [id number] 10:55:13 Test Item Value Reference Range Interpretation Comments Eosinophils (test code = 0.9 See_Comment [A utomated message] The Eosinophils) system which ge nerated this result tra nsmitted reference range : <=4.0. The reference r glenroy was not used to int erpret this result as normal/abnormal . [id number] 10:55:13 Test Item Value Reference Range Interpretation Comments Basophils (test code = 0.6 See_Comment [Aut omated message] The Basophils) system which ge nerated this result tra nsmitted reference range : <=1.0. The reference r glenroy was not used to int erpret this result as normal/abnormal . [id number] 10:55:13 Test Item Value Reference Range Interpretation Comments Neutrophils # (test code = Neutrophils 5.6 1.5-8.1 #) [place] [id number] 10:55:13 Test Item Value Reference Range Interpretation Comments Lymphocytes # (test code = Lymphocytes 2.2 1.0-5.5 #) [place] [id number] 10:55:13 Test Item Value Reference Range Interpretation Comments Monocytes # (test code 0.6 See_Comment [Aut omated message] The = Monocytes #) system which generated this result tra nsmitted reference range : <=0.8. The reference r glenroy was not used to int erpret this result as normal/abnormal . [facility] H[id number] 10:55:13 Test Item Value Reference Range Interpretation Comments Eosinophils # (test code 0.1 See_Comment [A utomated message] The = Eosinophils #) system whic h generated this result tra nsmitted reference range : <=0.5. The reference r glenroy was not used to int erpret this result as normal/abnormal . [facility] H[id number] 10:55:13 Test Item Value Reference Range Interpretation Comments Basophils # (test code 0.1 See_Comment [Aut omated message] The = Basophils #) system which generated this result tra nsmitted reference range : <=0.2. The reference r glenroy was not used to int erpret this result as normal/abnormal . [facility] AND [id number] 10:55:13 Test Item Value Reference Range Interpretation Comments UA Color (test code = Yellow *NA*(02/22/20 UA Color) 5:55 AM) [facility] AND [id number] 10:55:13 Test Item Value Reference Range Interpretation Comments UA Turbidity (test code Slight *ABN*(02/22/20 = UA Turbidity) 5:55 AM) [facility] AND [id number] 10:55:13 Test Item Value Reference Range Interpretation Comments UA Spec Grav (test code = UA Spec 1.017 1 Grav) [facility] AND [id number] 10:55:13 Test Item Value Reference Range Interpretation Comments UA pH (test code = UA pH) 6.0 1 5.0-8.0 [facility] AND [id number] 10:55:13 Test Item Value Reference Range Interpretation Comments UA Protein (test code = UA Negative mg/dL Protein) [facility] AND [id number] 10:55:13 Test Item Value Reference Range Interpretation Comments UA Glucose (test code = UA Negative mg/dL Glucose) [facility] AND [id number] 10:55:13 Test Item Value Reference Range Interpretation Comments UA Ketones (test code = UA Negative mg/dL Ketones) [facility] AND [id number] 10:55:13 Test Item Value Reference Range Interpretation Comments UA Bili (test code = Negative *NA*(02/22/20 UA Bili) 5:55 AM) [facility] AND [id number] 10:55:13 Test Item Value Reference Range Interpretation Comments UA Blood (test code = Negative (02/22/20 5:55 UA Blood) AM) [facility] AND [id number] 10:55:13 Test Item Value Reference Range Interpretation Comments UA Urobilinogen (test code = UA no gt 0.1-1.0 Urobilinogen) [facility] AND [id number] 10:55:13 Test Item Value Reference Range Interpretation Comments UA Nitrite (test code Negative (02/22/20 5:55 = UA Nitrite) AM) [facility] AND [id number] 10:55:13 Test Item Value Reference Range Interpretation Comments UA Leuk Est (test code Trace *ABN*(02/22/20 = UA Leuk Est) 5:55 AM) [facility] AND [id number] 10:55:13 Test Item Value Reference Range Interpretation Comments UA Sq Epi (test code = UA Sq Epi) Many /LPF [facility] AND [id number] 10:55:13 Test Item Value Reference Range Interpretation Comments UA WBC (test code = 4 See_Comment [Automa ramakrishna message] The UA WBC) system which ge nerated this result transmit ramakrishna reference range : <=5. The reference range was not used to interpr et this result as mary l/abnormal. [facility] AND [id number] 10:55:13 Test Item Value Reference Range Interpretation Comments UA RBC (test code = 1 See_Comment [Automa ramakrishna message] The UA RBC) system which ge nerated this result transmit ramakrishna reference range : <=2. The reference range was not used to interpr et this result as mary l/abnormal. [facility] [id number] 10:55:13 Test Item Value Reference Range Interpretation Comments Glucose Lvl (test code = Glucose Lvl) 92 70-99 [facility] [id number] 10:55:13 Test Item Value Reference Range Interpretation Comments BUN (test code = BUN) 5 7-22 [facility] [id number] 10:55:13 Test Item Value Reference Range Interpretation Comments Creatinine Lvl (test code = Creatinine 0.59 0.50-1.40 Lvl) [place] 735510-07-12 10:55:13 Test Item Value Reference Range Interpretation Comments Sodium Lvl (test code = Sodium Lvl) 139 135-145 [place] [address]-07-12 10:55:13 Test Item Value Reference Range Interpretation Comments Potassium Lvl (test code = Potassium 3.7 3.5-5.1 Lvl) [place] 735510-07-12 10:55:13 Test Item Value Reference Range Interpretation Comments Chloride Lvl (test code = Chloride Lvl) 105 95-109 [place] [address]-07-12 10:55:13 Test Item Value Reference Range Interpretation Comments CO2 (test code = CO2) 30 24-32 [place] [address]-07-12 10:55:13 Test Item Value Reference Range Interpretation Comments Calcium Lvl (test code = Calcium Lvl) 8.7 8.5-10.5 [place] 735510-07-12 10:55:13 Test Item Value Reference Range Interpretation Comments AGAP (test code = AGAP) 7.7 10.0-20.0 [place] 735510-07-12 10:55:13 Test Item Value Reference Range Interpretation Comments eGFR (test code = eGFR) 115 [place] [address]-07-12 10:55:13 Test Item Value Reference Range Interpretation Comments Lactic Acid Lvl (test code = Lactic 0.9 0.5-2.2 Acid Lvl) [place] 640590-07-12 10:55:13 Test Item Value Reference Range Interpretation Comments WBC X 10x3 (test code = WBC X 10x3) 8.5 3.7-10.4 [place] [address]-07-12 10:55:13 Test Item Value Reference Range Interpretation Comments RBC X 10x6 (test code = RBC X 10x6) 3.91 4.20-5.40 [place] [address]-07-12 10:55:13 Test Item Value Reference Range Interpretation Comments Hgb (test code = Hgb) 12.2 12.0-16.0 [place] [address]-07-12 10:55:13 Test Item Value Reference Range Interpretation Comments Hct (test code = Hct) 35.6 36.0-48.0 [place] 640590-07-12 10:55:13 Test Item Value Reference Range Interpretation Comments MCV (test code = MCV) 91.0 80.0-98.0 [place] [address]-07-12 10:55:13 Test Item Value Reference Range Interpretation Comments MCH (test code = MCH) 31.1 pg 27.0-31.0 [place] [address]-07-12 10:55:13 Test Item Value Reference Range Interpretation Comments MCHC (test code = MCHC) 34.1 32.0-36.0 [place] [address]-07-12 10:55:13 Test Item Value Reference Range Interpretation Comments RDW (test code = RDW) 13.0 11.5-14.5 [place] [address]-07-12 10:55:13 Test Item Value Reference Range Interpretation Comments Platelet (test code = Platelet) 277 133-450 [facility]NgerswxGBXHLYQZOY7867-90-02 10:55:13 Test Item Value Reference Range Interpretation Comments MPV (test code = MPV) 7.1 7.4-10.4 [place] 640590-07-12 10:55:13 Test Item Value Reference Range Interpretation Comments Segs (test code = Segs) 65.7 45.0-75.0 [place] 640590-07-12 10:55:13 Test Item Value Reference Range Interpretation Comments Lymphocytes (test code = Lymphocytes) 25.8 20.0-40.0 [place] [address]-07-12 10:55:13 Test Item Value Reference Range Interpretation Comments Monocytes (test code = Monocytes) 7.0 2.0-12.0 [place] [address]-07-12 10:55:13 Test Item Value Reference Range Interpretation Comments Eosinophils (test code = 0.9 See_Comment [A utomated message] The Eosinophils) system which ge nerated this result tra nsmitted reference range : <=4.0. The reference r glenroy was not used to int erpret this result as normal/abnormal . [place] 640590-07-12 10:55:13 Test Item Value Reference Range Interpretation Comments Basophils (test code = 0.6 See_Comment [Aut omated message] The Basophils) system which ge nerated this result tra nsmitted reference range : <=1.0. The reference r glenroy was not used to int erpret this result as normal/abnormal . [id number] 10:55:13 Test Item Value Reference Range Interpretation Comments Neutrophils # (test code = Neutrophils 5.6 1.5-8.1 #) [facility] HospitalKorsqvqTVMKVYYXVX7255-52-03 10:55:13 Test Item Value Reference Range Interpretation Comments Lymphocytes # (test code = Lymphocytes 2.2 1.0-5.5 #) [facility] HospitalSkansajSQRNUBQVEQ6050-85-10 10:55:13 Test Item Value Reference Range Interpretation Comments Monocytes # (test code 0.6 See_Comment [Aut omated message] The = Monocytes #) system which generated this result tra nsmitted reference range : <=0.8. The reference r glenroy was not used to int erpret this result as normal/abnormal . [facility] HospitalGmlvwgjCCAGWVDSLB9068-87-91 10:55:13 Test Item Value Reference Range Interpretation Comments Eosinophils # (test code 0.1 See_Comment [A utomated message] The = Eosinophils #) system whic h generated this result tra nsmitted reference range : <=0.5. The reference r glenroy was not used to int erpret this result as normal/abnormal . [facility] HospitalXbzqnrhBGFJTJQUPY2253-35-84 10:55:13 Test Item Value Reference Range Interpretation Comments Basophils # (test code 0.1 See_Comment [Aut omated message] The = Basophils #) system which generated this result tra nsmitted reference range : <=0.2. The reference r glenroy was not used to int erpret this result as normal/abnormal . [facility] AND [id number] 10:55:13 Test Item Value Reference Range Interpretation Comments UA Color (test code = Yellow *NA*(02/22/20 UA Color) 5:55 AM) [facility] AND [id number] 10:55:13 Test Item Value Reference Range Interpretation Comments UA Turbidity (test code Slight *ABN*(02/22/20 = UA Turbidity) 5:55 AM) [facility] AND [id number] 10:55:13 Test Item Value Reference Range Interpretation Comments UA Spec Grav (test code = UA Spec 1.017 1 Grav) [facility] AND [id number] 10:55:13 Test Item Value Reference Range Interpretation Comments UA pH (test code = UA pH) 6.0 1 5.0-8.0 [facility] AND [id number] 10:55:13 Test Item Value Reference Range Interpretation Comments UA Protein (test code = UA Negative mg/dL Protein) [facility] AND [id number] 10:55:13 Test Item Value Reference Range Interpretation Comments UA Glucose (test code = UA Negative mg/dL Glucose) [facility] AND [id number] 10:55:13 Test Item Value Reference Range Interpretation Comments UA Ketones (test code = UA Negative mg/dL Ketones) [facility] AND [id number] 10:55:13 Test Item Value Reference Range Interpretation Comments UA Bili (test code = Negative *NA*(02/22/20 UA Bili) 5:55 AM) [facility] AND [id number] 10:55:13 Test Item Value Reference Range Interpretation Comments UA Blood (test code = Negative (02/22/20 5:55 UA Blood) AM) [facility] AND [id number] 10:55:13 Test Item Value Reference Range Interpretation Comments UA Urobilinogen (test code = UA no gt 0.1-1.0 Urobilinogen) [facility] AND [id number] 10:55:13 Test Item Value Reference Range Interpretation Comments UA Nitrite (test code Negative (02/22/20 5:55 = UA Nitrite) AM) [facility] AND [id number] 10:55:13 Test Item Value Reference Range Interpretation Comments UA Leuk Est (test code Trace *ABN*(02/22/20 = UA Leuk Est) 5:55 AM) [facility] AND [id number] 10:55:13 Test Item Value Reference Range Interpretation Comments UA Sq Epi (test code = UA Sq Epi) Many /LPF [facility] AND [id number] 10:55:13 Test Item Value Reference Range Interpretation Comments UA WBC (test code = 4 See_Comment [Automa ramakrishna message] The UA WBC) system which ge nerated this result transmit ramakrishna reference range : <=5. The reference range was not used to interpr et this result as mary l/abnormal. [facility]2020-07-12 10:55:13 Test Item Value Reference Range Interpretation Comments UA RBC (test code = 1 See_Comment [Automa ramakrishna message] The UA RBC) system which ge nerated this result transmit ramakrishna reference range : <=2. The reference range was not used to interpr et this result as mary l/abnormal. [facility] Hos[id number] 10:55:13 Test Item Value Reference Range Interpretation Comments RDW (test code = RDW) 13.0 11.5-14.5 [facility] Hos[id number] 10:55:13 Test Item Value Reference Range Interpretation Comments Platelet (test code = Platelet) 277 133-450 [facility] HospitalQgdulueZAYBHOOJJF1742-26-48 10:55:13 Test Item Value Reference Range Interpretation Comments MPV (test code = MPV) 7.1 7.4-10.4 [facility] HospitalBluxoklTMDWEXLMBQ5305-90-83 10:55:13 Test Item Value Reference Range Interpretation Comments Segs (test code = Segs) 65.7 45.0-75.0 [facility] HospitalYxcquddBRZYXDGAPB7492-65-87 10:55:13 Test Item Value Reference Range Interpretation Comments Lymphocytes (test code = Lymphocytes) 25.8 20.0-40.0 [facility] HospitalRxjbkuaXBQXFQFSWY3339-49-79 10:55:13 Test Item Value Reference Range Interpretation Comments Monocytes (test code = Monocytes) 7.0 2.0-12.0 [facility] HospitalWvnlbgsKCVXJQURAR6144-60-16 10:55:13 Test Item Value Reference Range Interpretation Comments Eosinophils (test code = 0.9 See_Comment [A utomated message] The Eosinophils) system which ge nerated this result tra nsmitted reference range : <=4.0. The reference r glenroy was not used to int erpret this result as normal/abnormal . [facility] HospitalTohehpeSZAMOEXQUG5693-12-13 10:55:13 Test Item Value Reference Range Interpretation Comments Basophils (test code = 0.6 See_Comment [Aut omated message] The Basophils) system which ge nerated this result tra nsmitted reference range : <=1.0. The reference r glenroy was not used to int erpret this result as normal/abnormal . [facility] HospitalDffmxicKXFYLYOEKA4346-91-33 10:55:13 Test Item Value Reference Range Interpretation Comments Neutrophils # (test code = Neutrophils 5.6 1.5-8.1 #) [facility] HospitalMhvdbzyLXXTZMHKGC4811-93-53 10:55:13 Test Item Value Reference Range Interpretation Comments Lymphocytes # (test code = Lymphocytes 2.2 1.0-5.5 #) [facility] HospitalDtwheasJOCJLFMKUP7093-71-28 10:55:13 Test Item Value Reference Range Interpretation Comments Monocytes # (test code 0.6 See_Comment [Aut omated message] The = Monocytes #) system which generated this result tra nsmitted reference range : <=0.8. The reference r glenroy was not used to int erpret this result as normal/abnormal . [facility] HospitalVycgtezKPQZSYOJCO7541-59-75 10:55:13 Test Item Value Reference Range Interpretation Comments Eosinophils # (test code 0.1 See_Comment [A utomated message] The = Eosinophils #) system whic h generated this result tra nsmitted reference range : <=0.5. The reference r glenroy was not used to int erpret this result as normal/abnormal . [facility] HospitalIekvzvnGDOHRCEIAK5153-78-20 10:55:13 Test Item Value Reference Range Interpretation Comments Basophils # (test code 0.1 See_Comment [Aut omated message] The = Basophils #) system which generated this result tra nsmitted reference range : <=0.2. The reference r glenroy was not used to int erpret this result as normal/abnormal . [facility] AND [id number] 10:55:13 Test Item Value Reference Range Interpretation Comments UA Color (test code = Yellow *NA*(02/22/20 UA Color) 5:55 AM) [facility] AND [id number] 10:55:13 Test Item Value Reference Range Interpretation Comments UA Turbidity (test code Slight *ABN*(02/22/20 = UA Turbidity) 5:55 AM) [facility] AND [id number] 10:55:13 Test Item Value Reference Range Interpretation Comments UA Spec Grav (test code = UA Spec 1.017 1 Grav) [facility] AND [id number] 10:55:13 Test Item Value Reference Range Interpretation Comments UA pH (test code = UA pH) 6.0 1 5.0-8.0 [facility] AND [id number] 10:55:13 Test Item Value Reference Range Interpretation Comments UA Protein (test code = UA Negative mg/dL Protein) [facility] AND [id number] 10:55:13 Test Item Value Reference Range Interpretation Comments UA Glucose (test code = UA Negative mg/dL Glucose) [facility] AND [id number] 10:55:13 Test Item Value Reference Range Interpretation Comments UA Ketones (test code = UA Negative mg/dL Ketones) [facility] AND [id number] 10:55:13 Test Item Value Reference Range Interpretation Comments UA Bili (test code = Negative *NA*(02/22/20 UA Bili) 5:55 AM) [facility] AND [id number] 10:55:13 Test Item Value Reference Range Interpretation Comments UA Blood (test code = Negative (02/22/20 5:55 UA Blood) AM) [facility] AND [id number] 10:55:13 Test Item Value Reference Range Interpretation Comments UA Urobilinogen (test code = UA no gt 0.1-1.0 Urobilinogen) [facility] AND [id number] 10:55:13 Test Item Value Reference Range Interpretation Comments UA Nitrite (test code Negative (02/22/20 5:55 = UA Nitrite) AM) [facility] AND [id number] 10:55:13 Test Item Value Reference Range Interpretation Comments UA Leuk Est (test code Trace *ABN*(02/22/20 = UA Leuk Est) 5:55 AM) [facility] AND [id number] 10:55:13 Test Item Value Reference Range Interpretation Comments UA Sq Epi (test code = UA Sq Epi) Many /LPF [facility] AND [id number] 10:55:13 Test Item Value Reference Range Interpretation Comments UA WBC (test code = 4 See_Comment [Automa ramakrishna message] The UA WBC) system which ge nerated this result transmit ramakrishna reference range : <=5. The reference range was not used to interpr et this result as mary l/abnormal. [facility] AND [id number] 10:55:13 Test Item Value Reference Range Interpretation Comments UA RBC (test code = 1 See_Comment [Automa ramakrishna message] The UA RBC) system which ge nerated this result transmit ramakrishna reference range : <=2. The reference range was not used to interpr et this result as mary l/abnormal. [facility]2020-07-12 10:55:13 Test Item Value Reference Range Interpretation Comments Glucose Lvl (test code = Glucose Lvl) 92 70-99 [facility]2020-07-12 10:55:13 Test Item Value Reference Range Interpretation Comments BUN (test code = BUN) 5 7-22 [facility]2020-07-12 10:55:13 Test Item Value Reference Range Interpretation Comments Creatinine Lvl (test code = Creatinine 0.59 0.50-1.40 Lvl) [facility]2020-07-12 10:55:13 Test Item Value Reference Range Interpretation Comments Sodium Lvl (test code = Sodium Lvl) 139 135-145 [facility]2020-07-12 10:55:13 Test Item Value Reference Range Interpretation Comments Potassium Lvl (test code = Potassium 3.7 3.5-5.1 Lvl) [facility]2020-07-12 10:55:13 Test Item Value Reference Range Interpretation Comments Chloride Lvl (test code = Chloride Lvl) 105 95-109 [facility]2020-07-12 10:55:13 Test Item Value Reference Range Interpretation Comments CO2 (test code = CO2) 30 24-32 [facility]2020-07-12 10:55:13 Test Item Value Reference Range Interpretation Comments Calcium Lvl (test code = Calcium Lvl) 8.7 8.5-10.5 [facility]2020-07-12 10:55:13 Test Item Value Reference Range Interpretation Comments AGAP (test code = AGAP) 7.7 10.0-20.0 [facility]2020-07-12 10:55:13 Test Item Value Reference Range Interpretation Comments eGFR (test code = eGFR) 115 [facility]2020-07-12 10:55:13 Test Item Value Reference Range Interpretation Comments Lactic Acid Lvl (test code = Lactic 0.9 0.5-2.2 Acid Lvl) [facility] HospitalQlckcpcFPAURDGKMY9088-84-74 10:55:13 Test Item Value Reference Range Interpretation Comments WBC X 10x3 (test code = WBC X 10x3) 8.5 3.7-10.4 [facility] Hos[id number] 10:55:13 Test Item Value Reference Range Interpretation Comments RBC X 10x6 (test code = RBC X 10x6) 3.91 4.20-5.40 [facility] HospitalZhksxehALNMOUSGYJ9996-54-81 10:55:13 Test Item Value Reference Range Interpretation Comments Hgb (test code = Hgb) 12.2 12.0-16.0 [facility] HospitalZjbfjblOPQMBFRJWN4350-89-37 10:55:13 Test Item Value Reference Range Interpretation Comments Hct (test code = Hct) 35.6 36.0-48.0 [facility] HospitalDidpmjoUIGPFQLUXM6401-87-33 10:55:13 Test Item Value Reference Range Interpretation Comments MCV (test code = MCV) 91.0 80.0-98.0 [facility] HospitalFiiioyhYCXOJTZEJM9770-60-64 10:55:13 Test Item Value Reference Range Interpretation Comments MCH (test code = MCH) 31.1 pg 27.0-31.0 [facility] HospitalPsggeplGEFZCKMKMQ1149-58-47 10:55:13 Test Item Value Reference Range Interpretation Comments MCHC (test code = MCHC) 34.1 32.0-36.0 [facility] Notes Date/Time Note Provider Source 2021-02-21 [facility] 09:29:00-00:00 [facility] ([facility]) Colorectal Surgery Prog Note REPORT#:[id number] REPORT STATUS: Signed DATE:02/21/21 TIME:928 PATIENT: MAURICE HIDALGO UNIT #: [id number] [address] : [address] AGE: 40 SEX: F ATTEND: Caty Valdez MD ADM AUTHOR: Petorna Oliveira MD * ALL edits or amendments must be made on the el ectronic/computer document * General Date of surgery: 02/20/21 Status post: Lap ana Subjective Chief Complaint: feeling well Comments: doing well pain is controlled tolerated PO Objective General VS/I O: Last Documented: Result Date Time Pulse Ox 100 02/22 832 B/P 115/68 02/22 832 B/P Mean 83 02/22 832 Temp 96.5 02/22 832 Pulse 77 02/22 832 Resp 16 02/22 832 O2 Delivery Room air 02/20 1010 24 hour I O ending at 0700: 02/21 0700 02/20 1900 Intake Total 1450.00 340.00 Output Total Balance 1450.00 340.00 Intake, IV 1050.00 100.00 Intake, Oral 400 240 Number Voids 2 PATIENT WEIGHT: Weight (lb): Weight (oz): Weight (kg): 54.545 Nutrition assessment: The data set between the solid lines has been im ported from the dietitian's assessment. Any exceptions have been noted under Provider comments. BMI Calculated: 20.0 Nutrition related diagnosis: Nutrition diagnosis details: Nutrition problem: Nutrition etiology: Nutrition signs and symptoms: Nutrition prescription: Dietitian name: Assessment completed: Provider comments on imported dietitian assessme nt: Physical Exam General appearance: alert, awake, oriented HEENT: anicteric, atraumatic, clear cornea, EOMI Neck: full range of motion, non-tender Cardiovascular: regular rate and rhythm Respiratory: aerating well, no distress, no tend erness Abdomen: soft, no distention, appropiately TTP, incisions clean Genitourinary - Female no flank pain, no [place] Extremities: moves all, normal capillary refill Musculoskeletal: full range of motion, normal in spection Neuro/LABORATORY CUREMAN: alert, oriented x 3, normal speech Skin: dry, intact, normal color Current Medications Medications: Active Meds + DC'd Last 24 Hrs Hydrocodone Bitart/Acetaminophen 1 TAB PACU ONCE PRN PO (DC) Hydrocodone Bitart/Acetaminophen 1 TAB PACU ONCE PRN PO (DC) Hydromorphone HCl 0.5 MG PACU Q10MIN PRN PRN IV (DC) Ketorolac Tromethamine 15 MG PACU ONCE PRN IV (D C) Labetalol HCl 5 MG PACU Q10MIN PRN PRN IV (DC) Ondansetron HCl 4 MG PACU ONCE PRN IV (DC) Amitriptyline HCl 50 MG DAILY 2100 PO Pantoprazole 40 MG Q12HR PO Piperacillin Sod/Tazobactam Sod 3.375 GM Q8HR IV Sodium Chloride 100 ML Sodium Chloride 1,000 ML .[id number] IV Clonazepam 0.5 MG BID PO Ondansetron HCl 4 MG Q4H PRN PRN IV Morphine Sulfate 2 MG Q3H PRN PRN IV Diagnosis, Assessment Plan Free Text A P: #1 Acute on chronic cholecystitis #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 #3 hiatal hernia #4 lumbar stenosis #5 history of cervical cancer - POD 1 s/p Lap ana - DOing well - Ok to DC from surgery standpoint - F/u 2-3 weeks at 0931 RPT #: [id number] END OF REPORT 2021-02-20 [facility] 10:32:00-00:00 [facility] ([facility] DT Operative Note REPORT#:[id number] REPORT STATUS: Signed DATE:02/20/21 TIME:1032 PATIENT: MAURICE HIDALGO UNIT #: [id number] ROOM/BED: [facility] [place]-1 : 78 AGE: 40 SEX: F ATTEND: Manish Valdez MD ADM AUTHOR: Petrona Oliveira MD * ALL edits or amendments must be made on the el ectronic/computer document * Operative Report Operative Note Note: Preoperative diagnosis: Acute cholecysti tis, 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 Postoperative diagnosis: Acute on chronic cholec ystitis, periampullary diverticulum status post ERCP and stent placemen t Procedure: Laparoscopic cholecystectomy Surgeon: Petrona Oliveira MD Story Reader: Savannah Casanova Anesthesia: General EBL: 5 cc IV fluids: Per anesthesia Urine output: Unmeasured Specimen: Gallbladder Complications: None Findings: Distended gallbladder, pericholecystic fluid, chronic inflammatory bands, chronic thickening of gallbladder , large hiatal hernia without evidence of gastric volvulus, right-sided indirect inguin al hernia Procedure in detail: Patient is a 40-year-old fem ashtyn was seen at an outside hospital and was found to have extrahepatic biliary dilatation. Patient un derwent an ERCP and was found to have a periampullary diverticulum, underwent stent placement. Patient developed epigastric and right upper quadrant pa in, nausea, and vomiting. On examination, patient was exquisitely tender in t he right upper quadrant consistent with acute cholecystitis. Discussed t he risks, benefits, and alternatives to surgery with the patient . Patient verbalized understanding and wished to proceed with an operation. Patient was brought to the o perating room, placed supine on the operating table, general anesthesia was admin istered with anesthesia department. The abdomen was prepped and draped in usual sterile fashion. Pre operative timeout was performed. Preoperative antibiotics were given. 5 mm incision was made at the right subc ostal region midclavicular line, using an optical trocar, the abdominal cavity was acce ssed with Optiview technique. Once inside the abdominal cavity, pneumo peritoneum was established with carbon dioxide. Initial inspection of the abdominal cav ity revealed no trocar injuries. Additional [address] d in the supraumbilical region, a 5 mm trochars placed in the right flank, and a 12 mm trocar was placed in the subxiphoid region. Patient was positioned in rev erse Trendelenburg with rotation toward the left. At tention was turned to the right upper quadrant, the gallbladder was identified a nd appeared chronically inflamed and distended. The gallbladder fundus was grasped and retracted cep halad which exposed the infundibulum. The infundibul um was grasped and retracted toward the right lower quadrant. Dissection was started with an L-hook electrocautery by incising the peritoneum on each side of the gallbladder. At t his allowed exposure of the lateral edge of the cystic duct. Dissection was then carried medial to the cystic duct with an L-hook electrocautery by div iding adhesion bands. This allowed exposure of the cystic artery. The cysti c artery was then circumferentially dissected. The cystic duct was also circumferentially dissected. Dissection was then carried t oward the gallbladder bed to establish critical view of safety. Onc e that was performed, both cystic artery and cystic duct were triply ligated with clips and divided sharply with EndoShears. The gallbladder was further mobilized off of the liver in the avascular plane with an L-hook electrocautery. Once the gallbladder w as completely attached, was placed in Endo Catch bag and retrieved t hrough the subxiphoid trocar site. Due to the size of the gallbladder, the troc ar site had to be dilated with a Ai hemostat. Gallbladder was retrieved and passed off of the field. Attention was turned back to the surgical bed. Hemosta sis was excellent. Clip appeared to be intact on the cystic duct and cystic art [place]. Final inspection of the abdominal cavity showed a large hiatal hernia without evid ence of gastric volvulus, a small indirect inguinal shun ia. The 12 mm trocar site was then closed with an 0 Vicryl suture using Cornelio oreilly device. Pneumoperitoneum was evacuated, all trochars were removed, skin incisions were close d with 4-0 Monocryl in subcuticular fashion. Dermabond was applied over the incisions. Patient tolerated the procedure well, was extubated, tra nsferred to PACU in stable conditions. at 1039 RPT #: [id number] END OF REPORT 2021-02-20 [facility] 10:23:00-00:00 [facility] ([facility]) Hospitalist Progress Note REPORT#:[id number] REPORT STATUS: Signed DATE:02/20/21 TIME:1023 PATIENT: MAURICE HIDALGO UNIT #: [id number] [address] : [address] AGE: 40 SEX: F ATTEND: Caty Valdez MD ADM AUTHOR: Maynor Valdez MD * ALL edits or amendments must be made on the el ectronic/computer document * Subjective Chief Complaint: Still having pain abdomen Afebrile Getting a lap ana today Objective General VS/I O: Vital Signs: Date Time Temp Pulse Resp B/P B/P Pulse O2 O2 F low FiO2 Mean Ox Delivery Rate 02/20 1045 74 10 112/69 99 11 1030 57 13 108/68 99 /11 1025 56 12 121/70 99 /11 1020 55 11 117/73 99 /11 1015 49 15 121/74 100 /11 1010 97.6 49 15 129/68 100 Room air 02/20 0827 98.4 60 18 102/59 100 Room air /11 0400 60 21 102/59 76 100 07/10 2332 58 13 97 07/10 2233 62 27 99 07/10 2133 65 23 100 07/10 2033 66 22 100 07/10 2005 98.4 07/10 1999 66 24 101/65 78 100 07/10 1952 67 26 100 07/10 1934 68 23 103/69 82 100 07/10 1933 72 24 100 07/10 1616 97.6 69 16 105/55 71 100 Room air 02/19 1201 98.1 70 16 109/74 85 100 Room air 24 hour I O ending at 0700: 02/20 0700 02/19 1900 Intake Total 1250.00 1220.00 Output Total Balance 1250.00 1220.00 Intake, IV 1050.00 900.00 Intake, Oral 200 320 Number Voids 2 5 PATIENT WEIGHT: Weight (lb): Weight (oz): Weight (kg): 54.545 Medications: Active Meds + DC'd Last 24 Hrs Hydrocodone Bitart/Acetaminophen 1 TAB PACU ONCE PRN PO Hydrocodone Bitart/Acetaminophen 1 TAB PACU ONCE PRN PO Hydromorphone HCl 0.5 MG PACU Q10MIN PRN PRN IV Ketorolac Tromethamine 15 MG PACU ONCE PRN IV Labetalol HCl 5 MG PACU Q10MIN PRN PRN IV Ondansetron HCl 4 MG PACU ONCE PRN IV Cefazolin Sodium 0 .STK-MED ONE .ROUTE (DC) Bupivacaine HCl 0 .STK-MED ONE .ROUTE (DC) Lidocaine HCl 0 .STK-MED ONE .ROUTE (DC) Fentanyl Citrate 0 .STK-MED ONE .ROUTE (DC) Midazolam HCl 0 .STK-MED ONE .ROUTE (DC) Propofol 20 ML .STK-MED ONE IV (DC) Amitriptyline HCl 50 MG DAILY 2100 PO Pantoprazole 40 MG Q12HR PO Piperacillin Sod/Tazobactam Sod 3.375 GM Q8HR IV Sodium Chloride 100 ML Sodium Chloride 1,000 ML .[id number] IV Clonazepam 0.5 MG BID PO Ondansetron HCl 4 MG Q4H PRN PRN IV Pantoprazole Sodium 40 MG Q12HR IV (DC) Morphine Sulfate 2 MG Q3H PRN PRN IV Sodium Chloride 1,000 ML .[id number] IV (DC) Physical Exam General appearance: alert, awake Head/Eyes: atraumatic, normocephalic ENT: dry mucosal membrane Neck: supple/no meningismus Cardiovascular: normal heart sounds, regular rat e rhythm Respiratory: aerating well, symmetric expansion Abdomen: tenderness, soft, no distention Genitourinary: no bladder distention Extremities: moves all, normal range of motion Musculoskeletal: normal inspection Neuro/LABORATORY CUREMAN: alert, oriented X 3 Skin: dry Lymphatics: no lymphadenopathy Psychiatry: anxious Results Radiology data: Recent Impressions: ULTRASOUND - US ABDOMEN COMPLETE 02/19 7555 Report Impression - Status: SIGNED Entered: 02/19/2021 4144 IMPRESSION: 1. Minimal gallbladder wall thickening with izabela cholecystic fluid, sludge and minimal prominence of the common duct with a positive Causey sign. Cholecystitis is suspected Impression By: [email or web address] Bhavani Valdez M.D. Diagnosis, Assessment Plan Free Text DxA P Notes Free text DxA P notes: Intractable abdominal pain Status post ERCP and CBD stent placement Anxiety Cholecystitis Plan Pain control Continue on antibiotics empirically LFTs monitored CT of the abdomen pelvis was not showing any sig nificant abnormality GI consult appreciated Ultrasound findings noted Consistent with cholecystitis We will consult surgery Posted for lap ana today PPI Continue home medications and titrate as needed Possible DC if pain is controlled and tolerated p.o. Electronically Signed by Maynor Valdez MD on at 1131 RPT #: [id number] END OF REPORT 2021-02-19 [facility] 11:02:00-00:00 [facility] Hospitalist Progress Note REPORT#:[id number] REPORT STATUS: Signed DATE:02/19/21 TIME:1102 PATIENT: MAURICE HIDALGO UNIT #: [id number] [address] : [address] AGE: 40 SEX: F ATTEND: Caty Valdez MD ADM AUTHOR: Maynor Valdez MD * ALL edits or amendments must be made on the Cloak/computer document * Subjective Chief Complaint: Still having pain abdomen Afebrile Objective General VS/I O: Vital Signs: Date Time Temp Pulse Resp B/P B/P Pulse O2 O2 F low FiO2 Mean Ox Delivery Rate 02/19 0728 97.8 78 16 101/72 81 100 Room air 02/19 0400 98.1 63 18 104/64 77 98 Room air 02/19 0004 98.2 70 18 108/68 81 100 Room air 02/18 1940 98.1 79 20 109/70 83 100 Room air 02/18 1816 66 18 112/67 82 100 02/18 1701 78 16 111/62 78 100 02/18 1439 60 16 103/60 74 100 02/18 1401 100 02/18 1255 97.9 97 20 112/60 77 97 Room air 24 hour I O ending at 0700: 02/19 0700 02/18 1900 Intake Total 900.00 Output Total Balance 900.00 Intake, IV 900.00 Number Voids 4 Patient 120 lb Weight Weight Stated/Reported Measurement Method PATIENT WEIGHT: Weight (lb): Weight (oz): Weight (kg): 54.545 Medications: Active Meds + DC'd Last 24 Hrs Amitriptyline HCl 50 MG DAILY 2100 PO Clonazepam 0.5 MG BID PO Ondansetron HCl 4 MG Q4H PRN PRN IV Pantoprazole Sodium 40 MG Q12HR IV Metoclopramide HCl 10 MG ONCE ONE IV (DC) Morphine Sulfate 2 MG Q3H PRN PRN IV Sodium Chloride 1,000 ML .[id number] IV Sodium Chloride 2,000 ML ONCE ONE IV (DC) Morphine Sulfate 4 MG X1ED STA IV (DC) Ondansetron HCl 4 MG X1ED STA IV (DC) Morphine Sulfate 4 MG ONCE ONE IV (DC) Iopamidol 0 .STK-MED ONE .ROUTE (DC) Sodium Chloride 50 ML .STK-MED ONE IV (DC) Cefepime HCl 1 GM X1ED STA IV (DC) Sterile Water 10 ML Metronidazole/Sodium Chloride 100 ML X1ED STA IV (DC) Sodium Chloride 1,636.35 ML X1ED STA IV (DC) Ondansetron HCl 4 MG X1ED PRN PRN IV (DC) Famotidine 20 MG X1ED STA IV (DC) Morphine Sulfate 4 MG X1ED STA IV (DC) Sodium Chloride 1,000 ML X1ED STA IV (DC) Physical Exam General appearance: alert, awake Head/Eyes: atraumatic, normocephalic ENT: dry mucosal membrane Neck: supple/no meningismus Cardiovascular: normal heart sounds, regular rat e rhythm Respiratory: aerating well, symmetric expansion Abdomen: tenderness, soft, no distention Genitourinary: no bladder distention Extremities: moves all, normal range of motion Musculoskeletal: normal inspection Neuro/LABORATORY CUREMAN: alert, oriented X 3 Skin: dry Lymphatics: no lymphadenopathy Psychiatry: anxious Results Findings/Data: Laboratory Tests 02/19/21 1020: [Embedded Image Not Available] 02/18/21 1315: [Embedded Image Not Available] Laboratory Tests 02/19 1020 Chemistry Sodium (134 - 147 mmol/L) 141 Potassium (3.4 - 5.0 mmol/L) 3.7 Chloride (100 - 108 mmol/L) 113 H Carbon Dioxide (21 - 32 mmol/L) 25 Anion Gap (4.0 - 15.0 GAP calc) 3.0 L BUN (7 - 18 MG/DL) 5 L Creatinine (0.6 - 1.0 MG/DL) 0.5 L Glomerular Filtr Rate (>60 estGFR) >=60 max est imate Glucose (70 - 110 MG/DL) 83 Calcium (8.5 - 10.1 MG/DL) 8.2 L Total Bilirubin (0.2 - 1.2 MG/DL) 0.40 AST (15 - 37 Unit/L) 13 L ALT (12 - 78 Unit/L) 16 Total Alk Phosphatase (45 - 117 Unit/L) 46 Total Protein (6.4 - 8.2 G/DL) 6.2 L Albumin (3.4 - 5.0 G/DL) 3.5 Globulin (GM/dL) 2.7 Albumin/Globulin Ratio (1.2 - 2.2 RATIO) 1.3 02/18 02/18 1315 1310 Chemistry Sodium (134 - 147 mmol/L) 141 Potassium (3.4 - 5.0 mmol/L) 3.6 Chloride (100 - 108 mmol/L) 108 Carbon Dioxide (21 - 32 mmol/L) 26 Anion Gap (4.0 - 15.0 GAP calc) 7.0 BUN (7 - 18 MG/DL) 9 Creatinine (0.6 - 1.0 MG/DL) 0.6 Glomerular Filtr Rate (>60 estGFR) >=60 max est imate Glucose (70 - 110 MG/DL) 71 Lactic Acid (0.4 - 2.0 mmol/L) 1.0 Calcium (8.5 - 10.1 MG/DL) 8.8 Total Bilirubin (0.2 - 1.2 MG/DL) 0.50 Direct Bilirubin (0.00 - 0.30 MG/DL) 0.10 Indirect Bilirubin (0.2 - 1.2 MG/DL) 0.40 AST (15 - 37 Unit/L) 9 L ALT (12 - 78 Unit/L) 19 Total Alk Phosphatase (45 - 117 Unit/L) 55 Total Protein (6.4 - 8.2 G/DL) 7.4 Albumin (3.4 - 5.0 G/DL) 4.4 Lipase (114 - 286 Unit/L) 128 Laboratory Tests 02/19 02/18 1020 1315 Hematology WBC (3.5 - 11.0 K/mm3) 6.2 10.4 RBC (4.70 - 6.10 M/mm3) 3.86 L 4.67 L Hgb (10.4 - 14.9 G/DL) 12.0 14.5 Hct (31.5 - 44.1 %) 35.6 43.7 MCV (84.5 - 98.6 Fl) 92.2 93.6 MCH (27.0 - 34.2 pg) 31.1 31.0 MCHC (31.5 - 34.0 G/DL) 33.7 33.2 RDW (11.5 - 14.5 SD) 12.5 12.6 Plt Count (150 - 450 K/mm3) 156 193 MPV (7.0 - 10.5 fL) 10.90 H 10.80 H Neut % (Auto) (40 - 76 %) 60.1 70.4 Lymph % (Auto) (20.5 - 51.1 %) 30.9 23.1 [place] % (Auto) (1.7 - 9.3 %) 7.3 5.5 Eos % (Auto) (0.0 - 6.0 %) 1.0 0.6 Baso % (Auto) (0.0 - 2.0 %) 0.5 0.2 Neut # (Auto) (1.8 - 7.6 K/mm3) 3.7 7.3 Lymph # (Auto) (0.6 - 3.2 K/mm3) 1.9 2.4 [place] # (Auto) (0.3 - 1.1 K/mm3) 0.5 0.6 Eos # (Auto) (0.0 - 0.4 K/mm3) 0.1 0.1 Baso # (Auto) (0.0 - 0.1 K/mm3) 0.0 0.0 Abs Immat Gran (auto) (0.00 - 0.03 x10 3/uL) 0. 01 0.02 Add Manual Diff (CRITERIA DIFF/SCN) NO NO Immature Gran % (0.0 - 5.0 %) 0.2 0.2 Nucleated RBC % (0.0 - 1.0 /100WBC%) 0.0 0.0 Laboratory Tests 02/18 1653 Serology SARS-CoV-2 Ag (Rapid) (Negative) NEGATIVE Laboratory Tests 02/18 1315 Urines Urine Color (YEL/STRAW discript) YELLOW Urine Appearance (CLEAR discript) CLEAR Urine pH (5.0 - 7.0 pH UNITS) 6.0 Ur Specific [place] (1.005 - 1.030 SG) 1.015 Urine Protein (NEG mg/dL) NEGATIVE Urine Glucose (UA) (NEG mg/dL) NEGATIVE Urine Ketones (NEG mg/dL) 2+ H Urine Blood (NEG mg/DL) NEGATIVE Urine Nitrite (NEG SCREEN) NEGATIVE Urine Bilirubin (NEG mg/dL) NEGATIVE Urine Urobilinogen (<2.0 mg/dL) 0.2 Ur Leukocyte Esterase (NEGATIVE Leuk/mcL) NEGAT LOC Radiology data: Recent Impressions: RADIOLOGY - XR CHEST 1 V 02/18 1345 Report Impression - Status: SIGNED Entered: 02/18/2021 1423 IMPRESSION: No acute abnormality identified. Impression By: [email or web address] - Shad Hairston M.D. CAT SCAN - CT ABD PELVIS W/CONT 02/18 1405 Report Impression - Status: SIGNED Entered: 02/18/2021 1429 IMPRESSION: 1. Left lower lobe pulmonary nodule measures 5 m m. 2. Satisfactory position of biliary stent. Assoc iated pneumobilia. Contrast within the gallbladder. 3. Normal appendix. No bowel obstruction. Impression By: [email or web address] Bhavani Silver M.D. Diagnosis, Assessment Plan Free Text DxA P Notes Free text DxA P notes: Intractable abdominal pain Status post ERCP and CBD stent placement Anxiety Plan Pain control Continue on antibiotics empirically LFTs monitored CT of the abdomen pelvis was not showing any sig nificant abnormality GI consult PPI Continue home medications and titrate as needed Possible DC if pain is controlled and okay with GI Electronically Signed by Maynor Valdez MD on at 1113 RPT #: [id number] END OF REPORT 2021-02-18 [facility] 16:26:00-00:00 [facility] ([facility]) Hospitalist History Physical REPORT#:[id number] REPORT STATUS: Signed DATE:02/18/21 TIME:1626 PATIENT: MAURICE HIDALGO UNIT #: [id number] ROOM/BED: [place] [id number] : 79 AGE: 40 SEX: F ATTEND: Caty Valdez MD ADM AUTHOR: Maynor Valdez MD * ALL edits or amendments must be made on the Cloak/computer document * History of Present Illness HPI Chief complaint: Abdominal pain HPI: 40-year-old female came in with intractable abdo nino pain after having a CBD stent placement on yesterday from Dr. Me henao here at the [facility]. Pain is sharp 9 out of 10 in maribell rity located in upper quadrant and epigastric region nonradiating, not associated with diaphoresis.. Patient also states she is extremely nauseated. Denies any fever or chills. Denies any other symptoms or complaints. History Past Medical Surgical Hx Additional medical history: Cholelithiasis Additional surgical history: Status post CBD stent Family History Family history: Reports: Hypertension. Social History Smoking status: Smoking status for patients 13 years old or old er: Current some day smoker Medication/Allergy-Vaccine Hx Allergies: Coded Allergies: lidocaine (Intermediate, SITE SWELLING 02/18/21) Review of Systems Free Text ROS Notes Free Text ROS Notes: All the 14 point review of system is negative ex cept for those mentioned HPI Physical Exam VS/I O: Vital Signs Date Temp Pulse Resp B/P B/P Mean Pulse Ox FiO2 02/18 97.9 60-97 16-20 103-112/60 74-77 97-100 Last Documented: Result Date Time Pulse Ox 100 02/18 1439 B/P 103/60 02/18 1439 B/P Mean 74 / 1439 Pulse 60 02/18 1439 Resp 16 02/18 1439 O2 Delivery Room air 02/18 1255 Temp 97.9 02/18 1255 Patient Weight and BMI Weight (kg): 54.545 BMI: 20.0 Physical Exam General appearance: alert, awake Head/Eyes: atraumatic, normocephalic ENT: dry mucosal membrane Neck: supple/no meningismus Cardiovascular: normal heart sounds, regular rat e rhythm Respiratory: aerating well, symmetric expansion Abdomen: tenderness, soft, no distention Genitourinary: no bladder distention Extremities: moves all, normal range of motion Musculoskeletal: normal inspection Neuro/LABORATORY CUREMAN: alert, oriented X 3 Skin: dry Lymphatics: no lymphadenopathy Psychiatry: anxious Results Findings/Data: Laboratory Tests 02/18/21 1315: [Embedded Image Not Available] Laboratory Tests: 02/18 02/18 1315 1310 Chemistry Sodium (134 - 147 mmol/L) 141 Potassium (3.4 - 5.0 mmol/L) 3.6 Chloride (100 - 108 mmol/L) 108 Carbon Dioxide (21 - 32 mmol/L) 26 Anion Gap (4.0 - 15.0 GAP calc) 7.0 BUN (7 - 18 MG/DL) 9 Creatinine (0.6 - 1.0 MG/DL) 0.6 Glomerular Filtr Rate (>60 estGFR) >=60 max est imate Glucose (70 - 110 MG/DL) 71 Lactic Acid (0.4 - 2.0 mmol/L) 1.0 Calcium (8.5 - 10.1 MG/DL) 8.8 Total Bilirubin (0.2 - 1.2 MG/DL) 0.50 Direct Bilirubin (0.00 - 0.30 MG/DL) 0.10 Indirect Bilirubin (0.2 - 1.2 MG/DL) 0.40 AST (15 - 37 Unit/L) 9 L ALT (12 - 78 Unit/L) 19 Total Alk Phosphatase (45 - 117 Unit/L) 55 Total Protein (6.4 - 8.2 G/DL) 7.4 Albumin (3.4 - 5.0 G/DL) 4.4 Lipase (114 - 286 Unit/L) 128 Hematology WBC (3.5 - 11.0 K/mm3) 10.4 RBC (4.70 - 6.10 M/mm3) 4.67 L Hgb (10.4 - 14.9 G/DL) 14.5 Hct (31.5 - 44.1 %) 43.7 MCV (84.5 - 98.6 Fl) 93.6 MCH (27.0 - 34.2 pg) 31.0 MCHC (31.5 - 34.0 G/DL) 33.2 RDW (11.5 - 14.5 SD) 12.6 Plt Count (150 - 450 K/mm3) 193 MPV (7.0 - 10.5 fL) 10.80 H Neut % (Auto) (40 - 76 %) 70.4 Lymph % (Auto) (20.5 - 51.1 %) 23.1 [place] % (Auto) (1.7 - 9.3 %) 5.5 Eos % (Auto) (0.0 - 6.0 %) 0.6 Baso % (Auto) (0.0 - 2.0 %) 0.2 Neut # (Auto) (1.8 - 7.6 K/mm3) 7.3 Lymph # (Auto) (0.6 - 3.2 K/mm3) 2.4 [place] # (Auto) (0.3 - 1.1 K/mm3) 0.6 Eos # (Auto) (0.0 - 0.4 K/mm3) 0.1 Baso # (Auto) (0.0 - 0.1 K/mm3) 0.0 Abs Immat Gran (auto) (0.00 - 0.03 x10 3/uL) 0. 02 Add Manual Diff (CRITERIA DIFF/SCN) NO Immature Gran % (0.0 - 5.0 %) 0.2 Nucleated RBC % (0.0 - 1.0 /100WBC%) 0.0 Urines Urine Color (YEL/STRAW discript) YELLOW Urine Appearance (CLEAR discript) CLEAR Urine pH (5.0 - 7.0 pH UNITS) 6.0 Ur Specific [place] (1.005 - 1.030 SG) 1.015 Urine Protein (NEG mg/dL) NEGATIVE Urine Glucose (UA) (NEG mg/dL) NEGATIVE Urine Ketones (NEG mg/dL) 2+ H Urine Blood (NEG mg/DL) NEGATIVE Urine Nitrite (NEG SCREEN) NEGATIVE Urine Bilirubin (NEG mg/dL) NEGATIVE Urine Urobilinogen (<2.0 mg/dL) 0.2 Ur Leukocyte Esterase (NEGATIVE Leuk/mcL) NEGAT LOC Laboratory Tests 02/18/21 1315: [Embedded Image Not Available] Radiology data: Recent Impressions: RADIOLOGY - XR CHEST 1 V 02/18 1345 Report Impression - Status: SIGNED Entered: 02/18/2021 1423 IMPRESSION: No acute abnormality identified. Impression By: [email or web address] - Shad Hairston M.D. CAT SCAN - CT ABD PELVIS W/CONT 02/18 1405 Report Impression - Status: SIGNED Entered: 02/18/2021 1429 IMPRESSION: 1. Left lower lobe pulmonary nodule measures 5 m m. 2. Satisfactory position of biliary stent. Assoc iated pneumobilia. Contrast within the gallbladder. 3. Normal appendix. No bowel obstruction. Impression By: [email or web address] - Gen Silver M.D. Diagnosis, Assessment Plan Free Text A P: Intractable abdominal pain Status post ERCP and CBD stent placement Anxiety Plan Pain control Continue on antibiotics empirically LFTs monitored CT of the abdomen pelvis was not showing any sig nificant abnormality GI consult PPI Continue home medications and titrate as needed GI/DVT prophylaxis Awaiting further recommendations from GI Electronically Signed by Maynor Valdez MD on at 1115 RPT #: [id number] END OF REPORT 2021-02-18 [facility] 16:02:00-00:00 [facility] ([facility]) EMERGENCY PROVIDER REPORT REPORT#:[id number] REPORT STATUS: Signed DATE:02/18/21 TIME:1602 PATIENT: MAURICE HIDALGO UNIT #: [id number] ROOM/BED: MSO03-1 : 79 AGE: 40 SEX: F PCP PHYS: Dez Mcconnell MD SERVICE AUTHOR: Lizzy Partida * ALL edits or amendments must be made on the el ectronic/computer document * HPI-Abd Pain F 40 and Over Free Text HPI Notes Free Text HPI Notes 40-year-old female presents to the as a walk- in on behalf of having a CBD stent placement on yesterday from Dr. Ogden here a t the [facility]. Patient returns for [place] which is [address] for chief complaint of abdominal pain 9 out of 10 in nature. Patient al so states she is extremely nauseated. Will order labs and call Dr. Tripathi. De nies any fever or chills. Denies any other symptoms or complaints. General Confirmed Patient Yes Patient Type New patient Initial Greet Date/Time 02/18/21 1228 Presentation Chief Complaint Abdominal pain, Nausea Hx Obtained From Patient Sudden in Onset? No Quality Aching, Painful Radiation Does not radiate. No: Adnexa l region R, Adnexal region L, Back, Chest, Flank R, Flank L, Flank bilateral, Abdomen upper, Abdomen lower, Epigastric, RUQ, LUQ, RLQ, LLQ, Pelvis, Suprapubic, Inguinal R, Inguin al L. Migration/Movement None Severity: Onset Moderate Severity: Current Moderate Context Immunization Status General All up to date Risk-Abd Pain F 40 and Over )( Abdominal Aortic Aneurysm Risk factors review ed, No risk factors Ectopic Risk factors reviewed, No risk factors Coronary Artery Disease Risk factors reviewed, N o risk factors Review of Systems ROS Statements All systems rev neg except as marked. Complete sys rev neg except as marked. Focused Review of Systems Respiratory Denies: Cough, non-productive, Cough, productive , Dyspnea on exertion, Hemoptysis, Parox nocturnal dyspnea, Pleuritic p ain, Shortness of breath, Wheezing. Cardiovascular Denies: Chest pain, Dyspnea on exertion, Edema, Orthopnea, Palpitations, Parox nocturnal dyspnea, Syncope. GI Reports: Abdominal pain. Past Medical History - Adult Stated Complaint PAIN POST SURGERY OF STENT IN B ILE DUCT YESTER Allergies Coded Allergies: lidocaine (Intermediate, SITE SWELLING 02/18/21) Home Medications Reported Medications clonazePAM (KlonoPIN) 0.5 MG PO BID AMITRIPTYLINE (ELAVIL) 50 MG PO DAILY 2100 Review of Nursing Notes Rev avail, and agree Pt reports no significant: Family history, Socia l history Smoking status: Smoking status for patients 13 years old or old er: Current some day smoker Physical Exam Vital Signs Vital Signs First Documented: Result Date Time Pulse Ox 97 / 1255 B/P 112/60 / 1255 B/P Mean 77 07/09 1255 O2 Delivery Room air 02/18 1255 Temp 36.6 07 1255 Pulse 97 07/ 1255 Resp 20 02/18 1255 Last Documented: Result Date Time Pulse Ox 100 07/ 1439 B/P 103/60 /09 1439 B/P Mean 74 /09 1439 Pulse 60 07/ 1439 Resp 16 07/ 1439 O2 Delivery Room air 02/18 1255 Temp 36.6 02/18 1255 Review of Vital Signs Reviewed, Vital signs norm al Basic Physical Exam Basic PE HEAD: Atraumatic/NC, EYES: PERRL, conj clear, ENT: Membranes moist, NECK: Supple, EXT: No gross abnormality, SKIN: No rashes, warm/dry, NEURO: alert oriented, NEURO: gross movement NL, PSYCH: NL t hought content Focused PE General/Const General/Const Awake, Alert, No acute distress MS Head Head Atraumatic, Normocephalic Ears/Nose/Throat Ears/Nose/Throat Atraumatic, Airway patent, Muc ous membranes moist, Pharynx NL Resp/Chest Respiratory/Chest Atraumatic, Breath sounds NL, Breath sounds = bilat, No respiratory distress Cardiovascular Cardiovascular Heart rate NL, Regular rhythm, H eart sounds NL, No murmurs, Cap refill not delayed, Peripheral circulation N L Abdomen/GI Abdomen/GI Atraumatic, Soft, Non-tender, Mc[place] ey's non-tender MS Back Back Atraumatic, Inspection NL, Full range of m otion, Painless range of motion Interpretation Diagnostics Lab Results Interpretation Results Laboratory Tests 02/18/21 1315: [Embedded Image Not Available] Laboratory Tests: 02/18 02/18 1315 1310 Chemistry Sodium (134 - 147 mmol/L) 141 Potassium (3.4 - 5.0 mmol/L) 3.6 Chloride (100 - 108 mmol/L) 108 Carbon Dioxide (21 - 32 mmol/L) 26 Anion Gap (4.0 - 15.0 GAP calc) 7.0 BUN (7 - 18 MG/DL) 9 Creatinine (0.6 - 1.0 MG/DL) 0.6 Glomerular Filtr Rate (>60 estGFR) >=60 max es timate Glucose (70 - 110 MG/DL) 71 Lactic Acid (0.4 - 2.0 mmol/L) 1.0 Calcium (8.5 - 10.1 MG/DL) 8.8 Total Bilirubin (0.2 - 1.2 MG/DL) 0.50 Direct Bilirubin (0.00 - 0.30 MG/DL) 0.10 Indirect Bilirubin (0.2 - 1.2 MG/DL) 0.40 AST (15 - 37 Unit/L) 9 L ALT (12 - 78 Unit/L) 19 Total Alk Phosphatase (45 - 117 Unit/L) 55 Total Protein (6.4 - 8.2 G/DL) 7.4 Albumin (3.4 - 5.0 G/DL) 4.4 Lipase (114 - 286 Unit/L) 128 Hematology WBC (3.5 - 11.0 K/mm3) 10.4 RBC (4.70 - 6.10 M/mm3) 4.67 L Hgb (10.4 - 14.9 G/DL) 14.5 Hct (31.5 - 44.1 %) 43.7 MCV (84.5 - 98.6 Fl) 93.6 MCH (27.0 - 34.2 pg) 31.0 MCHC (31.5 - 34.0 G/DL) 33.2 RDW (11.5 - 14.5 SD) 12.6 Plt Count (150 - 450 K/mm3) 193 MPV (7.0 - 10.5 fL) 10.80 H Neut % (Auto) (40 - 76 %) 70.4 Lymph % (Auto) (20.5 - 51.1 %) 23.1 [place] % (Auto) (1.7 - 9.3 %) 5.5 Eos % (Auto) (0.0 - 6.0 %) 0.6 Baso % (Auto) (0.0 - 2.0 %) 0.2 Neut # (Auto) (1.8 - 7.6 K/mm3) 7.3 Lymph # (Auto) (0.6 - 3.2 K/mm3) 2.4 [place] # (Auto) (0.3 - 1.1 K/mm3) 0.6 Eos # (Auto) (0.0 - 0.4 K/mm3) 0.1 Baso # (Auto) (0.0 - 0.1 K/mm3) 0.0 Abs Immat Gran (auto) (0.00 - 0.03 x10 3/uL) 0. 02 Add Manual Diff (CRITERIA DIFF/SCN) NO Immature Gran % (0.0 - 5.0 %) 0.2 Nucleated RBC % (0.0 - 1.0 /100WBC%) 0.0 Urines Urine Color (YEL/STRAW discript) YELLOW Urine Appearance (CLEAR discript) CLEAR Urine pH (5.0 - 7.0 pH UNITS) 6.0 Ur Specific [place] (1.005 - 1.030 SG) 1.015 Urine Protein (NEG mg/dL) NEGATIVE Urine Glucose (UA) (NEG mg/dL) NEGATIVE Urine Ketones (NEG mg/dL) 2+ H Urine Blood (NEG mg/DL) NEGATIVE Urine Nitrite (NEG SCREEN) NEGATIVE Urine Bilirubin (NEG mg/dL) NEGATIVE Urine Urobilinogen (<2.0 mg/dL) 0.2 Ur Leukocyte Esterase (NEGATIVE Leuk/mcL) NEGAT LOC Microbiology: Date/Time Procedure - Status Source Growth 02/18 1623 MRSA Screen - ORD NASAL 02/18 1315 Blood Culture - RES BLOOD 02/18 1315 Blood Culture - RES BLOOD Recent Impressions: RADIOLOGY - XR CHEST 1 V 02/18 1345 Report Impression - Status: SIGNED Entered: 02/18/2021 1423 IMPRESSION: No acute abnormality identified. Impression By: Jett - Shad Hairston M.D. CAT SCAN - CT ABD PELVIS W/CONT 02/18 1405 Report Impression - Status: SIGNED Entered: 02/18/2021 1420 IMPRESSION: 1. Left lower lobe pulmonary nodule measures 5 m m. 2. Satisfactory position of biliary stent. Assoc iated pneumobilia. Contrast within the gallbladder. 3. Normal appendix. No bowel obstruction. Impression By: [email or web address] Bhavani Silver M.D. Lab Imaging Statement Laboratory radiographic studies reviewed and con sidered in the medical decision-making. Point of Care Testing Pulse Oximetry Pulse Ox % 97 On: Room air Interpretation Interpreted by me, Pulse oximetr y normal Time 1255 Re-Evaluation MDM Free Text MDM Notes Free Text MDM Notes Spoke extensively to Dr. Ana patel who states patient just has air in her stent which is normal after surgery. He states to given extr a fluids and pain control overnight along with observation. I have made patient aware. [facility] has agreed to admit patient. Verbalized understanding agrees t o plan of care. Patient and or family updated on status of patient. Patient will be admitted. Patient/Family verbalized understanding and agre es to plan of care. Case discussed with hospitalist zachery mark. Admission accepted. Admitting orders placed by admitting team. Code status while in ER was FULL CODE. Goals of care were discussed in the ED with osmel ent and/or family and hospitalist updated on admission of code status in ER. )( Re-Evaluation/Progress #1 )( Re-Eval Status Improved Re-Eval Abdomen Soft, Non-tender, No rebound Eval Following Treatment Pt. feels better, Condi tion improved Pain Re-Evaluation Pain improved Exam Post Tx - General Active, Alert Exam Post Tx - Sys Review Lungs clear Plan Post Re-Eval Plan observe Abd Pain MDM Note F > 40 The patient is resting comfortably and feels bet ter, is alert and in no distress. The repeat examination is unremarkable and benign; in particular, there is no discomfort at McBurney's poi nt and there is no pulsatile mass. The history, exam, diagnostic testing, and current c ondition do not suggest acute appendicitis, bowel obstruction, acute c holecystitis, bowel perforation, major gastrointestinal bleeding, severe diverticulitis , abdominal aortic aneurysm, mesenteric ischemia, volvulu s, sepsis, or other significant pathology to warrant further testing, continued ED treatment, admissi on, or surgical evaluation at this point. The vital signs have been stable. Th e patient does not have uncontrollable pain, intractable vomiting, or ot her significant symptoms. The patient's condition is stable and approp riate for discharge from the emergency department. The patient will pursue further outp atient evaluation with the primary care physician or ot her designated or consulting physician as indicated in the discharge instructions. TAD MDM Note There is no historical, physical exam, laborator y or imaging data that would suggest a need to consider or further ev aluate the patient for thoracic aortic dissection at this time. I am no longer considering thoracic aortic dissection in the differential diagnosis. The timing of the onset of pain and the pain radiation pattern are not co nsistent with dissection. There has been no movement of pain from the chest to th e back or to the abdomen, which would be consistent with a dissection process. The analysis of risks that would predispose to dissection does not indicate a need to further pursue the diagnosis. The patient 's vital signs have been stable, there i s no apparent aortic murmur, and there is either 1) no gross radial pulse diffe rential and/or 2) no significant blood pressure differential between the right and left arms. In addition, the laboratory and imaging results are not consisten t with aortic dissection. In particular, the chest x-ray does not meet any of the criteria for aortic dissection. Tissue Perfusion Reassessment Patient tissue perfusion reassessment completed. ED Course Medication(s) Ordered Medication(s) Ordered: Anti-Infective Agents Sig/Gayla Start time Last Medication Dose Route Stop Time Status Admin Cefepime HCl 1 GM X1ED STA 02/18 1303 AC 02/18 Sterile Water 10 ML IV 02/18 2302 1323 Metronidazole/Sodium 100 ML X1ED STA 02/18 1303 DC 02/18 Chloride IV 02/18 1402 1324 Central Nervous System Agents Sig/Gayla Start time Last Medication Dose Route Stop Time Status Admin Morphine Sulfate 4 MG X1ED STA 02/18 1609 DC IV 02/18 1610 Morphine Sulfate 4 MG ONCE ONE 02/18 1445 DC IV 02/18 1446 Morphine Sulfate 4 MG X1ED STA 02/18 1255 DC / IV 02/18 1256 1322 Diagnostic Agents Sig/Gayla Start time Last Medication Dose Route Stop Time Status Admin Iopamidol 0 .STK-MED ONE 02/18 1359 DC 02/18 .ROUTE 1424 Electrolytic, Caloric, And Sahil Sig/Gayla Start time Last Medication Dose Route Stop Time Status Admin Sodium Chloride 2,000 ML ONCE ONE 02/18 1615 DC IV 02/18 1616 Sodium Chloride 50 ML .STK-MED ONE 02/18 1359 D C 02/18 IV 1424 Sodium Chloride 1,636.35 ML X1ED STA 02/18 1303 DC 02/18 IV 02/18 1304 1323 Sodium Chloride 1,000 ML X1ED STA 02/18 1255 DC IV 02/18 1355 Gastrointestinal Drugs Sig/Gayla Start time Last Medication Dose Route Stop Time Status Admin Ondansetron HCl 4 MG X1ED STA 02/18 1609 DC IV 02/18 1610 Ondansetron HCl 4 MG X1ED PRN PRN 02/18 1300 DC 02/18 IV 02/19 1259 1323 Famotidine 20 MG X1ED STA 02/18 1255 DC 02/18 IV 02/18 1256 1323 Patient Discharge Departure Vital Signs/Condition Vital Signs First Documented: Result Date Time Pulse Ox 97 07/ 1255 B/P 112/60 07/ 1255 B/P Mean 77 / 1255 O2 Delivery Room air 07/ 1255 Temp 36.6 / 1255 Pulse 97 / 1255 Resp 20 / 1255 Last Documented: Result Date Time Pulse Ox 100 07/ 1439 B/P 103/60 07/09 1439 B/P Mean 74 /09 1439 Pulse 60 07/ 1439 Resp 16 / 1439 O2 Delivery Room air / 1255 Temp 36.6 / 1255 All vital signs available at the time of this en try have been reviewed. Condition Stable, Improved Clinical Impression Clinical Impression Primary Impression: Pneumobilia Secondary Impressions: Abdominal pain Time of Impression 1618 Disposition Decision Admit Admit Physician Name Maynor Valdez MD Admit Physician Hospitalist Request Time 1620 Request Date 02/18/21 )( Admission Accepts Yes )( Accepted Time 1620 )( Accepted Date 02/18/21 Discharge/Care Plan Admit Note I have spoken with the patie nt and/or caregivers. I have explained the patient's condition, diagnoses and dominga atment plan based on the information available to me at this time. I have answered the patient's and/ or caregiver's questions and addressed any concerns. The patient and/or careg jose have as good an understanding of the patient 's diagnosis, condition and treatment plan as can be expected at this point. The patient has been stabilized within the capability of the emergency department. The patient wi ll be transported for further care and management or will be moved to an observation or inpatient service. I have communicated with the staff or medical p annitaer taking over this patient's care. Electronically Signed by Lizzy Partida on at 1121 RPT #: [id number] END OF REPORT 2021-02-18 [facility] 16:02:00-00:00 [facility] ([facility]) EMERGENCY PROVIDER REPORT REPORT#:[id number] REPORT STATUS: Signed DATE:02/18/21 TIME:160 PATIENT: MAURICE HIDALGO UNIT #: [id number] ROOM/BED: [place] [id number] : [birth year] AGE: 40 SEX: F PCP PHYS: Dez Mcconnell MD SERVICE AUTHOR: Lizzy Partida * ALL edits or amendments must be made on the [employer]/computer document * Lizzy Partida 02/18/21 1602: HPI-Abd Pain F 40 and Over Free Text HPI Notes Free Text HPI Notes 40-year-old female presents to the as a walk- in on behalf of having a CBD stent placement on yesterday from Dr. Ogden here a t the [facility]. Patient returns for [place] which is [address] for chief complaint of abdominal pain 9 out of 10 in nature. Patient al so states she is extremely nauseated. Will order labs and call Dr. Tripathi. De nies any fever or chills. Denies any other symptoms or complaints. General Confirmed Patient Yes Patient Type New patient Initial Greet Date/Time 02/18/21 1228 Presentation Chief Complaint Abdominal pain, Nausea Hx Obtained From Patient Sudden in Onset? No Quality Aching, Painful Radiation Does not radiate. No: Adnexa l region R, Adnexal region L, Back, Chest, Flank R, Flank L, Flank bilateral, Abdomen upper, Abdomen lower, Epigastric, RUQ, LUQ, RLQ, LLQ, Pelvis, Suprapubic, Inguinal R, Inguin al L. Migration/Movement None Severity: Onset Moderate Severity: Current Moderate Context Immunization Status General All up to date Risk-Abd Pain F 40 and Over )( Abdominal Aortic Aneurysm Risk factors review ed, No risk factors Ectopic Risk factors reviewed, No risk factors Coronary Artery Disease Risk factors reviewed, N o risk factors Review of Systems ROS Statements All systems rev neg except as marked. Complete sys rev neg except as marked. Focused Review of Systems Respiratory Denies: Cough, non-productive, Cough, productive , Dyspnea on exertion, Hemoptysis, Parox nocturnal dyspnea, Pleuritic p ain, Shortness of breath, Wheezing. Cardiovascular Denies: Chest pain, Dyspnea on exertion, Edema, Orthopnea, Palpitations, Parox nocturnal dyspnea, Syncope. GI Reports: Abdominal pain. Past Medical History - Adult Stated Complaint PAIN POST SURGERY OF STENT IN B ILE DUCT YESTER Allergies Coded Allergies: lidocaine (Intermediate, SITE SWELLING 02/18/21) Home Medications Reported Medications clonazePAM (KlonoPIN) 0.5 MG PO BID AMITRIPTYLINE (ELAVIL) 50 MG PO DAILY 2100 Review of Nursing Notes Rev avail, and agree Pt reports no significant: Family history, Socia l history Smoking status: Smoking status for patients 13 years old or old er: Current some day smoker Physical Exam Vital Signs Vital Signs First Documented: Result Date Time Pulse Ox 97 07/ 1255 B/P 112/60 07/09 1255 B/P Mean 77 07/09 1255 O2 Delivery Room air 07/ 1255 Temp 36.6 07/09 1255 Pulse 97 07/09 1255 Resp 20 07/09 1255 Last Documented: Result Date Time Pulse Ox 100 07/ 1439 B/P 103/60 07/09 1439 B/P Mean 74 07/09 1439 Pulse 60 07/09 1439 Resp 16 07/09 1439 O2 Delivery Room air / 1255 Temp 36.6 07/09 1255 Review of Vital Signs Reviewed, Vital signs norm al Basic Physical Exam Basic PE HEAD: Atraumatic/NC, EYES: PERRL, conj clear, ENT: Membranes moist, NECK: Supple, EXT: No gross abnormality, SKIN: No rashes, warm/dry, NEURO: alert oriented, NEURO: gross movement NL, PSYCH: NL t hought content Focused PE General/Const General/Const Awake, Alert, No acute distress MS Head Head Atraumatic, Normocephalic Ears/Nose/Throat Ears/Nose/Throat Atraumatic, Airway patent, Muc ous membranes moist, Pharynx NL Resp/Chest Respiratory/Chest Atraumatic, Breath sounds NL, Breath sounds = bilat, No respiratory distress Cardiovascular Cardiovascular Heart rate NL, Regular rhythm, H eart sounds NL, No murmurs, Cap refill not delayed, Peripheral circulation N L Abdomen/GI Abdomen/GI Atraumatic, Soft, Non-tender, McBurn ey's non-tender MS Back Back Atraumatic, Inspection NL, Full range of m otion, Painless range of motion Interpretation Diagnostics Lab Results Interpretation Results Laboratory Tests 02/18/21 1315: [Embedded Image Not Available] Laboratory Tests: 02/18 02/18 1315 1310 Chemistry Sodium (134 - 147 mmol/L) 141 Potassium (3.4 - 5.0 mmol/L) 3.6 Chloride (100 - 108 mmol/L) 108 Carbon Dioxide (21 - 32 mmol/L) 26 Anion Gap (4.0 - 15.0 GAP calc) 7.0 BUN (7 - 18 MG/DL) 9 Creatinine (0.6 - 1.0 MG/DL) 0.6 Glomerular Filtr Rate (>60 estGFR) >=60 max est imate Glucose (70 - 110 MG/DL) 71 Lactic Acid (0.4 - 2.0 mmol/L) 1.0 Calcium (8.5 - 10.1 MG/DL) 8.8 Total Bilirubin (0.2 - 1.2 MG/DL) 0.50 Direct Bilirubin (0.00 - 0.30 MG/DL) 0.10 Indirect Bilirubin (0.2 - 1.2 MG/DL) 0.40 AST (15 - 37 Unit/L) 9 L ALT (12 - 78 Unit/L) 19 Total Alk Phosphatase (45 - 117 Unit/L) 55 Total Protein (6.4 - 8.2 G/DL) 7.4 Albumin (3.4 - 5.0 G/DL) 4.4 Lipase (114 - 286 Unit/L) 128 Hematology WBC (3.5 - 11.0 K/mm3) 10.4 RBC (4.70 - 6.10 M/mm3) 4.67 L Hgb (10.4 - 14.9 G/DL) 14.5 Hct (31.5 - 44.1 %) 43.7 MCV (84.5 - 98.6 Fl) 93.6 MCH (27.0 - 34.2 pg) 31.0 MCHC (31.5 - 34.0 G/DL) 33.2 RDW (11.5 - 14.5 SD) 12.6 Plt Count (150 - 450 K/mm3) 193 MPV (7.0 - 10.5 fL) 10.80 H Neut % (Auto) (40 - 76 %) 70.4 Lymph % (Auto) (20.5 - 51.1 %) 23.1 [place] % (Auto) (1.7 - 9.3 %) 5.5 Eos % (Auto) (0.0 - 6.0 %) 0.6 Baso % (Auto) (0.0 - 2.0 %) 0.2 Neut # (Auto) (1.8 - 7.6 K/mm3) 7.3 Lymph # (Auto) (0.6 - 3.2 K/mm3) 2.4 [place] # (Auto) (0.3 - 1.1 K/mm3) 0.6 Eos # (Auto) (0.0 - 0.4 K/mm3) 0.1 Baso # (Auto) (0.0 - 0.1 K/mm3) 0.0 Abs Immat Gran (auto) (0.00 - 0.03 x10 3/uL) 0 .02 Add Manual Diff (CRITERIA DIFF/SCN) NO Immature Gran % (0.0 - 5.0 %) 0.2 Nucleated RBC % (0.0 - 1.0 /100WBC%) 0.0 Urines Urine Color (YEL/STRAW discript) YELLOW Urine Appearance (CLEAR discript) CLEAR Urine pH (5.0 - 7.0 pH UNITS) 6.0 Ur Specific [place] (1.005 - 1.030 SG) 1.015 Urine Protein (NEG mg/dL) NEGATIVE Urine Glucose (UA) (NEG mg/dL) NEGATIVE Urine Ketones (NEG mg/dL) 2+ H Urine Blood (NEG mg/DL) NEGATIVE Urine Nitrite (NEG SCREEN) NEGATIVE Urine Bilirubin (NEG mg/dL) NEGATIVE Urine Urobilinogen (<2.0 mg/dL) 0.2 Ur Leukocyte Esterase (NEGATIVE Leuk/mcL) NEGAT LOC Microbiology: Date/Time Procedure - Status Source Growth 02/18 1623 MRSA Screen - CAN NASAL Cancelled: Auto-cancelled after 5 days. 02/18 1315 Blood Culture - COMP BLOOD 02/18 1315 Blood Culture - COMP BLOOD Recent Impressions: RADIOLOGY - XR CHEST 1 V 02/18 1345 Report Impression - Status: SIGNED Entered: 02/18/2021 1423 IMPRESSION: No acute abnormality identified. Impression By: [email or web address] - Shad Hairston M.D. CAT SCAN - CT ABD PELVIS W/CONT 02/18 1405 Report Impression - Status: SIGNED Entered: 02/18/2021 1429 IMPRESSION: 1. Left lower lobe pulmonary nodule measures 5 m m. 2. Satisfactory position of biliary stent. Assoc iated pneumobilia. Contrast within the gallbladder. 3. Normal appendix. No bowel obstruction. Impression By: [email or web address] - Gen Silver M.D. Lab Imaging Statement Laboratory radiographic studies reviewed and con sidered in the medical decision-making. Point of Care Testing Pulse Oximetry Pulse Ox % 97 On: Room air Interpretation Interpreted by me, Pulse oximetr y normal Time 1255 Re-Evaluation MDM Free Text MDM Notes Free Text MDM Notes Spoke extensively to Dr. Ana patel who states patient just has air in her stent which is normal after surgery. He states to given extr a fluids and pain control overnight along with observation. I have made patient aware. [facility] has agreed to admit patient. Verbalized understanding agrees t o plan of care. Patient and or family updated on status of patient. Patient will be admitted. Patient/Family verbalized understanding and agre es to plan of care. Case discussed with hospitalist zachery mark. Admission accepted. Admitting orders placed by admitting team. Code status while in ER was FULL CODE. Goals of care were discussed in the ED with osmel ent and/or family and hospitalist updated on admission of code status in ER. )( Re-Evaluation/Progress #1 )( Re-Eval Status Improved Re-Eval Abdomen Soft, Non-tender, No rebound Eval Following Treatment Pt. feels better, Condi tion improved Pain Re-Evaluation Pain improved Exam Post Tx - General Active, Alert Exam Post Tx - Sys Review Lungs clear Plan Post Re-Eval Plan observe Abd Pain MDM Note F > 40 The patient is resting comfortably and feels bet ter, is alert and in no distress. The repeat examination is unremarkable and benign; in particular, there is no discomfort at [facility] poi nt and there is no pulsatile mass. The history, exam, diagnostic testing, and current c ondition do not suggest acute appendicitis, bowel obstruction, acute c holecystitis, bowel perforation, major gastrointestinal bleeding, severe diverticulitis , abdominal aortic aneurysm, mesenteric ischemia, volvulu s, sepsis, or other significant pathology to warrant further testing, continued ED treatment, admissi on, or surgical evaluation at this point. The vital signs have been stable. Th e patient does not have uncontrollable pain, intractable vomiting, or ot her significant symptoms. The patient's condition is stable and approp riate for discharge from the emergency department. The patient will pursue further outp atient evaluation with the primary care physician or ot her designated or consulting physician as indicated in the discharge instructions. TAD MDM Note There is no historical, physical exam, laborator y or imaging data that would suggest a need to consider or further ev aluate the patient for thoracic aortic dissection at this time. I am no longer considering thoracic aortic dissection in the differential diagnosis. The timing of the onset of pain and the pain radiation pattern are not co nsistent with dissection. There has been no movement of pain from the chest to th e back or to the abdomen, which would be consistent with a dissection process. The analysis of risks that would predispose to dissection does not indicate a need to further pursue the diagnosis. The patient 's vital signs have been stable, there i s no apparent aortic murmur, and there is either 1) no gross radial pulse diffe rential and/or 2) no significant blood pressure differential between the right and left arms. In addition, the laboratory and imaging results are not consisten t with aortic dissection. In particular, the chest x-ray does not meet any of the criteria for aortic dissection. Tissue Perfusion Reassessment Patient tissue perfusion reassessment completed. ED Course Medication(s) Ordered Medication(s) Ordered: Anti-Infective Agents Sig/Gayla Start time Last Medication Dose Route Stop Time Status Admin Cefepime HCl 1 GM X1ED STA 02/18 1303 AC 02/18 Sterile Water 10 ML IV 02/18 2302 1323 Metronidazole/Sodium 100 ML X1ED STA 02/18 1303 DC 02/18 Chloride IV 02/18 1402 1324 Central Nervous System Agents Sig/Gayla Start time Last Medication Dose Route Stop Time Status Admin Morphine Sulfate 4 MG X1ED STA 07 1609 DC IV 07/ 1610 Morphine Sulfate 4 MG ONCE ONE 02/18 1445 DC IV 02/18 1446 Morphine Sulfate 4 MG X1ED STA 07 1255 DC 07 / IV 07/ 1256 1322 Diagnostic Agents Sig/Gayla Start time Last Medication Dose Route Stop Time Status Admin Iopamidol 0 .STK-MED ONE 02/18 1359 DC 02/18 .ROUTE 1424 Electrolytic, Caloric, And Sahil Sig/Gayla Start time Last Medication Dose Route Stop Time Status Admin Sodium Chloride 2,000 ML ONCE ONE 02/18 1615 DC IV / 1616 Sodium Chloride 50 ML .STK-MED ONE 02/18 1359 D C 07 IV 1424 Sodium Chloride 1,636.35 ML X1ED STA 07 1303 DC 07/ IV 07/ 1304 1323 Sodium Chloride 1,000 ML X1ED STA 07/ 1255 DC IV 07/ 1355 Gastrointestinal Drugs Sig/Gayla Start time Last Medication Dose Route Stop Time Status Admin Ondansetron HCl 4 MG X1ED STA 07 1609 DC IV 07/ 1610 Ondansetron HCl 4 MG X1ED PRN PRN 02/18 1300 DC 07/ IV 07 1259 1323 Famotidine 20 MG X1ED STA 07/ 1255 DC 07/ IV 07/ 1256 1323 Patient Discharge Departure Vital Signs/Condition Vital Signs First Documented: Result Date Time Pulse Ox 97 07/ 1255 B/P 112/60 / 1255 B/P Mean 77 / 1255 O2 Delivery Room air / 1255 Temp 36.6 07/09 1255 Pulse 97 07/09 1255 Resp 20 /09 1255 Last Documented: Result Date Time Pulse Ox 100 07/ 1439 B/P 103/60 07/ 1439 B/P Mean 74 07/09 1439 Pulse 60 07/09 1439 Resp 16 07/09 1439 O2 Delivery Room air 07/ 1255 Temp 36.6 07/09 1255 All vital signs available at the time of this en try have been reviewed. Condition Stable, Improved Clinical Impression Clinical Impression Primary Impression: Pneumobilia Secondary Impressions: Abdominal pain Time of Impression 1618 Disposition Decision Admit Admit Physician Name Maynor Valdez MD Admit Physician Hospitalist Request Time 1620 Request Date 02/18/21 )( Admission Accepts Yes )( Accepted Time 1620 )( Accepted Date 02/18/21 Discharge/Care Plan Admit Note I have spoken with the patie nt and/or caregivers. I have explained the patient's condition, diagnoses and dominga atment plan based on the information available to me at this time. I have answered the patient's and/ or caregiver's questions and addressed any concerns. The patient and/or careg jose have as good an understanding of the patient 's diagnosis, condition and treatment plan as can be expected at this point. The patient has been stabilized within the capability of the emergency department. The patient wi ll be transported for further care and management or will be moved to an observation or inpatient service. I have communicated with the staff or medical p didiertitioner taking over this patient's care. Prabhu Lazar 02/24/21 0719: Patient Discharge Departure Discharge/Care Plan (Auto) Prescriptions Current Visit Scripts PANTOPRAZOLE DR (PROTONIX) 40 MG PO DAILY PANTOPRAZOLE DR (PROTONIX) 40 MG PO DAILY #30 T AB AMOXICILLIN/CLAV K (AUGMENTIN 875/125 MG) 875 MG PO Q12H AMOXICILLIN/CLAV K (AUGMENTIN 875/125 MG) 875 M G PO Q12H #20 TABS HYDROcodone/APAP (NORCO 7.5/325) 1 TAB PO Q4H LA N PRN PAIN HYDROcodone/APAP (NORCO 7.5/325) 1 TAB PO Q4H P RN PRN PAIN #14 TABS Supervising Physician Note MidLv Saw Pt Alone I have reviewed the PA/STRAIGHT KNIFE CUTTER MACHINE's note and plan of car e. I was available for consultation as needed at al l times during the patient's visit in the emergency department. I agree with the clinical impression , plan and disposition. Electronically Signed by Lizzy Partida on at 1121 at 0719 RPT #: [id number] END OF REPORT 2020-02-22 EXAM: [facility]EC[facility] DATE: Study performed on 02/10 and submitted for a second interpretation on 02/22/2020 5:33 [facility] INDICATION: - fever, sore th roat, swelling; second interpretation of study performed at outside institution COMPARISON: None. TECHNIQUE: Volumetric CT of the neck is acquired was acquired at an outside institution following intravenous administration of contrast. Axial, coronal and sagittal images for a total of 324 are provided. FINDINGS: A peripherally enhancing flu id collection containing multiple foci of gas extends from the right peritonsillar region into the right submandibular region and further inferiorly into the anterior soft ti ssues of the neck deep to th e platysma muscle at the level of the thyroid gland. The lower component of the fluid collection is not a fully formed abscess at the time of imaging. It measures approximate ly 7.9 x 3.3 x 1.8 cm (crani ocaudal by transverse by AP). Soft tissue swelling is seen in the overlying subcutaneous regions. No associated retropharyngeal effusion or absces s is present. There is enlargement and hyp oenhancement of the right submandibular gland indicative of inflammatory change. Mass effect results in parti al effacement of the right lateral aspect of the oropharynx as well as leftward deviation of the larynx and hypopharynx. The airway appears widely patent along its course. Th ere is asymmetry of the righ t true vocal cord indicative of inflammatory edema. Multiple nodules are seen wi thin the left lobe of the thyroid gland, none of which meet size criteria for additional imaging follow-up or ultrasound. Multiple reactive lymph node s are seen, the largest of which is a right level 2A lymph node measuring 1 cm in thickness. The right internal jugular v ein is patent along its course. The arteries and veins of the neck enhance normally. There is no spasm of the internal carotid artery on the right related to the infection. No aggressive osseous lesion s are identified. There is reversal of the usual cervical lordosis. IMPRESSION: 1. Agree with outside interpretation. 2. Peripherally enhancing ga s containing fluid collection consistent with abscess in the peritonsillar region and early abscess formation in the anterior neck. This measures 7.9 x 3.3 x 1.8 cm (CC x TR x AP) and extends from the r ight peritonsillar region into the right submandibular region and further inferiorly into the anterior soft tissues of the neck at the level of the thyroid gland. 3. Swelling and hypoenhancem ent of the right second mandibular gland consistent with extension of infection. 4. Reactive lymphadenopathy.
[2023-04-08] MEDS ORDERED: NA CHLORIDE 0.9% 1,000 ML ONE (13:41)
[2023-04-08] MEDS ORDERED: CEFTRIAXONE 1000 MG/VIAL ONE (13:41)
[2023-04-08] MEDS ORDERED: MORPHINE 4 MG/ML SYR ONE ×2 (13:41→14:24)
[2023-04-08] MEDS ORDERED: ONDANSETRON 4 MG/2 ML VIAL ONE ×2 (13:41→16:27)
[2023-04-08 13:48] LABS: Absolute Lymphocytes (CBC) 2.1 K/uL (0.7-4.9); Hematocrit 40.1 % (36.0-45.0); MCV 92.1 fL (80-100); MPV 8.1 fL (7.6-11.3); Platelets 227 thou/uL (152-406); RBC Red Blood Cell Count 4.35 M/uL (3.86-4.86)
[2023-04-08 13:49] LABS: Specific Gravity < 1.005 (1.005-1.030)
[2023-04-08 13:50] LABS: Specific Gravity < 1.005 (1.005-1.030); Urine Bacteria None Seen /HPF (<20); Urine Bilirubin NEGATIVE (Negative); Urine Blood Negative (Negative); Urine Clarity Turbid (Clear); Urine Color Colorless (Yellow); Urine Glucose NEGATIVE (Negative); Urine Protein NEGATIVE (Negative); Urine RBC None Seen /HPF (None Seen); Urine Urobilinogen Normal (Normal); Urine pH 6.5 (5.0-7.0)
[2023-04-08 14:11] LABS: Bilirubin Total 0.3 mg/dL (0.2-1.0); Potassium 3.7 mEq/L (3.5-5.1); Protein, Total 7.3 g/dL (6.4-8.2)
--- NOTE | 2023-04-08 14:34 | RAD REPORT ---
EXAM DESCRIPTION: CT - Abdomen Pelvis W Contrast - 04/08/2023 2:07 pm CLINICAL HISTORY: ABD PAIN COMPARISON: Abdomen Pelvis W Contrast dated 11/18/2021; Abdomen Pelvis W Contrast dated 08/10/2021 ; Abdomen Pelvis W Contrast dated 01/18/2021; Abdomen Pelvis W Contrast dated 12/29/2020 TECHNIQUE: Thin cut axial CT imaging of the abdomen and pelvis was performed following intravenous a dministration of 90 mL Isovue 300. Multiplanar reformats were generated and reviewed. All CT scans are performed using dose optimization technique as appropriate and may include automated exposure control or mA/KV adjustment according to patient size. FINDINGS: No suspicious findings in the lung bases. The liver shows a subcentimeter anterior right lobe cyst, not well characterized. Spleen, and pancrea s show no suspicious findings. Adrenal glands are unremarkable. Gallbladder was surgically removed. P rominence of the common bile duct , likely relates to postcholecystectomy status. Symmetric renal function is seen with no hydronephrosis or suspicious renal mass. 2 millimeter right mid to lower pole nonobstructing calculus. No dilated bowel loops or bowel wall thickening. Patient is likely status post appendicectomy. No jose e air, free fluid or inflammatory stranding. No hernia, mass or bulky lymphadenopathy. The urinary bl adder is without significant finding. No suspicious bony findings. IMPRESSION: No acute intra-abdominal process. 2 millimeter right mid to lower pole nonobstructing calculus. Status post cholecystectomy, with prominence of the common bile duct, likely due to reservoir effect.
--- NOTE | 2023-04-08 16:04 | EDPHYS ---
Physician Documentation [facility] Name: Kavita Kwon Age: 43 yrs Sex: Female : 1980 Arrival Date: 04/08/2023 Time: 12:54 Bed 6 Private MD: WEST[place] Physician Alejandro Rm HPI: 04/08 15:58 This 43 yrs old Female presents to ER via Ambulatory with complaints of tremayne Urinary Problem, Abdominal Pain. 15:58 The patient presents with abdominal pain in the upper abdomen, in the lower abdomen. tremayne Onset: The symptoms/episode began/occurred 1 day(s) ago. The symptoms radiate to. Associated signs and symptoms: Pertinent positives: dysuria, nausea. Modifying factors: The symptoms are alleviated by nothing, the symptoms are aggravated by nothing. Severity of pain: At its worst the pain was moderate in the emergency department the pain is unchanged. The patient has experienced similar episodes in the past, multiple times. Historical: - Allergies: 13:27 Lidocaine; hb 13:27 Lidocaine; jl7 - PMHx: 13:27 Anxiety; Enrique's esophagus; Chronic Gastritis; diverticulosis; Heart Murmur; hb Irregular heart rate; Migraines; 13:27 Anxiety; Enrique's esophagus; Chronic Gastritis; diverticulosis; Heart Murmur; jl7 Irregular heart rate; Migraines; - PSHx: 13:27 Cholecystectomy; hysterectomy; Multi-level disc replacement C5-C7; Appendectomy; hb 13:27 Appendectomy; Cholecystectomy; hysterectomy; Multi-level disc replacement C5-C7; jl7 - Immunization history:: Adult Immunizations up to date. - Social history:: Smoking status: Patient denies any tobacco usage or history of. - Family history:: not pertinent. ROS: 15:58 Constitutional: Negative for fever, chills, and weight loss, Eyes: Negative for injury, tremayne pain, redness, and discharge, ENT: Negative for injury, pain, and discharge, Neck: Negative for injury, pain, and swelling, Cardiovascular: Negative for chest pain, palpitations, and edema, Respiratory: Negative for shortness of breath, cough, wheezing, and pleuritic chest pain, Back: Negative for injury and pain, : Negative for injury, bleeding, discharge, and swelling, MS/Extremity: Negative for injury and deformity, Skin: Negative for injury, rash, and discoloration, Neuro: Negative for headache, weakness, numbness, tingling, and seizure, Psych: Negative for depression, anxiety, suicide ideation, homicidal ideation, and hallucinations, Allergy/Immunology: Negative for hives, rash, and allergies, Endocrine: Negative for neck swelling, polydipsia, polyuria, polyphagia, and marked weight changes. 15:58 Abdomen/GI: Positive for abdominal pain, of the suprapubic area. Exam: 15:58 Constitutional: This is a well developed, well nourished patient who is awake, alert, tremayne and in no acute distress. Head/Face: Normocephalic, atraumatic. Eyes: Pupils equal round and reactive to light, extra-ocular motions intact. Lids and lashes normal. Conjunctiva and sclera are non-icteric and not injected. Cornea within normal limits. Periorbital areas with no swelling, redness, or edema. ENT: Nares patent. No nasal discharge, no septal abnormalities noted. Tympanic membranes are normal and external auditory canals are clear. Oropharynx with no redness, swelling, or masses, exudates, or evidence of obstruction, uvula midline. Mucous membranes moist. Neck: Trachea midline, no thyromegaly or masses palpated, and no cervical lymphadenopathy. Supple, full range of motion without nuchal rigidity, or vertebral point tenderness. No Meningismus. Chest/axilla: Normal chest wall appearance and motion. Nontender with no deformity. No lesions are appreciated. Cardiovascular: Regular rate and rhythm with a normal S1 and S2. No gallops, murmurs, or rubs. Normal PMI, no JVD. No pulse deficits. Respiratory: Lungs have equal breath sounds bilaterally, clear to auscultation and percussion. No rales, rhonchi or wheezes noted. No increased work of breathing, no retractions or nasal flaring. Back: No spinal tenderness. No costovertebral tenderness. Full range of motion. Skin: Warm, dry with normal turgor. Normal color with no rashes, no lesions, and no evidence of cellulitis. MS/ Extremity: Pulses equal, no cyanosis. Neurovascular intact. Full, normal range of motion. Neuro: Awake and alert, GCS 15, oriented to person, place, time, and situation. Cranial nerves II-XII grossly intact. Motor strength 5/5 in all extremities. Sensory grossly intact. Cerebellar exam normal. Normal gait. Psych: Awake, alert, with orientation to person, place and time. Behavior, mood, and affect are within normal limits. 15:58 Abdomen/GI: Inspection: abdomen appears normal, Bowel sounds: normal, Palpation: mild abdominal tenderness, in the epigastric area and suprapubic area. Vital Signs: 13:25 BP 126 / 90; Pulse 109; Resp 21; Temp 97.9; Pulse Ox 100% ; Weight 54.43 kg; Height 5 jl7 ft. 5 in. ; Pain 5/10; 14:31 BP 136 / 93; Pulse 88; Resp 16; Pulse Ox 100% on R/A; hb 16:00 BP 109 / 67; Pulse 67; Resp 15; Pulse Ox 99% on R/A; hb 13:25 Body Mass Index 19.97 (54.43 kg, 165.1 cm) [facility] 13:25 Pain Scale: Adult 7 MDM: 13:18 Patient medically screened. [facility] 16:01 Differential diagnosis: bowel obstruction, diverticulitis, gastritis, GI Bleed, tremayne Hepatitis, non-specific abd pain, pancreatitis, Peptic Ulcer Disease, Pyelonephritis, Ureterolithiasis, urinary tract infection. Data reviewed: vital signs, nurses notes, lab test result(s), radiologic studies, CT scan. Consideration of Admission/Observation Escalation of care including admission/observation considered. I considered the following discharge prescriptions or medication management in the emergency department Medications were administered in the Emergency Department. See MAR. Test considered but Not performed: Ultrasound NO ABD USG. Care significantly affected by the following chronic conditions: DIVERTICULOSIS, ANXIETY, GASTRITIS, BARRETTS. 04/08 13:20 Order name: CBC with Diff; Complete Time: 14:25 [facility] 04/08 13:20 Order name: CMP; Complete Time: 14:25 [facility] 04/08 13:20 Order name: Lipase; Complete Time: 14:25 [facility] 04/08 13:20 Order name: Urinalysis w/ reflexes; Complete Time: 14:25 [facility] 04/08 13:20 Order name: PREGU; Complete Time: 14:25 [facility] 04/08 13:20 Order name: CT Abd/Pelvis - IV Contrast Only; Complete Time: 15:30 [facility] 04/08 13:20 Order name: IV Saline Lock; Complete Time: 13:40 [facility] 04/08 13:20 Order name: Labs collected and sent; Complete Time: 13:40 tremayne Administered Medications: 13:40 Drug: NS 0.9% IV 1000 ml Route: IV; Rate: 1 bolus; Site: right antecubital; hb 13:40 Drug: Rocephin IV 1 grams Route: IV; Rate: per protocol; Site: right antecubital; hb 13:41 Drug: Ondansetron IVP 4 mg Route: IVP; Site: right antecubital; hb 13:41 Drug: morphine IVP or IV 4 mg Route: IVP; Infused Over: 4 mins; Site: right antecubital;hb 14:18 Drug: morphine IVP or IV 4 mg Route: IVP; Infused Over: 4 mins; Site: right antecubital;ph 16:30 Drug: HYDROmorphone IVP 1 mg Route: IVP; Site: right antecubital; hb 16:30 Drug: Ondansetron IVP 4 mg Route: IVP; Site: right antecubital; hb 16:30 Drug: Amoxicillin-Clavulanate PO 500 mg Route: PO; hb 16:48 Drug: Phenazopyridine PO 200 mg Route: PO; hb Disposition Summary: 04/08/23 16:04 Discharge Ordered Location: Home [facility] Problem: new tremayne Symptoms: have improved tremayne Condition: Stable tremayne Diagnosis - UTI/ Urinary tract infection, site not specified tremayne - Abdominal pain, Generalized tremayne Followup: tremayne - With: Private Physician - When: 2 - 3 days - Reason: Recheck today's complaints, Continuance of care, Re-evaluation by your physician Followup: tremayne - With: Vladimir Mcconnell MD - When: 2 - 3 days - Reason: Recheck today's complaints, Continuance of care, Re-evaluation by your physician Discharge Instructions: - Discharge Summary Sheet tremayne - Abdominal Pain, Adult tremayne - Dysuria tremayne - Urinary Tract Infection, Adult tremayne - Urinary Tract Infection, Adult, [id number] tremayne - Abdominal Pain, Adult, [id number] [facility] Forms: - Medication Reconciliation Form [facility] - Thank You Letter [facility] - Antibiotic Education tremayne - Prescription Opioid Use tremayne - Patient Portal Instructions [facility] - Leadership Thank You Letter [facility] Prescriptions: - ondansetron 4 mg Oral Tablet,disintegrating - take 1 tablet by ORAL route every 6-8 hours for 24 hours; 20 tablet; Refills: [facility] 0, Product Selection Permitted - Augmentin 500-125 mg Oral Tablet - take 1 tablet by ORAL route every 8 hours for 7 days; 21 tablet; Refills: 0, [facility] Product Selection Permitted - Pepcid 20 mg Oral Tablet - take 1 tablet by ORAL route every 12 hours for 21 days; 42 tablet; Refills: 0, [facility] Product Selection Permitted - Pyridium 200 mg Oral Tablet - take 1 tablet by ORAL route every 8 hours for 3 days; 6 tablet; Refills: 0, [facility] Product Selection Permitted - dicyclomine 10 mg/5 mL Oral Solution - take 10 milliliters by ORAL route 4 times per day; 180 milliliter; Refills: 0, [facility] Product Selection Permitted Signatures: Dispatcher [employer] Alejandro Quesada MD MD cha Hall, Patricia, RN RN ph Baxter, Heather, RN RN Africa Lewis RN RN jl7
--- NOTE | 2023-04-08 16:04 | ER ---
Nurse's Notes [facility] Name: Kavita Kwon Age: 43 yrs Sex: Female : 1980 Arrival Date: 04/08/2023 Time: 12:54 Bed 6 Private MD: Diagnosis: UTI/ Urinary tract infection, site not specified;Abdominal pain, Generalized Presentation: 04/08 13:25 Chief complaint: Patient states: Pelvic pain, radiates to L flank. Coronavirus screen: jl7 At this time, the client does not indicate any symptoms associated with coronavirus-19. Ebola Screen: No symptoms or risks identified at this time. Initial Sepsis Screen: Does the patient meet any 2 criteria? No. Patient's initial sepsis screen is negative. Does the patient have a suspected source of infection? No. Patient's initial sepsis screen is negative. Risk Assessment: Do you want to hurt yourself or someone else? Patient reports no desire to harm self or others. Onset of symptoms was April 08, 2023. Care prior to arrival: None. 13:25 Method Of Arrival: Ambulatory [facility] 13:25 Acuity: SUZY 3 jl7 Historical: - Allergies: 13:27 Lidocaine; hb 13:27 Lidocaine; jl7 - PMHx: 13:27 Anxiety; Enrique's esophagus; Chronic Gastritis; diverticulosis; Heart Murmur; hb Irregular heart rate; Migraines; 13:27 Anxiety; Enrique's esophagus; Chronic Gastritis; diverticulosis; Heart Murmur; jl7 Irregular heart rate; Migraines; - PSHx: 13:27 Cholecystectomy; hysterectomy; Multi-level disc replacement C5-C7; Appendectomy; hb 13:27 Appendectomy; Cholecystectomy; hysterectomy; Multi-level disc replacement C5-C7; jl7 - Immunization history:: Adult Immunizations up to date. - Social history:: Smoking status: Patient denies any tobacco usage or history of. - Family history:: not pertinent. Screenin:28 [facility] [place] ED Fall Risk Assessment (Adult) Score/Fall Risk Level 0 - 2 = Low Risk hb Oriented to surroundings, Maintained a safe environment. Abuse screen: Denies threats or abuse. Denies injuries from another. Nutritional screening: No deficits noted. Tuberculosis screening: No symptoms or risk factors identified. Assessment: 13:27 General: Appears in no apparent distress. Behavior is calm, cooperative. Pain: Pain hb currently is 5 out of 10 on a pain scale. Neuro: Level of Consciousness is awake, alert, obeys commands, Oriented to person, place, time, situation. Cardiovascular: Patient's skin is warm and dry. Respiratory: Respiratory effort is even, unlabored, Respiratory pattern is regular, symmetrical. GI: Reports nausea. : Reports burning with urination, pain urgency, urinary frequency. EENT: No signs and/or symptoms were reported regarding the EENT system. Derm: Skin is pink, warm \T\ dry. Musculoskeletal: Reports flank pain. 14:31 Reassessment: Patient appears in no apparent distress at this time. Patient and/or hb family updated on plan of care and expected duration. Pain level reassessed. Patient is alert, oriented x 3, equal unlabored respirations, skin warm/dry/pink. 15:30 Reassessment: Patient appears in no apparent distress at this time. Patient and/or hb family updated on plan of care and expected duration. Pain level reassessed. Patient is alert, oriented x 3, equal unlabored respirations, skin warm/dry/pink. Reassessment: Patient appears in no apparent distress at this time. 16:30 Reassessment: Patient appears in no apparent distress at this time. Patient and/or hb family updated on plan of care and expected duration. Pain level reassessed. Patient is alert, oriented x 3, equal unlabored respirations, skin warm/dry/pink. Vital Signs: 13:25 BP 126 / 90; Pulse 109; Resp 21; Temp 97.9; Pulse Ox 100% ; Weight 54.43 kg; Height 5 jl7 ft. 5 in. ; Pain 5/10; 14:31 BP 136 / 93; Pulse 88; Resp 16; Pulse Ox 100% on R/A; hb 16:00 BP 109 / 67; Pulse 67; Resp 15; Pulse Ox 99% on R/A; hb 13:25 Body Mass Index 19.97 (54.43 kg, 165.1 cm) 7 13:25 Pain Scale: Adult jl7 ED Course: 12:55 Patient arrived in ED. rg4 13:18 Alejandro Rm MD is Attending Physician. tremayne 13:27 Triage completed. jl7 13:27 Arm band placed on. hb 13:28 Patient has correct armband on for positive identification. Provided Education on: . hb 13:40 Malissa Guadalupe, RN is Primary Nurse. hb 13:40 CBC with Diff Sent. hb 13:40 CMP Sent. hb 13:40 Lipase Sent. hb 13:40 Urinalysis w/ reflexes Sent. hb 13:51 Initial lab(s) drawn, by me, sent to lab. Urine collected: clean catch specimen, mm9 cloudy. Inserted saline lock: 20 gauge in right antecubital area, using aseptic technique. Blood collected. 13:52 Bed in low position. Call light in reach. Side rails up X 1. Warm blanket given. Pulse mm9 ox on. NIBP on. 14:09 CT Abd/Pelvis - IV Contrast Only In Process Unspecified. EDMS 16:03 Vladimir Mcconnell MD is Referral Physician. tremayne 16:32 Straight cath inserted, using sterile technique, 16 Fr. Returned 550mls. Patient hb tolerated well. 16:50 No provider procedures requiring assistance completed. IV discontinued, intact, hb bleeding controlled, No redness/swelling at site. Administered Medications: 13:40 Drug: NS 0.9% IV 1000 ml Route: IV; Rate: 1 bolus; Site: right antecubital; hb 13:40 Drug: Rocephin IV 1 grams Route: IV; Rate: per protocol; Site: right antecubital; hb 13:41 Drug: Ondansetron IVP 4 mg Route: IVP; Site: right antecubital; hb 13:41 Drug: morphine IVP or IV 4 mg Route: IVP; Infused Over: 4 mins; Site: right antecubital;hb 14:18 Drug: morphine IVP or IV 4 mg Route: IVP; Infused Over: 4 mins; Site: right antecubital;ph 16:30 Drug: HYDROmorphone IVP 1 mg Route: IVP; Site: right antecubital; hb 16:30 Drug: Ondansetron IVP 4 mg Route: IVP; Site: right antecubital; hb 16:30 Drug: Amoxicillin-Clavulanate PO 500 mg Route: PO; hb 16:48 Drug: Phenazopyridine PO 200 mg Route: PO; hb Medication: 13:27 VIS not applicable for this client. hb Outcome: 16:04 Discharge ordered by . tremayne 16:50 Discharged to home ambulatory, with family. hb 16:50 Condition: stable 16:50 Discharge instructions given to patient, family, Instructed on discharge instructions, follow up and referral plans. medication usage, Demonstrated understanding of instructions, follow-up care, medications, Prescriptions given X 4. 16:51 Patient left the ED. hb Signatures: Dispatcher [employer] EDAlejandro Fajardo MD MD cha Hall, Patricia RN RN Malissa Guadalupe RN RN La Diaz4 Africa Davidson RN RN jl7 Daniella Galicia mm9 Corrections: (The following items were deleted from the chart) 13:53 13:27 : No signs and/or symptoms were reported regarding the genitourinary system. hb hb
[2023-04-08] MEDS ORDERED: AMOX/K CLAV 875 MG TAB ONE (16:27)
[2023-04-08] MEDS ORDERED: HYDROMORPHONE HCL 1 MG/ML INJ ONE (16:27)
[2023-04-08] MEDS ORDERED: PHENAZOPYRIDINE 100MG TAB PO ONE (16:42)
[2023-04-08 17:36] VITALS: BP 109/67; O2SAT 99
== END 2023-04-08 16:51 | disposition home or self-care (01) ==
LOC: ER 12:54
DX: N39.0 Urinary tract infection, site not specified (principal); Z88.4 Allergy status to anesthetic agent
CPT/HCPCS: 85025; 81001; 36415; 81025; 83690; 80053; 74177; 51702; 96375; 96374; 99285; Q9967; J1170; J2405 ×2; J7030; J0696

== ENCOUNTER → 2023-08-31 | Emergency (ER) | payer BC ==
[~2023-08-31] MED LIST: FAMOTIDINE 20 MG/2 ML VIAL IV ONE; HYDROMORPHONE HCL 1 MG/ML INJ ONE; MORPHINE 4 MG/ML SYR ONE; NA CHLORIDE 0.9% 1,000 ML ONE; ONDANSETRON 4 MG/2 ML VIAL ONE
[2023-08-31 16:36] LABS: Absolute Lymphocytes (CBC) 2.2 K/uL (0.7-4.9); Hematocrit 43.7 % (36.0-45.0); Lymphocytes % 29.3 % (15.3-44.8); MCV 88.7 fL (80-100); MPV 8.9 fL (7.6-11.3); Platelets 255 thou/uL (152-406); RBC Red Blood Cell Count 4.92 M/uL (3.86-4.86)
[2023-08-31 16:48] LABS: Specific Gravity 1.006 (1.005-1.030); Urine Bacteria <20 /HPF (<20); Urine Bilirubin NEGATIVE (Negative); Urine Blood Negative (Negative); Urine Clarity Turbid (Clear); Urine Color Light-Yellow (Yellow); Urine Glucose NEGATIVE (Negative); Urine Protein NEGATIVE (Negative); Urine RBC <5 /HPF (None Seen); Urine Urobilinogen Normal (Normal); Urine pH 5.5 (5.0-7.0)
[2023-08-31 16:54] LABS: Albumin 4.1 g/dL (3.4-5.0); Bilirubin Total 0.4 mg/dL (0.2-1.0); Potassium 3.4 mEq/L (3.5-5.1); Protein, Total 8.1 g/dL (6.4-8.2)
--- NOTE | 2023-08-31 17:49 | RAD REPORT ---
EXAM DESCRIPTION: CT - Abdomen Pelvis W Contrast - 08/31/2023 5:05 pm CLINICAL HISTORY: ABD PAIN COMPARISON: Abdomen Pelvis W Contrast dated 04/08/2023; Abdomen Pelvis W Contrast dated 11/18/2021; Abdomen Pelvis W Contrast dated 08/10/2021; Abdomen Pelvis W Contrast dated 01/18/2021 TECHNIQUE: Thin cut axial CT imaging of the abdomen and pelvis was performed following intravenous a dministration of 100 mL Isovue 300. Multiplanar reformats were generated and reviewed. All CT scans are performed using dose optimization technique as appropriate and may include automated exposure control or mA/KV adjustment according to patient size. FINDINGS: No suspicious findings in the lung bases. The liver shows a stable subcentimeter anterior right liver lobe cyst, difficult to characterize give n size. Adrenal glands, spleen, and pancreas show no suspicious findings. Gallbladder and biliary dominga e are also without suspicious finding. Symmetric renal function is seen with no hydronephrosis or suspicious renal mass. Nonobstructing righ t lower pole 2 mm calculus. No dilated bowel loops or bowel wall thickening. Stable line at the level of the cecum suggesting seq uelae of appendicectomy. No free air, free fluid or inflammatory stranding. No hernia, mass or bulky lymphadenopathy. The urinary bladder is without significant finding. No suspicious bony findings. IMPRESSION: Nonobstructing right lower renal pole 2 mm calculus. No other acute intra-abdominal proc ess. Findings as above.
--- NOTE | 2023-08-31 17:54 | ER ---
Nurse's Notes [facility] Name: Kavita Kwon Age: 43 yrs Sex: Female : 1980 Arrival Date: 08/31/2023 Time: 14:44 Bed 11 Private MD: Diagnosis: Upper abdominal pain, unspecified Presentation: 08/31 15:00 Chief complaint: Patient states: she has been having abdominal pain since Sunday. ap3 patient also complains of nausea and vomiting intermittently. Coronavirus screen: At this time, the client does not indicate any symptoms associated with coronavirus-19. Ebola Screen: No symptoms or risks identified at this time. Initial Sepsis Screen: Does the patient meet any 2 criteria? HR > 90 bpm. Does the patient have a suspected source of infection? Yes: Acute abdominal pain. Risk Assessment: Do you want to hurt yourself or someone else? Patient reports no desire to harm self or others. Onset of symptoms was August 29, 2023. 15:00 Method Of Arrival: Ambulatory ap3 15:00 Acuity: SUZY 3 ap3 Triage Assessment: 15:05 General: Appears uncomfortable, Behavior is calm, cooperative, appropriate for age. ap3 Pain: Complains of pain in abdomen Pain began 2-3 days ago. Neuro: Level of Consciousness is awake, alert, obeys commands, Oriented to person, place, time, situation, Appropriate for age. Cardiovascular: Patient's skin is warm and dry. Respiratory: Airway is patent Respiratory effort is even, unlabored, Respiratory pattern is regular, symmetrical. GI: Reports upper abdominal pain, nausea. 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 Flu vaccine is not up to date. - Social history:: Smoking status: Patient reports the use of cigarette tobacco products, smokes one-half pack cigarettes per day, Patient uses street drugs, marijuana. - Family history:: not pertinent. - Hospitalizations: : No recent hospitalization is reported. Screenin:05 [facility] ED Fall Risk Assessment (Adult) History of falling in the last 3 months, ap3 including since admission No falls in past 3 months (0 pts). Abuse screen: Denies threats or abuse. Nutritional screening: No deficits noted. Tuberculosis screening: No symptoms or risk factors identified. Vital Signs: 15:00 BP 124 / 90; Pulse 127; Resp 17; Temp 98.3; Pulse Ox 100% ; ap3 15:06 Weight 54.43 kg; Height 5 ft. 5 in. ; Pain 4/10; ap3 16:35 BP 116 / 71; Pulse 97; Resp 23; Temp 98.7; Pulse Ox 100% on R/A; aw1 17:02 BP 115 / 90; Pulse 93; Pulse Ox 100% on R/A; ap3 17:07 BP 115 / 90; Pulse 93; Pulse Ox 100% ; jg11 18:00 BP 107 / 76; Pulse 83; Pulse Ox 98% on R/A; ap3 15:06 Body Mass Index 19.97 (54.43 kg, 165.1 cm) ap3 15:06 Pain Scale: Adult ap3 ED Course: 14:48 Patient arrived in ED. im 14:48 Alfred Cabrera MD is Attending Physician. rn 15:04 Triage completed. ap3 15:06 Arm band placed on left wrist. ap3 15:06 Patient maintains SpO2 saturation greater than 95% on room air. ap3 16:35 Breanna Brandt, PRATIBHA is Primary Nurse. ap3 17:06 CT Abd/Pelvis - IV Contrast Only In Process Unspecified. EDMS 17:06 Initial lab(s) drawn, by me, sent to lab. Urine collected: clean catch specimen, clear. [id number] Inserted saline lock: 22 gauge in left antecubital area, using aseptic technique. 18:30 No provider procedures requiring assistance completed. IV discontinued, intact, ap3 bleeding controlled, No redness/swelling at site. Pressure dressing applied. Administered Medications: 16:57 Drug: Ondansetron IVP 4 mg IVP once; over 2 minutes Route: IVP; Site: right antecubital;ap3 18:31 Follow up: Response: No adverse reaction ap3 16:57 Drug: morphine IVP or IV 4 mg IVP once over 4 mins Route: IVP; Infused Over: 4 mins; ap3 Site: right antecubital; 18:31 Follow up: Response: No adverse reaction; Pain is decreased ap3 16:58 Drug: NS 0.9% IV 1000 ml IV at 1 bolus Per protocol; 1000 mL bolus Route: IV; Rate: 1 ap3 bolus; Site: right antecubital; 18:31 Follow up: IV Status: Completed infusion; IV Intake: 1000ml ap3 16:58 Drug: Famotidine IVP 20 mg IVP once; dilute with 10 mL 0.9% NaCl; give over 2 minutes ap3 Route: IVP; Site: right antecubital; 18:31 Follow up: Response: No adverse reaction ap3 18:01 Not Given (Duplicate Order): hydromorphone1 mg IVP once rn 18:23 Drug: HYDROmorphone IVP 0.5 mg IVP once Route: IVP; Site: left antecubital; ap3 18:31 Follow up: Response: No adverse reaction; Pain is decreased ap3 Intake: 18:31 IV: 1000ml; Total: 1000ml. ap3 Outcome: 17:53 Discharge ordered by . rn 18:32 Patient left the ED. ap3 Signatures: Dispatcher [employer] EDMS Alfred Cabrera MD MD rn Prokisch, Amanda, RN RN ap3 Monica Zaidi Alyssa aw1 Michael Gonzalez jg11
--- NOTE | 2023-08-31 17:54 | EDPHYS ---
Physician Documentation [facility] Name: Kavita Kwon Age: 43 yrs Sex: Female : 1980 Arrival Date: 08/31/2023 Time: 14:44 Bed 11 Private MD: ED Physician Alfred Cabrera HPI: 08/31 15:37 This 43 yrs old Female presents to ER via Ambulatory with complaints of Abdominal Pain. rn 15:38 The patient presents with abdominal pain in the epigastric area. Onset: The rn symptoms/episode began/occurred 3 day(s) ago. The symptoms do not radiate. Associated signs and symptoms: Pertinent positives: nausea, Pertinent negatives: blood in stools, constipation, diarrhea, dysuria, fever, shortness of breath, vomiting. The symptoms are described as crampy, sharp. Modifying factors: The symptoms are alleviated by nothing, the symptoms are aggravated by touching the area. Severity of pain: At its worst the pain was moderate in the emergency department the pain is unchanged. The patient has experienced similar episodes in the past. Patient reports several days of epigastric abdominal pain. Patient reports has chronic abdominal pain with known biliary colic, pancreatitis, gastritis. Has had biliary stent placed in past and has been removed since then. Reports gets attacks like this every few weeks but does not usually last this long. Otherwise the pain and location is identical to previous episodes.. 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 Flu vaccine is not up to date. - Social history:: Smoking status: Patient reports the use of cigarette tobacco products, smokes one-half pack cigarettes per day, Patient uses street drugs, marijuana. - Family history:: not pertinent. - Hospitalizations: : No recent hospitalization is reported. ROS: 15:38 Constitutional: Negative for fever, chills, and weight loss, Cardiovascular: Negative rn for palpitations, and edema, Respiratory: Negative for shortness of breath, cough, wheezing, and pleuritic chest pain, Abdomen/GI: Positive for abdominal pain Back: Negative for injury and pain, MS/Extremity: Negative for injury and deformity, Skin: Negative for injury, rash, and discoloration, Neuro: Negative for headache, weakness, numbness, tingling, and seizure, Exam: 15:38 Constitutional: This is a well developed, well nourished patient who is awake, alert, rn appears in pain, ambulatory to triage without assistance Head/Face: Normocephalic, atraumatic. Cardiovascular: Tachycardic, regular. No pulse deficits. Respiratory: No increased work of breathing, no retractions or nasal flaring. Abdomen/GI: Soft, epigastric tenderness, no rebound, no tenderness in lower quadrants, no distention MS/ Extremity: Pulses equal, no cyanosis. Neuro: Awake and alert, GCS 15 17:06 ECG was reviewed by the Attending Physician. rn Vital Signs: 15:00 BP 124 / 90; Pulse 127; Resp 17; Temp 98.3; Pulse Ox 100% ; ap3 15:06 Weight 54.43 kg; Height 5 ft. 5 in. ; Pain 4/10; ap3 16:35 BP 116 / 71; Pulse 97; Resp 23; Temp 98.7; Pulse Ox 100% on R/A; aw1 17:02 BP 115 / 90; Pulse 93; Pulse Ox 100% on R/A; ap3 17:07 BP 115 / 90; Pulse 93; Pulse Ox 100% ; jg11 18:00 BP 107 / 76; Pulse 83; Pulse Ox 98% on R/A; ap3 15:06 Body Mass Index 19.97 (54.43 kg, 165.1 cm) ap3 15:06 Pain Scale: Adult ap3 MDM: 14:48 Patient medically screened. rn 17:52 Differential diagnosis: bowel obstruction, diverticulitis, gastritis, gastroesophageal rn reflux disease, GI Bleed, non-specific abd pain, pancreatitis, Peptic Ulcer Disease, Perf. Duodenal Ulcer, Perf. Gastric Ulcer, Ureterolithiasis. Data reviewed: vital signs, nurses notes, lab test result(s), EKG, radiologic studies, CT scan, and as a result, I will discharge patient. Counseling: I had a detailed discussion with the patient and/or guardian regarding the historical points, exam findings, and any diagnostic results supporting the discharge/admit diagnosis, lab results, radiology results, the need for outpatient follow up, to return to the emergency department if symptoms worsen or persist or if there are any questions or concerns that arise at home. Special discussion: Based on the patient's Hx, exam, and Dx evaluation, there is no indication for emergent surgery or inpatient Tx. It is understood by the patient/guardian that if the Sx's persist or worsen they need to return immediately for re-evaluation. I discussed with the patient/guardian in detail that at this point there is no indication for admission to the hospital. It is understood, however, that if the symptoms persist or worsen the patient needs to return immediately for re-evaluation. ED course: No acute findings on CT scan of abdomen. Patient states has had that right renal stone for years and has never dropped. No acute biliary findings on imaging or on liver function test. No evidence of acute pancreatitis. Possible gastritis or chronic abdominal pain. Recommend follow-up with her GI doctor and return precautions given and understood.. 08/31 15:08 Order name: CBC with Diff; Complete Time: 17:08/31 15:08 Order name: CMP; Complete Time: 17:02 08/31 15:08 Order name: Lipase; Complete Time: 17:02 08/31 15:08 Order name: Urinalysis w/ reflexes; Complete Time: 17:02 08/31 15:38 Order name: Troponin High Sensitivity; Complete Time: 17:02 08/31 15:08 Order name: CT Abd/Pelvis - IV Contrast Only; Complete Time: 17:52 08/31 15:38 Order name: EKG; Complete Time: 15:38 08/31 15:08 Order name: IV Saline Lock; Complete Time: 16:58 08/31 15:08 Order name: Labs collected and sent; Complete Time: 16:58 08/31 15:38 Order name: EKG - Nurse/Tech; Complete Time: 17:08 rn EC:06 Rate is 102 beats/min. Rhythm is regular. QRS Coulters is Normal. MO interval is normal. rn QRS interval is normal. QT interval is normal. No Q waves. T waves are Normal. No ST changes noted. Clinical impression: Sinus tachycardia. Interpreted by me. Reviewed by me. Administered Medications: 16:57 Drug: Ondansetron IVP 4 mg IVP once; over 2 minutes Route: IVP; Site: right antecubital;ap3 18:31 Follow up: Response: No adverse reaction ap3 16:57 Drug: morphine IVP or IV 4 mg IVP once over 4 mins Route: IVP; Infused Over: 4 mins; ap3 Site: right antecubital; 18:31 Follow up: Response: No adverse reaction; Pain is decreased ap3 16:58 Drug: NS 0.9% IV 1000 ml IV at 1 bolus Per protocol; 1000 mL bolus Route: IV; Rate: 1 ap3 bolus; Site: right antecubital; 18:31 Follow up: IV Status: Completed infusion; IV Intake: 1000ml ap3 16:58 Drug: Famotidine IVP 20 mg IVP once; dilute with 10 mL 0.9% NaCl; give over 2 minutes ap3 Route: IVP; Site: right antecubital; 18:31 Follow up: Response: No adverse reaction ap3 18:01 Not Given (Duplicate Order): hydromorphone1 mg IVP once rn 18:23 Drug: HYDROmorphone IVP 0.5 mg IVP once Route: IVP; Site: left antecubital; ap3 18:31 Follow up: Response: No adverse reaction; Pain is decreased ap3 Disposition Summary: 08/31/23 17:53 Discharge Ordered Notes: Location: Home rn Problem: chronic rn Symptoms: have improved rn Condition: Stable rn Diagnosis - Upper abdominal pain, unspecified rn Followup: rn - With: Private Physician - When: As needed - Reason: Recheck today's complaints, Re-evaluation by your physician Discharge Instructions: - Discharge Summary Sheet rn - Abdominal Pain, Adult rn - Pain Without a Known Cause rn Forms: - Medication Reconciliation Form rn - Thank You Letter rn - Antibiotic internet salesperson - Prescription Opioid Use rn - Patient Portal Instructions rn - Leadership Thank You Letter rn Signatures: Dispatcher [employer] Alfred Caceres MD MD rn Prokisch, Amanda, RN RN ap3
[2023-08-31 20:43] VITALS: BP 107/76; TEMP 98.7; O2SAT 98
--- NOTE | 2023-09-03 17:00 | EKG ---
Test Date: 2023-08-31 Test Time: 16:04:27 White Washer Piler: ROSALINDA MEASUREMENT RESULTS: Intervals: Rate: 102 NE: 140 QRSD: 78 QT: 334 QTc: 435 Tarpley: P: 86 NE: 140 QRS: 101 T: 82 INTERPRETIVE STATEMENTS: Sinus tachycardia Right atrial enlargement Borderline ECG Compared to ECG 08/10/2021 21:45:56 Atrial abnormality now present Sinus rhythm no longer present ST (T wave) deviation no longer present Electronically Signed On 09-03-23 16:53:35 PRODUCTION AIDE by Jw Gonzales
== END ==
LOC: ER 14:44
DX: R10.13 Epigastric pain (principal); F12.90 Cannabis use, unspecified, uncomplicated; F17.210 Nicotine dependence, cigarettes, uncomplicated; Z88.6 Allergy status to analgesic agent
CPT/HCPCS: 93005; 85025; 81001; 36415; 84484; 83690; 80053; 74177; 99284; Q9967; J1170; J2405; J7030

== ENCOUNTER 2025-05-31 16:05 | Emergency (ER) | payer BC ==
[2025-05-31 18:00] LABS: Urine Microscopic Reflex YN NO UMIC
[2025-05-31] MEDS ORDERED: HYDROCODONE/APAP 7.5/325 MG TAB ONE (18:07)
[2025-05-31] MEDS ORDERED: NA CHLORIDE 0.9% 1,000 ML ONE (18:07)
[2025-05-31 18:22] LABS: Absolute Lymphocytes (CBC) 2.0 K/uL (0.7-4.9); Hematocrit 40.5 % (36.0-45.0); Hemoglobin 13.6 g/dL (12.0-15.0); MCH 31.3 pg (27.0-35.0); MCHC 33.6 g/dL (32.0-36.0); MCV 93.1 fL (80-100); MPV 8.8 fL (7.6-11.3); Nucleated RBC Absolute Count 0.0 (0-0); Nucleated Red Blood Cells % 0.0 % (0-0); RBC Red Blood Cell Count 4.35 M/uL (3.86-4.86); White Blood Count 6.30 thou/uL (4.3-10.9)
[2025-05-31 18:33] LABS: ALT/SGPT < 14 U/L (13-56); AST/SGOT < 10 U/L (15-37); Albumin 3.8 g/dL (3.4-5.0); Albumin/Globulin Ratio 1.2 (1.1-1.8); Alkaline Phosphatase 64 U/L (45-117); Anion Gap 5.8 mEq/L (5.0-15.0); BUN Blood Urea Nitrogen 9 mg/dL (7-18); Globulin 3.1 g/dL (2.3-3.5); Glucose Level 95 mg/dL (74-106); Potassium 3.8 mEq/L (3.5-5.1)
--- NOTE | 2025-05-31 19:24 | RAD REPORT ---
EXAMINATION: CT Abdomen Pelvis W Contrast CLINICAL INDICATION: Female, 45 years old. ABD PAIN TECHNIQUE: CT abdomen and pelvis was performed, after the administration of IV contrast[facility]. Axial, sagittal and coronal reconstructions were obtained. One or more of the following dose reduction techniques were used: Automated exposure control, adjustment of the mA and k V according to patient size, and iterative reconstruction. Unless otherwise specified, incidental findings do not require dedicated imaging follow-up. COMPARISON: 08/31/2023 FINDINGS: LOWER CHEST: The visualized lung bases are clear. LIVER: Normal in size and contour. No focal lesion. BILIARY SYSTEM: Status post cholecystectomy. SPLEEN: Normal size. No focal lesion. PANCREAS: No mass, ductal dilation, or izabela-pancreatic fluid. ADRENALS: Normal; no mass. KIDNEYS: Normal size and contour. No hydronephrosis. URINARY BLADDER: Unremarkable. GASTROINTESTINAL TRACT: No evidence of free air, significant intra-abdominal free fluid, bowel obstru ction or abscess. APPENDIX: Appendix surgically absent. LYMPH NODES: No lymphadenopathy. MUSCULOSKELETAL: No acute or suspicious osseous abnormality. ADDITIONAL FINDINGS: Status post hysterectomy. IMPRESSION: No acute or concerning abnormalities seen in the abdomen or pelvis.
--- NOTE | 2025-05-31 19:59 | ER ---
Nurse's Notes [facility] Name: Kavita Kwon Age: 45 yrs Sex: Female : 1980 Arrival Date: 05/31/2025 Time: 16:05 Bed 18 Private MD: Diagnosis: Pelvic and perineal pain Presentation: 05/31 16:33 Chief complaint: Patient states: had burning with urination and frequency last weekend, me1 went to Dr and they did a UA and ordered antibiotics but then called patient and told her that she didn't have a uti and not to take the abx. They did report blood in the urine. Patient reports that since then she has had some bleeding from the urethra and that it is swollen and "looks like the urethra was coming out", today she reports that her vagina is swollen as well. Coronavirus screen: At this time, the client does not indicate any symptoms associated with coronavirus-19. Ebola Screen: No symptoms or risks identified at this time. Initial Sepsis Screen: Does the patient meet any 2 criteria? HR > 90 bpm. Does the patient have a suspected source of infection? No. Patient's initial sepsis screen is negative. Risk Assessment: Do you want to hurt yourself or someone else? Patient reports no desire to harm self or others. Onset of symptoms was May 23, 2025. 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 - Infectious Disease History:: Denies. - Social history:: Smoking status: Patient reports the use of cigarette tobacco products, smokes one pack cigarettes per day. Screenin:19 [facility] ED Fall Risk Assessment (Adult) History of falling in the last 3 months, hb including since admission No falls in past 3 months (0 pts) Confusion or Disorientation No (0 pts) Intoxicated or Sedated No (0 pts) Impaired Gait No (0 pts) Mobility Assist Device Used No (0 pt) Altered Elimination No (0 pt) Score/Fall Risk Level 0 - 2 = Low Risk Oriented to surroundings, Maintained a safe environment, Educated pt \\T\\ family on fall prevention, incl call for assistance when getting out of bed. Abuse screen: Denies threats or abuse. Denies injuries from another. Nutritional screening: No deficits noted. Tuberculosis screening: No symptoms or risk factors identified. 19:49 [facility] ED Fall Risk Assessment (Adult) History of falling in the last 3 months, tb4 including since admission No falls in past 3 months (0 pts) Confusion or Disorientation No (0 pts) Intoxicated or Sedated No (0 pts) Impaired Gait No (0 pts) Mobility Assist Device Used No (0 pt) Altered Elimination No (0 pt) Score/Fall Risk Level 0 - 2 = Low Risk Maintained a safe environment. Abuse screen: Denies threats or abuse. Denies injuries from another. Nutritional screening: No deficits noted. Tuberculosis screening: No symptoms or risk factors identified. Assessment: 17:20 General: Appears in no apparent distress. Behavior is calm, cooperative. Pain: Pain hb currently is 4 out of 10 on a pain scale. Neuro: Level of Consciousness is awake, alert, obeys commands, Oriented to person, place, time, situation. Cardiovascular: Patient's skin is warm and dry. Respiratory: Respiratory effort is even, unlabored, Respiratory pattern is regular, symmetrical. : Reports dysuria. 18:27 Reassessment: Patient appears in no apparent distress at this time. No changes from hb previously documented assessment. Patient and/or family updated on plan of care and expected duration. Pain level reassessed. 19:49 General: Appears in no apparent distress. Behavior is calm, cooperative. Pain: tb4 Complains of pain in right lower quadrant and left lower quadrant Pain does not radiate. Pain currently is 3 out of 10 on a pain scale. Quality of pain is described as pressure. Neuro: Moves all extremities. Full function Gait is steady, Speech is normal, Facial symmetry appears normal. Cardiovascular: Patient's skin is warm and dry. Respiratory: Airway is patent Respiratory effort is even, unlabored, Respiratory pattern is regular, symmetrical. GI: No signs and/or symptoms were reported involving the gastrointestinal system. : Reports Pressure. EENT: No signs and/or symptoms were reported regarding the EENT system. Derm: No signs and/or symptoms reported regarding the dermatologic system. Skin is intact, is healthy with good turgor, Skin is dry, Skin is normal, Skin temperature is warm. Musculoskeletal: Circulation, motion, and sensation intact. Range of motion: intact in all extremities. Vital Signs: 16:33 BP 127 / 97; Pulse 117; Resp 19; Temp 98.4; Pulse Ox 100% ; Weight 54.43 kg; Height 5 me1 ft. 5 in. ; Pain 4/10; 18:27 BP 121 / 77; Pulse 76; Resp 15; Pulse Ox 100% ; hb 19:48 BP 129 / 55; Pulse 80; Resp 19; Pulse Ox 99% on R/A; Pain 3/10; tb4 20:34 BP 139 / 84; Pulse 73; Resp 17; Pulse Ox 99% on R/A; tb4 16:33 Body Mass Index 19.97 (54.43 kg, 165.1 cm) me1 16:33 Pain Scale: Adult me1 19:48 Pain Scale: Adult tb4 ED Course: 16:12 Patient arrived in ED. im 16:12 Alex Fuentes FNP-C is PHCP. dr5 16:12 Alejandro Rm MD is Attending Physician. dr5 16:16 PHCP role handed off by Alex Fuentes FNP-C sb4 16:16 Aury King PA-C is PHCP. sb4 16:39 Triage completed. me1 16:39 Arm band placed on Patient placed in an exam room. me1 17:43 UA Rfx Ozzy Cult if indicated Sent. hb 17:56 Bladder scan completed. 52ml post void bladder scan. ap3 18:09 Initial lab(s) drawn, by labor service representative, sent to lab. Inserted saline lock: 20 gauge in right ts3 antecubital area, using aseptic technique. Blood collected. Flushed with 10 mL NS. 18:15 Malissa Guadalupe, RN is Primary Nurse. hb 19:05 CT Abd/Pelvis - IV Contrast Only In Process Unspecified. EDMS 19:49 Patient has correct armband on for positive identification. Placed in gown. Bed in low tb4 position. Call light in reach. Side rails up X 1. Adult w/ patient. Client placed on continuous cardiac and pulse oximetry monitoring. NIBP monitoring applied. Pulse ox on. Door closed. Lights dimmed. Warm blanket given. 19:49 No provider procedures requiring assistance completed. Urine collected: clean catch tb4 specimen, clear. 19:57 Zandra Riggs MD is Referral Physician. sb4 19:58 Erickson Teresa MD is Referral Physician. sb4 20:31 IV discontinued, intact, bleeding controlled, No redness/swelling at site. Pressure tb4 dressing applied. 20:32 Provided Education on: Take medication as prescribed . tb4 Administered Medications: 18:26 Drug: NS 0.9% IV 1000 ml IV at 1 bolus Per protocol; to be given as a bolus over 60 hb minutes Route: IV; Rate: 1 bolus; Site: right antecubital; 19:47 Follow up: Response: No adverse reaction; IV Status: Completed infusion tb4 18:26 Drug: Hydrocodone-Acetaminophen PO (7.5 mg-325 mg) 1 tabs PO once Route: PO; hb 19:47 Follow up: Response: No adverse reaction; Pain is decreased; RASS: Alert and Calm (0) tb4 Medication: 17:21 VIS not applicable for this client. hb Outcome: 19:58 Discharge ordered by MD. sb4 20:31 Discharged to home ambulatory, with family, tb4 20:31 Condition: stable 20:31 Discharge instructions given to patient, family, Instructed on discharge instructions, follow up and referral plans. Demonstrated understanding of instructions, follow-up care, medications, Prescriptions given X 1, 21:00 Patient left the ED. tb4 Signatures: Dispatcher [employer] EDMalissa Hale RN RN Breanna Brandt RN RN [id number] Aury King, PA-C PA-C sb4 Monica Zaidi Michelle, RN RN me1 Alex Fuentes, BELT POLISHER-C BELT POLISHER-Cdr5 Teresa King RN RN tb4 Colleen Seth ts3
--- NOTE | 2025-05-31 19:59 | EDPHYS ---
Physician Documentation [facility] Name: Kavita Kwon Age: 45 yrs Sex: Female : 1980 Arrival Date: 05/31/2025 Time: 16:05 Bed 18 Private MD: ED Physician Alejandro Rm HPI: 05/31 18:12 This 45 yrs old Female presents to ER via Ambulatory with complaints of Urinary Problem.sb4 18:15 Patient states that she was experiencing UTI symptoms a few days ago. She had a UA done sb4 and was negative for UTI. She states that the burning and stinging has stopped but now she feels like her urethra is bulging out and she is not emptying her bladder. States that she feels bloated and has pressure in her suprapubic region that radiates to her right side. Also endorses low back pain. Denies any nausea or vomiting. Does endorse fever and chills. 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 - Infectious Disease History:: Denies. - Social history:: Smoking status: Patient reports the use of cigarette tobacco products, smokes one pack cigarettes per day. ROS: 18:15 Positive for urinary symptoms, difficulty urinating, sb4 18:15 Respiratory: Negative for shortness of breath, cough, wheezing, and pleuritic chest pain, 18:15 Constitutional: Positive for chills, fever, 18:15 Abdomen/GI: Positive for abdominal pain, of the suprapubic area, 18:15 All other systems are negative, Exam: 18:15 Head/Face: Normocephalic, atraumatic. Eyes: Extra-ocular motions intact. Periorbital sb4 areas with no swelling, redness, or edema. ENT: Mucous membranes moist. Cardiovascular: Regular rate and rhythm with a normal S1 and S2. Respiratory: No increased work of breathing, no retractions or nasal flaring. Skin: Warm, dry with normal turgor. Normal color with no rashes, no lesions, and no evidence of cellulitis. 18:15 Constitutional: The patient appears alert, awake, uncomfortable, 18:15 Abdomen/GI: Inspection: abdomen appears normal, Bowel sounds: normal, Palpation: soft, mild abdominal tenderness, in the suprapubic area, 18:15 : Pelvic Exam: External exam: is normal, no appreciated Bartholin's cyst, no erythema, not excoriated, no evidence of foreign body, no lesions, no ulcerations, no warts seen, the nurse was present for the exam, Vital Signs: 16:33 BP 127 / 97; Pulse 117; Resp 19; Temp 98.4; Pulse Ox 100% ; Weight 54.43 kg; Height 5 me1 ft. 5 in. ; Pain 4/10; 18:27 BP 121 / 77; Pulse 76; Resp 15; Pulse Ox 100% ; hb 19:48 BP 129 / 55; Pulse 80; Resp 19; Pulse Ox 99% on R/A; Pain 3/10; tb4 20:34 BP 139 / 84; Pulse 73; Resp 17; Pulse Ox 99% on R/A; tb4 16:33 Body Mass Index 19.97 (54.43 kg, 165.1 cm) me1 16:33 Pain Scale: Adult me1 19:48 Pain Scale: Adult tb4 MDM: 16:12 Medical Screening Exam initiated dr5 20:12 Differential diagnosis: kidney stone, malignancy, Neoplasm urinary tract infection, sb4 vaginosis. Data reviewed: vital signs, nurses notes, lab test result(s), radiologic studies, and as a result, I will discharge patient. Counseling: I had a detailed discussion with the patient and/or guardian regarding the historical points, exam findings, and any diagnostic results supporting the discharge/admit diagnosis, lab results, radiology results, the need for outpatient follow up, an OB/Gyne specialist, a urologist, to return to the emergency department if symptoms worsen or persist or if there are any questions or concerns that arise at home. 05/31 16:18 Order name: UA Rfx Ozzy Cult if indicated; Complete Time: 18:03 sb4 05/31 17:52 Order name: CBC with Diff; Complete Time: 18:34 sb4 05/31 17:52 Order name: CMP; Complete Time: 18:34 sb4 05/31 17:52 Order name: CT Abd/Pelvis - IV Contrast Only; Complete Time: 19:26 sb4 05/31 16:40 Order name: Bladder Scanner; Complete Time: 17:57 sb4 05/31 16:40 Order name: Gown patient; Complete Time: 16:48 sb4 05/31 17:52 Order name: IV Saline Lock; Complete Time: 18:09 sb4 05/31 17:52 Order name: Labs collected and sent; Complete Time: 18:09 sb4 Administered Medications: 18:26 Drug: NS 0.9% IV 1000 ml IV at 1 bolus Per protocol; to be given as a bolus over 60 hb minutes Route: IV; Rate: 1 bolus; Site: right antecubital; 19:47 Follow up: Response: No adverse reaction; IV Status: Completed infusion tb4 18:26 Drug: Hydrocodone-Acetaminophen PO (7.5 mg-325 mg) 1 tabs PO once Route: PO; hb 19:47 Follow up: Response: No adverse reaction; Pain is decreased; RASS: Alert and Calm (0) tb4 Disposition Summary: 05/31/25 19:58 Discharge Ordered Notes: Location: Home sb4 Problem: new sb4 Symptoms: have improved sb4 Condition: Stable sb4 Diagnosis - Pelvic and perineal pain sb4 Followup: sb4 - With: Zandra Riggs MD - When: As needed - Reason: Recheck today's complaints, Re-evaluation by your physician Followup: sb4 - With: Erickson Teresa MD - When: As needed - Reason: Recheck today's complaints, Re-evaluation by your physician Discharge Instructions: - Discharge Summary Sheet sb4 - Pelvic Pain, Female, [id number] sb4 - Pelvic Organ Prolapse sb4 Forms: - Prescription Opioid Use sb4 - Patient Portal Instructions sb4 - Leadership Thank You Letter sb4 Prescriptions: - Tramadol 50 mg Oral Tablet - take 1 tablet ORAL route every 8 hours as needed; 12 tablet; Refills: 0, sb4 Product Selection Permitted Signatures: Dispatcher [employer] Malissa Steen RN RN Aury King PA-C PABhavaniC sb4 Paty Perez RN RN ny1 Alex Fuentes, SELENA-C DISTRICT ENGINEER-5 Teresa King RN tb4 Corrections: (The following items were deleted from the chart) 16:45 16:18 Test, Urine+[id number].LAB.BRZ ordered. EDMS EDMS
[2025-06-01 02:43] VITALS: TEMP 98.4
[2025-06-01 02:45] VITALS: O2SAT 99
[2025-06-01 02:47] VITALS: BP 139/84
== END 2025-05-31 21:00 | disposition home or self-care (01) ==
LOC: ER 16:05
DX: R10.21 Pelvic and perineal pain right side (principal); F17.210 Nicotine dependence, cigarettes, uncomplicated
CPT/HCPCS: 85025; 36415; 81003; 80053; 74177; 96360; 99284; Q9967; J7030